=== PATIENT | female | born 1955 | race Caucasian/White ===

== ENCOUNTER → 2016-08-14 | Outpatient (CLI) | payer MEDICARE, MEDICAID ==
--- NOTE | 2016-08-15 13:18 | XCELERA REPORT ---
[address] [address] Lower Extremity Arterial Evaluation Name: GLO GARCIA Age: 60 yrs Gender: Female : 1955 Patient Status: Outpatient Patient Location: Study Date: 08/14/2016 01:01 PM Procedure: A color flow and duplex scan of the lower extremity arteries was performed bilaterally with velocity and waveform anaylsis. Reason For Study: PAIN, DECREASED PULSES Ordering Physician: LOGAN CORNEJO Performed By: Anthony Huynh Measurements and Calculations Right Left FLORAL ASSISTANT PSV 251.2 112.5 cm/sec Prox PFA PSV -178.2 -97.4 cm/sec Mid SFA PSV -58.5 cm/sec Dist SFA PSV -257.7 -135.8 cm/sec Dist Pop A PSV 259.3 55.9 cm/sec Prox SALMA PSV 31.0 cm/sec Dist SALMA PSV 65.4 cm/sec Dist INVESTOR PSV -125.7 -110.0 cm/sec Derik Pedis PSV -94.8 -14.3 cm/sec Right Side Arterial Evaluation Normal velocity and triphasic waveform , slight broadening noted in the Common Femoral artery. Biphasic in the Femoral, to the infrageniculate vessels. With well preserved velocity, mild spectral broadening. 20-49 % stenosis at the Femoral artery. Ankle Brachial index was not done due to frequent involuntary movements. Left Side Arterial Evaluation Normal velocity biphasic waveform noted in the Common Femoral artery . occluded Femoral artery with monophasic reconstitution to the infrageniculate vessels. With well preserved velocity, moderate spectral broadening in the Posterior Tibial artery. Occluded Anterior tibial with monophasic reconstitution, severely reduced velocity. Ankle Brachial index was not done due to involuntary movements.. Interpretation Summary Moderate hemodynamically significant lesions in the right lower extremity only, on duplex imaging, at rest. Severe hemodynamically significant lesions in the left lower extremity only, on duplex imaging, at rest. : LOGAN CORNEJO > Logan Cornejo
== END ==
LOC: SP 12:42
PROVIDERS: ATTEND Surgery
DX: M79.605 Pain in left leg (principal); M79.604 Pain in right leg; R09.89 Other specified symptoms and signs involving the circulatory and respiratory systems
CPT/HCPCS: 93925

== ENCOUNTER 2016-09-01 12:29 | Emergency (ER) | payer MEDICARE, MEDICAID ==
--- NOTE | 2016-09-01 13:40 | ER Document Report ---
HPI - HPI Patient complains to provider of: fell last night Onset: Yesterday - evening Quality of pain: Throbbing Pain Level: 3 Context: 61 yo female fell last night at family house, now hurts both lower legs, mostly dorsal right foot which is swollen and bruised. Associated Symptoms: None Exacerbated by: Walking Relieved by: Denies Similar symptoms previously: No Recently seen / treated by doctor: No - ROS ROS below otherwise negative: Yes Systems Reviewed and Negative: Yes All other systems reviewed and negative - CARDIOVASCULAR Cardiovascular: DENIES: Chest pain - REPRODUCTIVE Reproductive: DENIES: : - DERM Skin Color: Normal Past Medical History - General Information source: Patient - Social History Smoking Status: Current Every Day Smoker Frequency of alcohol use: None Drug Abuse: None Lives with: Family Family History: Reviewed & Not Pertinent Patient has suicidal ideation: No Patient has homicidal ideation: No - Past Medical History Cardiac Medical History: Reports: Hx Congestive Heart Failure, Hx Coronary Artery Disease - 3 stents, Hx Heart Attack - x1 , Hx Hypercholesterolemia, Hx Hypertension - on meds Pulmonary Medical History: Reports: Hx Pneumonia - 3 yrs ago Endocrine Medical History: Reports: 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 Renal/ Medical History: Denies: Hx Peritoneal Dialysis Musculoskeltal Medical History: Reports Hx Arthritis - shoulders Past Surgical History: Reports: Hx Section - x 1, Hx Orthopedic Surgery - left leg x 13, right leg x 1 - Immunizations Hx Diphtheria, Pertussis, Tetanus Vaccination: No Hx Pneumococcal Vaccination: 06/08/14 Vertical Provider Document - CONSTITUTIONAL Agree With Documented VS: Yes Exam Limitations: No Limitations General Appearance: Mild Distress Notes: has a walker at home to use - INFECTION CONTROL TRAVEL OUTSIDE OF THE [place] IN LAST 30 DAYS: No - HEENT HEENT: Normocephalic - NECK Neck: Supple - RESPIRATORY Respiratory: Breath Sounds Normal, No Respiratory Distress O2 Sat by Pulse Oximetry: 97 - CARDIOVASCULAR Cardiovascular: Regular Rate, Regular Rhythm - BACK Back: Normal Inspection - MUSCULOSKELETAL/EXTREMETIES Musculoskeletal/Extremeties: Non-Tender - bilateral tibia's, fibula's, Tender - dorsal right foot, bruised - NEURO Level of Consciousness: Awake, Alert Motor/Sensory: No Motor Deficit, No Sensory Deficit - DERM Integumentary: Warm, Dry Course - Re-evaluation Re-evalutation: 09/01/16 15:[address] Germain back the radiologist because there is a fracture in the proximal fourth right metatarsal where she is most tender and bruised. 09/01/16 15:39 dr germain states can't call through imaging if it is fx, but stated if clinically it is fx tx as fx which I was planning on do it. - Vital Signs Vital signs: Temp Pulse Resp BP Pulse Ox 99 F 78 18 146/62 H 97 09/01/16 12:44 09/01/16 12:44 09/01/16 12:44 09/01/16 12:44 09/01/16 12:44 Procedures - Immobilization Right Ankle Time completed: 15:56 Pre-Proc Neuro Vasc Exam: Normal Immobilizer type: Posterior ankle Performed by: PCT Post-Proc Neuro Vasc Exam: Normal Alignment checked and good: Yes Discharge - Discharge Clinical Impression: proximal rt fourth metatarsal fracture Right ankle sprain Qualifiers: Encounter type: initial encounter Involved ligament of ankle: unspecified ligament Qualified Code(s): S93.401A - Sprain of unspecified ligament of right ankle, initial encounter Sprain of left lower leg Qualifiers: Encounter type: initial encounter Qualified Code(s): S83.92XA - Sprain of unspecified site of left knee, initial encounter Condition: Good Disposition: HOME, SELF-CARE Instructions: Splint Precautions ([facility]), Sprained Ankle ([facility]), Foot Fracture ( [facility]) Additional Instructions: use your walker keep the splint dry call saturday for [id number] appt this week Prescriptions: Oxycodone HCl/Acetaminophen [Percocet 5-325 mg Tablet] 1 - 2 tab PO ASDIR PRN # 15 tablet PRN Reason: Referrals: JANKI JONES DO [ACTIVE STAFF] - 09/03/16 (call saturday for appt next week)
[2016-09-01] MEDS ORDERED: ACETAMINOPHEN 325 MG TABLET PO ONE (13:49)
[2016-09-01 15:58] VITALS: BP 169/68
== END 2016-09-01 15:58 | disposition home or self-care (01) ==
LOC: ER 12:29
PROC: 2W3SX1Z Immobilization of Right Foot using Splint (ICD-10-PCS; principal; 2016-09-01)
DX: S92.341A Displaced fracture of fourth metatarsal bone, right foot, initial encounter for closed fracture (principal); S83.92XA Sprain of unspecified site of left knee, initial encounter; S93.401A Sprain of unspecified ligament of right ankle, initial encounter; M79.671 Pain in right foot; M79.604 Pain in right leg; M79.605 Pain in left leg; F17.200 Nicotine dependence, unspecified, uncomplicated; X58.XXXA Exposure to other specified factors, initial encounter
CPT/HCPCS: 99283; 73590 ×2; 73630; 29515; A9270; L1902

== ENCOUNTER → 2017-06-25 | Outpatient (CLI) | payer MEDICARE, MEDICAID ==
--- NOTE | 2017-06-25 10:55 | WOMENS IMAGING REPORT ---
EXAM DESCRIPTION: 3D SCREENING MAMMO BILAT COMPLETED DATE/TIME: 06/25/2017 9:19 am REASON FOR STUDY: ROUTINE SCREENING;Z12.31 Z12.31 ENCNTR SCREEN MAMMOGRAM FOR MALIGNANT NEOPLASM OF SORIN COMPARISON: 06/27/2015. TECHNIQUE: Standard craniocaudal and mediolateral oblique views of each breast recorded using digita l acquisition and breast tomosynthesis. LIMITATIONS: None. FINDINGS: Findings present which are benign by mammographic criteria. No suspicious masses, calcifi cations or architectural distortion. Pertinent benign findings: Stable calcifications, most of which are vascular. Read with the assistance of CAD. .[facility] - R2 Cenova Version 1.3 .[facility] - R2 Cenova Version 1.3 .[facility] - R2 Cenova Version 2.4 .[facility] [place] [place] - R2 Cenova Version 2.4 .[facility] - R2 Undercover Cop Version 9.2 Benign mammographic findings may include one or more of the following: Smooth masses, popcorn/rim/co arse calcifications, asymmetries, post-procedure changes, and lesions with long-standing stability. IMPRESSION: BENIGN MAMMOGRAPHIC FINDINGS. BIRADS 2 BREAST DENSITY: b. There are scattered areas of fibroglandular density. BIRAD: 2 BENIGN FINDING(S) RECOMMENDATION: RECOMMENDATION: ROUTINE SCREENING COMMENT: The patient has been notified of the results by letter per MQSA requirements. Additional no tification policies are in place for contacting patient with suspicious or incomplete findings. Quality ID #[id number]: The [employer] recommends an annual screening mammogram for women aged 40 years or over. This facility utilizes a reminder system to ensure that all patients receive reminder letters, and/or direct phone calls for appointments. This includes reminders for routine scr eening mammograms, diagnostic mammograms, or other Breast Imaging Interventions when appropriate. Th is patient will be placed in the appropriate reminder system. The [employer] (ACR) has developed recommendations for screening MRI of the breast s in certain patient populations, to be used in conjunction with mammography. Breast MRI surveillanc e may be appropriate for women with more than 20% lifetime risk of developing breast cancer as deter mined by genetic testing, significant family history of the disease, or history of mantle radiation f or Hodgkins Disease. ACR Practice Guidelines 2008. DBT Technology DBT is a type of tomographic mammography. With conventional mammography, overlapping breast tissue ma y make lesions difficult to detect, even with good compression. DBT uses an x-ray tube that rotates a round the breast, taking images at different angles. These images are then combined to create thin sl ices of the breast that the radiologist can view as a 3D reconstruction. The [employer] unit can perform full-field digital mammograms (2D imaging); or DBT (3D imaging); or both, in a combination mode that quickly performs both the mammogram and the tomosynthesis scan while the breast is still compressed. PQRS 6045F: Fluoroscopic imaging is not utilized for breast tomosynthesis. TECHNICAL DOCUMENTATION: FINDING NUMBER: (1) ASSESSMENT: (1) JOB ID: [id number] [employer] [place]- All Rights Reserved
== END ==
LOC: WI 09:25
PROVIDERS: ATTEND Internal Medicine
DX: Z12.31 Encounter for screening mammogram for malignant neoplasm of breast (principal)
CPT/HCPCS: 77063; 77067

== ENCOUNTER → 2017-07-05 | Outpatient (CLI) | payer MEDICARE, MEDICAID ==
[2017-07-05 11:33] LABS: INTERNATIONAL RATION (INR) 1.07; PROTHROMBIN TIME 14.7 SEC (11.4-15.4)
[2017-07-05 11:34] LABS: PARTIAL THROMBOPLASTIN TIME 31.3 SEC (23.5-35.8)
== END ==
LOC: OD 09:17
PROVIDERS: ATTEND Physician Assistant
DX: Z51.81 Encounter for therapeutic drug level monitoring (principal); Z79.899 Other long term (current) drug therapy
CPT/HCPCS: 36415; 85610; 85730

== ENCOUNTER 2017-07-19 08:15 | Outpatient (CLI) | payer MEDICARE, MEDICAID ==
[2017-07-19 08:36] VITALS: BP 147/50
[2017-07-19] MEDS ORDERED: FERUMOXYTOL (ESRD) 510 MG/NS 100 ML IV ONE ×2 (09:00)
== END 2017-07-19 10:46 | disposition home or self-care (01) ==
LOC: II 08:15 → 5TH 08:33 → II 10:46
PROVIDERS: ATTEND Internal Medicine Nephrology
PROC: 3E033GC Introduction of Other Therapeutic Substance into Peripheral Vein, Percutaneous Approach (ICD-10-PCS; principal; 2017-07-19)
DX: E61.1 Iron deficiency (principal); N18.9 Chronic kidney disease, unspecified
CPT/HCPCS: 96365; Q0139

== ENCOUNTER 2017-07-26 07:45 | Outpatient (CLI) | payer MEDICARE, MEDICAID ==
[2017-07-26] MEDS ORDERED: FERUMOXYTOL 510 MG in NORMAL SALINE 100 ML IV PRN (07:59)
[2017-07-26 10:32] VITALS: BP 158/74
== END 2017-07-26 10:32 | disposition home or self-care (01) ==
LOC: II 07:45 → 5TH 08:01 → II 10:32
PROVIDERS: ATTEND Internal Medicine Nephrology
PROC: 3E033GC Introduction of Other Therapeutic Substance into Peripheral Vein, Percutaneous Approach (ICD-10-PCS; principal; 2017-07-26)
DX: D50.8 Other iron deficiency anemias (principal); N18.9 Chronic kidney disease, unspecified
CPT/HCPCS: 96365; Q0138

== ENCOUNTER → 2017-08-06 | Outpatient (CLI) | payer MEDICARE, MEDICAID ==
[2017-08-06 12:46] LABS: HEMATOCRIT 34.6 % (36.0-47.0); HEMOGLOBIN 11.1 g/dL (12.0-15.5); MEAN CORPUSCULAR HEMOGLOBIN 29.2 pg (27.0-33.4); MEAN CORPUSCULAR HGB CONC 32.1 g/dL (32.0-36.0); MEAN CORPUSCULAR VOLUME 91 fl (80-97); PLATELET COUNT 136 10^3/uL (150-450); RED BLOOD COUNT 3.81 10^6/uL (3.72-5.28); RED CELL DISTRIBUTION WIDTH 20.5 % (11.5-14.0)
[2017-08-06 13:07] LABS: ANION GAP 6 (5-19); BLOOD UREA NITROGEN 43 mg/dL (7-20); CALCIUM 9.4 mg/dL (8.4-10.2); CARBON DIOXIDE 26 mmol/L (22-30); CHLORIDE 106 mmol/L (98-107); GLUCOSE 76 mg/dL (75-110); POTASSIUM 5.3 mmol/L (3.6-5.0); SODIUM 137.9 mmol/L (137-145)
== END ==
LOC: OD 11:42
PROVIDERS: ATTEND Physician Assistant Medical
DX: N18.4 Chronic kidney disease, stage 4 (severe) (principal); I50.9 Heart failure, unspecified; E87.5 Hyperkalemia; E11.9 Type 2 diabetes mellitus without complications
CPT/HCPCS: 36415; 80048; 85027

== ENCOUNTER → 2017-08-12 | Outpatient (CLI) | payer MEDICARE, MEDICAID ==
--- NOTE | 2017-08-12 09:46 | RADIOLOGY REPORT (SQ) ---
EXAM DESCRIPTION: CHEST PA/LATERAL COMPLETED DATE/TIME: 08/12/2017 9:37 am REASON FOR STUDY: COUGH COMPARISON: CT chest 06/01/2014 Chest films 06/03/2014, 01/21/2015 EXAM PARAMETERS: NUMBER OF VIEWS: two views TECHNIQUE: Digital Frontal and Lateral radiographic views of the chest acquired. RADIATION DOSE: NA LIMITATIONS: none FINDINGS: LUNGS AND PLEURA: No opacities, masses or pneumothorax. No pleural effusion. MEDIASTINUM AND HILAR STRUCTURES: No masses or contour abnormalities. HEART AND VASCULAR STRUCTURES: Moderate cardiomegaly BONES: No acute findings. HARDWARE: None in the chest. OTHER: No other significant finding. IMPRESSION: Moderate cardiomegaly. No acute findings TECHNICAL DOCUMENTATION: JOB ID: [id number] [employer]- All Rights Reserved Reading location - IP/workstation name: [email or web address]
== END ==
LOC: OD 09:21
PROVIDERS: ATTEND Internal Medicine
DX: R05 Cough (principal); I51.7 Cardiomegaly
CPT/HCPCS: 71046

== ENCOUNTER → 2017-08-27 | Outpatient (CLI) | payer MEDICARE, MEDICAID ==
[2017-08-27 14:04] LABS: HEMATOCRIT 34.9 % (36.0-47.0); HEMOGLOBIN 11.4 g/dL (12.0-15.5); MEAN CORPUSCULAR HEMOGLOBIN 28.8 pg (27.0-33.4); MEAN CORPUSCULAR HGB CONC 32.7 g/dL (32.0-36.0); MEAN CORPUSCULAR VOLUME 88 fl (80-97); PLATELET COUNT 129 10^3/uL (150-450); RED BLOOD COUNT 3.96 10^6/uL (3.72-5.28); RED CELL DISTRIBUTION WIDTH 20.7 % (11.5-14.0); WHITE BLOOD COUNT 5.9 10^3/uL (4.0-10.5)
[2017-08-27 14:18] LABS: ANION GAP 5 (5-19); BLOOD UREA NITROGEN 55 mg/dL (7-20); CALCIUM 9.1 mg/dL (8.4-10.2); CARBON DIOXIDE 31 mmol/L (22-30); CHLORIDE 104 mmol/L (98-107); GLUCOSE 160 mg/dL (75-110); IRON(TIBC) 68.9 ug/dL (37-170); POTASSIUM 4.6 mmol/L (3.6-5.0); SODIUM 140.2 mmol/L (137-145)
== END ==
LOC: OD 13:02
PROVIDERS: ATTEND Internal Medicine Nephrology
DX: D64.9 Anemia, unspecified (principal); N18.4 Chronic kidney disease, stage 4 (severe)
CPT/HCPCS: 36415; 80048; 82728; 83540; 83550; 85027

== ENCOUNTER → 2017-11-25 | Outpatient (CLI) | payer MEDICARE, MEDICAID ==
[2017-11-25 15:07] LABS: HEMATOCRIT 29.3 % (36.0-47.0); HEMOGLOBIN 9.9 g/dL (12.0-15.5); MEAN CORPUSCULAR HEMOGLOBIN 33.2 pg (27.0-33.4); MEAN CORPUSCULAR HGB CONC 33.9 g/dL (32.0-36.0); MEAN CORPUSCULAR VOLUME 98 fl (80-97); PLATELET COUNT 157 10^3/uL (150-450); RED BLOOD COUNT 2.99 10^6/uL (3.72-5.28); RED CELL DISTRIBUTION WIDTH 15.8 % (11.5-14.0); WHITE BLOOD COUNT 3.9 10^3/uL (4.0-10.5)
[2017-11-25 15:29] LABS: IRON(TIBC) 48.7 ug/dL (37-170)
== END ==
LOC: OD 14:29
PROVIDERS: ATTEND Internal Medicine Nephrology
DX: N18.4 Chronic kidney disease, stage 4 (severe) (principal); D64.9 Anemia, unspecified
CPT/HCPCS: 36415; 82728; 83540; 83550; 85027

== ENCOUNTER → 2017-12-19 | Outpatient (CLI) | payer MEDICARE, MEDICAID ==
--- NOTE | 2017-12-19 14:49 | RADIOLOGY REPORT (SQ) ---
EXAM DESCRIPTION: KNEE RIGHT 4 VIEWS COMPLETED DATE/TIME: 12/19/2017 2:39 pm REASON FOR STUDY: PAIN IN RT KNEE COMPARISON: None. NUMBER OF VIEWS: Four views. TECHNIQUE: AP, lateral, and both oblique radiographic images acquired of the right knee. LIMITATIONS: None. FINDINGS: MINERALIZATION: OSTEOPENIC BONES: No acute fracture or dislocation. No worrisome bone lesions. JOINT: No definite suprapatellar knee joint effusion. Very mild medial compartment joint space narro wing without bulky bony spurring SOFT TISSUES: Heavy atherosclerotic popliteal artery calcification OTHER: No other significant finding. IMPRESSION: No acute findings. TECHNICAL DOCUMENTATION: JOB ID: [id number] [employer]- All Rights Reserved Reading location - IP/workstation name: [email or web address]
== END ==
LOC: OD 14:19
PROVIDERS: ATTEND Physician Assistant
DX: M25.561 Pain in right knee (principal)

== ENCOUNTER → 2018-02-12 | Outpatient (CLI) | payer MEDICARE, MEDICAID ==
[2018-02-12 12:41] LABS: HEMATOCRIT 31.3 % (36.0-47.0); HEMOGLOBIN 10.5 g/dL (12.0-15.5); MEAN CORPUSCULAR HEMOGLOBIN 31.4 pg (27.0-33.4); MEAN CORPUSCULAR HGB CONC 33.7 g/dL (32.0-36.0); MEAN CORPUSCULAR VOLUME 93 fl (80-97); PLATELET COUNT 215 10^3/uL (150-450); RED BLOOD COUNT 3.36 10^6/uL (3.72-5.28); RED CELL DISTRIBUTION WIDTH 15.4 % (11.5-14.0); WHITE BLOOD COUNT 5.3 10^3/uL (4.0-10.5)
[2018-02-12 12:54] LABS: IRON(TIBC) 11.3 ug/dL (37-170)
== END ==
LOC: OD 11:31
PROVIDERS: ATTEND Physician Assistant Medical
DX: N18.4 Chronic kidney disease, stage 4 (severe) (principal); D64.9 Anemia, unspecified
CPT/HCPCS: 36415; 82728; 83540; 83550; 85027

== ENCOUNTER → 2018-02-18 | Outpatient (CLI) | payer MEDICARE, MEDICAID ==
--- NOTE | 2018-02-18 11:53 | RADIOLOGY REPORT (SQ) ---
EXAM DESCRIPTION: CHEST PA/LATERAL COMPLETED DATE/TIME: 02/18/2018 10:29 am REASON FOR STUDY: COUGH COMPARISON: 08/12/2017 TECHNIQUE: Frontal and lateral radiographic views of the chest acquired. NUMBER OF VIEWS: Two view. LIMITATIONS: None. FINDINGS: LUNGS AND PLEURA: Indistinct vessels, interstitial changes. No significant pleural effusi on or pneumonia. Trace fluid in the fissures. MEDIASTINUM AND HILAR STRUCTURES: No masses or contour abnormalities. HEART AND VASCULAR STRUCTURES: Cardiac enlargement. BONES: No acute findings. HARDWARE: None in the chest. OTHER: No other significant finding. IMPRESSION: Suspect mild CHF. TECHNICAL DOCUMENTATION: JOB ID: [id number] [employer]- All Rights Reserved Reading location - IP/workstation name: [email or web address]
== END ==
LOC: OD 10:16
PROVIDERS: ATTEND Internal Medicine
DX: R05 Cough (principal)
CPT/HCPCS: 71046

== ENCOUNTER 2018-02-20 08:21 | Outpatient (CLI) | payer MEDICARE, MEDICAID ==
[~2018-02-20 08:21] MED LIST: FERRIC CARBOXYMALTOSE 750 MG in NORMAL SALINE 100 ML IV PRN
[2018-02-20 08:51] VITALS: BP 156/72
== END 2018-02-20 09:51 | disposition home or self-care (01) ==
LOC: II 08:21 → 5TH 08:22 → II 09:51
PROVIDERS: ATTEND Internal Medicine Nephrology
PROC: 3E033GC Introduction of Other Therapeutic Substance into Peripheral Vein, Percutaneous Approach (ICD-10-PCS; principal; 2018-02-20)
DX: D50.8 Other iron deficiency anemias (principal)
CPT/HCPCS: 96365; J1439

== ENCOUNTER 2018-02-27 08:30 | Outpatient (CLI) | payer MEDICARE, MEDICAID ==
[2018-02-27 09:14] VITALS: BP 185/70
== END 2018-02-27 10:16 | disposition home or self-care (01) ==
LOC: II 08:30 → 5TH 08:31 → II 10:16
PROVIDERS: ATTEND Internal Medicine Nephrology
PROC: 3E033GC Introduction of Other Therapeutic Substance into Peripheral Vein, Percutaneous Approach (ICD-10-PCS; principal; 2018-02-27)
DX: D50.8 Other iron deficiency anemias (principal)
CPT/HCPCS: 96367; J1439; 96365

== ENCOUNTER → 2018-03-11 | Outpatient (CLI) | payer MEDICARE, MEDICAID ==
[2018-03-11 14:25] LABS: HEMATOCRIT 35.1 % (36.0-47.0); HEMOGLOBIN 11.7 g/dL (12.0-15.5); MEAN CORPUSCULAR HEMOGLOBIN 31.2 pg (27.0-33.4); MEAN CORPUSCULAR HGB CONC 33.4 g/dL (32.0-36.0); MEAN CORPUSCULAR VOLUME 93 fl (80-97); PLATELET COUNT 182 10^3/uL (150-450); RED BLOOD COUNT 3.75 10^6/uL (3.72-5.28); RED CELL DISTRIBUTION WIDTH 16.5 % (11.5-14.0); WHITE BLOOD COUNT 4.8 10^3/uL (4.0-10.5)
[2018-03-11 14:27] LABS: APPEARANCE,URINE SLIGHTLY-CLOUDY; BILIRUBIN,URINE NEGATIVE (NEGATIVE); COLOR,URINE YELLOW; GLUCOSE, URINE 150 mg/dL (NEGATIVE); KETONES,URINE NEGATIVE (NEGATIVE); LEUKOCYTE ESTERASE,URINE TRACE (NEGATIVE); NITRITE,URINE NEGATIVE (NEGATIVE); PROTEIN,URINE 100 mg/dL (NEGATIVE); URINE SPECIFIC GRAVITY 1.013; UROBILINOGEN,URINE NEGATIVE mg/dL (<2.0)
[2018-03-11 14:49] LABS: ANION GAP 8 (5-19); BLOOD UREA NITROGEN 57 mg/dL (7-20); CALCIUM 9.6 mg/dL (8.4-10.2); CARBON DIOXIDE 33 mmol/L (22-30); CHLORIDE 100 mmol/L (98-107); GLUCOSE 91 mg/dL (75-110); POTASSIUM 4.1 mmol/L (3.6-5.0); SODIUM 141.3 mmol/L (137-145)
== END ==
LOC: OD 13:08
PROVIDERS: ATTEND Physician Assistant Medical
DX: I12.9 Hypertensive chronic kidney disease with stage 1 through stage 4 chronic kidney disease, or unspecified chronic kidney disease (principal); E11.22 Type 2 diabetes mellitus with diabetic chronic kidney disease; N18.4 Chronic kidney disease, stage 4 (severe); R60.9 Edema, unspecified; D64.9 Anemia, unspecified
CPT/HCPCS: 36415; 80048; 81001; 85027

== ENCOUNTER 2018-05-01 15:00 | Emergency (ER) | payer MEDICARE, MEDICAID ==
--- NOTE | 2018-05-01 15:37 | ER Document Report ---
ED Medical Screen (RME) - General Chief Complaint: Flank Pain Stated Complaint: FLANK PAIN Time Seen by Provider: 05/01/18 15:32 Notes: 60-year-old female patient stage IV renal disease. She complains of left flank pain. She had this pain 3 weeks ago and was treated with pain medication. Pain returned 2 days ago[address] She states Dr. Hussein instructed her to come to the emergency room to have a workup done. I have greeted and performed a rapid initial assessment of this patient. A comprehensive ED assessment and evaluation of the patient, analysis of test results and completion of the medical decision making process will be conducted by additional ED providers. TRAVEL OUTSIDE OF THE [place] IN LAST 30 DAYS: No - Related Data Allergies/Adverse Reactions: Penicillins Allergy (Severe, Verified 03/09/17 23:58) Childhood reaction vancomycin [Vancomycin] Allergy (Severe, Verified 03/09/17 23:58) Damaged her kidneys Past Medical History - Past Medical History Cardiac Medical History: Reports: Hx Congestive Heart Failure, Hx Coronary Artery Disease - 3 stents, Hx Heart Attack - x1 , Hx Hypercholesterolemia, Hx Hypertension - on meds Pulmonary Medical History: Reports: Hx Pneumonia - 3 yrs ago Denies: Hx Asthma, Hx Bronchitis, Hx COPD Neurological Medical History: Denies: Hx Cerebrovascular Accident, Hx Seizures Endocrine Medical History: Reports: 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 Renal/ Medical History: Denies: Hx Peritoneal Dialysis Musculoskeltal Medical History: Reports Hx Arthritis - shoulders Psychiatric Medical History: Denies: Hx Depression Past Surgical History: Reports: Hx Section - x 1, Hx Orthopedic Surgery - left leg x 13, right leg x 1 - Immunizations Hx Diphtheria, Pertussis, Tetanus Vaccination: No Physical Exam - Vital signs Vitals: Temp Pulse Resp BP Pulse Ox 98.5 F 72 18 175/72 H 99 05/01/18 15:06 05/01/18 15:06 05/01/18 15:06 05/01/18 15:06 05/01/18 15:06 Course - Vital Signs Vital signs: Temp Pulse Resp BP Pulse Ox 98.5 F 72 18 175/72 H 99 05/01/18 15:06 05/01/18 15:06 05/01/18 15:06 05/01/18 15:06 05/01/18 15:06 Doctor's Discharge - Discharge Referrals: Yuliana HUSSEIN MD [Primary Care Provider] - Follow up as needed
[2018-05-01 16:09] LABS: ABSOLUTE BASOPHILS # (AUTO) 0.1 10^3/uL (0.0-0.2); ABSOLUTE EOSINOPHILS # (AUTO) 0.1 10^3/uL (0.0-0.6); ABSOLUTE LYMPHOCYTES (AUTO) 0.6 10^3/uL (0.5-4.7); ABSOLUTE MONOCYTES (AUTO) 0.3 10^3/uL (0.1-1.4); ABSOLUTE NEUT (AUTO) 2.1 10^3/uL (1.7-8.2); BASOPHILS % (AUTO) 2.4 % (0-2); EOSINOPHILS % (AUTO) 4.5 % (0-6); HEMATOCRIT 36.9 % (36.0-47.0); LYMPHOCYTES % (AUTO) 17.7 % (13-45); MEAN CORPUSCULAR HEMOGLOBIN 32.1 pg (27.0-33.4); MEAN CORPUSCULAR HGB CONC 32.4 g/dL (32.0-36.0); MEAN CORPUSCULAR VOLUME 99 fl (80-97); PLATELET COUNT 128 10^3/uL (150-450); RED BLOOD COUNT 3.73 10^6/uL (3.72-5.28); RED CELL DISTRIBUTION WIDTH 16.7 % (11.5-14.0); SEGMENTED NEUTROPHILS % (AUTO) 66.4 % (42-78); TOTAL CELLS COUNTED % (AUTO) 100 %; WHITE BLOOD COUNT 3.2 10^3/uL (4.0-10.5)
[2018-05-01 16:16] LABS: APPEARANCE,URINE SLIGHTLY-CLOUDY; BILIRUBIN,URINE NEGATIVE (NEGATIVE); COLOR,URINE YELLOW; GLUCOSE, URINE >=500 mg/dL (NEGATIVE); KETONES,URINE NEGATIVE (NEGATIVE); LEUKOCYTE ESTERASE,URINE TRACE (NEGATIVE); NITRITE,URINE NEGATIVE (NEGATIVE); PROTEIN,URINE >=500 mg/dL (NEGATIVE); URINE SPECIFIC GRAVITY 1.012; UROBILINOGEN,URINE NEGATIVE mg/dL (<2.0)
--- NOTE | 2018-05-01 16:29 | RADIOLOGY REPORT (SQ) ---
EXAM DESCRIPTION: CT LTD RENAL STONE PROTOCOL ON COMPLETED DATE/TIME: 05/01/2018 4:09 pm REASON FOR STUDY: L flank pain COMPARISON: None. TECHNIQUE: CT scan of the abdomen and pelvis performed without intravenous or oral contrast. Images reviewed with lung, soft tissue, and bone windows. Reconstructed coronal and sagittal MPR images revi ewed. All images stored on PACS. All CT scanners at this facility use dose modulation, iterative reconstruction, and/or weight based d osing when appropriate to reduce radiation dose to as low as reasonably achievable (ALARA). [facility]: Dose Right [facility]: CareDose [facility]: Dose Right [facility]: Teradose 4D [facility]: Lendinero RADIATION DOSE: CT Rad equipment meets quality standard of care and radiation dose reduction techniq ues were employed. CTDIvol: 7.9 mGy. DLP: 394 mGy-cm.mGy. LIMITATIONS: None. FINDINGS: LOWER CHEST: No significant findings. No nodules or infiltrates. NON-CONTRASTED LIVER, SPLEEN, ADRENALS: Evaluation limited by lack of IV contrast. No identified sign ificant masses. PANCREAS: No masses. No peripancreatic inflammatory changes. GALLBLADDER: Surgically absent. RIGHT KIDNEY AND URETER: No suspicious masses. Assessment limited by lack of IV contrast. No signif icant calcifications. No hydronephrosis or hydroureter. LEFT KIDNEY AND URETER: 1 cm hyperdense cortical lesion arising from the upper pole. Assessment limit ed by lack of IV contrast. No significant calcifications. No hydronephrosis or hydroureter. AORTA AND RETROPERITONEUM: Extensive vascular calcifications. No aneurysm. No retroperitoneal masses or adenopathy. BOWEL AND PERITONEAL CAVITY: No obvious masses or inflammatory changes. No free fluid. APPENDIX: Normal. PELVIS, BLADDER, AND ABDOMINAL WALL:No abnormal masses. No free fluid. Bladder normal. BONES: No significant findings. OTHER: No other significant finding. IMPRESSION: PROBABLE HEMORRHAGIC CYST IN THE UPPER POLE OF THE LEFT KIDNEY. NO OTHER SIGNIFICANT OR ACUTE PROCESS IN THE ABDOMEN OR PELVIS. EXTENSIVE VASCULAR CALCIFICATIONS. COMMENT: Quality ID # [id number]: Final reports with documentation of one or more dose reduction techniques (e.g., Automated exposure control, adjustment of the mA and/or kV according to patient size, use of iterative reconstruction technique) TECHNICAL DOCUMENTATION: JOB ID: [id number] [employer]- All Rights Reserved Reading location - IP/workstation name: [email or web address]
[2018-05-01 16:30] LABS: ALANINE AMINOTRANSFERASE 25 U/L (9-52); ALBUMIN 3.6 g/dL (3.5-5.0); ALKALINE PHOSPHATASE 114 U/L (38-126); ANION GAP 9 (5-19); ASPARTATE AMINO TRANSFERASE 32 U/L (14-36); BILIRUBIN,DIRECT 0.6 mg/dL (0.0-0.4); BILIRUBIN,TOTAL 0.7 mg/dL (0.2-1.3); BLOOD UREA NITROGEN 64 mg/dL (7-20); CALCIUM 9.5 mg/dL (8.4-10.2); CARBON DIOXIDE 27 mmol/L (22-30); CHLORIDE 101 mmol/L (98-107); GLUCOSE 200 mg/dL (75-110); POTASSIUM 5.1 mmol/L (3.6-5.0); SODIUM 137.3 mmol/L (137-145); TOTAL PROTEIN 7.2 g/dL (6.3-8.2)
--- NOTE | 2018-05-01 16:37 | ER Document Report ---
ED General - General Chief Complaint: Flank Pain Stated Complaint: FLANK PAIN Time Seen by Provider: 05/01/18 15:32 Mode of Arrival: Ambulatory Information source: Patient Notes: 6-year-old female with stage IV renal disease presents emergency department complaints of left flank pain. Patient states that she has had this pain intermittently over the last 3 weeks. Patient states that 3 weeks ago she was given a prescription for pain medication and the pain resolved. She states that her return 2 days ago. She describes the pain as an aching sensation in the left flank. She states that she cannot get comfortable. It is constant. No radiation. No exacerbating factors. Patient states that the Percocet prescribed by her pain management for her chronic back and leg pain helps with t he pain. Patient denies any nausea, vomiting, diarrhea, constipation, dysuria, hematuria. She denies a history of kidney stones. Patient states that she is not a dialysis patient yet. TRAVEL OUTSIDE OF THE [place] IN LAST 30 DAYS: No - Related Data Allergies/Adverse Reactions: Penicillins Allergy (Severe, Verified 03/09/17 23:58) Childhood reaction vancomycin [Vancomycin] Allergy (Severe, Verified 03/09/17 23:58) Damaged her kidneys Past Medical History - Social History Smoking Status: Unknown if Ever Smoked Family History: Reviewed & Not Pertinent Patient has suicidal ideation: No Patient has homicidal ideation: No - Past Medical History Cardiac Medical History: Reports: Hx Congestive Heart Failure, Hx Coronary Artery Disease - 3 stents, Hx Heart Attack - x1 , Hx Hypercholesterolemia, Hx Hypertension - on meds Pulmonary Medical History: Reports: Hx Pneumonia - 3 yrs ago Denies: Hx Asthma, Hx Bronchitis, Hx COPD Neurological Medical History: Denies: Hx Cerebrovascular Accident, Hx Seizures Endocrine Medical History: Reports: 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 Renal/ Medical History: Denies: Hx Peritoneal Dialysis Musculoskeletal Medical History: Reports Hx Arthritis - shoulders Psychiatric Medical History: Denies: Hx Depression Past Surgical History: Reports: Hx Section - x 1, Hx Orthopedic Surgery - left leg x 13, right leg x 1 - Immunizations Hx Diphtheria, Pertussis, Tetanus Vaccination: No Hx Pneumococcal Vaccination: 06/08/14 Physical Exam - Vital signs Vitals: Temp Pulse Resp BP Pulse Ox 98.5 F 72 18 175/72 H 99 05/01/18 15:06 05/01/18 15:06 05/01/18 15:06 05/01/18 15:06 05/01/18 15:06 Course - Re-evaluation Re-evalutation: 05/01/18 17:49 EKG: Ventricular rate 68, AR interval 192, castration 126, QTc 469, sinus rhythm, left ventricular hypertrophy, no ST segment elevation. 05/01/18 18:[address] Hussein, nephrology. He feels that the hemorrhagic cyst is what is causing patient's discomfort. He states that he will see her in follow-up. He said to call the office to make an appointment for next week. He went over the labs. He recommends collectively for the hyperkalemia. Patient's creatinine is stable. I discussed the plan of care with the patient. She is comfortable with discharge home and following up with Dr. Hussein next week. Patient sees pain management. I will not be writing her any additional narcotic prescriptions. Patient states that she is currently on Percocet. Patient does state that this helps with her pain. Patient instructed to continue taking medication as directed and to return for any worsening symptoms. 05/01/18 18:51 - Vital Signs Vital signs: Temp Pulse Resp BP Pulse Ox 98.5 F 72 18 175/72 H 99 05/01/18 15:06 05/01/18 15:06 05/01/18 15:06 05/01/18 15:06 05/01/18 15:06 - Laboratory Result Diagrams: 05/01/18 15:58 05/01/18 15:58 Laboratory results interpreted by me: 05/01/18 05/01/18 05/01/18 15:50 15:58 15:58 WBC 3.2 L MCV 99 H RDW 16.7 H Plt Count 128 L Basophils % 2.4 H PT APTT Potassium 5.1 H BUN 64 H Creatinine 3.57 H Est GFR ( Amer) 16 L Est GFR (Non-Af Amer) 13 L Glucose 200 H Direct Bilirubin 0.6 H Urine Protein >=500 H Urine Glucose (UA) >=500 H Ur Leukocyte Esterase TRACE H 05/01/18 18:14 WBC MCV RDW Plt Count Basophils % PT 16.1 H APTT 37.7 H Potassium BUN Creatinine Est GFR ( Amer) Est GFR (Non-Af Amer) Glucose Direct Bilirubin Urine Protein Urine Glucose (UA) Ur Leukocyte Esterase Discharge - Discharge Clinical Impression: Cyst of left kidney, Hyperkalemia Chronic renal failure Qualifiers: Chronic kidney disease stage: unspecified stage Qualified Code(s): N18.9 - Chronic kidney disease, unspecified Condition: Stable Instructions: Kidney Failure ([facility]) Referrals: Yuliana HUSSEIN MD [Primary Care Provider] - Follow up as needed
[2018-05-01] MEDS ORDERED: SODIUM POLYSTYRENE SULFONATE 15 GM/60 ML PO ONE (16:57)
[2018-05-01] MEDS ORDERED: MORPHINE SULFATE 10 MG/ML INJ IV ONE (16:57)
--- NOTE | 2018-05-01 18:14 | EKG REPORT ---
SEVERITY:- ABNORMAL ECG - SINUS RHYTHM NONSPECIFIC IVCD WITH LAD LEFT VENTRICULAR HYPERTROPHY PROBABLE INFERIOR INFARCT, AGE INDETERMINATE : Confirmed by: Dandy Gomez MD 01-May-2018 18:13:23
[2018-05-01 18:32] LABS: INTERNATIONAL RATION (INR) 1.23; PROTHROMBIN TIME 16.1 SEC (11.4-15.4)
[2018-05-01 18:33] LABS: PARTIAL THROMBOPLASTIN TIME 37.7 SEC (23.5-35.8)
[2018-05-01 20:53] VITALS: BP 167/71
== END 2018-05-01 21:09 | disposition home or self-care (01) ==
LOC: ER 15:00
DX: N28.1 Cyst of kidney, acquired (principal); N18.9 Chronic kidney disease, unspecified; R10.9 Unspecified abdominal pain; E11.22 Type 2 diabetes mellitus with diabetic chronic kidney disease; I13.0 Hypertensive heart and chronic kidney disease with heart failure and stage 1 through stage 4 chronic kidney disease, or unspecified chronic kidney disease; Z79.4 Long term (current) use of insulin; I25.10 Atherosclerotic heart disease of native coronary artery without angina pectoris; I50.9 Heart failure, unspecified; I25.2 Old myocardial infarction; E78.00 Pure hypercholesterolemia, unspecified; E87.5 Hyperkalemia; Z88.0 Allergy status to penicillin; Z88.3 Allergy status to other anti-infective agents
CPT/HCPCS: 93005; 99285; 96374; 36415; 85025; 85610; 85730; 80053; 81001; 76380; 93010; J2270

== ENCOUNTER → 2018-07-10 | Outpatient (CLI) | payer MEDICARE, MEDICAID ==
--- NOTE | 2018-07-11 11:58 | WOMENS IMAGING REPORT ---
EXAM DESCRIPTION: 3D SCREENING MAMMO BILAT COMPLETED DATE/TIME: 07/10/2018 11:18 am REASON FOR STUDY: ROUTINE 3D BILATERAL SCREENING,Z12.31 Z12.31 ENCNTR SCREEN MAMMOGRAM FOR MALIGNAN T NEOPLASM OF SORIN COMPARISON: 2015, 2017 TECHNIQUE: Standard craniocaudal and mediolateral oblique views of each breast recorded using digita l acquisition and breast tomosynthesis. LIMITATIONS: None. FINDINGS: No masses, calcifications or architectural distortion. No areas of suspicion. Read with the assistance of CAD. .[facility] - R2 Cenova Version 1.3 .[facility] - R2 Cenova Version 2.1 .[facility] - R2 Cenova Version 2.4 .[facility] - R2 Cenova Version 2.4 .[facility] - R2 [employer] Version 9.2 IMPRESSION: NORMAL MAMMOGRAM. BIRADS 1. BREAST DENSITY: b. There are scattered areas of fibroglandular density. BIRAD: 1 NEGATIVE RECOMMENDATION: ROUTINE SCREENING COMMENT: The patient has been notified of the results by letter per SA requirements. Additional no tification policies are in place for contacting patient with suspicious or incomplete findings. Quality ID #[id number]: The [employer] recommends an annual screening mammogram for women aged 40 years or over. This facility utilizes a reminder system to ensure that all patients receive reminder letters, and/or direct phone calls for appointments. This includes reminders for routine scr eening mammograms, diagnostic mammograms, or other Breast Imaging Interventions when appropriate. Th is patient will be placed in the appropriate reminder system. The [employer] (ACR) has developed recommendations for screening MRI of the breast s in certain patient populations, to be used in conjunction with mammography. Breast MRI surveillanc e may be appropriate for women with more than 20% lifetime risk of developing breast cancer as deter mined by genetic testing, significant family history of the disease, or history of mantle radiation f or Hodgkins Disease. ACR Practice Guidelines 2008. DBT Technology DBT is a type of tomographic mammography. With conventional mammography, overlapping breast tissue ma y make lesions difficult to detect, even with good compression. DBT uses an x-ray tube that rotates a round the breast, taking images at different angles. These images are then combined to create thin sl ices of the breast that the radiologist can view as a 3D reconstruction. The Intrusic unit can perform full-field digital mammograms (2D imaging); or DBT (3D imaging); or both, in a combination mode that quickly performs both the mammogram and the tomosynthesis scan while the breast is still compressed. PQRS 6045F: Fluoroscopic imaging is not utilized for breast tomosynthesis. TECHNICAL DOCUMENTATION: FINDING NUMBER: (1) ASSESSMENT: (1) JOB ID: [id number] [employer]- All Rights Reserved Reading location - IP/workstation name: [email or web address]
== END ==
LOC: WI 10:49
PROVIDERS: ATTEND Internal Medicine
DX: Z12.31 Encounter for screening mammogram for malignant neoplasm of breast (principal)
CPT/HCPCS: 77063; 77067

== ENCOUNTER → 2018-07-21 | Outpatient (CLI) | payer MEDICARE, MEDICAID ==
[2018-07-21 16:55] LABS: HEMATOCRIT 32.2 % (36.0-47.0); HEMOGLOBIN 10.9 g/dL (12.0-15.5); MEAN CORPUSCULAR HEMOGLOBIN 32.9 pg (27.0-33.4); MEAN CORPUSCULAR HGB CONC 33.8 g/dL (32.0-36.0); MEAN CORPUSCULAR VOLUME 97 fl (80-97); PLATELET COUNT 159 10^3/uL (150-450); RED BLOOD COUNT 3.32 10^6/uL (3.72-5.28)
[2018-07-21 16:59] LABS: APPEARANCE,URINE SLIGHTLY-CLOUDY; BILIRUBIN,URINE NEGATIVE (NEGATIVE); COLOR,URINE YELLOW; GLUCOSE, URINE >=500 mg/dL (NEGATIVE); KETONES,URINE NEGATIVE (NEGATIVE); LEUKOCYTE ESTERASE,URINE NEGATIVE (NEGATIVE); NITRITE,URINE NEGATIVE (NEGATIVE); PROTEIN,URINE 100 mg/dL (NEGATIVE); URINE SPECIFIC GRAVITY 1.012; UROBILINOGEN,URINE NEGATIVE mg/dL (<2.0)
[2018-07-21 17:08] LABS: ANION GAP 11 (5-19); BLOOD UREA NITROGEN 60 mg/dL (7-20); CALCIUM 10.3 mg/dL (8.4-10.2); CARBON DIOXIDE 23 mmol/L (22-30); CHLORIDE 103 mmol/L (98-107); GLUCOSE 211 mg/dL (75-110); POTASSIUM 4.7 mmol/L (3.6-5.0); SODIUM 136.6 mmol/L (137-145)
== END ==
LOC: OD 16:17
PROVIDERS: ATTEND Physician Assistant Medical
DX: N18.4 Chronic kidney disease, stage 4 (severe) (principal)
CPT/HCPCS: 36415; 80048; 81001; 85027

== ENCOUNTER → 2018-08-07 | Day surgery (SDC) | payer MEDICARE, MEDICAID ==
[~2018-08-07] MED LIST changes: +BUPIVACAINE HCL 0.5 % INJ/PF 30 ML SDV ONE; -FERRIC CARBOXYMALTOSE 750 MG in NORMAL SALINE 100 ML IV PRN; +LIDOCAINE 1% INJ-PF (10 MG/ML) 30 ML SDV ONE
--- NOTE | 2018-08-07 10:20 | Operative Report ---
PREOPERATIVE DIAGNOSIS: Spondylolisis without myopathy or radiculopathy M47.818// Lumbar Sacral Spondylolisis without myopathy or radiculopathy M47.817 POSTOPERATIVE DIAGNOSIS:Spondylolisis without myopathy or radiculopathy M47.818// Lumbar Sacral Spondylolisis without myopathy or radiculopathy M47.817 PROCEDURE: 1. Radiofrequency Ablation of bilateral L5 dorsal Ramus 2. Sacroiliac Joint Ablation - Lateral Branches of bilateral S1, S2, S3 DATE OF PROCEDURE: August 05, 2018 ANESTHESIA: Local COMPLICATIONS: None CONSENT: A full description of the procedure was provided including benefits as well as possible complications. All questions were answered and informed consent was given and signed. ASA guidelines for fasting were verified prior to sed ation. PROCEDURE IN DETAIL The patient was brought into the fluoroscopy suite and carefully assisted into the prone position on the fluoroscopy table and allowed to adjust to a position of comfort. A grounding pad was placed on the right thigh. The low back and buttocks were widely prepped with a chloraprep solution, allowed to air dry and draped in standard sterile surgical fashion. Local anesthesia was provided by 12 mL of 1 % lidocaine delivered with a 25 g needle. PROCEDURE #1: Radiofrequency Ablation of Dorsal Ramus of bilateral L5. A 17g 100mm radiofrequency introducer needle was placed to the planned anatomic target, guided with intermittent fluoroscopy with a perpendicular approach, to terminally place at the bilateral sacral ala. The stylets were removed and the radiofrequency probes with a 4mm active tip were then inserted. Needle tip position of the probes were verified in the AP, oblique, and lateral views. At each site, the medial branch nerve was stimulated at 2Hz to a maximum of 1- 2volts determined to finalize safe needle and electrode placement. The patient was awake and responsive during this portion of the procedure. Each target was anesthetized with 2mL of 2 % Sensorcaine anesthesia for lesioning and then each target was lesioned at 80 degrees Celsius for 2 minutes and 30 seconds. Tissue impedences were noted to be between 250 and 500 Ohms. PROCEDURE #2: Radiofrequency Ablation of bilateral S1, S2, S3 Lateral Branches Using the AP fluoroscopic view for visualization of the lateral PSFA as defined by the pre-placed 27-gauge Quincke needles, appropriate skin starting positions were defined. Using the PSFA as a "clock-face", the positions were: S1; bilateral = 1 and 5 oclock S2; bilateral = 1 and 5 oclock S3; bilateral = 3 oclock Using fluoroscopic guidance, a 17g introducer needle was inserted sequentially onto the target positions described above until the introducer tip touched the bony surface of the sacrum. The stylet was withdrawn from the introducer and the radiofrequency probe with a 4 mm active tip was fully inserted into the introducer. A lateral view was obtained for standard reference. At each of the targets, needle placement was verified with the use of multi-planar fluoroscopy. The needle tip position was approximately 7 - 10mm lateral to the PSFA as determined by using an Epsilon ruler. At each site, the lateral branch nerve was stimulated at 2 Hz to a maximum of 1- 2 volts determined to finalize safe needle and electrode placement. The patient was awake and responsive during this portion of the procedure. Each target was anesthetized with 2 mL of 2 % Sensorcaine anesthesia for lesioning and then each target was lesioned at 80 degrees Celsius for 2 minutes and 30 seconds. Tissue impedences were noted to be between 250- 500 Ohms. At the conclusion of the lesioning the needles were removed and bandages placed over the needle placement sites and the patient returned to the supine position on a stretcher and transported to the recovery room without hemodynamic, neurologic, or allergic reactions. Fluoroscopic images were printed for hard copy recording and digitally archived. FLUOROSCOPIC INTERPRETATION: Appropriate epidurogram obtained. Appropriate lesioning of the 10 targets noted. POST PROCEDURE EVALUATION: The patient was comfortable in the recovery room. The patient is aware that pain may worsen before remitting and 4 6 weeks may be required prior to the onset of pain relief. IMPRESSION: 1. Technically successful sacral lateral branch, lumbar dorsal ramus for denervation from L5-S3 on the bilateral without complication. 2. RTC in 2 weeks. 3. Estimated Blood Loss: None 4. Fluoroscopy time: 30 seconds
== END ==
LOC: RAD 08:38
PROVIDERS: ATTEND Family Medicine
DX: M47.817 Spondylosis without myelopathy or radiculopathy, lumbosacral region (principal); M47.818 Spondylosis without myelopathy or radiculopathy, sacral and sacrococcygeal region
CPT/HCPCS: 64635; 64640 ×3; J3490 ×2

== ENCOUNTER 2018-09-25 18:27 | Emergency (ER) | payer MEDICARE, MEDICAID ==
[2018-09-25] MEDS ORDERED: OXYCODONE-ACETAMINOPHEN 5-325 MG TABLET PO ONE (20:03)
[2018-09-25] MEDS ORDERED: ONDANSETRON 4 MG TAB.RAPDIS PO ONE (20:04)
--- NOTE | 2018-09-25 20:07 | ER Document Report ---
ED Medical Screen (RME) - General Chief Complaint: Flank Pain Stated Complaint: FLANK PAIN Time Seen by Provider: 09/25/18 19:59 Primary Care Provider: EDSON ORTEGA PA-C [Primary Care Provider] - Follow up as needed Notes: 63-year-old female coming in today with left flank pain that started last night. Patient has a chronic history of chronic kidney disease stating that she has been functioning at about 13% for many years. She was told to come in to have a "work-up done" including labs and CT scan to have this kidney check. She states back in April someone told her that there was possibly a mass on her left kidney that was causing some problems. This is not been checked into since that time. She has no urinary symptoms. No fevers or shaking chills. No nausea or vomiting. I have treated and performed a rapid initial assessment of this patient. A comprehensive ED assessment and evaluation of the patient, analysis of test results and completion of medical decision making process will be conducted by additional ED providers. PHYSICAL EXAMINATION: GENERAL: Well-appearing, well-nourished and in no acute distress. A&Ox4. Answers questions appropriately. LUNGS: Breath sounds clear to auscultation bilaterally and equal. No wheezes rales or rhonchi. HEART: Regular rate and rhythm without murmurs, rubs, gallops. ABDOMEN: No CVA tenderness TRAVEL OUTSIDE OF THE [place] IN LAST 30 DAYS: No - Related Data Allergies/Adverse Reactions: Penicillins Allergy (Severe, Verified 09/25/18 18:28) Childhood reaction vancomycin [Vancomycin] Allergy (Severe, Verified 09/25/18 18:28) Damaged her kidneys Past Medical History - Social History Chew tobacco use (# tins/day): No Frequency of alcohol use: Rare Drug Abuse: None - Past Medical History Cardiac Medical History: Reports: Hx Congestive Heart Failure, Hx Coronary Artery Disease - 3 stents, Hx Heart Attack - x1 , Hx Hypercholesterolemia, Hx Hypertension - on meds Pulmonary Medical History: Reports: Hx Pneumonia - 3 yrs ago Denies: Hx Asthma, Hx Bronchitis, Hx COPD Neurological Medical History: Denies: Hx Cerebrovascular Accident, Hx Seizures Endocrine Medical History: Reports: 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 Renal/ Medical History: Denies: Hx Peritoneal Dialysis Musculoskeltal Medical History: Reports Hx Arthritis - shoulders Psychiatric Medical History: Denies: Hx Depression Past Surgical History: Reports: Hx Section - x 1, Hx Orthopedic Surgery - left leg x 13, right leg x 1 - Immunizations Hx Diphtheria, Pertussis, Tetanus Vaccination: No Physical Exam - Vital signs Vitals: Temp Pulse Resp BP Pulse Ox 98.9 F 74 16 149/65 H 100 09/25/18 18:52 09/25/18 18:52 09/25/18 18:52 09/25/18 18:52 09/25/18 18:52 Course - Vital Signs Vital signs: Temp Pulse Resp BP Pulse Ox 98.9 F 74 16 149/65 H 100 09/25/18 18:52 09/25/18 18:52 09/25/18 18:52 09/25/18 18:52 09/25/18 18:52 Doctor's Discharge - Discharge Referrals: EDSON ORTEGA PA-C [Primary Care Provider] - Follow up as needed
[2018-09-25 21:09] LABS: ABSOLUTE EOSINOPHILS # (AUTO) 0.1 10^3/uL (0.0-0.6); ABSOLUTE LYMPHOCYTES (AUTO) 0.6 10^3/uL (0.5-4.7); ABSOLUTE MONOCYTES (AUTO) 0.3 10^3/uL (0.1-1.4); ABSOLUTE NEUT (AUTO) 3.2 10^3/uL (1.7-8.2); BASOPHILS % (AUTO) 0.9 % (0-2); EOSINOPHILS % (AUTO) 2.9 % (0-6); HEMATOCRIT 32.3 % (36.0-47.0); HEMOGLOBIN 10.7 g/dL (12.0-15.5); LYMPHOCYTES % (AUTO) 13.5 % (13-45); MEAN CORPUSCULAR HEMOGLOBIN 32.7 pg (27.0-33.4); MEAN CORPUSCULAR HGB CONC 33.1 g/dL (32.0-36.0); MEAN CORPUSCULAR VOLUME 99 fl (80-97); MONOCYTES % (AUTO) 7.8 % (3-13); PLATELET COUNT 129 10^3/uL (150-450); RED BLOOD COUNT 3.26 10^6/uL (3.72-5.28); RED CELL DISTRIBUTION WIDTH 15.8 % (11.5-14.0); SEGMENTED NEUTROPHILS % (AUTO) 74.9 % (42-78); TOTAL CELLS COUNTED % (AUTO) 100 %; WHITE BLOOD COUNT 4.3 10^3/uL (4.0-10.5)
[2018-09-25 21:11] LABS: APPEARANCE,URINE CLEAR; BILIRUBIN,URINE NEGATIVE (NEGATIVE); COLOR,URINE YELLOW; GLUCOSE, URINE 50 mg/dL (NEGATIVE); KETONES,URINE NEGATIVE (NEGATIVE); LEUKOCYTE ESTERASE,URINE NEGATIVE (NEGATIVE); NITRITE,URINE NEGATIVE (NEGATIVE); PROTEIN,URINE 100 mg/dL (NEGATIVE); URINE SPECIFIC GRAVITY 1.013; UROBILINOGEN,URINE NEGATIVE mg/dL (<2.0)
[2018-09-25 21:29] LABS: ALANINE AMINOTRANSFERASE 34 U/L (9-52); ALBUMIN 3.6 g/dL (3.5-5.0); ALKALINE PHOSPHATASE 128 U/L (38-126); ANION GAP 12 (5-19); ASPARTATE AMINO TRANSFERASE 25 U/L (14-36); BILIRUBIN,DIRECT 0.5 mg/dL (0.0-0.4); BILIRUBIN,TOTAL 0.7 mg/dL (0.2-1.3); BLOOD UREA NITROGEN 79 mg/dL (7-20); CARBON DIOXIDE 24 mmol/L (22-30); CHLORIDE 105 mmol/L (98-107); GLUCOSE 72 mg/dL (75-110); POTASSIUM 4.3 mmol/L (3.6-5.0); SODIUM 140.7 mmol/L (137-145); TOTAL PROTEIN 7.1 g/dL (6.3-8.2)
--- NOTE | 2018-09-25 21:31 | RADIOLOGY REPORT (SQ) ---
CT ABDOMEN PELVIS WITHOUT IV CONTRAST HISTORY: Left flank pain. COMPARISON: None. TECHNIQUE: CT scan of the abdomen and pelvis was performed without IV contrast. This exam was performed according to our departmental dose-optimization program, which includes automated exposure control, adjustment of the mA and/or kV according to patient size and/or use of iterative reconstruction technique. FINDINGS: The lung bases are clear. No pleural effusions. Mild cardiomegaly with trace pericardial fluid. There is no hiatal hernia. There has been a prior cholecystectomy. The liver, spleen, pancreas, and adrenal glands are unremarkable. The kidneys are atrophic with punctate nonobstructing stones/vascular calcifications in both kidneys. 1.4 cm hyperdense cyst in the left upper pole which may represent proteinaceous or hemorrhagic cyst. The pelvic organs are grossly unremarkable. No small or large bowel obstruction. The appendix is not visualized. No intraperitoneal free fluid or free air is seen. There are extensive vascular calcifications throughout the large and small vessels. Degenerative disc disease at L4-L5. No acute osseous findings are appreciated. There is diffuse body wall anasarca which is nonspecific. No pathologic body wall hernia is seen. IMPRESSION: No acute abdominal or pelvic pathology.
[2018-09-26] MEDS ORDERED: ONDANSETRON 4 MG TAB.RAPDIS PO ONE (01:22)
[2018-09-26] MEDS ORDERED: MORPHINE SULFATE 10 MG/ML INJ IM ONE (01:22)
--- NOTE | 2018-09-26 01:26 | ER Document Report ---
ED General - General Chief Complaint: Flank Pain Stated Complaint: FLANK PAIN Time Seen by Provider: 09/25/18 19:59 Primary Care Provider: EDSON ORTEGA PA-C [Primary Care Provider] - Follow up as needed Mode of Arrival: Wheelchair Information source: Patient, [facility] Records Notes: 63-year-old female with congestive heart failure, hypertension, coronary artery disease, end-stage renal disease, type 2 diabetes presents with complaint of left flank pain. Patient states flank pain has been ongoing for 2 days. She describes it as stabbing, throbbing. Patient has had prior similar symptoms. She denies any fever, chills, nausea, vomiting, chest pain, dysuria, hematuria. She states that her client advocate Dr. Downs told her to come to the emergency department and have it "work-up including a CAT scan and lab work." Patient states that she is not currently undergoing dialysis. TRAVEL OUTSIDE OF THE [place] IN LAST 30 DAYS: No - HPI Onset: Other Onset/Duration: Intermittent, Better Quality of pain: Stabbing, Throbbing Severity: Moderate Pain Level: 2 Associated symptoms: denies: Body/muscle aches, Nonproductive cough, Fever, Headache, Nausea, Vomiting, Shortness of breath Exacerbated by: Movement Relieved by: Remaining still Similar symptoms previously: Yes Recently seen / treated by doctor: Yes - Related Data Allergies/Adverse Reactions: Penicillins Allergy (Severe, Verified 09/25/18 18:28) Childhood reaction vancomycin [Vancomycin] Allergy (Severe, Verified 09/25/18 18:28) Damaged her kidneys Past Medical History - General Information source: Patient, [facility] Records - Social History Smoking Status: Former Smoker Chew tobacco use (# tins/day): No Frequency of alcohol use: Rare Drug Abuse: None Lives with: Alone Family History: Reviewed & Not Pertinent Patient has suicidal ideation: No Patient has homicidal ideation: No - Past Medical History Cardiac Medical History: Reports: Hx Congestive Heart Failure, Hx Coronary Artery Disease - 3 stents, Hx Heart Attack - x1 , Hx Hypercholesterolemia, Hx Hypertension - on meds Pulmonary Medical History: Reports: Hx Pneumonia - 3 yrs ago Denies: Hx Asthma, Hx Bronchitis, Hx COPD Neurological Medical History: Denies: Hx Cerebrovascular Accident, Hx Seizures Endocrine Medical History: Reports: 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 Denies recent illness. Denies weight loss, recent hospitalizations. EENT: Denies visual changes, eye pain. Denies sore throat, oral lesions, difficulty swallowing. CARDIOVASCULAR: Denies chest pain. Denies palpitations. Denies lower extremity edema. RESPIRATORY: Denies cough. Denies shortness of breath, wheezing. GASTROINTESTINAL: Denies abdominal pain or distention. Denies nausea, vomit ing, or diarrhea. Denies blood in vomitus, stools, or per rectum. Denies black, tarry stools. Denies constipation. GENITOURINARY: Denies difficulty urinating, painful urination, frequency, bloo d in urine, or vaginal discharge. MUSCULOSKELETAL: Denies neck pain or stiffness. Denies joint pain or swelling. SKIN: Denies rash, lesions or sores. HEMATOLOGIC : Denies easy bruising or bleeding. LYMPHATIC: Denies swollen glands. NEUROLOGICAL: Denies confusion or altered mental status. Denies loss of consciousness. Denies dizziness or lightheadedness. Denies headache. Denies weakness or paralysis. Denies problems difficulty with ambulation, slurred speech. Denies sensory loss, numbness, or tingling. Denies seizures. PSYCHIATRIC: Denies anxiety or stress. Denies depression, suicidal ideation, or homicidal ideation. Denies visual or auditory hallucinations. Physical Exam - Vital signs Vitals: Temp Pulse Resp BP Pulse Ox 98.9 F 74 16 149/65 H 100 09/25/18 18:52 09/25/18 18:52 09/25/18 18:52 09/25/18 18:52 09/25/18 18:52 - Notes Notes: PHYSICAL EXAMINATION: GENERAL: Well-appearing, well-nourished and in no acute distress. HEAD: Atraumatic, normocephalic. EYES: Pupils equal round and reactive to light, extraocular movements intact, conjunctiva are normal. ENT: Nares patent, oropharynx clear without exudates. Moist mucous membranes. NECK: Normal range of motion, supple without lymphadenopathy LUNGS: Breath sounds clear to auscultation bilaterally and equal. No wheezes rales or rhonchi. HEART: Regular rate and rhythm without murmurs ABDOMEN: Soft, nontender, nondistended abdomen. No guarding, no rebound. No masses appreciated. No CVA tenderness Female : deferred Musculoskeletal: Normal range of motion, no pitting or edema. No cyanosis. NEUROLOGICAL: Cranial nerves grossly intact. Normal speech, normal gait. Normal sensory, motor exams PSYCH: Normal mood, normal affect. SKIN: Warm, Dry, normal turgor, no rashes or lesions noted. Course - Re-evaluation Re-evalutation: 09/26/18 01:26 Laboratory 09/25/18 09/25/18 09/25/18 20:20 20:42 20:42 WBC 4.3 RBC 3.26 L Hgb 10.7 L Hct 32.3 L MCV 99 H MCH 32.7 MCHC 33.1 RDW 15.8 H Plt Count 129 L Seg Neutrophils % 74.9 Lymphocytes % 13.5 Monocytes % 7.8 Eosinophils % 2.9 Basophils % 0.9 Absolute Neutrophils 3.2 Absolute Lymphocytes 0.6 Absolute Monocytes 0.3 Absolute Eosinophils 0.1 Absolute Basophils 0.0 Sodium 140.7 Potassium 4.3 Chloride 105 Carbon Dioxide 24 Anion Gap 12 BUN 79 H Creatinine 4.43 H Est GFR ( Amer) 12 L Est GFR (Non-Af Amer) 10 L Glucose 72 L Calcium 10.0 Total Bilirubin 0.7 Direct Bilirubin 0.5 H Neonat Total Bilirubin Not Reportable Neonat Direct Bilirubin Not Reportable Neonat Indirect Bili Not Reportable AST 25 ALT 34 Alkaline Phosphatase 128 H Total Protein 7.1 Albumin 3.6 Urine Color YELLOW Urine Appearance CLEAR Urine pH 5.0 Ur Specific Breese 1.013 Urine Protein 100 H Urine Glucose (UA) 50 H Urine Ketones NEGATIVE Urine Blood SMALL H Urine Nitrite NEGATIVE Urine Bilirubin NEGATIVE Urine Urobilinogen NEGATIVE Ur Leukocyte Esterase NEGATIVE Urine WBC (Auto) 2 Urine RBC (Auto) 2 U Hyaline Cast (Auto) 4 Squamous Epi Cells Auto <1 Urine Mucus (Auto) RARE Urine Ascorbic Acid NEGATIVE Temp Pulse Resp BP Pulse Ox 98.9 F 74 16 149/65 H 100 09/25/18 18:52 05/16/19 18:52 09/25/18 18:52 09/25/18 18:52 09/25/18 18:52 Abdomen/Pelvis CT 09/25/18 20:04 IMPRESSION: No acute abdominal or pelvic pathology. 09/26/18 23:32 63-year-old female presents with left flank pain. States that her client advocate told her to come to the emergency department for repeat CAT scan and lab work. Patient Scan was obtained and incidental findings of hemorrhagic cyst were discussed with the patient who is already aware. Showed no significant changes from previous CAT scan performed. without leukocytosis, does show a stable anemia. CMP consistent with end-stage renal disease. Patient is well- appearing, has normal vital signs and is tolerating p.o. She did receive pain m edication for her flank pain resolved prior to discharge. Patient states that she is not on dialysis and does not plan to be on dialysis in the near future. I did provide the patient with copies of her lab work and imaging that were performed today. Urged her to bring them to her client advocate on her follow-up. Patient was evaluated and treated as appropriate for the patient's presenting symptoms and complaint, with consideration of any critical or life threatening conditions that may be associated with their obtained history and exam as noted above. All results were discussed with patient. Patient provided the opportunity to ask questions, and express concerns. Patient was educated on treatments based on their presumed diagnosis as noted above. At this time we will discharge the patient with return precautions and follow-up recommendations. Verbal discharge instructions given a the bedside. Medication warnings reviewed. Patient is in agreement with this plan and has verbalized understanding of return precautions. After careful consideration I feel that that patient can be safely discharged from the emergency department, they were advised to followup with a primary care physician in 2-3 days. Dictation on this chart was performed using voice recognition software and may result in unintended grammatical, spelling, syntax or errors. - Vital Signs Vital signs: Temp Pulse Resp BP Pulse Ox 98.5 F 70 20 137/62 H 100 09/26/18 01:40 09/26/18 01:40 09/26/18 01:40 09/26/18 01:40 09/26/18 01:40 - Laboratory Result Diagrams: 09/25/18 20:42 09/25/18 20:42 Laboratory results interpreted by me: 09/25/18 09/25/18 09/25/18 20:20 20:42 20:42 RBC 3.26 L Hgb 10.7 L Hct 32.3 L MCV 99 H RDW 15.8 H Plt Count 129 L BUN 79 H Creatinine 4.43 H Est GFR ( Amer) 12 L Est GFR (Non-Af Amer) 10 L Glucose 72 L Direct Bilirubin 0.5 H Alkaline Phosphatase 128 H Urine Protein 100 H Urine Glucose (UA) 50 H Urine Blood SMALL H - Diagnostic Test Radiology reviewed: Image reviewed, Reports reviewed Discharge - Discharge Clinical Impression: Renal mass, Left flank pain, End stage renal disease Condition: Good Disposition: HOME, SELF-CARE Instructions: Flank Pain ([facility]) Additional Instructions: Please take your CT findings and lab work to your client advocate Dr. Downs. Forms: Elevated Blood Pressure Referrals: EDSON ORTEGA PA-C [Primary Care Provider] - Follow up as needed
[2018-09-26 01:45] VITALS: BP 137/62
== END 2018-09-26 01:49 | disposition home or self-care (01) ==
LOC: ER 18:27
DX: R10.9 Unspecified abdominal pain (principal); N28.89 Other specified disorders of kidney and ureter; I12.0 Hypertensive chronic kidney disease with stage 5 chronic kidney disease or end stage renal disease; N18.6 End stage renal disease; E11.22 Type 2 diabetes mellitus with diabetic chronic kidney disease; D63.1 Anemia in chronic kidney disease; Z79.4 Long term (current) use of insulin; Q61.01 Congenital single renal cyst; I25.10 Atherosclerotic heart disease of native coronary artery without angina pectoris; Z87.891 Personal history of nicotine dependence; Z88.1 Allergy status to other antibiotic agents; Z95.5 Presence of coronary angioplasty implant and graft; Z88.0 Allergy status to penicillin
CPT/HCPCS: 99284; 96372; 36415; 85025; 80053; 81001; 74176; A9270 ×3; J2270; S0119

== ENCOUNTER → 2018-10-08 | Outpatient (CLI) | payer MEDICARE, MEDICAID ==
[2018-10-08 11:14] LABS: HEMOGLOBIN 10.8 g/dL (12.0-15.5); MEAN CORPUSCULAR HEMOGLOBIN 32.2 pg (27.0-33.4); MEAN CORPUSCULAR HGB CONC 32.8 g/dL (32.0-36.0); MEAN CORPUSCULAR VOLUME 98 fl (80-97); PLATELET COUNT 129 10^3/uL (150-450); RED BLOOD COUNT 3.37 10^6/uL (3.72-5.28); WHITE BLOOD COUNT 3.1 10^3/uL (4.0-10.5)
[2018-10-08 11:35] LABS: ANION GAP 11 (5-19); BLOOD UREA NITROGEN 65 mg/dL (7-20); CALCIUM 9.6 mg/dL (8.4-10.2); CARBON DIOXIDE 27 mmol/L (22-30); CHLORIDE 102 mmol/L (98-107); GLUCOSE 147 mg/dL (75-110); PHOSPHORUS 4.4 mg/dL (2.5-4.5); POTASSIUM 4.1 mmol/L (3.6-5.0); SODIUM 139.6 mmol/L (137-145)
[2018-10-08 11:37] LABS: APPEARANCE,URINE CLEAR; BILIRUBIN,URINE NEGATIVE (NEGATIVE); COLOR,URINE YELLOW; GLUCOSE, URINE >=500 mg/dL (NEGATIVE); KETONES,URINE NEGATIVE (NEGATIVE); LEUKOCYTE ESTERASE,URINE NEGATIVE (NEGATIVE); NITRITE,URINE NEGATIVE (NEGATIVE); PROTEIN,URINE 100 mg/dL (NEGATIVE); URINE SPECIFIC GRAVITY 1.011; UROBILINOGEN,URINE NEGATIVE mg/dL (<2.0)
== END ==
LOC: OD 10:41
PROVIDERS: ATTEND Physician Assistant Medical
DX: I12.0 Hypertensive chronic kidney disease with stage 5 chronic kidney disease or end stage renal disease (principal); N18.5 Chronic kidney disease, stage 5; I50.9 Heart failure, unspecified; E11.22 Type 2 diabetes mellitus with diabetic chronic kidney disease; D64.9 Anemia, unspecified; R60.9 Edema, unspecified
CPT/HCPCS: 36415; 80048; 81001; 83735; 83970; 84100; 85027

== ENCOUNTER → 2018-10-24 | Outpatient (CLI) | payer MEDICARE, MEDICAID ==
--- NOTE | 2018-10-24 12:04 | RADIOLOGY REPORT (SQ) ---
EXAM DESCRIPTION: UGI SERIES COMPLETED DATE/TIME: 10/24/2018 8:57 am REASON FOR STUDY: DYSPHAGIA (R13.10) R13.10 DYSPHAGIA, UNSPECIFIED COMPARISON: CT abdomen and pelvis 09/25/2018 TECHNIQUE: Under fluoroscopic guidance, patient ingested water soluble contrast. Fluoroscopic spot i mages and routine radiographic images acquired and stored on PACS. 12 MM BARIUM TABLET GIVEN: Yes. No significant delay in passage. LIMITATIONS: None. FLUOROSCOPY TIME: FLUORO TIME: 4.2 minutes of fluoroscopy was used. 37 images saved to PACS. FINDINGS: NEUROMUSCULAR COORDINATION OF SWALLOW: Normal. No aspiration. Mild cricopharyngeal hypert rophy. ESOPHAGEAL MOTILITY: Normal peristalsis. No esophageal spasm. ESOPHAGEAL MUCOSA: Normal mucosa without masses or ulceration. Small mucosal filling defects seen al charles the anterior aspect of the proximal esophagus just distal to the cricopharyngeus. Has appearance of a small ulcer. GASTRO-ESOPHAGEAL JUNCTION: Small hiatal hernia with free-flowing gastroesophageal reflux. 12 mm bar ium tablet passed through the GE junction without delay. STOMACH: Postoperative changes seen from previous gastric sleeve surgery. No radiographic evidence o f complication. Moderate amount of food material seen within the stomach, patient was not NPO for th e procedure. No masses or ulcerations. GASTRIC OUTLET: No delay in emptying. Normal pylorus. DUODENAL BULB: Normal distention. No spasm or ulceration. DUODENUM: Mucosa normal. No extrinsic masses or malrotation. PROXIMAL JEJUNUM: Normal mucosal pattern. No dilatation, segmentation, strictures or masses. NON-GI TRACT STRUCTURES: No significant finding. OTHER: Extensive vascular calcification seen throughout the abdomen great vessels. IMPRESSION: SMALL SLIDING HIATAL HERNIA WITH MODERATE FREE-FLOWING GASTROESOPHAGEAL REFLUX. POSTOPE RATIVE CHANGES TO THE STOMACH WITHOUT EVIDENCE OF COMPLICATION. COMMENT: Quality ID [id number]: Final reports for procedures using fluoroscopy that document radiation exp osure indices, or exposure time and number of fluorographic images (if radiation exposure indices are not available) TECHNICAL DOCUMENTATION: JOB ID: [id number] [employer]- All Rights Reserved Reading location - IP/workstation name: [email or web address]
== END ==
LOC: RAD 08:03
PROVIDERS: ATTEND Surgery
DX: K21.9 Gastro-esophageal reflux disease without esophagitis (principal); R13.10 Dysphagia, unspecified; K44.9 Diaphragmatic hernia without obstruction or gangrene
CPT/HCPCS: 74247

== ENCOUNTER → 2018-10-30 | Outpatient (CLI) | payer MEDICARE, MEDICAID ==
[2018-10-30 12:04] LABS: HEMATOCRIT 29.8 % (36.0-47.0); MEAN CORPUSCULAR HEMOGLOBIN 32.4 pg (27.0-33.4); MEAN CORPUSCULAR HGB CONC 33.5 g/dL (32.0-36.0); MEAN CORPUSCULAR VOLUME 97 fl (80-97); PLATELET COUNT 139 10^3/uL (150-450); RED BLOOD COUNT 3.08 10^6/uL (3.72-5.28); RED CELL DISTRIBUTION WIDTH 14.9 % (11.5-14.0); WHITE BLOOD COUNT 4.7 10^3/uL (4.0-10.5)
[2018-10-30 12:10] LABS: APPEARANCE,URINE CLEAR; BILIRUBIN,URINE NEGATIVE (NEGATIVE); COLOR,URINE YELLOW; GLUCOSE, URINE 50 mg/dL (NEGATIVE); KETONES,URINE NEGATIVE (NEGATIVE); LEUKOCYTE ESTERASE,URINE NEGATIVE (NEGATIVE); NITRITE,URINE NEGATIVE (NEGATIVE); PROTEIN,URINE 100 mg/dL (NEGATIVE); URINE SPECIFIC GRAVITY 1.012; UROBILINOGEN,URINE NEGATIVE mg/dL (<2.0)
[2018-10-30 12:30] LABS: ANION GAP 11 (5-19); BLOOD UREA NITROGEN 69 mg/dL (7-20); CALCIUM 9.5 mg/dL (8.4-10.2); CARBON DIOXIDE 24 mmol/L (22-30); CHLORIDE 101 mmol/L (98-107); GLUCOSE 93 mg/dL (75-110); PHOSPHORUS 5.4 mg/dL (2.5-4.5); POTASSIUM 4.4 mmol/L (3.6-5.0); SODIUM 136.1 mmol/L (137-145)
== END ==
LOC: OD 11:38
PROVIDERS: ATTEND Physician Assistant Medical
DX: I13.0 Hypertensive heart and chronic kidney disease with heart failure and stage 1 through stage 4 chronic kidney disease, or unspecified chronic kidney disease (principal); I50.9 Heart failure, unspecified; N18.3 Chronic kidney disease, stage 3 (moderate); E11.22 Type 2 diabetes mellitus with diabetic chronic kidney disease; R60.9 Edema, unspecified; D64.9 Anemia, unspecified
CPT/HCPCS: 36415; 80048; 81001; 83735; 83970; 84100; 85027

== ENCOUNTER 2018-11-07 16:56 | Emergency (ER) | payer MEDICARE, MEDICAID ==
--- NOTE | 2018-11-07 18:33 | RADIOLOGY REPORT (SQ) ---
EXAM DESCRIPTION: KNEE BILATERAL 1-2 VIEWS COMPLETED DATE/TIME: 11/07/2018 6:21 pm REASON FOR STUDY: fall, bilateral knee pain COMPARISON: None. EXAM PARAMETERS: NUMBER OF VIEWS: Four views. TECHNIQUE: AP and lateral radiographic images acquired of the right and left knee. LIMITATIONS: None. FINDINGS: MINERALIZATION: Normal. BONES: No acute fracture or dislocation. No worrisome bone lesions. JOINTS: No effusion. SOFT TISSUES: No significant soft tissue swelling. No radiopaque foreign body. OTHER: No other significant finding. IMPRESSION: NO FRACTURE. TECHNICAL DOCUMENTATION: JOB ID: [id number] [id number] [employer]- All Rights Reserved Reading location - IP/workstation name: [email or web address]
[2018-11-07] MEDS ORDERED: IBUPROFEN 600 MG TABLET PO ONE (19:06)
--- NOTE | 2018-11-07 19:07 | ER Document Report ---
HPI - HPI Time Seen by Provider: 11/07/18 17:56 Pain Level: 3 Notes: Patient is an otherwise healthy 63-year-old female presented to the emergency department with bilateral knee pain after falling just prior to arrival. Patient reports that she tripped over an item in her house and fell directly onto both knees. Patient denies any other complaints. Denies striking her head. - REPRODUCTIVE Reproductive: DENIES: : Past Medical History - General Information source: Patient - Social History Smoking Status: Never Smoker Family History: Reviewed & Not Pertinent Patient has suicidal ideation: No Patient has homicidal ideation: No - Past Medical History Cardiac Medical History: Reports: Hx Congestive Heart Failure, Hx Coronary Artery Disease - 3 stents, Hx Heart Attack - x1 , Hx Hypercholesterolemia, Hx Hypertension - on meds Pulmonary Medical History: Reports: Hx Pneumonia - 3 yrs ago Denies: Hx Asthma, Hx Bronchitis, Hx COPD Neurological Medical History: Denies: Hx Cerebrovascular Accident, Hx Seizures Endocrine Medical History: Reports: 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 Renal/ Medical History: Denies: Hx Peritoneal Dialysis Musculoskeletal Medical History: Reports Hx Arthritis - shoulders Psychiatric Medical History: Denies: Hx Depression Past Surgical History: Reports: Hx Section - x 1, Hx Orthopedic Surgery - left leg x 13, right leg x 1 - Immunizations Hx Diphtheria, Pertussis, Tetanus Vaccination: No Hx Pneumococcal Vaccination: 06/08/14 Vertical Provider Document - CONSTITUTIONAL Notes: PHYSICAL EXAMINATION: GENERAL: Well-appearing, well-nourished and in no acute distress. HEAD: Atraumatic, normocephalic. EYES: Pupils equal round extraocular movements intact, conjunctiva are normal. ENT: Nares patent NECK: Normal range of motion LUNGS: No respiratory distress Musculoskeletal: Normal range of motion to bilateral knees, small abrasions noted over the anterior portion of the knees. NEUROLOGICAL: Normal speech, normal gait. PSYCH: Normal mood, normal affect. SKIN: Warm, Dry, normal turgor, no rashes or lesions noted. - INFECTION CONTROL TRAVEL OUTSIDE OF THE [place] IN LAST 30 DAYS: No Course - Re-evaluation Re-evalutation: Bilateral knee x-rays are negative for any acute fracture, dislocation or joint effusion. Patient does have small abrasions noted over the knees. These will be cleaned up and patient will be placed in bilateral knee Dario wrap for comfort. Patient encouraged to take ibuprofen and apply ice to the area as outlined in her discharge instructions. Patient verbalizes understanding and agreement with this plan. - Vital Signs Vital signs: Temp Pulse Resp BP Pulse Ox 98.7 F 80 16 143/69 H 98 11/07/18 17:01 11/07/18 17:01 11/07/18 17:01 11/07/18 17:01 11/07/18 17:01 Procedures - Immobilization Bilateral knees Pre-Proc Neuro Vasc Exam: Normal Immobilizer type: Dario wrap Performed by: PCT Post-Proc Neuro Vasc Exam: Normal Alignment checked and good: Yes Discharge - Discharge Clinical Impression: bilateral knee contusion Condition: Stable Disposition: HOME, SELF-CARE Additional Instructions: Contusion Your injury has resulted in a contusion -- a crushing of the deep tissues. No injury to important structures was detected during the physician's exam. Contusions vary in the amount of pain they cause, and in the length of time required for healing. Typically, the area will become bruised, and will remain painful to touch for two or three weeks. However, most patients are back to working and playing within a few days. After the initial period of rest and cold-packs, your symptoms (together with the doctor's recommendations) will determine how rapidly you can get back to full activity. Usually this means "do what feels okay, but don't do things that hurt." If re-examination was recommended, it's important to follow up as instructed. Call the doctor or return any time if pain increases, if swelling becomes severe, if you develop numbness or weakness in an injured extremity, or if any other alarming symptoms occur. Ice & Elevation Apply ice packs frequently against the painful area. Many different schedules are recommended, such as "20 minutes on, 20 minutes off" or "one hour ice, two hours rest." If you need to work, you may need to go longer between ice treatments. You should plan to have the area ice packed AT LEAST one-fourth of the time. The ice should be applied over the wrap, tape, or splint, or over a layer of cloth -- not directly against the skin. Some ice bags have a built-in cloth and can be put directly on the skin. Your injured part should be elevated as much as possible over the next 48 hours. Try to keep the injury above the level of the heart. Avoid use of the injured area. Elevation and rest will decrease the swelling. Ibuprofen Ibuprofen is an excellent, safe drug for pain control. In addition, it has potent antiinflammatory effects which are beneficial, especially in the treatment of injuries, arthritis, or tendonitis. It's best to take ibuprofen with food. Persons with ulcer disease or allergy to aspirin should notify their physician of this before taking ibuprofen. Take the medication exactly as prescribed. Don't take additional doses unless instructed to do so by your doctor. If you develop wheezing, shortness of breath, hives, faintness, stomach pain, vomiting, or dark black stools, return for re-evaluation at once. The x-rays were negative for any fracture or dislocation. Please take ibuprofen [id number] as directed to help with pain and inflammation. Referrals: ELIAS SIMS MD [Primary Care Provider] - Follow up as needed
[2018-11-07 19:15] VITALS: BP 155/74
== END 2018-11-07 19:23 | disposition home or self-care (01) ==
LOC: ER 16:56
DX: S80.02XA Contusion of left knee, initial encounter (principal); S80.01XA Contusion of right knee, initial encounter; W01.0XXA Fall on same level from slipping, tripping and stumbling without subsequent striking against object, initial encounter; I50.9 Heart failure, unspecified; I25.10 Atherosclerotic heart disease of native coronary artery without angina pectoris; E78.00 Pure hypercholesterolemia, unspecified; I11.0 Hypertensive heart disease with heart failure; E11.9 Type 2 diabetes mellitus without complications; Z79.4 Long term (current) use of insulin
CPT/HCPCS: 99283; 73560; A9270

== ENCOUNTER → 2018-12-02 | Outpatient (CLI) | payer MEDICARE, MEDICAID ==
[2018-12-02 14:12] LABS: HEMATOCRIT 28.7 % (36.0-47.0); HEMOGLOBIN 9.5 g/dL (12.0-15.5); MEAN CORPUSCULAR HEMOGLOBIN 31.8 pg (27.0-33.4); MEAN CORPUSCULAR HGB CONC 33.2 g/dL (32.0-36.0); MEAN CORPUSCULAR VOLUME 96 fl (80-97); PLATELET COUNT 162 10^3/uL (150-450); RED BLOOD COUNT 2.99 10^6/uL (3.72-5.28); RED CELL DISTRIBUTION WIDTH 15.1 % (11.5-14.0); WHITE BLOOD COUNT 3.9 10^3/uL (4.0-10.5)
[2018-12-02 14:35] LABS: ANION GAP 12 (5-19); BLOOD UREA NITROGEN 68 mg/dL (7-20); CALCIUM 9.6 mg/dL (8.4-10.2); CARBON DIOXIDE 24 mmol/L (22-30); CHLORIDE 101 mmol/L (98-107); GLUCOSE 67 mg/dL (75-110); IRON(TIBC) 49.1 ug/dL (37-170); PHOSPHORUS 6.6 mg/dL (2.5-4.5); POTASSIUM 4.5 mmol/L (3.6-5.0)
[2018-12-02 15:13] LABS: UR PRO/CREAT RATIO RESULT 2.2 mg/mg (0.0-0.2); URINE CREATININE 46.3 mg/dL (15-278); URINE PROTEIN 101.3 mg/dL (<12)
== END ==
LOC: OD 13:34
PROVIDERS: ATTEND Physician Assistant Medical
DX: I13.0 Hypertensive heart and chronic kidney disease with heart failure and stage 1 through stage 4 chronic kidney disease, or unspecified chronic kidney disease (principal); I50.9 Heart failure, unspecified; N18.4 Chronic kidney disease, stage 4 (severe); E11.22 Type 2 diabetes mellitus with diabetic chronic kidney disease; R60.9 Edema, unspecified; N25.0 Renal osteodystrophy
CPT/HCPCS: 36415; 80048; 82570; 82728; 83540; 83550; 83970; 84100; 84156; 85027

== ENCOUNTER 2018-12-07 17:00 | Inpatient (IN) | payer MEDICARE, MEDICAID ==
--- NOTE | 2018-12-07 17:35 | ER Document Report ---
ED Fall - General Chief Complaint: Fall Stated Complaint: FALL/WEAKNESS Time Seen by Provider: 12/07/18 17:21 Primary Care Provider: EDSON ORTEGA PA-C [Primary Care Provider] - Follow up as needed Notes: Patient is a 63-year-old female with a history of chronic kidney disease (not on dialysis), type 2 diabetes, [place], hypertension who presents to emergency department with a chief complaint of generalized weakness. Patient states that over the past few days she is just felt weak all over. Patient denies nausea vo miting or diarrhea. Patient denies abdominal pain. Patient denies any urinary symptoms although she does report decreased urine output and decreased p.o. intake. Patient states that she is wearing a external hvac project manager that was given to her by Dr. Mata. She is unsure why she is wearing this. Patient denies chest pain or palpitations. Patient denies shortness of breath. Patient states she did call EMS after a fall this afternoon. Patient states she normally uses a walker. Patient states she was attempting to get up the steps in a seated position and fell backwards. Patient states she did not strike her head as she did catch herself. Patient denies head injury, neck pain or loss of consciousness. Patient does have a history of chronic back pain when she does wear fentanyl patches for. Patient does report that she is at increased swelling to the lower extremities despite taking her Lasix. Patient complains of bruising to bilateral feet as she states she has dropped cans on them within the past week. Patient reports that she is on warfarin 2 mg daily which she ta kes at night for her A. fib. TRAVEL OUTSIDE OF THE [place] IN LAST 30 DAYS: No - Related data Allergies/Adverse Reactions: Penicillins Allergy (Severe, Verified 11/07/18 16:59) Childhood reaction vancomycin [Vancomycin] Allergy (Severe, Verified 11/07/18 16:59) Damaged her kidneys doxycycline Allergy (Verified 11/07/18 16:59) Past Medical History - General Information source: Patient - Social History Smoking Status: Former Smoker Frequency of alcohol use: None Drug Abuse: None Family History: Reviewed & Not Pertinent - Past Medical History Cardiac Medical History: Reports: Hx Congestive Heart Failure, Hx Coronary Artery Disease - 3 stents, Hx Heart Attack - x1 , Hx Hypercholesterolemia, Hx Hypertension - on meds Pulmonary Medical History: Reports: Hx Pneumonia - 3 yrs ago Denies: Hx Asthma, Hx Bronchitis, Hx COPD EENT Medical History: Reports: None Neurological Medical History: Reports: None. Denies: Hx Cerebrovascular Accident, Hx Seizures Endocrine Medical History: Reports: 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 Renal/ Medical History: Reports: Hx End Stage Renal Disease. Denies: Hx Peritoneal Dialysis Malignancy Medical History: Reports: None GI Medical History: Reports: None Musculoskeletal Medical History: Reports Hx Arthritis - shoulders Skin Medical History: Reports None Psychiatric Medical History: Reports: None Denies: Hx Depression Traumatic Medical History: Reports: None Past Surgical History: Reports: Hx Section - x 1, Hx Orthopedic Surgery - left leg x 13, right leg x 1 - Immunizations Hx Diphtheria, Pertussis, Tetanus Vaccination: No Hx Pneumococcal Vaccination: 06/08/14 Review of Systems - Review of Systems Constitutional: See HPI EENT: No symptoms reported Cardiovascular: No symptoms reported Respiratory: No symptoms reported Gastrointestinal: No symptoms reported Genitourinary: No symptoms reported Female Genitourinary: No symptoms reported Musculoskeletal: No symptoms reported Skin: No symptoms reported Hematologic/Lymphatic: No symptoms reported Neurological/Psychological: No symptoms reported Physical Exam - Vital signs Vitals: Temp Resp BP Pulse Ox 98.3 F 15 151/59 H 94 12/07/18 17:22 12/07/18 17:22 12/07/18 17:22 12/07/18 17:22 Interpretation: Hypertensive - Notes Notes: GENERAL: Well-appearing, in no acute distress. HEAD: Atraumatic, normocephalic. Negative bailey sign EYES: Pupils equal round and reactive to light, extraocular movements intact, sclera anicteric, conjunctiva are normal. ENT: Normal, nares patent, oropharynx clear without exudates. Moist mucous membranes. NECK: Normal range of motion, supple without lymphadenopathy or JVD. LUNGS: Breath sounds clear to auscultation bilaterally and equal. No wheezes rales or rhonchi. HEART: Regular rate and rhythm without murmurs, rubs or gallops. Sinus bradycardiac on monitor. ABDOMEN: Soft, nontender, normoactive bowel sounds. No guarding, no rebound. No masses appreciated. BACK: No cervical, thoracic, lumbar midline tenderness. No saddle anesthesia, normal distal neurovascular exam. GENITOURINARY: Deferred. EXTREMITIES: Normal ROM, + 2 pitting edema to bilateral lower extremities, small scattered bruises noted on the bilateral feet. NEUROLOGICAL: Cranial nerves II through XII grossly intact. Normal speech, normal gait. PSYCH: Normal mood, normal affect. SKIN: Warm, Dry, normal turgor, no rashes or lesions noted. Course - Re-evaluation Re-evalutation: 12/07/18 19:57 Upon reevaluation patient sitting upright on stretcher requesting something to drink. Patient reports that her mouth is dry and she feels dehydrated. Patient denies chest pain or shortness of breath. I did inform the patient she has an acute intra-or particular medial great toe proximal phalanx distal fracture slightly displaced. I did inform her that this can cause pain and swelling. Patient states she has been ambulating with minimal pain. We will place patient in a walking boot with magnus taping. I did inform the patient that it does take weeks to heal. Patient is an extremely poor historian but does report taking warfarin 2 mg at night for an irregular heartbeat. Upon further questioning she does report a history of A. fib. Patient does have an external cardiac monitoring system that was given by her learning and development consultant Dr. Mata who she states that this to her days ago but she does not know why she is not been having any problems. She was told she may have to wear this for months. 12/07/18 20:45 Patient's repeat troponin was slightly decreased. Patient continues to deny chest pain or shortness of breath. I did speak with her primary care physician Dr. Zhu who was very familiar with the patient. I did inform him that nephrology is not information consultant at this time but will be information consultant in the morning. He states he will see the patient and admit her to the hospital. - Vital Signs Vital signs: Temp Pulse Resp BP Pulse Ox 98.3 F 18 172/67 H 96 12/07/18 17:22 12/07/18 19:01 12/07/18 19:01 12/07/18 19:01 - Laboratory Result Diagrams: 12/07/18 16:22 12/07/18 16:22 Laboratory results interpreted by me: 12/07/18 12/07/18 12/07/18 16:22 16:22 16:22 RBC 3.01 L Hgb 9.7 L Hct 29.0 L RDW 15.3 H Sodium 133.7 L Carbon Dioxide 15 L BUN 78 H Creatinine 5.36 H Est GFR ( Amer) 10 L Est GFR (Non-Af Amer) 8 L Glucose 169 H Direct Bilirubin 0.6 H Alkaline Phosphatase 179 H Creatine Kinase 247 H CK-MB (CK-2) 6.18 H Urine Protein Urine Glucose (UA) Urine Blood Ur Leukocyte Esterase 12/07/18 18:52 RBC Hgb Hct RDW Sodium Carbon Dioxide BUN Creatinine Est GFR ( Amer) Est GFR (Non-Af Amer) Glucose Direct Bilirubin Alkaline Phosphatase Creatine Kinase CK-MB (CK-2) Urine Protein 100 H Urine Glucose (UA) 50 H Urine Blood SMALL H Ur Leukocyte Esterase SMALL H - Diagnostic Test Radiology reviewed: Reports reviewed Radiology results interpreted by me: 12/07/18 19:03 Chest X-Ray 12/07/18 00:00 IMPRESSION: HEART ENLARGED WITHOUT FAILURE. NO OTHER SIGNIFICANT RADIOGRAPHIC FINDING IN THE CHEST. - EKG Interpretation by Me Additional EKG results interpreted by me: 12/07/18 20:47 Patient's EKG shows a sinus rhythm with a heart rate of 53. MI interval is 224, QT is 472 and QTc is 444. Patient has a left axis deviation with a first- degree AV block. There does not be significant change from previous EKG. No ST segment changes in consecutive leads. Discharge - Discharge Clinical Impression: Generalized weakness, Elevated troponin Fall Qualifiers: Encounter type: initial encounter Qualified Code(s): W19.XXXA - Unspecified fall, initial encounter Condition: Stable Disposition: ADMITTED OBSERVATION Admitting Provider: [facility] Unit Admitted: [facility] Referrals: EDSON ORTEGA PA-C [Primary Care Provider] - Follow up as needed
[2018-12-07 17:38] LABS: ABSOLUTE EOSINOPHILS # (AUTO) 0.1 10^3/uL (0.0-0.6); ABSOLUTE MONOCYTES (AUTO) 0.5 10^3/uL (0.1-1.4); ABSOLUTE NEUT (AUTO) 3.4 10^3/uL (1.7-8.2); EOSINOPHILS % (AUTO) 2.4 % (0-6); HEMOGLOBIN 9.7 g/dL (12.0-15.5); MEAN CORPUSCULAR HEMOGLOBIN 32.2 pg (27.0-33.4); MEAN CORPUSCULAR HGB CONC 33.4 g/dL (32.0-36.0); MEAN CORPUSCULAR VOLUME 97 fl (80-97); MONOCYTES % (AUTO) 9.3 % (3-13); PLATELET COUNT 168 10^3/uL (150-450); RED BLOOD COUNT 3.01 10^6/uL (3.72-5.28); RED CELL DISTRIBUTION WIDTH 15.3 % (11.5-14.0); SEGMENTED NEUTROPHILS % (AUTO) 68.3 % (42-78); TOTAL CELLS COUNTED % (AUTO) 100 %
[2018-12-07 17:55] LABS: ALANINE AMINOTRANSFERASE 28 U/L (9-52); ALBUMIN 3.5 g/dL (3.5-5.0); ALKALINE PHOSPHATASE 179 U/L (38-126); ANION GAP 18 (5-19); ASPARTATE AMINO TRANSFERASE 32 U/L (14-36); BILIRUBIN,DIRECT 0.6 mg/dL (0.0-0.4); BILIRUBIN,TOTAL 0.7 mg/dL (0.2-1.3); BLOOD UREA NITROGEN 78 mg/dL (7-20); CALCIUM 9.6 mg/dL (8.4-10.2); CARBON DIOXIDE 15 mmol/L (22-30); CHLORIDE 101 mmol/L (98-107); CREATINE KINASE 247 U/L (30-135); GLUCOSE 169 mg/dL (75-110); POTASSIUM 4.9 mmol/L (3.6-5.0)
[2018-12-07 18:07] LABS: CREATINE KINASE MB 6.18 ng/mL (<4.55)
[2018-12-07 18:11] LABS: TROPONIN I 0.264 ng/mL
--- NOTE | 2018-12-07 18:18 | RADIOLOGY REPORT (SQ) ---
EXAM DESCRIPTION: FOOT BILATERAL 3 VIEWS COMPLETED DATE/TIME: 12/07/2018 6:02 pm REASON FOR STUDY: bruising to feet, dropped can on feet COMPARISON: 2017 FINDINGS: Three view right foot: Osteopenic. ACUTE INTRA-ARTICULAR MEDIAL GREAT TOE PROXIMAL PHALA NX DISTAL FRACTURE. Slightly displaced. Old posttraumatic changes related to the ankle, status post open reduction internal fixation. Three views left foot: Osteopenic. No acute displaced fracture appreciated. Dorsal forefoot soft t issue swelling. Old posttraumatic and postoperative changes through the ankle and distal tibia. Fus ed ankle appearance with lucency along the inferior hardware which looks chronic. TECHNICAL DOCUMENTATION: JOB ID: [id number] Reading location - IP/workstation name: [email or web address]
--- NOTE | 2018-12-07 18:19 | RADIOLOGY REPORT (SQ) ---
EXAM DESCRIPTION: CHEST SINGLE VIEW COMPLETED DATE/TIME: 12/07/2018 6:02 pm REASON FOR STUDY: pitting edema COMPARISON: 2014 NUMBER OF VIEWS: One view. TECHNIQUE: Single frontal radiographic view of the chest acquired. LIMITATIONS: None. FINDINGS: LUNGS AND PLEURA: No opacities, masses or pneumothorax. No pleural effusion. MEDIASTINUM AND HILAR STRUCTURES: No masses. Contour normal. HEART AND VASCULAR STRUCTURES: Heart enlarged without failure. Normal vasculature. BONES: No acute findings. HARDWARE: None in the chest. OTHER: No other significant finding. IMPRESSION: HEART ENLARGED WITHOUT FAILURE. NO OTHER SIGNIFICANT RADIOGRAPHIC FINDING IN THE CHEST. TECHNICAL DOCUMENTATION: JOB ID: [id number] [employer]- All Rights Reserved Reading location - IP/workstation name: [email or web address]
[2018-12-07 19:15] LABS: AMORPHOUS SEDIMENT,URINE TRACE /HPF; APPEARANCE,URINE SLIGHTLY-CLOUDY; BILIRUBIN,URINE NEGATIVE (NEGATIVE); COLOR,URINE YELLOW; GLUCOSE, URINE 50 mg/dL (NEGATIVE); KETONES,URINE NEGATIVE (NEGATIVE); LEUKOCYTE ESTERASE,URINE SMALL (NEGATIVE); NITRITE,URINE NEGATIVE (NEGATIVE); PROTEIN,URINE 100 mg/dL (NEGATIVE); URINE SPECIFIC GRAVITY 1.013; UROBILINOGEN,URINE NEGATIVE mg/dL (<2.0)
--- NOTE | 2018-12-07 21:31 | EKG REPORT ---
SEVERITY:- ABNORMAL ECG - SINUS RHYTHM FIRST DEGREE AV BLOCK NONSPECIFIC IVCD WITH LAD PROBABLE INFERIOR INFARCT, AGE INDETERMINATE ANTERIOR INFARCT, OLD : Confirmed by: Fany Davenport 07-Dec-2018 21:31:07
[2018-12-07] MEDS: OXYCODONE-ACETAMINOPHEN 5-325 MG TABLET PO PRN (22:08)
[2018-12-07] MEDS: HYDRALAZINE HCL 50 MG TABLET PO SCH (22:11)
[2018-12-07 22:57] LABS: INTERNATIONAL RATION (INR) 1.98; PROTHROMBIN TIME 22.8 SEC (11.4-15.4)
[2018-12-07 22:58] LABS: PARTIAL THROMBOPLASTIN TIME 49.9 SEC (23.5-35.8); PHOSPHORUS 7.3 mg/dL (2.5-4.5)
[2018-12-07 23:11] LABS: TROPONIN I 0.283 ng/mL
[2018-12-07 23:16] LABS: FREE T4 (FREE THYROXINE) 2.12 ng/dL (0.78-2.19)
[2018-12-07] MEDS ORDERED: OXYCODONE-ACETAMINOPHEN 5-325 MG TABLET PO PRN (23:26)
[2018-12-07 23:29] LABS: THYROID STIMULATING HORMONE 8.54 uIU/mL (0.47-4.68)
[2018-12-07] MEDS: OXYCODONE HCL IR 5 MG TABLET PO PRN (23:29)
[2018-12-07 23:31] LABS: APPEARANCE,URINE CLEAR; BILIRUBIN,URINE NEGATIVE (NEGATIVE); COLOR,URINE YELLOW; GLUCOSE, URINE 150 mg/dL (NEGATIVE); KETONES,URINE NEGATIVE (NEGATIVE); LEUKOCYTE ESTERASE,URINE TRACE (NEGATIVE); NITRITE,URINE NEGATIVE (NEGATIVE); PROTEIN,URINE 100 mg/dL (NEGATIVE); URINE SPECIFIC GRAVITY 1.012; UROBILINOGEN,URINE NEGATIVE mg/dL (<2.0)
[2018-12-08 00:32] LABS: ARTERIAL BLOOD BASE EXCESS -5.5 mmol/L; ARTERIAL BLOOD H2CO3 0.99 mmol/L (1.05-1.35); ARTERIAL BLOOD HCO3 18.9 mmol/L (20-24); ARTERIAL BLOOD O2 SATURATION 96.7 % (94-98); ARTERIAL BLOOD PCO2 32.9 mmHg (35-45); ARTERIAL BLOOD PH 7.38 (7.35-7.45); ARTERIAL BLOOD PO2 88.6 mmHg (80-100); ARTERIAL BLOOD TOTAL CO2 19.9 mmol/L (21-25)
[2018-12-08 00:35] LABS: ARTERIAL BLOOD FIO2 ROOM AIR
[2018-12-08] MEDS: HEPARIN SOD (PORCINE) 5,000 UNIT/ML 1 ML VIAL SUBCUT SCH ×2 (01:27→05:10)
[2018-12-08 04:48] LABS: ABSOLUTE EOSINOPHILS # (AUTO) 0.2 10^3/uL (0.0-0.6); ABSOLUTE LYMPHOCYTES (AUTO) 0.9 10^3/uL (0.5-4.7); ABSOLUTE MONOCYTES (AUTO) 0.4 10^3/uL (0.1-1.4); ABSOLUTE NEUT (AUTO) 2.5 10^3/uL (1.7-8.2); BASOPHILS % (AUTO) 1.1 % (0-2); EOSINOPHILS % (AUTO) 5.4 % (0-6); HEMATOCRIT 29.9 % (36.0-47.0); HEMOGLOBIN 9.7 g/dL (12.0-15.5); LYMPHOCYTES % (AUTO) 21.6 % (13-45); MEAN CORPUSCULAR HEMOGLOBIN 31.9 pg (27.0-33.4); MEAN CORPUSCULAR HGB CONC 32.6 g/dL (32.0-36.0); MEAN CORPUSCULAR VOLUME 98 fl (80-97); MONOCYTES % (AUTO) 9.6 % (3-13); PLATELET COUNT 148 10^3/uL (150-450); RED BLOOD COUNT 3.05 10^6/uL (3.72-5.28); RED CELL DISTRIBUTION WIDTH 15.7 % (11.5-14.0); SEGMENTED NEUTROPHILS % (AUTO) 62.3 % (42-78); TOTAL CELLS COUNTED % (AUTO) 100 %; WHITE BLOOD COUNT 4.1 10^3/uL (4.0-10.5)
[2018-12-08 05:14] LABS: ALANINE AMINOTRANSFERASE 27 U/L (9-52); ALBUMIN 3.4 g/dL (3.5-5.0); ALKALINE PHOSPHATASE 168 U/L (38-126); ANION GAP 14 (5-19); ASPARTATE AMINO TRANSFERASE 32 U/L (14-36); BILIRUBIN,DIRECT 0.6 mg/dL (0.0-0.4); BILIRUBIN,TOTAL 0.6 mg/dL (0.2-1.3); BLOOD UREA NITROGEN 84 mg/dL (7-20); CALCIUM 9.7 mg/dL (8.4-10.2); CARBON DIOXIDE 20 mmol/L (22-30); CHLORIDE 102 mmol/L (98-107); GLUCOSE 183 mg/dL (75-110); POTASSIUM 4.5 mmol/L (3.6-5.0); TRIGLYCERIDES 79 mg/dL (<150)
[2018-12-08 05:24] LABS: CREATINE KINASE MB 3.99 ng/mL (<4.55); TROPONIN I 0.22 ng/mL
[2018-12-08 05:25] LABS: DIRECT LDL 35 mg/dL (<100)
[2018-12-08] MEDS: HYDRALAZINE HCL 50 MG TABLET PO SCH ×3 (05:33→21:57)
--- NOTE | 2018-12-08 07:00 | EKG REPORT ---
SEVERITY:- ABNORMAL ECG - SINUS RHYTHM FIRST DEGREE AV BLOCK NONSPECIFIC IVCD WITH LAD PROBABLE INFERIOR INFARCT, AGE INDETERMINATE CONSIDER ANTEROSEPTAL INFARCT : Confirmed by: Fany Davenport 08-Dec-2018 06:59:41
[2018-12-08] MEDS ORDERED: CYCLOBENZAPRINE HCL 10 MG TABLET PO PRN (11:37)
[2018-12-08] MEDS ORDERED: MONTELUKAST SODIUM 10 MG TABLET PO PRN (11:37)
[2018-12-08] MEDS ORDERED: (PENDING PHARMACY ID) (Oxycodone Hcl/Acetaminophen [Percocet 10-325 Mg Tablet] 1 TAB) PO PRN (11:37)
[2018-12-08] MEDS ORDERED: (PENDING PHARMACY ID) (Calcitriol [Rocaltrol 0.5 Mcg Capsule] 0.5 MCG) PO SCH (11:45)
[2018-12-08] MEDS ORDERED: (PENDING PHARMACY ID) (Warfarin Sodium 2 MG) PO SCH (11:45)
--- NOTE | 2018-12-08 12:27 | PDOC CONSULTATION ---
Consultation Consult Date: 12/08/18 Provider Consulted: Yuliana HOLMAN Consult reason:: Acute on chronic kidney stage IV History of Present Illness Admission Date/PCP: 12/07/18 21:00 EDSON MCKEON PA-C History of Present Illness: GLO GARCIA is a 63 year old female with a past history of complicated diabetes mellitus, hypertension, CAD, CKD stage IV with a base creatinine of around 4-4.5, Atrial fibrillation for which she is on amiodarone as well as warfarin, morbid obesity for which she had underwent weight reduction surgery approximately a year or so ago was admitted with history of generalized weakness. She also apparently had a history of a trip and a fall that did not involve any head injury. She is also been having chronic low back pains as well as more recent left back pains for which she is using narcotics in the form of p.o. medications as well as patches. She also mentions she has had some injury of right foot as she had some cans drop on her leg recently. She has intermittent nausea without any vomiting. Appetite is fair. She is also severely constipated and moves her bowels every 7 to 10 days. She admits to the fact that she is not so compliant with her medications. She takes the Lasix not on a regular basis but has also seen that she has had progressive edema of her lower extremities. She also does not take the laxatives because she said that inter feres with her going out.She denies any history of chest pains or shortness of breath. No history of any itching. No history of any severe headaches or focal deficits. Labs and medications were reviewed with the patient. Her medications were also reviewed with the treating nurse as well as the patient. She is also been using Detrol prescribed by her automotive service advisor for intermittent incontinence.I did review her labs as an outpatient as she has been followed by Edson Mckeon PA-C here in my office. Her baseline creatinine stays around 4.5. Did review imaging studies done on her from September which has shown atrophy kidneys with severe vascular calcifications.She also has had an hemorrhagic cyst in the left kidney. Foot x- ray shows an acute right big toe distal phalanx fracture slightly displaced. Currently she is very comfortable in bed. She denies any acute symptoms. Past Medical History Cardiac Medical History: Reports: Coronary Artery Disease - 3 stents, Hyperlipidemia, Hypertension-primary, Myocardial Infarction - x1 Pulmonary Medical History: Reports: Pneumonia - 3 yrs ago Denies: Asthma, Bronchitis, Chronic Obstructive Pulmonary Disease (COPD) EENT Medical History: Reports: None Neurological Medical History: Reports: None Denies: Seizures Endocrine Medical History: Reports: Diabetes Mellitus Type 2 - insulin dep Complications of Diabetes: Reports: None Renal/ Medical History: Reports: Chronic Kidney Disease Stage IV, Secondary Hyperparathyroidism Malignancy Medical History: Reports: None GI Medical History: Reports: None Musculoskeltal Medical History: Reports: Arthritis - shoulders Skin Medical History: Reports: None Psychiatric Medical History: Reports: None Denies: Depression Traumatic Medical History: Reports: None Hematology Medical History: Reports Anemia of Chronic Kidney Disease Past Surgical History Past Surgical History: Reports: Section - x 1, Orthopedic Surgery - left leg x 13, right leg x 1 Social History Smoking Status: Former Smoker Frequency of Alcohol Use: None Hx Recreational Drug Use: No Hx Prescription Drug Abuse: No Family History Parental Family History Reviewed: Yes - Negative for ESRD Children Family History Reviewed: No Sibling(s) Family History Reviewed.: No Medication/Allergy Home Medications: Insulin Glargine,Hum.rec.anlog [Lantus Insulin 100 Unit/mL Insulin Pen] 0 unit SUBCUT HSP PRN 05/22/12 Oxycodone HCl/Acetaminophen [Percocet 10-325 Mg Tablet] 1 tab PO QIDP PRN 05/22/12 Clonazepam [Klonopin 1 mg Tablet] 2 mg PO Q12 10/26/13 Cyclobenzaprine HCl [Flexeril 10 mg Tablet] 10 mg PO Q8HP PRN 12/22/14 Amiodarone HCl [Cordarone 200 mg Tablet] 200 mg PO DAILY 08/01/15 Calcitriol [Rocaltrol] 0.5 mcg PO DAILY 12/08/18 Diclofenac Sodium 4 gm TOP QIDP PRN 12/08/18 Fentanyl [Duragesic 25 Mcg/Hr Transdermal Patch] 1 each TD Q3D 12/08/18 Fluconazole [Diflucan] 150 mg PO .QWEEKLY PRN 12/08/18 Furosemide [Lasix 20 mg Tablet] 20 mg PO QAM 12/08/18 Hydralazine HCl [Apresoline 50 mg Tablet] 50 mg PO Q12 12/08/18 Insulin Lispro [Humalog Insulin 100 Unit/1 ml 3 ml Vial] 0 unit SUBCUT .SLIDING SCALE 12/08/18 Isosorbide Mononitrate [Ismo 20 Mg Tablet] 20 mg PO Q12 12/08/18 Lubiprostone [Amitiza 24 Mcg Capsule] 24 mcg PO BIDP PRN 12/08/18 Montelukast Sodium [Singulair 10 mg Tablet] 10 mg PO HSP PRN 12/08/18 Omeprazole 40 mg PO DAILY 12/08/18 Oxycodone HCl/Acetaminophen [Oxycodone-Acetaminophen 10-325] 0.5 tab PO HSP PRN 12/08/18 Rosuvastatin Calcium [Crestor 10 mg Tablet] 10 mg PO QHS 12/08/18 Warfarin Sodium 2 mg PO DAILY 12/08/18 Allergies/Adverse Reactions: Penicillins Allergy (Severe, Verified 11/07/18 16:59) Childhood reaction vancomycin [Vancomycin] Allergy (Severe, Verified 11/07/18 16:59) Damaged her kidneys doxycycline Allergy (Verified 11/07/18 16:59) Review of Systems Constitutional: PRESENT: anorexia, fatigue, weakness. ABSENT: chills, fever(s), headache(s), night sweats Nose, Mouth, and Throat: ABSENT: mouth pain, sore throat Cardiovascular: PRESENT: edema. ABSENT: chest pain, dyspnea on exertion, orthropnea, palpitations Respiratory: PRESENT: cough. ABSENT: dyspnea, hemoptysis Gastrointestinal: PRESENT: bloating, constipation, nausea - Occasional.. ABSENT: abdominal pain, coffee ground emesis, diarrhea, heartburn, hematemesis, hematochezia, vomiting Genitourinary: ABSENT: dysuria, hematuria Musculoskeletal: PRESENT: back pain. ABSENT: deformity, joint swelling Integumentary: ABSENT: diaphoresis, erythema, lesions, pruritus, rash Neurological: PRESENT: dizziness. ABSENT: abnormal gait, abnormal movements, abnormal speech, confusion, convulsions, focal weakness, frequent falls, lack of coordination, memory loss, syncope Psychiatric: ABSENT: depression Endocrine: ABSENT: polydipsia Hematologic/Lymphatic: ABSENT: easy bleeding, easy bruising, lymphadenopathy Physical Exam Vital Signs: Temp Pulse Resp BP Pulse Ox 97.6 F 57 L 16 168/67 H 95 12/08/18 10:20 12/08/18 10:20 12/08/18 10:20 12/08/18 10:20 12/08/18 10:20 Intake & Output 12/07/18 12/08/18 12/09/18 06:59 06:59 06:59 Weight 61.235 kg 67.6 kg General appearance: PRESENT: no acute distress Eye exam: PRESENT: EOMI, PERRLA. ABSENT: scleral icterus Ear exam: PRESENT: normal external ear exam Mouth exam: PRESENT: moist, neck supple Neck exam: ABSENT: lymphadenopathy, meningismus, tenderness, thyromegaly, tracheal deviation Respiratory exam: PRESENT: symmetrical. ABSENT: clear to auscultation lena, crackles Cardiovascular exam: PRESENT: +S1, +S2 Pulses: PRESENT: other - She has a walking left upper arm AV fistula slightly tortuous. GI/Abdominal exam: PRESENT: normal bowel sounds. ABSENT: organomegaly, soft, tenderness Extremities exam: PRESENT: +1 edema Neurological exam: PRESENT: alert, awake, oriented to person, oriented to place, oriented to time Psychiatric exam: PRESENT: appropriate affect. ABSENT: anxious, depressed Skin exam: ABSENT: erythema, mottled, rash Results Laboratory Results: 12/08/18 04:30 12/08/18 04:30 12/07/18 12/07/18 12/07/18 16:22 16:22 18:52 WBC 5.0 RBC 3.01 L Hgb 9.7 L Hct 29.0 L MCV 97 MCH 32.2 MCHC 33.4 RDW 15.3 H Plt Count 168 Seg Neutrophils % 68.3 Lymphocytes % 19.0 Monocytes % 9.3 Eosinophils % 2.4 Basophils % 1.0 Absolute Neutrophils 3.4 Absolute Lymphocytes 1.0 Absolute Monocytes 0.5 Absolute Eosinophils 0.1 Absolute Basophils 0.0 Carbonic Acid HCO3/H2CO3 Ratio ABG pH ABG pCO2 ABG pO2 ABG HCO3 ABG O2 Saturation ABG Base Excess FiO2 Sodium 133.7 L Potassium 4.9 Chloride 101 Carbon Dioxide 15 L Anion Gap 18 BUN 78 H Creatinine 5.36 H Est GFR ( Amer) 10 L Est GFR (Non-Af Amer) 8 L Glucose 169 H Calcium 9.6 Phosphorus Magnesium Total Bilirubin 0.7 AST 32 ALT 28 Alkaline Phosphatase 179 H Ammonia Total Protein 7.0 Albumin 3.5 Triglycerides Cholesterol LDL Cholesterol Direct VLDL Cholesterol HDL Cholesterol Amylase Lipase TSH Free T4 Urine Color YELLOW Urine Appearance SLIGHTLY-CLOUDY Urine pH 5.0 Ur Specific Beyer 1.013 Urine Protein 100 H Urine Glucose (UA) 50 H Urine Ketones NEGATIVE Urine Blood SMALL H Urine Nitrite NEGATIVE Ur Leukocyte Esterase SMALL H Urine WBC (Auto) 18 Urine RBC (Auto) 3 12/07/18 12/07/18 12/07/18 22:30 22:30 22:30 WBC RBC Hgb Hct MCV MCH MCHC RDW Plt Count Seg Neutrophils % Lymphocytes % Monocytes % Eosinophils % Basophils % Absolute Neutrophils Absolute Lymphocytes Absolute Monocytes Absolute Eosinophils Absolute Basophils Carbonic Acid HCO3/H2CO3 Ratio ABG pH ABG pCO2 ABG pO2 ABG HCO3 ABG O2 Saturation ABG Base Excess FiO2 Sodium Potassium Chloride Carbon Dioxide Anion Gap BUN Creatinine Est GFR ( Amer) Est GFR (Non-Af Amer) Glucose Calcium Phosphorus 7.3 H Magnesium 2.5 H Total Bilirubin AST ALT Alkaline Phosphatase Ammonia < 8.7 L Total Protein Albumin Triglycerides Cholesterol LDL Cholesterol Direct VLDL Cholesterol HDL Cholesterol Amylase 39 Lipase 18.4 L TSH 8.54 H Free T4 2.12 Urine Color Urine Appearance Urine pH Ur Specific Beyer Urine Protein Urine Glucose (UA) Urine Ketones Urine Blood Urine Nitrite Ur Leukocyte Esterase Urine WBC (Auto) Urine RBC (Auto) 12/07/18 12/08/18 12/08/18 23:07 00:20 04:30 WBC 4.1 RBC 3.05 L Hgb 9.7 L Hct 29.9 L MCV 98 H MCH 31.9 MCHC 32.6 RDW 15.7 H Plt Count 148 L Seg Neutrophils % 62.3 Lymphocytes % 21.6 Monocytes % 9.6 Eosinophils % 5.4 Basophils % 1.1 Absolute Neutrophils 2.5 Absolute Lymphocytes 0.9 Absolute Monocytes 0.4 Absolute Eosinophils 0.2 Absolute Basophils 0.0 Carbonic Acid 0.99 L HCO3/H2CO3 Ratio 19:1 ABG pH 7.38 ABG pCO2 32.9 L ABG pO2 88.6 ABG HCO3 18.9 L ABG O2 Saturation 96.7 ABG Base Excess -5.5 FiO2 ROOM AIR Sodium Potassium Chloride Carbon Dioxide Anion Gap BUN Creatinine Est GFR ( Amer) Est GFR (Non-Af Amer) Glucose Calcium Phosphorus Magnesium Total Bilirubin AST ALT Alkaline Phosphatase Ammonia Total Protein Albumin Triglycerides Cholesterol LDL Cholesterol Direct VLDL Cholesterol HDL Cholesterol Amylase Lipase TSH Free T4 Urine Color YELLOW Urine Appearance CLEAR Urine pH 5.0 Ur Specific Beyer 1.012 Urine Protein 100 H Urine Glucose (UA) 150 H Urine Ketones NEGATIVE Urine Blood SMALL H Urine Nitrite NEGATIVE Ur Leukocyte Esterase TRACE H Urine WBC (Auto) 9 Urine RBC (Auto) 2 12/08/18 04:30 WBC RBC Hgb Hct MCV MCH MCHC RDW Plt Count Seg Neutrophils % Lymphocytes % Monocytes % Eosinophils % Basophils % Absolute Neutrophils Absolute Lymphocytes Absolute Monocytes Absolute Eosinophils Absolute Basophils Carbonic Acid HCO3/H2CO3 Ratio ABG pH ABG pCO2 ABG pO2 ABG HCO3 ABG O2 Saturation ABG Base Excess FiO2 Sodium 136.4 L Potassium 4.5 Chloride 102 Carbon Dioxide 20 L Anion Gap 14 BUN 84 H Creatinine 5.24 H Est GFR ( Amer) 10 L Est GFR (Non-Af Amer) 8 L Glucose 183 H Calcium 9.7 Phosphorus Magnesium Total Bilirubin 0.6 AST 32 ALT 27 Alkaline Phosphatase 168 H Ammonia Total Protein 7.0 Albumin 3.4 L Triglycerides 79 Cholesterol 93.30 LDL Cholesterol Direct 35 VLDL Cholesterol 16.0 HDL Cholesterol 43 Amylase Lipase TSH Free T4 Urine Color Urine Appearance Urine pH Ur Specific Beyer Urine Protein Urine Glucose (UA) Urine Ketones Urine Blood Urine Nitrite Ur Leukocyte Esterase Urine WBC (Auto) Urine RBC (Auto) 12/07/18 12/07/18 12/07/18 16:22 16:22 19:30 Creatine Kinase 247 H CK-MB (CK-2) 6.18 H Troponin I 0.264 0.236 NT-Pro-B Natriuret Pep 12/07/18 12/07/18 12/07/18 22:30 22:30 22:30 Creatine Kinase 304 H CK-MB (CK-2) 5.00 H Troponin I 0.283 NT-Pro-B Natriuret Pep 22013 H 12/08/18 12/08/18 04:30 04:30 Creatine Kinase 245 H CK-MB (CK-2) 3.99 Troponin I 0.220 NT-Pro-B Natriuret Pep Impressions: Chest X-Ray 12/07/18 00:00 IMPRESSION: HEART ENLARGED WITHOUT FAILURE. NO OTHER SIGNIFICANT RADIOGRAPHIC FINDING IN THE CHEST. Assessment & Plan - Diagnosis (1) Generalized weakness Plan: This is the reason for admission. I believe this is multifactorial. She is on a bunch of narcotics both intradermally as well as p.o. in the face of worsening constipation and CKD 4 , which I think is a major factor in her overall weakness. Besides that she is also got new onset hypothyroidism which could be secondary to her amiodarone use. Obviously constipation can be made worse by her hypothyroidism as well. Discussed with the patient that I do not see any advancing renal disease as a major factor even though it could be contributing to her overall weakness. However I would like to address other factors before putting a lot of blame on her present renal functions as a cause of her generalized weakness. We will try to address each 1 of these individually and see if we can help her overall. Besides that I advised her that her noncompliance with her medications are definitely not helpful in the overall care. She should be using less of narcotics given her precarious renal functions. (2) LIOR (acute kidney injury) Plan: Patient has got mild LIOR on his CKD stage IV with a base creatinine of around 4.5. Multifactorial including poor intake. I like to see whether we can increase oral intake by working on her other issues that are contributing to her anorexia.At this moment patient does not show any obvious evidences of uremia nor any acute indications to initiate renal replacements. She has a working left upper arm AV fistula which can be used if she needs to have renal replacements done any time. (3) CKD (chronic kidney disease) stage 4, GFR 15-29 ml/min Plan: Base creatinine of around 4.5. She has got mild acute worsening of renal functions which are multifactorial. Patient has got very poor intake and clinically she is on the dry side in spite of her pedal edema which is a combination of factors including dependent edema/hypoalbuminemia. She is severely constipated which hopefully can be worked up and she can be less anorexic and she can increase her p.o. intake which hopefully might be a factor in improving prerenal worsening of renal functions. At the moment I do not see any acute indications to initiate renal replacements. Explained this at length to the patient and she is happy with the assessment made. (4) Renal osteodystrophy Plan: Continue on with calcitriol which I do not think she is very compliant. (5) Constipation Plan: Will order soapsuds enemas discussed with nurse. Will also order lactulose. (6) Atrial fibrillation Plan: Rate controlled on amiodarone. However the amiodarone is also possibly leading to new onset hypothyroidism which needs to be corrected. We will leave this to Dr. Zhu. (7) Diabetes 1.5, managed as type 2 Plan: Most recent A1c was 7.5. Advised her that this could be better. (8) Obesity Plan: Status post with reduction surgery. She wants to wait to be 135 and she is fixated on that number. I advised her that her present weight is more than what she should be probably losing and that her present 139 pounds is adequate.However some of the weight could be because she is got peripheral fluid overload as well. (9) Fall Qualifiers: Encounter type: initial encounter Qualified Code(s): W19.XXXA - Unspecified fall, initial encounter (10) Anemia in chronic kidney disease (CKD) Plan: Will initiate work-up followed by erythropoietin.She had been getting erythropoietin in our office but her hemoglobin had been around 10 so far and she has not had any injections erythropoietin for a few months now. (11) Hypothyroid Plan: New onset. Most likely secondary to amiodarone. We will leave management of this to Dr. Zhu. (12) Hypoalbuminemia Plan: Multiple factors including poor intake. Encourage better protein intake. (13) Proteinuria due to type 2 diabetes mellitus Plan: Secondary to diabetes mellitus. (14) Back pain Plan: Chronic. Recommend less usage of narcotics in this patient given a precariously placed renal functions and her severe constipation which she does not stay on top. (15) Fracture Plan: Acute. Right big toe. Minimally displaced. As per Dr. Zhu.
[2018-12-08 12:43] LABS: INTERNATIONAL RATION (INR) 2.01; PROTHROMBIN TIME 23.1 SEC (11.4-15.4)
[2018-12-08] MEDS: ISOSORBIDE MONONITRATE 20 MG TABLET PO SCH ×2 (12:50→21:56)
[2018-12-08] MEDS: AMIODARONE HCL 200 MG TABLET PO SCH (12:50)
[2018-12-08] MEDS: PANTOPRAZOLE SODIUM 40 MG TABLET.DR PO SCH (12:51)
[2018-12-08 13:15] LABS: CREATINE KINASE MB 4.14 ng/mL (<4.55)
[2018-12-08 13:22] LABS: TROPONIN I 0.195 ng/mL
[2018-12-08] MEDS: CLONAZEPAM 1 MG TABLET PO SCH ×2 (13:45→21:57)
[2018-12-08] MEDS: FUROSEMIDE 20 MG TABLET PO SCH (13:46)
[2018-12-08] MEDS: CALCITRIOL 0.25 MCG CAPSULE PO SCH (13:49)
--- NOTE | 2018-12-08 19:10 | PDOC H&P ---
History of Present Illness Admission Date/PCP: 12/07/18 21:00 EDSON ORTEGA PA-C History of Present Illness: GLO GARCIA is a 63 year old female,She has chronic kidney disease stage V, type 2 diabetes mellitus with complications, she came to the emergency room for evaluation of generalized body weakness. She has developed progressive decline in function, culminating in severe fatigue and generalized body weakness. She has multiple comorbid conditions, she is also on multiple medications. The arterial blood gas on ambient air demonstrated pH 7.38, PO2 88 (, bicarbonate 18.9, PCO2 32.9. She has compensated metabolic acidosis, the expected PCO2 40 degree of bicarbonate she will be 26-30 but the measured PCO2 32.9 suggesting a component of respiratory acidosis.She has lower extremity edema Past Medical History Cardiac Medical History: Reports: Atrial Fibrillation, Congestive Heart Failure, Coronary Artery Disease - 3 stents, Myocardial Infarction - x1 , Hyperlipidema, Hypertension - on meds Pulmonary Medical History: Reports: Pneumonia - 3 yrs ago EENT Medical History: Reports: None Neurological Medical History: Reports: None Endocrine Medical History: Reports: Diabetes Mellitus Type 2 - insulin dep Renal/ Medical History: Reports: Other - Chronic kidney disease stage V Malignancy Medical History: Reports: None GI Medical History: Reports: None Musculoskeltal Medical History: Reports: Arthritis - shoulders Skin Medical History: Reports: None Psychiatric Medical History: Reports: None Traumatic Medical History: Reports: None Hematology: Reports: Anemia - hx of Past Surgical History Past Surgical History: Reports: Section - x 1, Orthopedic Surgery - left leg x 13, right leg x 1 Social History Smoking Status: Former Smoker Frequency of Alcohol Use: None Hx Recreational Drug Use: No Hx Prescription Drug Abuse: No Family History Family History: Reviewed & Not Pertinent Parental Family History Reviewed: Yes Children Family History Reviewed: Yes Sibling(s) Family History Reviewed.: Yes Medication/Allergy Home Medications: Insulin Glargine,Hum.rec.anlog [Lantus Insulin 100 Unit/mL Insulin Pen] 0 unit SUBCUT HSP PRN 05/22/12 Oxycodone HCl/Acetaminophen [Percocet 10-325 Mg Tablet] 1 tab PO QIDP PRN 05/22/12 Clonazepam [Klonopin 1 mg Tablet] 2 mg PO Q12 10/26/13 Cyclobenzaprine HCl [Flexeril 10 mg Tablet] 10 mg PO Q8HP PRN 12/22/14 Amiodarone HCl [Cordarone 200 mg Tablet] 200 mg PO DAILY 08/01/15 Calcitriol [Rocaltrol] 0.5 mcg PO DAILY 12/08/18 Diclofenac Sodium 4 gm TOP QIDP PRN 12/08/18 Fentanyl [Duragesic 25 Mcg/Hr Transdermal Patch] 1 each TD Q3D 12/08/18 Fluconazole [Diflucan] 150 mg PO .QWEEKLY PRN 12/08/18 Furosemide [Lasix 20 mg Tablet] 20 mg PO QAM 12/08/18 Hydralazine HCl [Apresoline 50 mg Tablet] 50 mg PO Q12 12/08/18 Insulin Lispro [Humalog Insulin 100 Unit/1 ml 3 ml Vial] 0 unit SUBCUT .SLIDING SCALE 12/08/18 Isosorbide Mononitrate [Ismo 20 Mg Tablet] 20 mg PO Q12 12/08/18 Lubiprostone [Amitiza 24 Mcg Capsule] 24 mcg PO BIDP PRN 12/08/18 Montelukast Sodium [Singulair 10 mg Tablet] 10 mg PO HSP PRN 12/08/18 Omeprazole 40 mg PO DAILY 12/08/18 Oxycodone HCl/Acetaminophen [Oxycodone-Acetaminophen 10-325] 0.5 tab PO HSP PRN 12/08/18 Rosuvastatin Calcium [Crestor 10 mg Tablet] 10 mg PO QHS 12/08/18 Warfarin Sodium 2 mg PO DAILY 12/08/18 Allergies/Adverse Reactions: Penicillins Allergy (Severe, Verified 11/07/18 16:59) Childhood reaction vancomycin [Vancomycin] Allergy (Severe, Verified 11/07/18 16:59) Damaged her kidneys doxycycline Allergy (Verified 11/07/18 16:59) Review of Systems Constitutional: PRESENT: fatigue, weakness Cardiovascular: PRESENT: edema, palpitations Respiratory: PRESENT: cough Gastrointestinal: PRESENT: constipation, nausea Neurological: PRESENT: dizziness Physical Exam Vital Signs: Temp Pulse Resp BP Pulse Ox 97.3 F 57 L 16 156/59 H 96 12/08/18 15:07 12/08/18 15:07 12/08/18 15:07 12/08/18 15:07 12/08/18 15:07 Intake & Output 12/07/18 12/08/18 12/09/18 06:59 06:59 06:59 Intake Total 200 Balance 200 Weight 61.235 kg 67.6 kg General appearance: PRESENT: no acute distress Eye exam: PRESENT: PERRLA Respiratory exam: PRESENT: clear to auscultation lena Cardiovascular exam: PRESENT: +S1, +S2 GI/Abdominal exam: PRESENT: soft Extremities exam: PRESENT: pedal edema Neurological exam: PRESENT: alert, CN II-XII grossly intact Results Laboratory Results: 12/08/18 04:30 12/08/18 04:30 12/07/18 12/07/18 12/07/18 18:52 22:30 22:30 WBC RBC Hgb Hct MCV MCH MCHC RDW Plt Count Seg Neutrophils % Lymphocytes % Monocytes % Eosinophils % Basophils % Absolute Neutrophils Absolute Lymphocytes Absolute Monocytes Absolute Eosinophils Absolute Basophils Carbonic Acid HCO3/H2CO3 Ratio ABG pH ABG pCO2 ABG pO2 ABG HCO3 ABG O2 Saturation ABG Base Excess FiO2 Sodium Potassium Chloride Carbon Dioxide Anion Gap BUN Creatinine Est GFR ( Amer) Est GFR (Non-Af Amer) Glucose Calcium Phosphorus 7.3 H Magnesium 2.5 H Total Bilirubin AST ALT Alkaline Phosphatase Ammonia Total Protein Albumin Triglycerides Cholesterol LDL Cholesterol Direct VLDL Cholesterol HDL Cholesterol Amylase 39 Lipase 18.4 L TSH 8.54 H Free T4 2.12 Urine Color YELLOW Urine Appearance SLIGHTLY-CLOUDY Urine pH 5.0 Ur Specific [place] 1.013 Urine Protein 100 H Urine Glucose (UA) 50 H Urine Ketones NEGATIVE Urine Blood SMALL H Urine Nitrite NEGATIVE Ur Leukocyte Esterase SMALL H Urine WBC (Auto) 18 Urine RBC (Auto) 3 12/07/18 12/07/18 12/08/18 22:30 23:07 00:20 WBC RBC Hgb Hct MCV MCH MCHC RDW Plt Count Seg Neutrophils % Lymphocytes % Monocytes % Eosinophils % Basophils % Absolute Neutrophils Absolute Lymphocytes Absolute Monocytes Absolute Eosinophils Absolute Basophils Carbonic Acid 0.99 L HCO3/H2CO3 Ratio 19:1 ABG pH 7.38 ABG pCO2 32.9 L ABG pO2 88.6 ABG HCO3 18.9 L ABG O2 Saturation 96.7 ABG Base Excess -5.5 FiO2 ROOM AIR Sodium Potassium Chloride Carbon Dioxide Anion Gap BUN Creatinine Est GFR ( Amer) Est GFR (Non-Af Amer) Glucose Calcium Phosphorus Magnesium Total Bilirubin AST ALT Alkaline Phosphatase Ammonia < 8.7 L Total Protein Albumin Triglycerides Cholesterol LDL Cholesterol Direct VLDL Cholesterol HDL Cholesterol Amylase Lipase TSH Free T4 Urine Color YELLOW Urine Appearance CLEAR Urine pH 5.0 Ur Specific [place] 1.012 Urine Protein 100 H Urine Glucose (UA) 150 H Urine Ketones NEGATIVE Urine Blood SMALL H Urine Nitrite NEGATIVE Ur Leukocyte Esterase TRACE H Urine WBC (Auto) 9 Urine RBC (Auto) 2 12/08/18 12/08/18 04:30 04:30 WBC 4.1 RBC 3.05 L Hgb 9.7 L Hct 29.9 L MCV 98 H MCH 31.9 MCHC 32.6 RDW 15.7 H Plt Count 148 L Seg Neutrophils % 62.3 Lymphocytes % 21.6 Monocytes % 9.6 Eosinophils % 5.4 Basophils % 1.1 Absolute Neutrophils 2.5 Absolute Lymphocytes 0.9 Absolute Monocytes 0.4 Absolute Eosinophils 0.2 Absolute Basophils 0.0 Carbonic Acid HCO3/H2CO3 Ratio ABG pH ABG pCO2 ABG pO2 ABG HCO3 ABG O2 Saturation ABG Base Excess FiO2 Sodium 136.4 L Potassium 4.5 Chloride 102 Carbon Dioxide 20 L Anion Gap 14 BUN 84 H Creatinine 5.24 H Est GFR ( Amer) 10 L Est GFR (Non-Af Amer) 8 L Glucose 183 H Calcium 9.7 Phosphorus Magnesium Total Bilirubin 0.6 AST 32 ALT 27 Alkaline Phosphatase 168 H Ammonia Total Protein 7.0 Albumin 3.4 L Triglycerides 79 Cholesterol 93.30 LDL Cholesterol Direct 35 VLDL Cholesterol 16.0 HDL Cholesterol 43 Amylase Lipase TSH Free T4 Urine Color Urine Appearance Urine pH Ur Specific [place] Urine Protein Urine Glucose (UA) Urine Ketones Urine Blood Urine Nitrite Ur Leukocyte Esterase Urine WBC (Auto) Urine RBC (Auto) 12/07/18 12/07/18 12/07/18 16:22 16:22 19:30 Creatine Kinase 247 H CK-MB (CK-2) 6.18 H Troponin I 0.264 0.236 NT-Pro-B Natriuret Pep 12/07/18 12/07/18 12/07/18 22:30 22:30 22:30 Creatine Kinase 304 H CK-MB (CK-2) 5.00 H Troponin I 0.283 NT-Pro-B Natriuret Pep [id number] H 12/08/18 12/08/18 12/08/18 04:30 04:30 12:15 Creatine Kinase 245 H 308 H CK-MB (CK-2) 3.99 Troponin I 0.220 NT-Pro-B Natriuret Pep 12/08/18 12:15 Creatine Kinase CK-MB (CK-2) 4.14 Troponin I 0.195 NT-Pro-B Natriuret Pep Impressions: Chest X-Ray 12/07/18 00:00 IMPRESSION: HEART ENLARGED WITHOUT FAILURE. NO OTHER SIGNIFICANT RADIOGRAPHIC FINDING IN THE CHEST. Assessment & Plan - Diagnosis (1) Metabolic acidosis with respiratory acidosis Is this a current diagnosis for this admission?: Yes Plan: She has combination metabolic acidosis with respiratory acidosis (2) CKD stage 5 due to type 2 diabetes mellitus Is this a current diagnosis for this admission?: Yes Plan: Consultation will be requested from nephrology (3) Generalized weakness Is this a current diagnosis for this admission?: Yes Plan: The etiology is multifactorial (4) Anemia in chronic kidney disease (CKD) Qualifiers: Chronic kidney disease stage: stage 5, not on chronic dialysis Qualified Code(s): N18.5 - Chronic kidney disease, stage 5; D63.1 - Anemia in chronic kidney disease Is this a current diagnosis for this admission?: Yes (5) Atrial fibrillation Qualifiers: Atrial fibrillation type: chronic Qualified Code(s): I48.2 - Chronic atrial fibrillation Is this a current diagnosis for this admission?: Yes (6) Constipation Qualifiers: Constipation type: unspecified constipation type Qualified Code(s): K59.00 - Constipation, unspecified
[2018-12-08] MEDS: LACTULOSE SYRUP 20 GM/30 ML UDCUP PO SCH (21:56)
[2018-12-08] MEDS: ATORVASTATIN CALCIUM 20 MG TABLET PO SCH (21:56)
[2018-12-08] MEDS: WARFARIN SODIUM 2 MG TABLET PO SCH (21:59)
[2018-12-09] MEDS: PANTOPRAZOLE SODIUM 40 MG TABLET.DR PO SCH (05:12)
[2018-12-09 05:40] LABS: ABSOLUTE BASOPHILS # (AUTO) 0.1 10^3/uL (0.0-0.2); ABSOLUTE EOSINOPHILS # (AUTO) 0.3 10^3/uL (0.0-0.6); ABSOLUTE LYMPHOCYTES (AUTO) 0.6 10^3/uL (0.5-4.7); ABSOLUTE MONOCYTES (AUTO) 0.4 10^3/uL (0.1-1.4); ABSOLUTE NEUT (AUTO) 2.6 10^3/uL (1.7-8.2); BASOPHILS % (AUTO) 1.4 % (0-2); EOSINOPHILS % (AUTO) 7.3 % (0-6); HEMATOCRIT 27.1 % (36.0-47.0); LYMPHOCYTES % (AUTO) 16.2 % (13-45); MEAN CORPUSCULAR HEMOGLOBIN 32.1 pg (27.0-33.4); MEAN CORPUSCULAR HGB CONC 33.3 g/dL (32.0-36.0); MEAN CORPUSCULAR VOLUME 96 fl (80-97); PLATELET COUNT 145 10^3/uL (150-450); RED BLOOD COUNT 2.82 10^6/uL (3.72-5.28); RED CELL DISTRIBUTION WIDTH 15.3 % (11.5-14.0); SEGMENTED NEUTROPHILS % (AUTO) 66.1 % (42-78); TOTAL CELLS COUNTED % (AUTO) 100 %
[2018-12-09 05:45] LABS: INTERNATIONAL RATION (INR) 2.25; PROTHROMBIN TIME 25.3 SEC (11.4-15.4)
[2018-12-09 06:05] LABS: ALANINE AMINOTRANSFERASE 30 U/L (9-52); ALBUMIN 3.1 g/dL (3.5-5.0); ALKALINE PHOSPHATASE 163 U/L (38-126); ANION GAP 11 (5-19); ASPARTATE AMINO TRANSFERASE 34 U/L (14-36); BILIRUBIN,DIRECT 0.6 mg/dL (0.0-0.4); BILIRUBIN,TOTAL 0.6 mg/dL (0.2-1.3); BLOOD UREA NITROGEN 80 mg/dL (7-20); CALCIUM 9.4 mg/dL (8.4-10.2); CARBON DIOXIDE 19 mmol/L (22-30); CHLORIDE 105 mmol/L (98-107); GLUCOSE 149 mg/dL (75-110); POTASSIUM 4.3 mmol/L (3.6-5.0); TOTAL PROTEIN 6.4 g/dL (6.3-8.2)
[2018-12-09] MEDS: HYDRALAZINE HCL 50 MG TABLET PO SCH ×2 (09:05→23:10)
[2018-12-09] MEDS: LACTULOSE SYRUP 20 GM/30 ML UDCUP PO SCH ×3 (09:05→17:03)
[2018-12-09] MEDS: FUROSEMIDE 20 MG TABLET PO SCH (09:05)
[2018-12-09] MEDS: CLONAZEPAM 1 MG TABLET PO SCH ×2 (09:06→23:10)
[2018-12-09] MEDS: ISOSORBIDE MONONITRATE 20 MG TABLET PO SCH ×2 (09:06→23:10)
[2018-12-09] MEDS: FENTANYL 25 MCG/HR PATCH.TD72 TD SCH (09:06)
[2018-12-09] MEDS: CALCITRIOL 0.25 MCG CAPSULE PO SCH (09:06)
[2018-12-09] MEDS: AMIODARONE HCL 200 MG TABLET PO SCH (09:07)
--- NOTE | 2018-12-09 17:55 | PDOC PROGRESS REPORT ---
Subjective Progress Note for:: 12/09/18 Reason For Visit: Patient seen today. She still not feeling any better. She has had no bowel movement so far in spite of the measures instituted. She denies any history of nausea vomiting. No complaints of any shortness of breath unless she exerts a lot. Labs and medications were reviewed. Physical Exam Vital Signs: Temp Pulse Resp BP Pulse Ox 97.4 F 55 L 14 153/64 H 96 12/09/18 15:27 12/09/18 15:27 12/09/18 15:27 12/09/18 15:27 12/09/18 15:27 Intake & Output 12/08/18 12/09/18 12/10/18 06:59 06:59 06:59 Intake Total 320 580 Output Total 401 1100 Balance -81 -520 Weight 61.235 kg 67.6 kg General appearance: PRESENT: no acute distress Respiratory exam: PRESENT: clear to auscultation lena, decreased breath sounds. ABSENT: crackles Cardiovascular exam: PRESENT: +S1, +S2 GI/Abdominal exam: PRESENT: normal bowel sounds. ABSENT: organomegaly, soft, tenderness Extremities exam: PRESENT: pedal edema Neurological exam: PRESENT: alert, awake, oriented to person, oriented to place, other - No asterixis Psychiatric exam: PRESENT: appropriate affect Skin exam: ABSENT: erythema, mottled, rash Results Laboratory Results: 12/09/18 05:11 12/09/18 05:11 12/09/18 12/09/18 05:11 05:11 WBC 4.0 RBC 2.82 L Hgb 9.0 L Hct 27.1 L MCV 96 MCH 32.1 MCHC 33.3 RDW 15.3 H Plt Count 145 L Seg Neutrophils % 66.1 Lymphocytes % 16.2 Monocytes % 9.0 Eosinophils % 7.3 H Basophils % 1.4 Absolute Neutrophils 2.6 Absolute Lymphocytes 0.6 Absolute Monocytes 0.4 Absolute Eosinophils 0.3 Absolute Basophils 0.1 Sodium 135.4 L Potassium 4.3 Chloride 105 Carbon Dioxide 19 L Anion Gap 11 BUN 80 H Creatinine 5.00 H Est GFR ( Amer) 11 L Est GFR (Non-Af Amer) 9 L Glucose 149 H Calcium 9.4 Total Bilirubin 0.6 AST 34 ALT 30 Alkaline Phosphatase 163 H Total Protein 6.4 Albumin 3.1 L 12/07/18 12/07/1812/07/19 16:22 16:22 19:30 Creatine Kinase 247 H CK-MB (CK-2) 6.18 H Troponin I 0.264 0.236 NT-Pro-B Natriuret Pep 12/07/18 12/07/18 12/07/18 22:30 22:30 22:30 Creatine Kinase 304 H CK-MB (CK-2) 5.00 H Troponin I 0.283 NT-Pro-B Natriuret Pep [id number] H 12/08/18 12/08/18 12/08/18 04:30 04:30 12:15 Creatine Kinase 245 H 308 H CK-MB (CK-2) 3.99 Troponin I 0.220 NT-Pro-B Natriuret Pep 12/08/18 12:15 Creatine Kinase CK-MB (CK-2) 4.14 Troponin I 0.195 NT-Pro-B Natriuret Pep Impressions: Chest X-Ray 12/07/18 00:00 IMPRESSION: HEART ENLARGED WITHOUT FAILURE. NO OTHER SIGNIFICANT RADIOGRAPHIC FINDING IN THE CHEST. Assessment & Plan - Diagnosis (1) Generalized weakness Is this a current diagnosis for this admission?: Yes Plan: Multifactorial. See if we can clean her bowels and make her less and anorexic.Anemia needs to be looked at as well and once I recheck her iron studies we can consider starting on erythropoietin back on again.I would leave it to Dr. Zhu to consider starting her on thyroid replacements given her elevated TSH. (2) LIOR (acute kidney injury) Plan: Nonoliguric.Her renal numbers are slightly better and does not show any worsening.No evidences of uremia or fluid overload. However that said she is getting close to initiation of renal replacements. (3) CKD (chronic kidney disease) stage 4, GFR 15-29 ml/min Plan: Nonoliguric. Presently stable with mild improvement from a LIOR numbers. Monitor closely. (4) Renal osteodystrophy Plan: Continue on calcitriol. (5) Constipation Qualifiers: Constipation type: unspecified constipation type Qualified Code(s): K59.00 - Constipation, unspecified Plan: Discussed with the treating nurse about increasing her lactulose and monitoring carefully. Advised to use less of narcotics. (6) Atrial fibrillation Qualifiers: Atrial fibrillation type: chronic Qualified Code(s): I48.2 - Chronic atrial fibrillation Is this a current diagnosis for this admission?: Yes Plan: Rate controlled. (7) Diabetes 1.5, managed as type 2 Plan: Under good control with recent A1c at 7.2. (8) Obesity Plan: Status post weight reduction surgery with good results. (9) Anemia in chronic kidney disease (CKD) Qualifiers: Chronic kidney disease stage: stage 5, not on chronic dialysis Qualified Code(s): N18.5 - Chronic kidney disease, stage 5; D63.1 - Anemia in chronic kidney disease Is this a current diagnosis for this admission?: Yes (10) Hypothyroid Plan: New onset. Most likely from amiodarone. Can leave it to Dr. Zhu. (11) Hypoalbuminemia Plan: Multifactorial. Advised to increase protein intake. The cause of persistent pedal edema besides venous insufficiency. (12) Proteinuria due to type 2 diabetes mellitus Plan: Secondary to diabetes. (14) Fracture Plan: Mildly displaced fracture of distal phalanx of right big toe. As per Dr. Zhu.
--- NOTE | 2018-12-09 21:39 | PDOC PROGRESS REPORT ---
Subjective Progress Note for:: 12/09/18 Subjective:: Patient seen by the bedside she is very lethargic but arousable on tactile stimulus Reason For Visit: UREMIA,CHRONIC KIDNEY DISEASE STAGE 5 Physical Exam Vital Signs: Temp Pulse Resp BP Pulse Ox 97.7 F 51 L 16 133/52 H 100 12/09/18 19:36 12/09/18 19:36 12/09/18 19:36 12/09/18 19:36 12/09/18 19:36 Intake & Output 12/08/18 12/09/18 12/10/18 06:59 06:59 06:59 Intake Total 320 580 Output Total 401 1100 Balance -81 -520 Weight 61.235 kg 67.6 kg General appearance: PRESENT: no acute distress Eye exam: PRESENT: PERRLA Respiratory exam: PRESENT: rhonchi Cardiovascular exam: PRESENT: irregular rhythm, +S1, +S2 GI/Abdominal exam: PRESENT: soft Extremities exam: PRESENT: pedal edema Results Laboratory Results: 12/09/18 05:11 12/09/18 05:11 12/09/18 12/09/18 05:11 05:11 WBC 4.0 RBC 2.82 L Hgb 9.0 L Hct 27.1 L MCV 96 MCH 32.1 MCHC 33.3 RDW 15.3 H Plt Count 145 L Seg Neutrophils % 66.1 Lymphocytes % 16.2 Monocytes % 9.0 Eosinophils % 7.3 H Basophils % 1.4 Absolute Neutrophils 2.6 Absolute Lymphocytes 0.6 Absolute Monocytes 0.4 Absolute Eosinophils 0.3 Absolute Basophils 0.1 Sodium 135.4 L Potassium 4.3 Chloride 105 Carbon Dioxide 19 L Anion Gap 11 BUN 80 H Creatinine 5.00 H Est GFR ( Amer) 11 L Est GFR (Non-Af Amer) 9 L Glucose 149 H Calcium 9.4 Total Bilirubin 0.6 AST 34 ALT 30 Alkaline Phosphatase 163 H Total Protein 6.4 Albumin 3.1 L 12/07/18 12/07/18 12/07/18 16:22 16:22 19:30 Creatine Kinase 247 H CK-MB (CK-2) 6.18 H Troponin I 0.264 0.236 NT-Pro-B Natriuret Pep 12/07/18 12/07/18 12/07/18 22:30 22:30 22:30 Creatine Kinase 304 H CK-MB (CK-2) 5.00 H Troponin I 0.283 NT-Pro-B Natriuret Pep [id number] H 12/08/18 12/08/18 12/08/18 04:30 04:30 12:15 Creatine Kinase 245 H 308 H CK-MB (CK-2) 3.99 Troponin I 0.220 NT-Pro-B Natriuret Pep 12/08/18 12:15 Creatine Kinase CK-MB (CK-2) 4.14 Troponin I 0.195 NT-Pro-B Natriuret Pep Impressions: Chest X-Ray 12/07/18 00:00 IMPRESSION: HEART ENLARGED WITHOUT FAILURE. NO OTHER SIGNIFICANT RADIOGRAPHIC FINDING IN THE CHEST. Assessment & Plan - Diagnosis (1) Metabolic acidosis with respiratory acidosis Is this a current diagnosis for this admission?: Yes (2) CKD stage 5 due to type 2 diabetes mellitus Is this a current diagnosis for this admission?: Yes (3) Generalized weakness Is this a current diagnosis for this admission?: Yes (4) Anemia in chronic kidney disease (CKD) Qualifiers: Chronic kidney disease stage: stage 5, not on chronic dialysis Qualified Code(s): N18.5 - Chronic kidney disease, stage 5; D63.1 - Anemia in chronic kidney disease Is this a current diagnosis for this admission?: Yes (5) Atrial fibrillation Qualifiers: Atrial fibrillation type: chronic Qualified Code(s): I48.2 - Chronic atrial fibrillation Is this a current diagnosis for this admission?: Yes (6) Constipation Qualifiers: Constipation type: unspecified constipation type Qualified Code(s): K59.00 - Constipation, unspecified Is this a current diagnosis for this admission?: Yes (7) Subclinical hypothyroidism Is this a current diagnosis for this admission?: Yes Plan: Elevated TSH, normal T4,This could be from amiodarone,Questionable treatment
[2018-12-09] MEDS: WARFARIN SODIUM 2 MG TABLET PO SCH (23:09)
[2018-12-09] MEDS: ATORVASTATIN CALCIUM 20 MG TABLET PO SCH (23:10)
[2018-12-10] MEDS: PANTOPRAZOLE SODIUM 40 MG TABLET.DR PO SCH (05:21)
[2018-12-10 05:31] LABS: ABSOLUTE BASOPHILS # (AUTO) 0.1 10^3/uL (0.0-0.2); ABSOLUTE EOSINOPHILS # (AUTO) 0.3 10^3/uL (0.0-0.6); ABSOLUTE LYMPHOCYTES (AUTO) 0.6 10^3/uL (0.5-4.7); ABSOLUTE MONOCYTES (AUTO) 0.4 10^3/uL (0.1-1.4); ABSOLUTE NEUT (AUTO) 3.1 10^3/uL (1.7-8.2); ABSOLUTE RETICS # 0.077 10^6/uL (0.028-0.122); BASOPHILS % (AUTO) 1.2 % (0-2); EOSINOPHILS % (AUTO) 6.1 % (0-6); HEMATOCRIT 26.4 % (36.0-47.0); HEMOGLOBIN 8.8 g/dL (12.0-15.5); LYMPHOCYTES % (AUTO) 14.3 % (13-45); MEAN CORPUSCULAR HEMOGLOBIN 32.5 pg (27.0-33.4); MEAN CORPUSCULAR HGB CONC 33.3 g/dL (32.0-36.0); MEAN CORPUSCULAR VOLUME 97 fl (80-97); MONOCYTES % (AUTO) 8.2 % (3-13); PLATELET COUNT 151 10^3/uL (150-450); RED BLOOD COUNT 2.71 10^6/uL (3.72-5.28); RED CELL DISTRIBUTION WIDTH 15.5 % (11.5-14.0); RETICULOCYTE COUNT (AUTO) 2.86 % (0.66-2.85); SEGMENTED NEUTROPHILS % (AUTO) 70.2 % (42-78); TOTAL CELLS COUNTED % (AUTO) 100 %; WHITE BLOOD COUNT 4.4 10^3/uL (4.0-10.5)
[2018-12-10 05:35] LABS: INTERNATIONAL RATION (INR) 2.54; PROTHROMBIN TIME 27.8 SEC (11.4-15.4)
[2018-12-10 05:45] LABS: ALANINE AMINOTRANSFERASE 31 U/L (9-52); ALKALINE PHOSPHATASE 163 U/L (38-126); ANION GAP 10 (5-19); ASPARTATE AMINO TRANSFERASE 32 U/L (14-36); BILIRUBIN,DIRECT 0.6 mg/dL (0.0-0.4); BILIRUBIN,TOTAL 0.6 mg/dL (0.2-1.3); BLOOD UREA NITROGEN 72 mg/dL (7-20); CARBON DIOXIDE 21 mmol/L (22-30); CHLORIDE 106 mmol/L (98-107); GLUCOSE 141 mg/dL (75-110); IRON(TIBC) 47.5 ug/dL (37-170); POTASSIUM 4.2 mmol/L (3.6-5.0); TOTAL PROTEIN 6.3 g/dL (6.3-8.2)
[2018-12-10 06:53] LABS: FOLATE > 20.00 ng/mL (>2.76)
[2018-12-10] MEDS: FUROSEMIDE 20 MG TABLET PO SCH (09:51)
[2018-12-10] MEDS: CLONAZEPAM 1 MG TABLET PO SCH ×2 (09:51→22:37)
[2018-12-10] MEDS: CALCITRIOL 0.25 MCG CAPSULE PO SCH (09:51)
[2018-12-10] MEDS: LACTULOSE SYRUP 20 GM/30 ML UDCUP PO SCH ×3 (09:51→17:09)
[2018-12-10] MEDS: HYDRALAZINE HCL 50 MG TABLET PO SCH ×2 (09:52→22:37)
[2018-12-10] MEDS: ISOSORBIDE MONONITRATE 20 MG TABLET PO SCH ×2 (09:52→22:37)
[2018-12-10] MEDS: AMIODARONE HCL 200 MG TABLET PO SCH (09:52)
--- NOTE | 2018-12-10 12:26 | PDOC PROGRESS REPORT ---
Subjective Progress Note for:: 12/10/18 Reason For Visit: Patient seen in the hospital today. She still continues to be weak. No complaints of any severe nausea or vomiting. Still poor appetite. No good results with the lack with laxatives for constipation. Labs and medications were reviewed that shows no real changes in her renal functions.She is anemic and she has got iron deficiency indicis.She has had really good urine output which is encouraging and she thinks her edema is somewhat better. Physical Exam Vital Signs: Temp Pulse Resp BP Pulse Ox 97.7 F 52 L 20 131/63 H 95 12/10/18 07:16 12/10/18 07:16 12/10/18 07:16 12/10/18 07:16 12/10/18 07:16 Intake & Output 12/09/18 12/10/18 12/11/18 06:59 06:59 06:59 Intake Total 320 840 Output Total 401 1450 Balance -81 -610 Weight 67.6 kg 67.4 kg General appearance: PRESENT: no acute distress, disheveled Respiratory exam: PRESENT: clear to auscultation lena. ABSENT: crackles Cardiovascular exam: PRESENT: +S1, +S2, systolic murmur GI/Abdominal exam: PRESENT: normal bowel sounds. ABSENT: organomegaly, soft, tenderness Extremities exam: PRESENT: pedal edema Neurological exam: PRESENT: awake, oriented to person, oriented to place, oriented to time Psychiatric exam: PRESENT: appropriate affect Results Laboratory Results: 12/10/18 04:57 12/10/18 04:57 12/09/18 12/10/18 12/10/18 19:28 04:57 04:57 WBC 4.4 RBC 2.71 L Hgb 8.8 L Hct 26.4 L MCV 97 MCH 32.5 MCHC 33.3 RDW 15.5 H Plt Count 151 Seg Neutrophils % 70.2 Lymphocytes % 14.3 Monocytes % 8.2 Eosinophils % 6.1 H Basophils % 1.2 Absolute Neutrophils 3.1 Absolute Lymphocytes 0.6 Absolute Monocytes 0.4 Absolute Eosinophils 0.3 Absolute Basophils 0.1 Retic Count (auto) 2.86 H Absolute Retic 0.077 Sodium 137.3 Potassium 4.2 Chloride 106 Carbon Dioxide 21 L Anion Gap 10 BUN 72 H Creatinine 5.20 H Est GFR ( Amer) 10 L Est GFR (Non-Af Amer) 8 L Glucose 141 H Calcium 9.0 Iron 47.5 TIBC 265 % Saturation 18 Ferritin 116.00 Total Bilirubin 0.6 AST 32 ALT 31 Alkaline Phosphatase 163 H Total Protein 6.3 Albumin 3.0 L Vitamin B12 > 1000.0 H Folate > 20.00 Stool Occult Blood NEGATIVE 12/07/18 12/07/18 12/07/18 16:22 16:22 19:30 Creatine Kinase 247 H CK-MB (CK-2) 6.18 H Troponin I 0.264 0.236 NT-Pro-B Natriuret Pep 12/07/18 12/07/18 12/07/18 22:30 22:30 22:30 Creatine Kinase 304 H CK-MB (CK-2) 5.00 H Troponin I 0.283 NT-Pro-B Natriuret Pep [id number] H 12/08/18 12/08/18 12/08/18 04:30 04:30 12:15 Creatine Kinase 245 H 308 H CK-MB (CK-2) 3.99 Troponin I 0.220 NT-Pro-B Natriuret Pep 12/08/18 12:15 Creatine Kinase CK-MB (CK-2) 4.14 Troponin I 0.195 NT-Pro-B Natriuret Pep Impressions: Chest X-Ray 12/07/18 00:00 IMPRESSION: HEART ENLARGED WITHOUT FAILURE. NO OTHER SIGNIFICANT RADIOGRAPHIC FINDING IN THE CHEST. Assessment & Plan - Diagnosis (1) Generalized weakness Is this a current diagnosis for this admission?: Yes Plan: Multifactorial. See if we can clean her bowels and make her less and anorexic.Anemia I believe is playing a major role and she is got iron deficiency indicis. Will order IV iron and observe.. (2) LIOR (acute kidney injury) Plan: Nonoliguric.Her renal numbers are stable.No evidences of uremia or fluid overload. However that said she is getting close to initiation of renal replacements. (3) CKD (chronic kidney disease) stage 4, GFR 15-29 ml/min Plan: Nonoliguric. Presently stable. Monitor closely. (4) Renal osteodystrophy Plan: Continue on calcitriol. (5) Constipation Qualifiers: Constipation type: unspecified constipation type Qualified Code(s): K59.00 - Constipation, unspecified Is this a current diagnosis for this admission?: Yes Plan: Discussed with the treating nurse about increasing her lactulose and monitoring carefully. Advised to use less of narcotics. (6) Atrial fibrillation Qualifiers: Atrial fibrillation type: chronic Qualified Code(s): I48.2 - Chronic atrial fibrillation Is this a current diagnosis for this admission?: Yes Plan: Rate controlled. (7) Diabetes 1.5, managed as type 2 Plan: Under good control with recent A1c at 7.2. (8) Obesity Plan: Status post weight reduction surgery with good results. (9) Anemia in chronic kidney disease (CKD) Qualifiers: Chronic kidney disease stage: stage 5, not on chronic dialysis Qualified Code(s): N18.5 - Chronic kidney disease, stage 5; D63.1 - Anemia in chronic kidney disease Is this a current diagnosis for this admission?: Yes Plan: We will start her back on erythropoietin once we get the IV iron inside her.Discussed adverse effects of IV iron and patient willing to proceed. (10) Hypothyroid Plan: New onset. Most likely from amiodarone. Can leave it to Dr. Zhu. (11) Hypoalbuminemia Plan: Multifactorial. Advised to increase protein intake. The cause of persistent pedal edema besides venous insufficiency. (12) Proteinuria due to type 2 diabetes mellitus Plan: Secondary to diabetes. (13) Back pain Plan: As per Dr. Zhu. (14) Fracture Plan: Mildly displaced fracture of distal phalanx of right big toe. As per Dr. Zhu.
[2018-12-10] MEDS ORDERED: FERRIC CARBOXYMALTOSE INJ 750 MG/15 ML VIAL IV ONE (13:00)
[2018-12-10] MEDS ORDERED: FERRIC CARBOXYMALTOSE 750 MG in NORMAL SALINE 250 ML IV ONE (14:00)
--- NOTE | 2018-12-10 15:59 | PDOC PROGRESS REPORT ---
Subjective Progress Note for:: 12/10/18 Subjective:: Patient seen by the bedside, she was seen by nephrology presently on 24-hour urine collection Reason For Visit: UREMIA,CHRONIC KIDNEY DISEASE STAGE 5 Physical Exam Vital Signs: Temp Pulse Resp BP Pulse Ox 97.4 F 51 L 20 115/55 L 95 12/10/18 11:15 12/10/18 14:00 12/10/18 11:15 12/10/18 11:15 12/10/18 11:15 Intake & Output 12/09/18 12/10/18 12/11/18 06:59 06:59 06:59 Intake Total 320 840 505 Output Total 401 1450 Balance -81 -610 505 Weight 67.6 kg 67.4 kg General appearance: PRESENT: no acute distress Eye exam: PRESENT: PERRLA Respiratory exam: PRESENT: clear to auscultation lena Cardiovascular exam: PRESENT: +S1, +S2 GI/Abdominal exam: PRESENT: soft Neurological exam: PRESENT: alert Results Laboratory Results: 12/10/18 04:57 12/10/18 04:57 12/09/18 12/10/18 12/10/18 19:28 04:57 04:57 WBC 4.4 RBC 2.71 L Hgb 8.8 L Hct 26.4 L MCV 97 MCH 32.5 MCHC 33.3 RDW 15.5 H Plt Count 151 Seg Neutrophils % 70.2 Lymphocytes % 14.3 Monocytes % 8.2 Eosinophils % 6.1 H Basophils % 1.2 Absolute Neutrophils 3.1 Absolute Lymphocytes 0.6 Absolute Monocytes 0.4 Absolute Eosinophils 0.3 Absolute Basophils 0.1 Retic Count (auto) 2.86 H Absolute Retic 0.077 Sodium 137.3 Potassium 4.2 Chloride 106 Carbon Dioxide 21 L Anion Gap 10 BUN 72 H Creatinine 5.20 H Est GFR ( Amer) 10 L Est GFR (Non-Af Amer) 8 L Glucose 141 H Calcium 9.0 Iron 47.5 TIBC 265 % Saturation 18 Ferritin 116.00 Total Bilirubin 0.6 AST 32 ALT 31 Alkaline Phosphatase 163 H Total Protein 6.3 Albumin 3.0 L Vitamin B12 > 1000.0 H Folate > 20.00 Stool Occult Blood NEGATIVE 12/07/18 12/07/18 12/07/18 16:22 16:22 19:30 Creatine Kinase 247 H CK-MB (CK-2) 6.18 H Troponin I 0.264 0.236 NT-Pro-B Natriuret Pep 12/07/18 12/07/18 12/07/18 22:30 22:30 22:30 Creatine Kinase 304 H CK-MB (CK-2) 5.00 H Troponin I 0.283 NT-Pro-B Natriuret Pep 08291 H 12/08/18 12/08/18 12/08/18 04:30 04:30 12:15 Creatine Kinase 245 H 308 H CK-MB (CK-2) 3.99 Troponin I 0.220 NT-Pro-B Natriuret Pep 12/08/18 12:15 Creatine Kinase CK-MB (CK-2) 4.14 Troponin I 0.195 NT-Pro-B Natriuret Pep Impressions: Chest X-Ray 12/07/18 00:00 IMPRESSION: HEART ENLARGED WITHOUT FAILURE. NO OTHER SIGNIFICANT RADIOGRAPHIC FINDING IN THE CHEST. Assessment & Plan - Diagnosis (1) Metabolic acidosis with respiratory acidosis Is this a current diagnosis for this admission?: Yes (2) CKD stage 5 due to type 2 diabetes mellitus Is this a current diagnosis for this admission?: Yes (3) Generalized weakness Is this a current diagnosis for this admission?: Yes (4) Anemia in chronic kidney disease (CKD) Qualifiers: Chronic kidney disease stage: stage 5, not on chronic dialysis Qualified Code(s): N18.5 - Chronic kidney disease, stage 5; D63.1 - Anemia in chronic kidney disease Is this a current diagnosis for this admission?: Yes (5) Atrial fibrillation Qualifiers: Atrial fibrillation type: chronic Qualified Code(s): I48.2 - Chronic atrial fibrillation Is this a current diagnosis for this admission?: Yes (6) Constipation Qualifiers: Constipation type: unspecified constipation type Qualified Code(s): K59.00 - Constipation, unspecified Is this a current diagnosis for this admission?: Yes (7) Subclinical hypothyroidism Is this a current diagnosis for this admission?: Yes
[2018-12-10] MEDS: WARFARIN SODIUM 2 MG TABLET PO SCH (22:36)
[2018-12-10] MEDS: CIPROFLOXACIN HCL 500 MG TABLET PO SCH (22:37)
[2018-12-10] MEDS: ATORVASTATIN CALCIUM 20 MG TABLET PO SCH (22:37)
[2018-12-11 04:54] LABS: INTERNATIONAL RATION (INR) 2.69; PROTHROMBIN TIME 29.1 SEC (11.4-15.4)
[2018-12-11 05:11] LABS: ANION GAP 13 (5-19); BLOOD UREA NITROGEN 70 mg/dL (7-20); CALCIUM 9.5 mg/dL (8.4-10.2); CARBON DIOXIDE 21 mmol/L (22-30); CHLORIDE 104 mmol/L (98-107); GLUCOSE 204 mg/dL (75-110); POTASSIUM 4.1 mmol/L (3.6-5.0)
[2018-12-11] MEDS: PANTOPRAZOLE SODIUM 40 MG TABLET.DR PO SCH (05:23)
[2018-12-11] MEDS: CALCITRIOL 0.25 MCG CAPSULE PO SCH (10:06)
[2018-12-11] MEDS: HYDRALAZINE HCL 50 MG TABLET PO SCH ×2 (10:06→21:11)
[2018-12-11] MEDS: FUROSEMIDE 20 MG TABLET PO SCH (10:06)
[2018-12-11] MEDS: CLONAZEPAM 1 MG TABLET PO SCH ×2 (10:06→21:10)
[2018-12-11] MEDS: LACTULOSE SYRUP 20 GM/30 ML UDCUP PO SCH ×3 (10:06→17:02)
[2018-12-11] MEDS: AMIODARONE HCL 200 MG TABLET PO SCH (10:07)
[2018-12-11] MEDS: ISOSORBIDE MONONITRATE 20 MG TABLET PO SCH ×2 (10:07→21:10)
--- NOTE | 2018-12-11 13:54 | PDOC PROGRESS REPORT ---
Subjective Progress Note for:: 12/11/18 Reason For Visit: Patient seen today. She feels a little bit better than when I saw her yesterday. She has received 1 dose of IV iron. She is still remains constipated. Still having poor appetite with low intake. No complaints of any chest pain or shortness of breath. Labs and medications were reviewed that shows creatinine is still not moving anywhere. Discussions were done with the treating nurse. Physical Exam Vital Signs: Temp Pulse Resp BP Pulse Ox 97.7 F 58 L 18 176/64 H 92 12/11/18 11:52 12/11/18 11:52 12/11/18 11:52 12/11/18 11:52 12/11/18 11:52 Intake & Output 12/10/18 12/11/18 12/12/18 06:59 06:59 06:59 Intake Total 840 987 250 Output Total 1450 750 300 Balance -610 237 -50 Weight 67.4 kg 67.4 kg General appearance: PRESENT: no acute distress Respiratory exam: PRESENT: clear to auscultation lena. ABSENT: crackles Cardiovascular exam: PRESENT: +S1, +S2, systolic murmur GI/Abdominal exam: PRESENT: normal bowel sounds. ABSENT: organomegaly, soft, tenderness Extremities exam: PRESENT: pedal edema Neurological exam: PRESENT: alert, awake, oriented to person, oriented to place Psychiatric exam: PRESENT: appropriate affect Skin exam: ABSENT: cyanosis, mottled, rash, skin tears Results Laboratory Results: 12/10/18 04:57 12/11/18 04:10 12/11/18 04:10 Sodium 137.6 Potassium 4.1 Chloride 104 Carbon Dioxide 21 L Anion Gap 13 BUN 70 H Creatinine 5.27 H Est GFR ( Amer) 10 L Est GFR (Non-Af Amer) 8 L Glucose 204 H Calcium 9.5 12/07/18 23:07 Clean Catch Midstream Urine Culture - Final Escherichia Coli Aerococcus Urinae 12/07/18 12/07/18 12/07/18 16:22 16:22 19:30 Creatine Kinase 247 H CK-MB (CK-2) 6.18 H Troponin I 0.264 0.236 NT-Pro-B Natriuret Pep 12/07/18 12/07/18 12/07/18 22:30 22:30 22:30 Creatine Kinase 304 H CK-MB (CK-2) 5.00 H Troponin I 0.283 NT-Pro-B Natriuret Pep 08278 H 12/08/18 12/08/18 12/08/18 04:30 04:30 12:15 Creatine Kinase 245 H 308 H CK-MB (CK-2) 3.99 Troponin I 0.220 NT-Pro-B Natriuret Pep 12/08/18 12:15 Creatine Kinase CK-MB (CK-2) 4.14 Troponin I 0.195 NT-Pro-B Natriuret Pep Impressions: Chest X-Ray 12/07/18 00:00 IMPRESSION: HEART ENLARGED WITHOUT FAILURE. NO OTHER SIGNIFICANT RADIOGRAPHIC FINDING IN THE CHEST. Assessment & Plan - Diagnosis (1) Generalized weakness Is this a current diagnosis for this admission?: Yes Plan: Multifactorial. She is a little bit better after she has received a dose of IV Injectafer yesterday. See if we can clean her bowels and make her less anorexic. She does not convince me that uremia is a major factor in her generalized weakness at the moment even though it might be playing a role. Await creatinine clearance. (2) LIOR (acute kidney injury) Plan: Nonoliguric.Her renal numbers are stable.No evidences of uremia or fluid overload. However that said she is getting close to initiation of renal repl acements.She says she has been making more urine than she has done in the past. (3) CKD (chronic kidney disease) stage 4, GFR 15-29 ml/min Plan: Nonoliguric. Presently stable. Monitor closely. (4) Renal osteodystrophy Plan: Continue on calcitriol. (5) Constipation Qualifiers: Constipation type: unspecified constipation type Qualified Code(s): K59.00 - Constipation, unspecified Is this a current diagnosis for this admission?: Yes Plan: Discussed with the treating nurse about increasing her lactulose and monitoring carefully. Advised to use less of narcotics. (6) Atrial fibrillation Qualifiers: Atrial fibrillation type: chronic Qualified Code(s): I48.2 - Chronic atrial fibrillation Is this a current diagnosis for this admission?: Yes Plan: Rate controlled. (7) Diabetes 1.5, managed as type 2 Plan: Under good control with recent A1c at 7.2. (8) Obesity Plan: Status post weight reduction surgery with good results. (9) Anemia in chronic kidney disease (CKD) Qualifiers: Chronic kidney disease stage: stage 5, not on chronic dialysis Qualified Code(s): N18.5 - Chronic kidney disease, stage 5; D63.1 - Anemia in chronic kidney disease Is this a current diagnosis for this admission?: Yes Plan: We will start her back on erythropoietin. (10) Hypothyroid Plan: New onset. Most likely from amiodarone. Can leave it to Dr. Zhu. (11) Hypoalbuminemia Plan: Multifactorial. Advised to increase protein intake. The cause of persistent pedal edema besides venous insufficiency. (12) Proteinuria due to type 2 diabetes mellitus Plan: Secondary to diabetes. (13) Back pain Plan: As per Dr. Zhu. (14) Fracture Plan: Mildly displaced fracture of distal phalanx of right big toe. As per Dr. Zhu.
[2018-12-11] MEDS ORDERED: EPOETIN ALFA INJ 20000 UNIT/1 ML VIAL (RENAL) SUBCUT SCH (14:00)
[2018-12-11] MEDS ORDERED: EPOETIN ALFA-EPBX 20,000 UNITS (ESRD) in SYRINGE SUBCUT PRN (15:00)
[2018-12-11 15:20] LABS: CREATININE 5.27 mg/dL (0.52-1.25)
[2018-12-11 15:40] LABS: URINE CREATININE 47.2 mg/dL (15-278)
--- NOTE | 2018-12-11 20:13 | PDOC PROGRESS REPORT ---
Subjective Progress Note for:: 12/11/18 Subjective:: Patient is much more better today, more alert and oriented, she wants to go home, probably discharge home tomorrow Reason For Visit: UREMIA,CHRONIC KIDNEY DISEASE STAGE 5 Physical Exam Vital Signs: Temp Pulse Resp BP Pulse Ox 98.0 F 58 L 20 168/66 H 93 12/11/18 19:24 12/11/18 19:24 12/11/18 19:24 12/11/18 19:24 12/11/18 19:24 Intake & Output 12/10/18 12/11/18 12/12/18 06:59 06:59 06:59 Intake Total 840 987 250 Output Total 1450 750 500 Balance -610 237 -250 Weight 67.4 kg 67.4 kg General appearance: PRESENT: no acute distress Eye exam: PRESENT: PERRLA Respiratory exam: PRESENT: clear to auscultation lena Cardiovascular exam: PRESENT: +S1, +S2 GI/Abdominal exam: PRESENT: soft Neurological exam: PRESENT: alert Results Laboratory Results: 12/10/18 04:57 12/11/18 15:02 12/11/18 12/11/18 04:10 15:02 Sodium 137.6 Potassium 4.1 Chloride 104 Carbon Dioxide 21 L Anion Gap 13 BUN 70 H Creatinine 5.27 H 5.27 H Est GFR ( Amer) 10 L Est GFR (Non-Af Amer) 8 L Glucose 204 H Calcium 9.5 Ur 24 Hour Volume 1100 12/07/18 23:07 Clean Catch Midstream Urine Culture - Final Escherichia Coli Aerococcus Urinae 12/07/18 12/07/18 12/07/18 16:22 16:22 19:30 Creatine Kinase 247 H CK-MB (CK-2) 6.18 H Troponin I 0.264 0.236 NT-Pro-B Natriuret Pep 12/07/18 12/07/18 12/07/18 22:30 22:30 22:30 Creatine Kinase 304 H CK-MB (CK-2) 5.00 H Troponin I 0.283 NT-Pro-B Natriuret Pep 92481 H 12/08/18 12/08/18 12/08/18 04:30 04:30 12:15 Creatine Kinase 245 H 308 H CK-MB (CK-2) 3.99 Troponin I 0.220 NT-Pro-B Natriuret Pep 12/08/18 12:15 Creatine Kinase CK-MB (CK-2) 4.14 Troponin I 0.195 NT-Pro-B Natriuret Pep Impressions: Chest X-Ray 12/07/18 00:00 IMPRESSION: HEART ENLARGED WITHOUT FAILURE. NO OTHER SIGNIFICANT RADIOGRAPHIC FINDING IN THE CHEST. Assessment & Plan - Diagnosis (1) Metabolic acidosis with respiratory acidosis Is this a current diagnosis for this admission?: Yes (2) CKD stage 5 due to type 2 diabetes mellitus Is this a current diagnosis for this admission?: Yes (3) Generalized weakness Is this a current diagnosis for this admission?: Yes (4) Anemia in chronic kidney disease (CKD) Qualifiers: Chronic kidney disease stage: stage 5, not on chronic dialysis Qualified Code(s): N18.5 - Chronic kidney disease, stage 5; D63.1 - Anemia in chronic kidney disease Is this a current diagnosis for this admission?: Yes (5) Atrial fibrillation Qualifiers: Atrial fibrillation type: chronic Qualified Code(s): I48.2 - Chronic atrial fibrillation Is this a current diagnosis for this admission?: Yes (6) Constipation Qualifiers: Constipation type: unspecified constipation type Qualified Code(s): K59.00 - Constipation, unspecified Is this a current diagnosis for this admission?: Yes (7) Subclinical hypothyroidism Is this a current diagnosis for this admission?: Yes
--- NOTE | 2018-12-11 20:17 | PDOC DISCHARGE SUMMARY ---
General - Admit/Disc Date/PCP Admission Date/Primary Care Provider: 12/07/18 21:00 EDSON ORTEGA PA-C Discharge Date: 12/12/18 - Discharge Diagnosis (1) Metabolic acidosis with respiratory acidosis Is this a current diagnosis for this admission?: Yes (2) CKD stage 5 due to type 2 diabetes mellitus Is this a current diagnosis for this admission?: Yes (3) Generalized weakness Is this a current diagnosis for this admission?: Yes (4) Anemia in chronic kidney disease (CKD) Is this a current diagnosis for this admission?: Yes (5) Atrial fibrillation Is this a current diagnosis for this admission?: Yes (6) Constipation Is this a current diagnosis for this admission?: Yes (7) Subclinical hypothyroidism Is this a current diagnosis for this admission?: Yes - Additional Information Home Medications: Oxycodone HCl/Acetaminophen [Percocet 10-325 Mg Tablet] 1 tab PO QIDP PRN 05/22/12 RX: Insulin Glargine,Hum.rec.anlog [Lantus Insulin 100 Unit/mL Insulin Pen] 0 unit SUBCUT HSP PRN 05/22/12 RX: Clonazepam [Klonopin 1 mg Tablet] 2 mg PO Q12 10/26/13 Cyclobenzaprine HCl [Flexeril 10 mg Tablet] 10 mg PO Q8HP PRN 12/22/14 Amiodarone HCl [Cordarone 200 mg Tablet] 200 mg PO DAILY 08/01/15 Calcitriol [Rocaltrol] 0.5 mcg PO DAILY 12/08/18 Diclofenac Sodium 4 gm TOP QIDP PRN 12/08/18 Fentanyl [Duragesic 25 Mcg/Hr Transdermal Patch] 1 each TD Q3D 12/08/18 Fluconazole [Diflucan] 150 mg PO .QWEEKLY PRN 12/08/18 Furosemide [Lasix 20 mg Tablet] 20 mg PO QAM 12/08/18 Hydralazine HCl [Apresoline 50 mg Tablet] 50 mg PO Q12 12/08/18 Insulin Lispro [Humalog Insulin 100 Unit/1 ml 3 ml Vial] 0 unit SUBCUT .SLIDING SCALE 12/08/18 Isosorbide Mononitrate [Ismo 20 Mg Tablet] 20 mg PO Q12 12/08/18 Lubiprostone [Amitiza 24 Mcg Capsule] 24 mcg PO BIDP PRN 12/08/18 Montelukast Sodium [Singulair 10 mg Tablet] 10 mg PO HSP PRN 12/08/18 Omeprazole 40 mg PO DAILY 12/08/18 Oxycodone HCl/Acetaminophen [Oxycodone-Acetaminophen 10-325] 0.5 tab PO HSP PRN 12/08/18 Rosuvastatin Calcium [Crestor 10 mg Tablet] 10 mg PO QHS 12/08/18 Warfarin Sodium 2 mg PO DAILY 12/08/18 Physical Exam Vital Signs: Temp Pulse Resp BP Pulse Ox 98.0 F 58 L 20 168/66 H 93 12/11/18 19:24 12/11/18 19:24 12/11/18 19:24 12/11/18 19:24 12/11/18 19:24 Intake & Output 12/10/18 12/11/18 12/12/18 06:59 06:59 06:59 Intake Total 840 987 250 Output Total 1450 750 500 Balance -610 237 -250 Weight 67.4 kg 67.4 kg Results Laboratory Results: 12/10/18 04:57 12/11/18 15:02 12/11/18 12/11/18 04:10 15:02 Sodium 137.6 Potassium 4.1 Chloride 104 Carbon Dioxide 21 L Anion Gap 13 BUN 70 H Creatinine 5.27 H 5.27 H Est GFR ( Amer) 10 L Est GFR (Non-Af Amer) 8 L Glucose 204 H Calcium 9.5 Ur 24 Hour Volume 1100 12/07/18 23:07 Clean Catch Midstream Urine Culture - Final Escherichia Coli Aerococcus Urinae 12/07/18 12/07/18 12/07/18 16:22 16:22 19:30 Creatine Kinase 247 H CK-MB (CK-2) 6.18 H Troponin I 0.264 0.236 NT-Pro-B Natriuret Pep 12/07/18 12/07/18 12/07/18 22:30 22:30 22:30 Creatine Kinase 304 H CK-MB (CK-2) 5.00 H Troponin I 0.283 NT-Pro-B Natriuret Pep 10776 H 12/08/18 12/08/18 12/08/18 04:30 04:30 12:15 Creatine Kinase 245 H 308 H CK-MB (CK-2) 3.99 Troponin I 0.220 NT-Pro-B Natriuret Pep 12/08/18 12:15 Creatine Kinase CK-MB (CK-2) 4.14 Troponin I 0.195 NT-Pro-B Natriuret Pep Impressions: Chest X-Ray 12/07/18 00:00 IMPRESSION: HEART ENLARGED WITHOUT FAILURE. NO OTHER SIGNIFICANT RADIOGRAPHIC FINDING IN THE CHEST.
[2018-12-11] MEDS: WARFARIN SODIUM 2 MG TABLET PO SCH (21:10)
[2018-12-11] MEDS: ATORVASTATIN CALCIUM 20 MG TABLET PO SCH (21:11)
[2018-12-11] MEDS: CIPROFLOXACIN HCL 500 MG TABLET PO SCH (21:12)
[2018-12-12 05:10] LABS: ANION GAP 11 (5-19); BLOOD UREA NITROGEN 65 mg/dL (7-20); CALCIUM 9.6 mg/dL (8.4-10.2); CARBON DIOXIDE 20 mmol/L (22-30); CHLORIDE 106 mmol/L (98-107); GLUCOSE 158 mg/dL (75-110); POTASSIUM 4.1 mmol/L (3.6-5.0)
[2018-12-12] MEDS: PANTOPRAZOLE SODIUM 40 MG TABLET.DR PO SCH (06:39)
[2018-12-12] MEDS: AMIODARONE HCL 200 MG TABLET PO SCH (09:34)
[2018-12-12] MEDS: FUROSEMIDE 20 MG TABLET PO SCH (09:35)
[2018-12-12] MEDS: CLONAZEPAM 1 MG TABLET PO SCH ×2 (09:35→21:43)
[2018-12-12] MEDS: CALCITRIOL 0.25 MCG CAPSULE PO SCH (09:35)
[2018-12-12] MEDS: LACTULOSE SYRUP 20 GM/30 ML UDCUP PO SCH ×3 (09:35→17:20)
[2018-12-12] MEDS: HYDRALAZINE HCL 50 MG TABLET PO SCH ×2 (09:35→21:43)
[2018-12-12] MEDS: FENTANYL 25 MCG/HR PATCH.TD72 TD SCH (09:36)
[2018-12-12] MEDS: ISOSORBIDE MONONITRATE 20 MG TABLET PO SCH ×2 (09:36→21:48)
[2018-12-12] MEDS ORDERED: TUBERCULIN,PURIF.PROT.DERIV. 5 TU/0.1 ML TEST 1 ML VIAL ID ONE (14:00)
--- NOTE | 2018-12-12 14:22 | PDOC PROGRESS REPORT ---
Subjective Progress Note for:: 12/12/18 Reason For Visit: Patient seen today. She is continuing to feel very weak and tired and rather lethargic. She is still has no appetite and continues to be anorexic. Initially she said she had felt some better yesterday after she had received IV iron. No complaints of any chest pain or shortness of breath. Still remains anorexic. discussions were done the treating nurse. Physical Exam Vital Signs: Temp Pulse Resp BP Pulse Ox 97.8 F 56 L 18 155/75 H 96 12/12/18 08:21 12/12/18 08:21 12/12/18 08:21 12/12/18 08:21 12/12/18 08:21 Intake & Output 12/11/18 12/12/18 12/13/18 06:59 06:59 06:59 Intake Total 987 490 240 Output Total 750 1150 550 Balance 237 660 -310 Weight 67.4 kg 66.2 kg General appearance: PRESENT: no acute distress Respiratory exam: PRESENT: clear to auscultation lena. ABSENT: crackles Cardiovascular exam: PRESENT: +S1, +S2, systolic murmur GI/Abdominal exam: PRESENT: normal bowel sounds. ABSENT: organomegaly, soft, tenderness Extremities exam: PRESENT: pedal edema Neurological exam: PRESENT: alert, awake, oriented to person, oriented to place Psychiatric exam: PRESENT: anxious Skin exam: ABSENT: cyanosis, erythema, mottled, rash Results Laboratory Results: 12/10/18 04:57 12/12/18 04:25 12/11/18 12/12/18 15:02 04:25 Sodium 136.5 L Potassium 4.1 Chloride 106 Carbon Dioxide 20 L Anion Gap 11 BUN 65 H Creatinine 5.27 H 4.78 H Est GFR ( Amer) 11 L Est GFR (Non-Af Amer) 9 L Glucose 158 H Calcium 9.6 Ur 24 Hour Volume 1100 12/07/18 23:07 Clean Catch Midstream Urine Culture - Final Escherichia Coli Aerococcus Urinae 12/07/18 12/07/18 12/07/18 16:22 16:22 19:30 Creatine Kinase 247 H CK-MB (CK-2) 6.18 H Troponin I 0.264 0.236 NT-Pro-B Natriuret Pep 12/07/18 12/07/18 12/07/18 22:30 22:30 22:30 Creatine Kinase 304 H CK-MB (CK-2) 5.00 H Troponin I 0.283 NT-Pro-B Natriuret Pep [id number] H 12/08/18 12/08/18 12/08/18 04:30 04:30 12:15 Creatine Kinase 245 H 308 H CK-MB (CK-2) 3.99 Troponin I 0.220 NT-Pro-B Natriuret Pep 12/08/18 12:15 Creatine Kinase CK-MB (CK-2) 4.14 Troponin I 0.195 NT-Pro-B Natriuret Pep Impressions: Chest X-Ray 12/07/18 00:00 IMPRESSION: HEART ENLARGED WITHOUT FAILURE. NO OTHER SIGNIFICANT RADIOGRAPHIC FINDING IN THE CHEST. Assessment & Plan - Diagnosis (1) Generalized weakness Is this a current diagnosis for this admission?: Yes Plan: Multifactorial. Narcotics could also be a factor. At this point given a creatinine clearance of 7 and continued weakness I believe uremia is playing a part and we will initiate hemodialysis. She is agreeable to this plan of action.. (2) LIOR (acute kidney injury) Plan: Nonoliguric.Her renal numbers are stable.Generalized weakness is not better and I believe at this point she has reached a point that we should initiate dialysis and see how she responds.. (3) CKD stage 5 due to type 2 diabetes mellitus Is this a current diagnosis for this admission?: Yes Plan: Looks like the patient has progressed from CKD stage V to ESRD status with uremia. Plan to proceed with initiation of hemodialysis. Procedure of hemodialysis has been explained to the patient earlier but was again repeated. Procedure and complications including hypotension and rare causes of cardiac arrest and infections were explained. Patient willing to proceed. (4) Renal osteodystrophy Plan: Continue on calcitriol. (5) Constipation Qualifiers: Constipation type: unspecified constipation type Qualified Code(s): K59.00 - Constipation, unspecified Is this a current diagnosis for this admission?: Yes Plan: Discussed with the treating nurse about increasing her lactulose and monitoring carefully. Advised to use less of narcotics. (6) Atrial fibrillation Qualifiers: Atrial fibrillation type: chronic Qualified Code(s): I48.2 - Chronic atrial fibrillation Is this a current diagnosis for this admission?: Yes Plan: Rate controlled. (7) Diabetes 1.5, managed as type 2 Plan: Under good control with recent A1c at 7.2. (8) Obesity Plan: Status post weight reduction surgery with good results. (9) Anemia in chronic kidney disease (CKD) Qualifiers: Chronic kidney disease stage: stage 5, not on chronic dialysis Qualified Code(s): N18.5 - Chronic kidney disease, stage 5; D63.1 - Anemia in chronic kid mina disease Is this a current diagnosis for this admission?: Yes Plan: We will start her back on erythropoietin. (10) Hypothyroid Plan: New onset. Most likely from amiodarone. Can leave it to Dr. Zhu. (11) Hypoalbuminemia Plan: Multifactorial. Advised to increase protein intake. The cause of persistent pedal edema besides venous insufficiency. (12) Proteinuria due to type 2 diabetes mellitus Plan: Secondary to diabetes. (13) Back pain Plan: As per Dr. Zhu. (14) Fracture Plan: Mildly displaced fracture of distal phalanx of right big toe. As per Dr. Zhu. (15) ESRD (end stage renal disease) Is this a current diagnosis for this admission?: Yes Plan: Patient is progressing to ESRD status with uremia. Patient has been initiated on hemodialysis after explaining the procedure and its complications including hypotension and rare causes of cardiac arrest and infection. Patient seen on dialysis. Vital signs are stable. Plan to remove 1 to 2 L as tolerated. Dialysis is being supervised to ensure safe and smooth procedure. Dialysis orde rs were reviewed with the treating dialysis nurse.
--- NOTE | 2018-12-12 21:07 | PDOC PROGRESS REPORT ---
Subjective Progress Note for:: 12/12/18 Subjective:: Patient had hemodialysis today for the first time, she looks much better Reason For Visit: UREMIA,CHRONIC KIDNEY DISEASE STAGE 5 Physical Exam Vital Signs: Temp Pulse Resp BP Pulse Ox 98.0 F 58 L 16 172/63 H 96 12/12/18 19:11 12/12/18 19:11 12/12/18 19:11 12/12/18 19:11 12/12/18 19:11 Intake & Output 12/11/18 12/12/18 12/13/18 06:59 06:59 06:59 Intake Total 987 490 415 Output Total 750 1150 3050 Balance 648 -645 -9215 Weight 67.4 kg 66.2 kg General appearance: PRESENT: no acute distress Eye exam: PRESENT: PERRLA Respiratory exam: PRESENT: clear to auscultation lena Cardiovascular exam: PRESENT: +S1, +S2 GI/Abdominal exam: PRESENT: soft Results Laboratory Results: 12/10/18 04:57 12/12/18 04:25 12/12/18 04:25 Sodium 136.5 L Potassium 4.1 Chloride 106 Carbon Dioxide 20 L Anion Gap 11 BUN 65 H Creatinine 4.78 H Est GFR ( Amer) 11 L Est GFR (Non-Af Amer) 9 L Glucose 158 H Calcium 9.6 12/07/18 12/07/18 12/07/18 16:22 16:22 19:30 Creatine Kinase 247 H CK-MB (CK-2) 6.18 H Troponin I 0.264 0.236 NT-Pro-B Natriuret Pep 12/07/18 12/07/18 12/07/18 22:30 22:30 22:30 Creatine Kinase 304 H CK-MB (CK-2) 5.00 H Troponin I 0.283 NT-Pro-B Natriuret Pep [id number] H 12/08/18 12/08/18 12/08/18 04:30 04:30 12:15 Creatine Kinase 245 H 308 H CK-MB (CK-2) 3.99 Troponin I 0.220 NT-Pro-B Natriuret Pep 12/08/18 12:15 Creatine Kinase CK-MB (CK-2) 4.14 Troponin I 0.195 NT-Pro-B Natriuret Pep Impressions: Chest X-Ray 12/07/18 00:00 IMPRESSION: HEART ENLARGED WITHOUT FAILURE. NO OTHER SIGNIFICANT RADIOGRAPHIC FINDING IN THE CHEST. Assessment & Plan - Diagnosis (1) Metabolic acidosis with respiratory acidosis Is this a current diagnosis for this admission?: Yes (2) CKD stage 5 due to type 2 diabetes mellitus Is this a current diagnosis for this admission?: Yes (3) Generalized weakness Is this a current diagnosis for this admission?: Yes (4) Anemia in chronic kidney disease (CKD) Qualifiers: Chronic kidney disease stage: stage 5, not on chronic dialysis Qualified Code(s): N18.5 - Chronic kidney disease, stage 5; D63.1 - Anemia in chronic kidney disease Is this a current diagnosis for this admission?: Yes (5) Atrial fibrillation Qualifiers: Atrial fibrillation type: chronic Qualified Code(s): I48.2 - Chronic atrial fibrillation Is this a current diagnosis for this admission?: Yes (6) Constipation Qualifiers: Constipation type: unspecified constipation type Qualified Code(s): K59.00 - Constipation, unspecified Is this a current diagnosis for this admission?: Yes (7) Subclinical hypothyroidism Is this a current diagnosis for this admission?: Yes (8) Uremia Is this a current diagnosis for this admission?: Yes
[2018-12-12] MEDS: ATORVASTATIN CALCIUM 20 MG TABLET PO SCH (21:43)
[2018-12-12] MEDS: CIPROFLOXACIN HCL 500 MG TABLET PO SCH (21:48)
[2018-12-12] MEDS: WARFARIN SODIUM 2 MG TABLET PO SCH (21:48)
[2018-12-13 05:11] LABS: ANION GAP 8 (5-19); BLOOD UREA NITROGEN 41 mg/dL (7-20); CARBON DIOXIDE 26 mmol/L (22-30); CHLORIDE 105 mmol/L (98-107); GLUCOSE 192 mg/dL (75-110); POTASSIUM 3.9 mmol/L (3.6-5.0)
[2018-12-13] MEDS: PANTOPRAZOLE SODIUM 40 MG TABLET.DR PO SCH (06:02)
[2018-12-13 08:37] LABS: HEPATITS B SURFACE ANTIGEN Negative (Negative)
[2018-12-13] MEDS: AMIODARONE HCL 200 MG TABLET PO SCH (09:08)
[2018-12-13] MEDS: LACTULOSE SYRUP 20 GM/30 ML UDCUP PO SCH ×3 (09:14→17:13)
[2018-12-13] MEDS: CALCITRIOL 0.25 MCG CAPSULE PO SCH (09:14)
[2018-12-13] MEDS: OLOPATADINE HCL 0.1% OPH SOLN 5 ML OU SCH (09:15)
[2018-12-13] MEDS: HYDRALAZINE HCL 50 MG TABLET PO SCH ×2 (09:15→21:48)
[2018-12-13] MEDS: FUROSEMIDE 20 MG TABLET PO SCH (09:15)
[2018-12-13] MEDS: CLONAZEPAM 1 MG TABLET PO SCH ×2 (09:15→21:48)
[2018-12-13] MEDS: ISOSORBIDE MONONITRATE 20 MG TABLET PO SCH ×2 (09:15→21:48)
[2018-12-13] MEDS: OXYCODONE-ACETAMINOPHEN 5-325 MG TABLET PO PRN (13:10)
[2018-12-13] MEDS ORDERED: DEXTROSE 50%-WATER SYRINGE 12.5 GM/25 ML DOSE IV PRN (15:30)
[2018-12-13] MEDS ORDERED: DEXTROSE 50%-WATER SYRINGE 25 GM/50 ML DOSE IV PRN (15:30)
[2018-12-13] MEDS ORDERED: DEXTROSE 40% GEL 15 GM TUBE PO PRN (15:30)
[2018-12-13] MEDS ORDERED: GLUCAGON,HUMAN RECOMB 1 MG INJ IM PRN (15:30)
[2018-12-13] MEDS ORDERED: DEXTROSE 40% GEL 15 GM TUBE X 2 PO PRN (15:30)
[2018-12-13] MEDS: INSULIN LISPRO 100 UNIT/ML 3 ML VIAL SUBCUT SCH ×2 (15:54→21:49)
[2018-12-13] MEDS ORDERED: BISACODYL 10 MG SUPP.RECT PR ONE (16:00)
[2018-12-13 18:55] LABS: HEPATITIS B CORE AB TOT Negative (Negative)
--- NOTE | 2018-12-13 19:42 | PDOC PROGRESS REPORT ---
Subjective Progress Note for:: 12/13/18 Subjective:: Nursing staff reported no bowel movement despite administration of Lactulose tid. No abdominal pain, nausea or vomiting. PO intake remai poor. No chest pain or difficulty with breathing. Reason For Visit: UREMIA,CHRONIC KIDNEY DISEASE STAGE 5 Physical Exam Vital Signs: Temp Pulse Resp BP Pulse Ox 98.4 F 51 L 16 144/47 H 94 12/13/18 12:04 12/13/18 14:00 12/13/18 12:04 12/13/18 12:04 12/13/18 12:04 Intake & Output 12/12/18 12/13/18 12/14/18 06:59 06:59 06:59 Intake Total 490 415 360 Output Total 1150 3250 Balance -660 -2835 360 Weight 66.2 kg 63.1 kg General appearance: PRESENT: no acute distress Head exam: PRESENT: atraumatic, normocephalic Eye exam: PRESENT: conjunctiva pink. ABSENT: scleral icterus Ear exam: PRESENT: normal external ear exam Mouth exam: PRESENT: moist Respiratory exam: PRESENT: clear to auscultation lena, decreased breath sounds - at lung bases Cardiovascular exam: PRESENT: irregular rhythm, +S1, +S2. ABSENT: diastolic mur mur, systolic murmur Vascular exam: ABSENT: pallor GI/Abdominal exam: PRESENT: normal bowel sounds, soft. ABSENT: distended, guarding, mass, organolmegaly, rebound, tenderness Extremities exam: ABSENT: pedal edema Neurological exam: PRESENT: alert, awake - appropriate in simple responses Skin exam: PRESENT: dry, warm Results Laboratory Results: 12/10/18 04:57 12/13/18 04:34 12/13/18 04:34 Sodium 138.7 Potassium 3.9 Chloride 105 Carbon Dioxide 26 Anion Gap 8 BUN 41 H Creatinine 3.55 H Est GFR ( Amer) 16 L Est GFR (Non-Af Amer) 13 L Glucose 192 H Calcium 9.0 12/07/18 23:24 Blood Blood Culture - Final NO GROWTH IN 5 DAYS 12/07/18 22:30 Blood Blood Culture - Final NO GROWTH IN 5 DAYS 12/07/18 12/07/18 12/07/18 16:22 16:22 19:30 Creatine Kinase 247 H CK-MB (CK-2) 6.18 H Troponin I 0.264 0.236 NT-Pro-B Natriuret Pep 12/07/18 12/07/18 12/07/18 22:30 22:30 22:30 Creatine Kinase 304 H CK-MB (CK-2) 5.00 H Troponin I 0.283 NT-Pro-B Natriuret Pep 25602 H 12/08/18 12/08/18 12/08/18 04:30 04:30 12:15 Creatine Kinase 245 H 308 H CK-MB (CK-2) 3.99 Troponin I 0.220 NT-Pro-B Natriuret Pep 12/08/18 12:15 Creatine Kinase CK-MB (CK-2) 4.14 Troponin I 0.195 NT-Pro-B Natriuret Pep Impressions: Chest X-Ray 12/07/18 00:00 IMPRESSION: HEART ENLARGED WITHOUT FAILURE. NO OTHER SIGNIFICANT RADIOGRAPHIC FINDING IN THE CHEST. Assessment & Plan - Diagnosis (1) Acute on chronic kidney failure Qualifiers: Acute renal failure type: unspecified Chronic kidney disease stage: stage 5, not on chronic dialysis Qualified Code(s): N17.9 - Acute kidney failure, unspecified; N18.5 - Chronic kidney disease, stage 5 Is this a current diagnosis for this admission?: Yes Plan: Continue current medication management. (2) Diabetes mellitus type 2 in nonobese Is this a current diagnosis for this admission?: Yes Plan: Continue current medication management. (3) CKD stage 5 due to type 2 diabetes mellitus Is this a current diagnosis for this admission?: Yes Plan: Continue current medication management. (4) Anemia in chronic kidney disease (CKD) Qualifiers: Chronic kidney disease stage: stage 5, not on chronic dialysis Qualified Code(s): N18.5 - Chronic kidney disease, stage 5; D63.1 - Anemia in chronic kidney disease Is this a current diagnosis for this admission?: Yes Plan: Continue current medication management. (5) Atrial fibrillation Qualifiers: Atrial fibrillation type: chronic Qualified Code(s): I48.2 - Chronic atrial fibrillation Is this a current diagnosis for this admission?: Yes Plan: Continue current medication management. (6) Constipation Qualifiers: Constipation type: unspecified constipation type Qualified Code(s): K59.00 - Constipation, unspecified Is this a current diagnosis for this admission?: Yes Plan: Administer Dulcolax 10 mg MO x 1 dose. Continue other current medication management. - Time Time Spent with patient: 25-34 minutes Medications reviewed and adjusted accordingly: Yes Anticipated discharge: SNF Within: Other - Inpatient Certification Based on my medical assessment, after consideration of the patient's comorbidities, presenting symptoms, or acuity I expect that the services needed warrant INPATIENT care.: Yes I certify that my determination is in accordance with my understanding of Medicare's requirements for reasonable and necessary INPATIENT services [42 CFR 412.3e].: Yes Medical Necessity: Significant Comorbidiites Make Outpatient Treatment Too Risky, Need Close Monitoring Due to Risk of Patient Decompensation, Need For Continuous Telemetry Monitoring, Risk of Complication if Not Cared For in Hospital, Risk of Diagnosis Which Will Require Inpatient Eval/Care/Monitoring Post Hospital Care: D/C Water Tender Documentation - Plan Summary Plan Summary: See covering attending physician orders for details about care plan.
[2018-12-13] MEDS: ATORVASTATIN CALCIUM 20 MG TABLET PO SCH (21:48)
[2018-12-13] MEDS: CIPROFLOXACIN HCL 500 MG TABLET PO SCH (21:48)
[2018-12-13] MEDS: WARFARIN SODIUM 2 MG TABLET PO SCH (21:50)
[2018-12-14] MEDS: PANTOPRAZOLE SODIUM 40 MG TABLET.DR PO SCH (05:09)
[2018-12-14] MEDS: INSULIN LISPRO 100 UNIT/ML 3 ML VIAL SUBCUT SCH ×4 (08:46→21:16)
[2018-12-14] MEDS: LACTULOSE SYRUP 20 GM/30 ML UDCUP PO SCH ×3 (09:50→17:18)
[2018-12-14] MEDS: AMIODARONE HCL 200 MG TABLET PO SCH (09:55)
[2018-12-14] MEDS: OLOPATADINE HCL 0.1% OPH SOLN 5 ML OU SCH (09:57)
[2018-12-14] MEDS: HYDRALAZINE HCL 50 MG TABLET PO SCH ×2 (09:58→21:14)
[2018-12-14] MEDS: CALCITRIOL 0.25 MCG CAPSULE PO SCH (09:58)
[2018-12-14] MEDS: FUROSEMIDE 20 MG TABLET PO SCH (09:59)
[2018-12-14] MEDS: ISOSORBIDE MONONITRATE 20 MG TABLET PO SCH ×2 (09:59→21:23)
[2018-12-14] MEDS: CLONAZEPAM 1 MG TABLET PO SCH ×2 (09:59→21:16)
--- NOTE | 2018-12-14 13:39 | PDOC PROGRESS REPORT ---
Subjective Progress Note for:: 12/14/18 Subjective:: No chest pain or difficulty with breathing. Expressed concern about leg swelling. She had two bowel movement since last clinical evaluation by me. No abdominal pain, nausea or vomiting. No fever or chills. Reason For Visit: UREMIA,CHRONIC KIDNEY DISEASE STAGE 5 Physical Exam Vital Signs: Temp Pulse Resp BP Pulse Ox 97.8 F 50 L 18 141/49 H 99 12/14/18 11:57 12/14/18 11:57 12/14/18 11:57 12/14/18 11:57 12/14/18 11:57 Intake & Output 12/13/18 12/14/18 12/15/18 06:59 06:59 06:59 Intake Total 415 822 Output Total 3250 200 Balance -2835 622 Weight 63.1 kg 65.5 kg Physical Exam: General appearance: PRESENT: no acute distress Head exam: PRESENT: atraumatic, normocephalic Eye exam: PRESENT: conjunctiva pink. ABSENT: pallor, scleral icterus Ear exam: PRESENT: normal external ear exam Mouth exam: PRESENT: moist Respiratory exam: PRESENT: clear to auscultation lena, decreased breath sounds - at lung bases Cardiovascular exam: PRESENT: irregular rhythm, +S1, +S2. ABSENT: diastolic murmur, systolic murmur GI/Abdominal exam: PRESENT: normal bowel sounds, soft. ABSENT: distended, guarding, mass, organomegaly, rebound, tenderness Extremities exam: ABSENT: pedal edema Neurological exam: PRESENT: alert, awake - appropriate in simple responses Skin exam: PRESENT: dry, warm Results Laboratory Results: 12/10/18 04:57 12/13/18 04:34 12/07/18 12/07/18 12/07/18 16:22 16:22 19:30 Creatine Kinase 247 H CK-MB (CK-2) 6.18 H Troponin I 0.264 0.236 NT-Pro-B Natriuret Pep 12/07/18 12/07/18 12/07/18 22:30 22:30 22:30 Creatine Kinase 304 H CK-MB (CK-2) 5.00 H Troponin I 0.283 NT-Pro-B Natriuret Pep 71538 H 12/08/18 12/08/18 12/08/18 04:30 04:30 12:15 Creatine Kinase 245 H 308 H CK-MB (CK-2) 3.99 Troponin I 0.220 NT-Pro-B Natriuret Pep 12/08/18 12:15 Creatine Kinase CK-MB (CK-2) 4.14 Troponin I 0.195 NT-Pro-B Natriuret Pep Impressions: Chest X-Ray 12/07/18 00:00 IMPRESSION: HEART ENLARGED WITHOUT FAILURE. NO OTHER SIGNIFICANT RADIOGRAPHIC FINDING IN THE CHEST. Assessment & Plan - Diagnosis (1) Acute on chronic kidney failure Qualifiers: Acute renal failure type: unspecified Chronic kidney disease stage: stage 5, not on chronic dialysis Qualified Code(s): N17.9 - Acute kidney failure, unspecified; N18.5 - Chronic kidney disease, stage 5 Is this a current diagnosis for this admission?: Yes (2) Diabetes mellitus type 2 in nonobese Is this a current diagnosis for this admission?: Yes (3) CKD stage 5 due to type 2 diabetes mellitus Is this a current diagnosis for this admission?: Yes (4) Anemia in chronic kidney disease (CKD) Qualifiers: Chronic kidney disease stage: stage 5, not on chronic dialysis Qualified Code(s): N18.5 - Chronic kidney disease, stage 5; D63.1 - Anemia in chronic kidney disease Is this a current diagnosis for this admission?: Yes (5) Atrial fibrillation Qualifiers: Atrial fibrillation type: chronic Qualified Code(s): I48.2 - Chronic atrial fibrillation Is this a current diagnosis for this admission?: Yes (6) Constipation Qualifiers: Constipation type: unspecified constipation type Qualified Code(s): K59.00 - Constipation, unspecified Is this a current diagnosis for this admission?: Yes - Time Time Spent with patient: 25-34 minutes Medications reviewed and adjusted accordingly: Yes Anticipated discharge: Home with Homehealth Within: Other - Inpatient Certification Based on my medical assessment, after consideration of the patient's comorbidities, presenting symptoms, or acuity I expect that the services needed warrant INPATIENT care.: Yes I certify that my determination is in accordance with my understanding of Medicare's requirements for reasonable and necessary INPATIENT services [42 CFR 412.3e].: Yes Medical Necessity: Significant Comorbidiites Make Outpatient Treatment Too Risky, Need Close Monitoring Due to Risk of Patient Decompensation, Need For Continuous Telemetry Monitoring, Risk of Complication if Not Cared For in Hospital, Risk of Diagnosis Which Will Require Inpatient Eval/Care/Monitoring Post Hospital Care: D/C Cafe Lead Documentation - Plan Summary Plan Summary: Continue current medication management. Follow up with d/c resource management planner regarding outpatient dialysis schedule with [facility] and [facility] services.
[2018-12-14 16:59] LABS: APPEARANCE,URINE CLEAR; BILIRUBIN,URINE NEGATIVE (NEGATIVE); COLOR,URINE YELLOW; GLUCOSE, URINE 150 mg/dL (NEGATIVE); KETONES,URINE NEGATIVE (NEGATIVE); LEUKOCYTE ESTERASE,URINE TRACE (NEGATIVE); NITRITE,URINE NEGATIVE (NEGATIVE); PROTEIN,URINE 30 mg/dL (NEGATIVE); URINE SPECIFIC GRAVITY 1.011; UROBILINOGEN,URINE NEGATIVE mg/dL (<2.0)
[2018-12-14] MEDS: OXYCODONE-ACETAMINOPHEN 5-325 MG TABLET PO PRN (21:03)
[2018-12-14] MEDS: ATORVASTATIN CALCIUM 20 MG TABLET PO SCH (21:13)
[2018-12-14] MEDS: WARFARIN SODIUM 2 MG TABLET PO SCH (21:15)
[2018-12-14] MEDS: CIPROFLOXACIN HCL 500 MG TABLET PO SCH (21:23)
[2018-12-15] MEDS: PANTOPRAZOLE SODIUM 40 MG TABLET.DR PO SCH (05:11)
[2018-12-15 05:23] LABS: HEMATOCRIT 29.8 % (36.0-47.0); HEMOGLOBIN 9.7 g/dL (12.0-15.5); MEAN CORPUSCULAR HEMOGLOBIN 31.7 pg (27.0-33.4); MEAN CORPUSCULAR HGB CONC 32.5 g/dL (32.0-36.0); MEAN CORPUSCULAR VOLUME 98 fl (80-97); PLATELET COUNT 154 10^3/uL (150-450); RED BLOOD COUNT 3.05 10^6/uL (3.72-5.28); RED CELL DISTRIBUTION WIDTH 15.6 % (11.5-14.0); WHITE BLOOD COUNT 4.5 10^3/uL (4.0-10.5)
[2018-12-15 05:29] LABS: INTERNATIONAL RATION (INR) 2.14; PROTHROMBIN TIME 24.3 SEC (11.4-15.4)
[2018-12-15 05:43] LABS: ANION GAP 8 (5-19); BLOOD UREA NITROGEN 49 mg/dL (7-20); CALCIUM 9.7 mg/dL (8.4-10.2); CARBON DIOXIDE 27 mmol/L (22-30); CHLORIDE 104 mmol/L (98-107); GLUCOSE 140 mg/dL (75-110); POTASSIUM 4.2 mmol/L (3.6-5.0)
[2018-12-15] MEDS ORDERED: EPOETIN ALFA INJ 20000 UNIT/1 ML VIAL (RENAL) IV PRN (06:59)
[2018-12-15] MEDS ORDERED: EPOETIN ALFA-EPBX 5,000 UNITS (ESRD) in SYRINGE IV PRN ×3 (08:00)
--- NOTE | 2018-12-15 10:30 | PDOC PROGRESS REPORT ---
Subjective Progress Note for:: 12/15/18 Subjective:: Patient is a 63-year-old lady with history of chronic kidney disease stage IV with baseline creatinine of 4-4.5 secondary to diabetic nephropathy currently now deemed to be at end-stage renal disease who was initiated on renal replacement therapy, specifically hemodialysis last Saturday to her left upper arm AV fistula. She also has hypertension, CAD and atrial fibrillation. I am seeing her currently on hemodialysis. She is very comfortable and she is tolerating dialysis well without any problems. She tells me that her appetite is okay but she does not seem to be eating as much while here in the hospital complaining of the food. She denies any nausea nor vomiting. She says she sleeps a lot because she is bored. She denies any chest pains no shortness of breath. Reason For Visit: UREMIA,CHRONIC KIDNEY DISEASE STAGE 5 Physical Exam Vital Signs: Temp Pulse Resp BP Pulse Ox 97.7 F 49 L 17 124/51 L 91 L 12/15/18 03:24 12/15/18 07:00 12/15/18 03:24 12/15/18 03:24 12/15/18 03:24 Intake & Output 12/14/18 12/15/18 12/16/18 06:59 06:59 06:59 Intake Total 822 1020 Output Total 200 500 Balance 622 520 Weight 65.5 kg 67.7 kg Vitals during dialysis: Blood pressure 144/69, heart rate of 52, blood flow rate of 250 mL/min and dialysate flow rate of 600 mL/min. Exam: General appearance: PRESENT: no acute distress, cooperative, well-developed, well-nourished Head exam: PRESENT: atraumatic, normocephalic Eye exam: PRESENT: conjunctiva pale, PERRLA. ABSENT: scleral icterus Neck exam: ABSENT: JVD Respiratory exam: PRESENT: Normal breath sounds. ABSENT: crackles, rales, rhonchi, unlabored, wheezes Cardiovascular exam: PRESENT: Regular rate rhythm -+S1, +S2. ABSENT: diastolic murmur, systolic murmur GI/Abdominal exam: PRESENT: normal bowel sounds, soft. ABSENT: guarding, mass, tenderness Extremities exam: Grade 1 bilateral lower extremity pitting edema Neurological exam: PRESENT: alert, awake, oriented to person, place and time. Skin exam: PRESENT: dry, warm, Cardiovascular exam: PRESENT: +S1, +S2, systolic murmur GI/Abdominal exam: PRESENT: normal bowel sounds. ABSENT: organomegaly, soft, tenderness Results Laboratory Results: 12/15/18 05:08 12/15/18 05:08 12/14/18 12/15/18 12/15/18 16:20 05:08 05:08 WBC 4.5 RBC 3.05 L Hgb 9.7 L Hct 29.8 L MCV 98 H MCH 31.7 MCHC 32.5 RDW 15.6 H Plt Count 154 Sodium 138.5 Potassium 4.2 Chloride 104 Carbon Dioxide 27 Anion Gap 8 BUN 49 H Creatinine 4.10 H Est GFR ( Amer) 13 L Est GFR (Non-Af Amer) 11 L Glucose 140 H Calcium 9.7 Urine Color YELLOW Urine Appearance CLEAR Urine pH 5.0 Ur Specific [place] 1.011 Urine Protein 30 H Urine Glucose (UA) 150 H Urine Ketones NEGATIVE Urine Blood NEGATIVE Urine Nitrite NEGATIVE Ur Leukocyte Esterase TRACE H Urine WBC (Auto) 9 Urine RBC (Auto) 2 12/07/18 12/07/18 12/07/18 16:22 16:22 19:30 Creatine Kinase 247 H CK-MB (CK-2) 6.18 H Troponin I 0.264 0.236 NT-Pro-B Natriuret Pep 12/07/18 12/07/18 12/07/18 22:30 22:30 22:30 Creatine Kinase 304 H CK-MB (CK-2) 5.00 H Troponin I 0.283 NT-Pro-B Natriuret Pep [id number] H 12/08/18 12/08/18 12/08/18 04:30 04:30 12:15 Creatine Kinase 245 H 308 H CK-MB (CK-2) 3.99 Troponin I 0.220 NT-Pro-B Natriuret Pep 12/08/18 12:15 Creatine Kinase CK-MB (CK-2) 4.14 Troponin I 0.195 NT-Pro-B Natriuret Pep Impressions: Chest X-Ray 12/07/18 00:00 IMPRESSION: HEART ENLARGED WITHOUT FAILURE. NO OTHER SIGNIFICANT RADIOGRAPHIC FINDING IN THE CHEST. Assessment & Plan - Diagnosis (1) ESRD (end stage renal disease) Is this a current diagnosis for this admission?: Yes Plan: This is the patient's second hemodialysis treatment. We will do dialysis today for 2.5 hours, using the patient's left upper arm AV fistula, with 2 potassium bath, blood flow rate of 250 mL per minute, dialysate flow rate of 600 mL per minute, ultrafiltration 2 L maximum as tolerated, no heparin and Procrit with 5000 units during dialysis intravenously. Dialysis plan discussed with her dialysis nurse today Annie. Patient will be monitored throughout dialysis treatment. Patient will be started on Nephrocaps daily. (2) Anemia in chronic kidney disease (CKD) Qualifiers: Chronic kidney disease stage: stage 5, not on chronic dialysis Qualified Code(s): N18.5 - Chronic kidney disease, stage 5; D63.1 - Anemia in chronic kidney disease Is this a current diagnosis for this admission?: Yes Plan: We will give Epogen during dialysis treatment as needed. (3) UTI (urinary tract infection) Is this a current diagnosis for this admission?: Yes Plan: Patient with minimal E. coli in the urine. She is on ciprofloxacin. (4) Hypertension Is this a current diagnosis for this admission?: Yes Plan: Acceptable control. (5) Diabetes mellitus type 2 in nonobese Is this a current diagnosis for this admission?: Yes (6) Proteinuria due to type 2 diabetes mellitus Is this a current diagnosis for this admission?: Yes (7) Renal osteodystrophy Is this a current diagnosis for this admission?: Yes Plan: We will start the patient on calcium acetate with meals. (8) Atrial fibrillation Qualifiers: Atrial fibrillation type: chronic Qualified Code(s): I48.2 - Chronic atrial fibrillation Is this a current diagnosis for this admission?: Yes (9) Generalized weakness Is this a current diagnosis for this admission?: Yes (10) Fall Qualifiers: Encounter type: initial encounter Qualified Code(s): W19.XXXA - Unspecified fall, initial encounter - Notes Notes: From nephrology standpoint the patient can be discharged home after her outpatient chronic dialysis is arranged with Audie [facility]. kit planner is currently arranging that. - Time Time with patient: 15-25 minutes
[2018-12-15 10:36] LABS: HEPATITIS C QUANTITATION HCV Not Detected IU/mL (.)
[2018-12-15] MEDS: CALCITRIOL 0.25 MCG CAPSULE PO SCH (11:58)
[2018-12-15] MEDS: CLONAZEPAM 1 MG TABLET PO SCH (11:58)
[2018-12-15] MEDS: AMIODARONE HCL 200 MG TABLET PO SCH (11:58)
[2018-12-15] MEDS: HYDRALAZINE HCL 50 MG TABLET PO SCH ×2 (11:59→22:53)
[2018-12-15] MEDS: LACTULOSE SYRUP 20 GM/30 ML UDCUP PO SCH ×3 (11:59→18:13)
[2018-12-15] MEDS: FENTANYL 25 MCG/HR PATCH.TD72 TD SCH (12:00)
[2018-12-15] MEDS: OLOPATADINE HCL 0.1% OPH SOLN 5 ML OU SCH (12:02)
[2018-12-15] MEDS: INSULIN LISPRO 100 UNIT/ML 3 ML VIAL SUBCUT SCH ×4 (12:32→22:53)
[2018-12-15] MEDS: FUROSEMIDE 20 MG TABLET PO SCH (12:36)
[2018-12-15] MEDS ORDERED: FUROSEMIDE 20 MG TABLET PO ONE (12:45)
[2018-12-15] MEDS: CALCIUM ACETATE 667 MG CAPSULE PO SCH ×2 (12:46→18:14)
[2018-12-15] MEDS: FOLIC ACID/VITAMIN B COMP W-C CAPSULE PO SCH (18:14)
[2018-12-15] MEDS: OXYCODONE HCL IR 5 MG TABLET PO PRN (18:18)
--- NOTE | 2018-12-15 21:55 | PDOC PROGRESS REPORT ---
Subjective Progress Note for:: 12/15/18 Subjective:: No chest pain or difficulty with breathing. She was dialyzed earlier today. She is more engaging this evening. She reported pain at her site of left arm AV fistula. No abdominal pain, nausea or vomiting. No fever or chills. Reason For Visit: UREMIA,CHRONIC KIDNEY DISEASE STAGE 5 Physical Exam Vital Signs: Temp Pulse Resp BP Pulse Ox 97.7 F 51 L 17 124/51 L 91 L 12/15/18 03:24 12/15/18 14:00 12/15/18 03:24 12/15/18 03:24 12/15/18 03:24 Intake & Output 12/14/18 12/15/18 12/16/18 06:59 06:59 06:59 Intake Total 822 1020 480 Output Total 204 933 7375 Balance 622 520 -1520 Weight 65.5 kg 67.7 kg Physical Exam: General appearance: PRESENT: no acute distress Head exam: PRESENT: atraumatic, normocephalic Eye exam: PRESENT: conjunctiva pink. ABSENT: pallor, scleral icterus Ear exam: PRESENT: normal external ear exam Mouth exam: PRESENT: moist Respiratory exam: PRESENT: clear to auscultation lena, decreased breath sounds - at lung bases Cardiovascular exam: PRESENT: irregular rhythm, +S1, +S2. ABSENT: diastolic murmur, systolic murmur GI/Abdominal exam: PRESENT: normal bowel sounds, soft. ABSENT: distended, guarding, mass, organomegaly, rebound, tenderness Extremities exam: ABSENT: pedal edema Neurological exam: PRESENT: alert, awake - appropriate in simple responses Skin exam: PRESENT: dry, warm Results Laboratory Results: 12/15/18 05:08 12/15/18 05:08 PT / INR : 24.3 / 2.14 12/15/18 12/15/18 05:08 05:08 WBC 4.5 RBC 3.05 L Hgb 9.7 L Hct 29.8 L MCV 98 H MCH 31.7 MCHC 32.5 RDW 15.6 H Plt Count 154 Sodium 138.5 Potassium 4.2 Chloride 104 Carbon Dioxide 27 Anion Gap 8 BUN 49 H Creatinine 4.10 H Est GFR ( Amer) 13 L Est GFR (Non-Af Amer) 11 L Glucose 140 H Calcium 9.7 12/07/18 12/07/18 12/07/18 16:22 16:22 19:30 Creatine Kinase 247 H CK-MB (CK-2) 6.18 H Troponin I 0.264 0.236 NT-Pro-B Natriuret Pep 12/07/18 12/07/18 12/07/18 22:30 22:30 22:30 Creatine Kinase 304 H CK-MB (CK-2) 5.00 H Troponin I 0.283 NT-Pro-B Natriuret Pep 14066 H 12/08/18 12/08/18 12/08/18 04:30 04:30 12:15 Creatine Kinase 245 H 308 H CK-MB (CK-2) 3.99 Troponin I 0.220 NT-Pro-B Natriuret Pep 12/08/18 12:15 Creatine Kinase CK-MB (CK-2) 4.14 Troponin I 0.195 NT-Pro-B Natriuret Pep Impressions: Chest X-Ray 12/07/18 00:00 IMPRESSION: HEART ENLARGED WITHOUT FAILURE. NO OTHER SIGNIFICANT RADIOGRAPHIC FINDING IN THE CHEST. Assessment & Plan - Diagnosis (1) Acute on chronic kidney failure Qualifiers: Acute renal failure type: unspecified Chronic kidney disease stage: stage 5, not on chronic dialysis Qualified Code(s): N17.9 - Acute kidney failure, unspecified; N18.5 - Chronic kidney disease, stage 5 Is this a current diagnosis for this admission?: Yes (2) Diabetes mellitus type 2 in nonobese Is this a current diagnosis for this admission?: Yes (3) CKD stage 5 due to type 2 diabetes mellitus Is this a current diagnosis for this admission?: Yes (4) Anemia in chronic kidney disease (CKD) Qualifiers: Chronic kidney disease stage: stage 5, not on chronic dialysis Qualified Code(s): N18.5 - Chronic kidney disease, stage 5; D63.1 - Anemia in chronic kidney disease Is this a current diagnosis for this admission?: Yes (5) Atrial fibrillation Qualifiers: Atrial fibrillation type: chronic Qualified Code(s): I48.2 - Chronic atrial fibrillation Is this a current diagnosis for this admission?: Yes (6) Constipation Qualifiers: Constipation type: unspecified constipation type Qualified Code(s): K59.00 - Constipation, unspecified Is this a current diagnosis for this admission?: Yes - Time Time Spent with patient: 25-34 minutes Medications reviewed and adjusted accordingly: Yes Anticipated discharge: Home with Homehealth Within: Other - Inpatient Certification Based on my medical assessment, after consideration of the patient's comorbidities, presenting symptoms, or acuity I expect that the services needed warrant INPATIENT care.: Yes I certify that my determination is in accordance with my understanding of Medicare's requirements for reasonable and necessary INPATIENT services [42 CFR 412.3e].: Yes Medical Necessity: Significant Comorbidiites Make Outpatient Treatment Too Risky, Need Close Monitoring Due to Risk of Patient Decompensation, Need For Continuous Telemetry Monitoring, Risk of Complication if Not Cared For in Hospital, Risk of Diagnosis Which Will Require Inpatient Eval/Care/Monitoring Post Hospital Care: D/C Java Portal Developer Documentation - Plan Summary Plan Summary: Continue current medication management. Follow up on outpatient dialysis schedule.
[2018-12-15] MEDS ORDERED: ISOSORBIDE MONONITRATE 20 MG TABLET PO SCH (22:00)
[2018-12-15] MEDS: WARFARIN SODIUM 2 MG TABLET PO SCH (22:53)
[2018-12-15] MEDS: CIPROFLOXACIN HCL 500 MG TABLET PO SCH (22:53)
[2018-12-15] MEDS: ATORVASTATIN CALCIUM 20 MG TABLET PO SCH (22:53)
[2018-12-16] MEDS: PANTOPRAZOLE SODIUM 40 MG TABLET.DR PO SCH (05:47)
[2018-12-16] MEDS: FUROSEMIDE 20 MG TABLET PO SCH (08:53)
[2018-12-16] MEDS: CALCIUM ACETATE 667 MG CAPSULE PO SCH ×3 (08:54→17:44)
[2018-12-16] MEDS: INSULIN LISPRO 100 UNIT/ML 3 ML VIAL SUBCUT SCH ×4 (08:54→22:18)
[2018-12-16] MEDS: ISOSORBIDE MONONITRATE 20 MG TABLET PO SCH ×2 (08:54→15:17)
[2018-12-16] MEDS: AMIODARONE HCL 200 MG TABLET PO SCH (09:40)
[2018-12-16] MEDS: CALCITRIOL 0.25 MCG CAPSULE PO SCH (09:40)
[2018-12-16] MEDS: HYDRALAZINE HCL 50 MG TABLET PO SCH ×2 (09:40→22:19)
[2018-12-16] MEDS: LACTULOSE SYRUP 20 GM/30 ML UDCUP PO SCH ×3 (09:40→17:44)
[2018-12-16] MEDS: OLOPATADINE HCL 0.1% OPH SOLN 5 ML OU SCH (09:42)
[2018-12-16] MEDS: OXYCODONE-ACETAMINOPHEN 5-325 MG TABLET PO PRN ×2 (12:14→22:27)
[2018-12-16] MEDS: OXYCODONE HCL IR 5 MG TABLET PO PRN (12:14)
[2018-12-16] MEDS: FOLIC ACID/VITAMIN B COMP W-C CAPSULE PO SCH (15:15)
--- NOTE | 2018-12-16 19:02 | PDOC PROGRESS REPORT ---
Subjective Progress Note for:: 12/16/18 Subjective:: Patient expressed concern about pain around her left arm AV fistula and requested that Dr Lalo Cornejo to review device before future use for her dialysis. No chest pain or difficulty with breathing. No abdominal pain, nausea or vomiting. No fever or chills. Reason For Visit: UREMIA,CHRONIC KIDNEY DISEASE STAGE 5 Physical Exam Vital Signs: Temp Pulse Resp BP Pulse Ox 98.3 F 55 L 16 148/66 H 98 12/16/18 15:50 12/16/18 15:50 12/16/18 15:50 12/16/18 15:50 12/16/18 15:50 Intake & Output 12/15/18 12/16/18 12/17/18 06:59 06:59 06:59 Intake Total 1020 480 340 Output Total 500 2300 500 Balance 520 -1820 -160 Weight 67.7 kg 65.7 kg Physical Exam: General appearance: PRESENT: no acute distress Head exam: PRESENT: atraumatic, normocephalic Eye exam: PRESENT: conjunctiva pink. ABSENT: pallor, scleral icterus Ear exam: PRESENT: normal external ear exam Mouth exam: PRESENT: moist Respiratory exam: PRESENT: clear to auscultation lena, decreased breath sounds - at lung bases Cardiovascular exam: PRESENT: irregular rhythm, +S1, +S2. ABSENT: diastolic murmur, systolic murmur GI/Abdominal exam: PRESENT: normal bowel sounds, soft. ABSENT: distended, guarding, mass, organomegaly, rebound, tenderness Extremities exam: ABSENT: pedal edema Neurological exam: PRESENT: alert, awake - appropriate in simple responses Skin exam: PRESENT: dry, warm Results Laboratory Results: 12/15/18 05:08 12/15/18 05:08 12/07/18 12/07/18 12/07/18 16:22 16:22 19:30 Creatine Kinase 247 H CK-MB (CK-2) 6.18 H Troponin I 0.264 0.236 NT-Pro-B Natriuret Pep 12/07/18 12/07/18 12/07/18 22:30 22:30 22:30 Creatine Kinase 304 H CK-MB (CK-2) 5.00 H Troponin I 0.283 NT-Pro-B Natriuret Pep [id number] H 12/08/18 12/08/18 12/08/18 04:30 04:30 12:15 Creatine Kinase 245 H 308 H CK-MB (CK-2) 3.99 Troponin I 0.220 NT-Pro-B Natriuret Pep 12/08/18 12:15 Creatine Kinase CK-MB (CK-2) 4.14 Troponin I 0.195 NT-Pro-B Natriuret Pep Impressions: Chest X-Ray 12/07/18 00:00 IMPRESSION: HEART ENLARGED WITHOUT FAILURE. NO OTHER SIGNIFICANT RADIOGRAPHIC FINDING IN THE CHEST. Assessment & Plan - Diagnosis (1) Acute on chronic kidney failure Qualifiers: Acute renal failure type: unspecified Chronic kidney disease stage: stage 5, not on chronic dialysis Qualified Code(s): N17.9 - Acute kidney failure, unspecified; N18.5 - Chronic kidney disease, stage 5 Is this a current diagnosis for this admission?: Yes (2) Diabetes mellitus type 2 in nonobese Is this a current diagnosis for this admission?: Yes (3) CKD stage 5 due to type 2 diabetes mellitus Is this a current diagnosis for this admission?: Yes (4) Anemia in chronic kidney disease (CKD) Qualifiers: Chronic kidney disease stage: stage 5, not on chronic dialysis Qualified Code(s): N18.5 - Chronic kidney disease, stage 5; D63.1 - Anemia in chronic kidney disease Is this a current diagnosis for this admission?: Yes (5) Atrial fibrillation Qualifiers: Atrial fibrillation type: chronic Qualified Code(s): I48.2 - Chronic atrial fibrillation Is this a current diagnosis for this admission?: Yes (6) Constipation Qualifiers: Constipation type: unspecified constipation type Qualified Code(s): K59.00 - Constipation, unspecified Is this a current diagnosis for this admission?: Yes - Time Time Spent with patient: 25-34 minutes Medications reviewed and adjusted accordingly: Yes Anticipated discharge: Home with Homehealth Within: Other - Inpatient Certification Based on my medical assessment, after consideration of the patient's comorbidities, presenting symptoms, or acuity I expect that the services needed warrant INPATIENT care.: Yes I certify that my determination is in accordance with my understanding of Medicare's requirements for reasonable and necessary INPATIENT services [42 CFR 412.3e].: Yes Medical Necessity: Significant Comorbidiites Make Outpatient Treatment Too Risky, Need Close Monitoring Due to Risk of Patient Decompensation, Need For Continuous Telemetry Monitoring, Risk of Complication if Not Cared For in Hospital, Risk of Diagnosis Which Will Require Inpatient Eval/Care/Monitoring Post Hospital Care: D/C Charge Nurse Documentation - Plan Summary Plan Summary: Continue current medication management. Discussed case with Dr. Thomas. Arrangement will be made for Dr. Lalo Cornejo to review her fistula before dialysis schedule for tomorrow.
[2018-12-16] MEDS: ATORVASTATIN CALCIUM 20 MG TABLET PO SCH (22:20)
[2018-12-16] MEDS: WARFARIN SODIUM 2 MG TABLET PO SCH (22:22)
[2018-12-16] MEDS: CIPROFLOXACIN HCL 500 MG TABLET PO SCH (22:24)
[2018-12-17] MEDS: ONDANSETRON 4 MG TAB.RAPDIS PO PRN ×2 (02:27→18:20)
[2018-12-17 04:51] LABS: ABSOLUTE BASOPHILS # (AUTO) 0.1 10^3/uL (0.0-0.2); ABSOLUTE EOSINOPHILS # (AUTO) 0.4 10^3/uL (0.0-0.6); ABSOLUTE LYMPHOCYTES (AUTO) 0.8 10^3/uL (0.5-4.7); ABSOLUTE MONOCYTES (AUTO) 0.8 10^3/uL (0.1-1.4); ABSOLUTE NEUT (AUTO) 3.3 10^3/uL (1.7-8.2); BASOPHILS % (AUTO) 1.2 % (0-2); EOSINOPHILS % (AUTO) 7.9 % (0-6); HEMATOCRIT 30.1 % (36.0-47.0); HEMOGLOBIN 9.7 g/dL (12.0-15.5); LYMPHOCYTES % (AUTO) 14.8 % (13-45); MEAN CORPUSCULAR HEMOGLOBIN 31.6 pg (27.0-33.4); MEAN CORPUSCULAR HGB CONC 32.2 g/dL (32.0-36.0); MEAN CORPUSCULAR VOLUME 98 fl (80-97); MONOCYTES % (AUTO) 14.4 % (3-13); PLATELET COUNT 149 10^3/uL (150-450); RED BLOOD COUNT 3.07 10^6/uL (3.72-5.28); RED CELL DISTRIBUTION WIDTH 16.2 % (11.5-14.0); SEGMENTED NEUTROPHILS % (AUTO) 61.7 % (42-78); TOTAL CELLS COUNTED % (AUTO) 100 %; WHITE BLOOD COUNT 5.4 10^3/uL (4.0-10.5)
[2018-12-17] MEDS ORDERED: NORMAL SALINE 1000 ML 1,000 ML IV PRN (05:00)
[2018-12-17] MEDS ORDERED: EPOETIN ALFA INJ 20000 UNIT/1 ML VIAL (RENAL) IV PRN (05:00)
[2018-12-17] MEDS ORDERED: EPOETIN ALFA-EPBX 10,000 UNIT/ML VIAL (RENAL) IV PRN (05:00)
[2018-12-17 05:10] LABS: ANION GAP 6 (5-19); BLOOD UREA NITROGEN 35 mg/dL (7-20); CALCIUM 10.1 mg/dL (8.4-10.2); CARBON DIOXIDE 31 mmol/L (22-30); CHLORIDE 100 mmol/L (98-107); GLUCOSE 151 mg/dL (75-110); POTASSIUM 4.9 mmol/L (3.6-5.0)
[2018-12-17] MEDS: PANTOPRAZOLE SODIUM 40 MG TABLET.DR PO SCH (06:26)
[2018-12-17] MEDS: INSULIN LISPRO 100 UNIT/ML 3 ML VIAL SUBCUT SCH ×4 (08:32→22:40)
--- NOTE | 2018-12-17 11:32 | PDOC PROGRESS REPORT ---
Subjective Progress Note for:: 12/17/18 Subjective:: Seen the patient during dialysis treatment this morning. She appears very comfortable while on dialysis. She feels fine and does not really have any much complaints. She is tolerating dialysis very well. Reason For Visit: UREMIA,CHRONIC KIDNEY DISEASE STAGE 5 Physical Exam Vital Signs: Temp Pulse Resp BP Pulse Ox 97.4 F 53 L 18 137/45 H 94 12/17/18 07:20 12/17/18 07:20 12/17/18 07:20 12/17/18 07:20 12/17/18 07:20 Intake & Output 12/16/18 12/17/18 12/18/18 06:59 06:59 06:59 Intake Total 480 340 Output Total 2300 750 Balance -1820 -410 Weight 65.7 kg 63 kg Vitals during dialysis: Blood pressure 142/55, pulse rate of 50, blood flow rate of 20 to 50 mL/min and dialysate flow rate of 600 mL/min via her new left AV fistula. Exam: General appearance: PRESENT: no acute distress, cooperative, well-developed, well-nourished Head exam: PRESENT: atraumatic, normocephalic Eye exam: PRESENT: conjunctiva slightly pale, PERRLA. ABSENT: scleral icterus Neck exam: ABSENT: JVD Respiratory exam: PRESENT: Diminished breath sounds. ABSENT: crackles, rales, rhonchi, unlabored, wheezes Cardiovascular exam: PRESENT: Regular rate rhythm -+S1, +S2. Grade 2/6 systolic murmur GI/Abdominal exam: PRESENT: normal bowel sounds, soft. ABSENT: guarding, mass, tenderness Extremities exam: Grade 1 bilateral lower extremity pitting edema Neurological exam: PRESENT: alert, awake, oriented to person, place and time. Skin exam: PRESENT: dry, warm, Cardiovascular exam: PRESENT: +S1, +S2, systolic murmur GI/Abdominal exam: PRESENT: normal bowel sounds. ABSENT: organomegaly, soft, tenderness Results Laboratory Results: 12/17/18 04:02 12/17/18 04:02 12/17/18 12/17/18 04:02 04:02 WBC 5.4 RBC 3.07 L Hgb 9.7 L Hct 30.1 L MCV 98 H MCH 31.6 MCHC 32.2 RDW 16.2 H Plt Count 149 L Seg Neutrophils % 61.7 Lymphocytes % 14.8 Monocytes % 14.4 H Eosinophils % 7.9 H Basophils % 1.2 Absolute Neutrophils 3.3 Absolute Lymphocytes 0.8 Absolute Monocytes 0.8 Absolute Eosinophils 0.4 Absolute Basophils 0.1 Sodium 137.3 Potassium 4.9 Chloride 100 Carbon Dioxide 31 H Anion Gap 6 BUN 35 H Creatinine 3.78 H Est GFR ( Amer) 15 L Est GFR (Non-Af Amer) 12 L Glucose 151 H Calcium 10.1 12/07/18 12/07/18 12/07/18 16:22 16:22 19:30 Creatine Kinase 247 H CK-MB (CK-2) 6.18 H Troponin I 0.264 0.236 NT-Pro-B Natriuret Pep 12/07/18 12/07/18 12/07/18 22:30 22:30 22:30 Creatine Kinase 304 H CK-MB (CK-2) 5.00 H Troponin I 0.283 NT-Pro-B Natriuret Pep [id number] H 12/08/18 12/08/18 12/08/18 04:30 04:30 12:15 Creatine Kinase 245 H 308 H CK-MB (CK-2) 3.99 Troponin I 0.220 NT-Pro-B Natriuret Pep 12/08/18 12:15 Creatine Kinase CK-MB (CK-2) 4.14 Troponin I 0.195 NT-Pro-B Natriuret Pep Impressions: Chest X-Ray 12/07/18 00:00 IMPRESSION: HEART ENLARGED WITHOUT FAILURE. NO OTHER SIGNIFICANT RADIOGRAPHIC FINDING IN THE CHEST. Assessment & Plan - Diagnosis (1) ESRD (end stage renal disease) Is this a current diagnosis for this admission?: Yes Plan: We will do dialysis today for 2.5 hours, using the patient's AV fistula, with 2 potassium bath, blood flow rate of 250 mL per minute, dialysate flow rate of 600 mL per minute, ultrafiltration 2 L as tolerated, no heparin and Procrit with 10,000 units during dialysis intravenously. Patient is being monitored throughout dialysis treatment. Her AV fistula is being used with a gauge [address] Cornejo has check her fistula this morning and recommend doing a fistulogram which can either be done as an inpatient or outpatient. Awaiting for acceptance from [facility] for continued maintenance outpatient hemodialysis. Once accepted, from nephrology standpoint the patient can be discharged home. (2) Anemia in chronic kidney disease (CKD) Qualifiers: Chronic kidney disease stage: stage 5, not on chronic dialysis Qualified Code(s): N18.5 - Chronic kidney disease, stage 5; D63.1 - Anemia in chronic kidney disease Is this a current diagnosis for this admission?: Yes Plan: Procrit will be given during dialysis today. (3) UTI (urinary tract infection) Is this a current diagnosis for this admission?: Yes Plan: Patient with minimal E. coli in the urine. She is on ciprofloxacin. (4) Hypertension Is this a current diagnosis for this admission?: Yes Plan: Acceptable control. (5) Diabetes mellitus type 2 in nonobese Is this a current diagnosis for this admission?: Yes (6) Proteinuria due to type 2 diabetes mellitus Is this a current diagnosis for this admission?: Yes (7) Renal osteodystrophy Is this a current diagnosis for this admission?: Yes Plan: We will start the patient on calcium acetate with meals. (8) Atrial fibrillation Qualifiers: Atrial fibrillation type: chronic Qualified Code(s): I48.2 - Chronic atrial fibrillation Is this a current diagnosis for this admission?: Yes (9) Generalized weakness Is this a current diagnosis for this admission?: Yes (10) Fall Qualifiers: Encounter type: initial encounter Qualified Code(s): W19.XXXA - Unspecified fall, initial encounter - Time Time with patient: 15-25 minutes
[2018-12-17] MEDS: ISOSORBIDE MONONITRATE 20 MG TABLET PO SCH (14:15)
[2018-12-17] MEDS: AMIODARONE HCL 200 MG TABLET PO SCH (14:15)
[2018-12-17] MEDS: CALCITRIOL 0.25 MCG CAPSULE PO SCH (14:16)
[2018-12-17] MEDS: LACTULOSE SYRUP 20 GM/30 ML UDCUP PO SCH ×3 (14:16→18:02)
[2018-12-17] MEDS: CALCIUM ACETATE 667 MG CAPSULE PO SCH ×3 (14:17→18:02)
[2018-12-17] MEDS: OXYCODONE HCL IR 5 MG TABLET PO PRN (14:22)
[2018-12-17] MEDS: OXYCODONE-ACETAMINOPHEN 5-325 MG TABLET PO PRN (14:23)
[2018-12-17] MEDS: FUROSEMIDE 20 MG TABLET PO SCH (14:24)
[2018-12-17] MEDS: OLOPATADINE HCL 0.1% OPH SOLN 5 ML OU SCH (14:28)
[2018-12-17] MEDS: HYDRALAZINE HCL 50 MG TABLET PO SCH ×2 (14:29→22:40)
[2018-12-17] MEDS: FOLIC ACID/VITAMIN B COMP W-C CAPSULE PO SCH (18:02)
--- NOTE | 2018-12-17 19:36 | PDOC PROGRESS REPORT ---
Subjective Progress Note for:: 12/17/18 Subjective:: Patient denied any chest pain or difficulty with breathing. No abdominal pain, nausea or vomiting. No fever or chills. She was dialyzed earlier today ad she will follow up with Dr Lalo Cornejo on outpatient for fistula evaluation. Reason For Visit: UREMIA,CHRONIC KIDNEY DISEASE STAGE 5 Physical Exam Vital Signs: Temp Pulse Resp BP Pulse Ox 98.2 F 50 L 18 109/48 L 93 12/17/18 15:40 12/17/18 15:40 12/17/18 15:40 12/17/18 15:40 12/17/18 15:40 Intake & Output 12/16/18 12/17/18 12/18/18 06:59 06:59 06:59 Intake Total 480 340 Output Total 2300 750 2350 Balance -1820 -410 -2350 Weight 65.7 kg 63 kg Physical Exam: General appearance: PRESENT: no acute distress Head exam: PRESENT: atraumatic, normocephalic Eye exam: PRESENT: conjunctiva pink. ABSENT: pallor, scleral icterus Ear exam: PRESENT: normal external ear exam Mouth exam: PRESENT: moist Respiratory exam: PRESENT: clear to auscultation lena, decreased breath sounds - at lung bases Cardiovascular exam: PRESENT: irregular rhythm, +S1, +S2, Thrill over left arm fistula. ABSENT: diastolic murmur, systolic murmur GI/Abdominal exam: PRESENT: normal bowel sounds, soft. ABSENT: distended, guarding, mass, organomegaly, rebound, tenderness Extremities exam: ABSENT: pedal edema Neurological exam: PRESENT: alert, awake - appropriate in simple responses Skin exam: PRESENT: dry, warm Results Laboratory Results: 12/17/18 04:02 12/17/18 04:02 12/17/18 12/17/18 04:02 04:02 WBC 5.4 RBC 3.07 L Hgb 9.7 L Hct 30.1 L MCV 98 H MCH 31.6 MCHC 32.2 RDW 16.2 H Plt Count 149 L Seg Neutrophils % 61.7 Lymphocytes % 14.8 Monocytes % 14.4 H Eosinophils % 7.9 H Basophils % 1.2 Absolute Neutrophils 3.3 Absolute Lymphocytes 0.8 Absolute Monocytes 0.8 Absolute Eosinophils 0.4 Absolute Basophils 0.1 Sodium 137.3 Potassium 4.9 Chloride 100 Carbon Dioxide 31 H Anion Gap 6 BUN 35 H Creatinine 3.78 H Est GFR ( Amer) 15 L Est GFR (Non-Af Amer) 12 L Glucose 151 H Calcium 10.1 12/07/18 12/07/18 12/07/18 16:22 16:22 19:30 Creatine Kinase 247 H CK-MB (CK-2) 6.18 H Troponin I 0.264 0.236 NT-Pro-B Natriuret Pep 12/07/18 12/07/18 12/07/18 22:30 22:30 22:30 Creatine Kinase 304 H CK-MB (CK-2) 5.00 H Troponin I 0.283 NT-Pro-B Natriuret Pep [id number] H 12/08/18 12/08/18 12/08/18 04:30 04:30 12:15 Creatine Kinase 245 H 308 H CK-MB (CK-2) 3.99 Troponin I 0.220 NT-Pro-B Natriuret Pep 12/08/18 12:15 Creatine Kinase CK-MB (CK-2) 4.14 Troponin I 0.195 NT-Pro-B Natriuret Pep Impressions: Chest X-Ray 12/07/18 00:00 IMPRESSION: HEART ENLARGED WITHOUT FAILURE. NO OTHER SIGNIFICANT RADIOGRAPHIC FINDING IN THE CHEST. Assessment & Plan - Diagnosis (1) Acute on chronic kidney failure Qualifiers: Acute renal failure type: unspecified Chronic kidney disease stage: stage 5, not on chronic dialysis Qualified Code(s): N17.9 - Acute kidney failure, unspecified; N18.5 - Chronic kidney disease, stage 5 Is this a current diagnosis for this admission?: Yes (2) Diabetes mellitus type 2 in nonobese Is this a current diagnosis for this admission?: Yes (3) CKD stage 5 due to type 2 diabetes mellitus Is this a current diagnosis for this admission?: Yes (4) Anemia in chronic kidney disease (CKD) Qualifiers: Chronic kidney disease stage: stage 5, not on chronic dialysis Qualified Code(s): N18.5 - Chronic kidney disease, stage 5; D63.1 - Anemia in chronic kidney disease Is this a current diagnosis for this admission?: Yes (5) Atrial fibrillation Qualifiers: Atrial fibrillation type: chronic Qualified Code(s): I48.2 - Chronic atrial fibrillation Is this a current diagnosis for this admission?: Yes (6) Constipation Qualifiers: Constipation type: unspecified constipation type Qualified Code(s): K59.00 - Constipation, unspecified Is this a current diagnosis for this admission?: Yes - Time Time Spent with patient: 25-34 minutes Medications reviewed and adjusted accordingly: Yes Anticipated discharge: Home with Homehealth Within: Other - Inpatient Certification Based on my medical assessment, after consideration of the patient's padmaja rbidities, presenting symptoms, or acuity I expect that the services needed warrant INPATIENT care.: Yes I certify that my determination is in accordance with my understanding of Medicare's requirements for reasonable and necessary INPATIENT services [42 CFR 412.3e].: Yes Medical Necessity: Significant Comorbidiites Make Outpatient Treatment Too Risky, Need Close Monitoring Due to Risk of Patient Decompensation, Need For Continuous Telemetry Monitoring, Risk of Complication if Not Cared For in Hospital, Risk of Diagnosis Which Will Require Inpatient Eval/Care/Monitoring Post Hospital Care: D/C Temporary Data Entry Clerk Documentation - Plan Summary Plan Summary: Continue current medication management. Possible discharge to outpatient dialysis tomorrow.
[2018-12-17] MEDS: ATORVASTATIN CALCIUM 20 MG TABLET PO SCH (22:39)
[2018-12-17] MEDS: WARFARIN SODIUM 2 MG TABLET PO SCH (22:39)
[2018-12-18] MEDS: PANTOPRAZOLE SODIUM 40 MG TABLET.DR PO SCH (05:23)
[2018-12-18 05:29] LABS: PROTHROMBIN TIME 30.9 SEC (11.4-15.4)
[2018-12-18] MEDS: INSULIN LISPRO 100 UNIT/ML 3 ML VIAL SUBCUT SCH ×3 (08:20→16:57)
[2018-12-18] MEDS: CALCIUM ACETATE 667 MG CAPSULE PO SCH ×2 (08:43→13:05)
[2018-12-18] MEDS: FUROSEMIDE 20 MG TABLET PO SCH (08:43)
[2018-12-18] MEDS: ISOSORBIDE MONONITRATE 20 MG TABLET PO SCH ×2 (08:51→16:36)
[2018-12-18] MEDS: LACTULOSE SYRUP 20 GM/30 ML UDCUP PO SCH ×2 (10:57→15:45)
[2018-12-18] MEDS: CALCITRIOL 0.25 MCG CAPSULE PO SCH (11:01)
[2018-12-18] MEDS: OLOPATADINE HCL 0.1% OPH SOLN 5 ML OU SCH (11:01)
[2018-12-18] MEDS: HYDRALAZINE HCL 50 MG TABLET PO SCH (11:03)
[2018-12-18] MEDS: AMIODARONE HCL 200 MG TABLET PO SCH (11:03)
--- NOTE | 2018-12-18 14:38 | PDOC DISCHARGE SUMMARY ---
General - Admit/Disc Date/PCP Admission Date/Primary Care Provider: 12/07/18 21:00 EDSON ORTEGA PA-C Discharge Date: 12/18/18 - Discharge Diagnosis (1) Acute on chronic kidney failure Is this a current diagnosis for this admission?: Yes (2) Diabetes mellitus type 2 in nonobese Is this a current diagnosis for this admission?: Yes (3) CKD stage 5 due to type 2 diabetes mellitus Is this a current diagnosis for this admission?: Yes (4) Anemia in chronic kidney disease (CKD) Is this a current diagnosis for this admission?: Yes (5) Atrial fibrillation Is this a current diagnosis for this admission?: Yes (6) Constipation Is this a current diagnosis for this admission?: Yes - Additional Information Discharge Diet: Cardiac, Diabetic, Other (Comments) - dialysis diet Discharge Activity: Activity As Tolerated Home Medications: Insulin Glargine,Hum.rec.anlog [Lantus Insulin 100 Unit/mL Insulin Pen] 0 unit SUBCUT HSP PRN 05/22/12 Oxycodone HCl/Acetaminophen [Percocet 10-325 mg Tablet] 1 tab PO QIDP PRN 05/22/12 Clonazepam [Klonopin 1 mg Tablet] 2 mg PO Q12 10/26/13 Cyclobenzaprine HCl [Flexeril 10 mg Tablet] 10 mg PO Q8HP PRN 12/22/14 Amiodarone HCl [Cordarone 200 mg Tablet] 200 mg PO DAILY 08/01/15 Calcitriol [Rocaltrol 0.5 mcg Capsule] 0.5 mcg PO DAILY 12/08/18 Diclofenac Sodium 4 gm TOP QIDP PRN 12/08/18 Fentanyl [Duragesic 25 mcg/hr Transdermal Patch] 1 each TD Q3D 12/08/18 Fluconazole [Diflucan] 150 mg PO .QWEEKLY PRN 12/08/18 Furosemide [Lasix 20 mg Tablet] 20 mg PO QAM 12/08/18 Hydralazine HCl [Apresoline 50 mg Tablet] 50 mg PO Q12 12/08/18 Insulin Lispro [Humalog Insulin (Lispro) 100 unit/mL] 0 unit SUBCUT .SLIDING SCALE 12/08/18 Isosorbide Mononitrate [Ismo 20 mg Tablet] 20 mg PO Q12 12/08/18 Lubiprostone [Amitiza 24 Mcg Capsule] 24 mcg PO BIDP PRN 12/08/18 Montelukast Sodium [Singulair 10 mg Tablet] 10 mg PO HSP PRN 12/08/18 Omeprazole 40 mg PO DAILY 12/08/18 Oxycodone HCl/Acetaminophen [Oxycodone-Acetaminophen 10-325] 0.5 tab PO HSP PRN 12/08/18 Rosuvastatin Calcium [Crestor 10 mg Tablet] 10 mg PO QHS 12/08/18 Warfarin Sodium 2 mg PO DAILY 12/08/18 History of Present Illness Patient complains of: Generalized body weakness History of Present Illness: GLO GARCIA is a 63 year old female,She has chronic kidney disease stage V, type 2 diabetes mellitus with complications, she came to the emergency room for evaluation of generalized body weakness. She has developed progressive decline in function, culminating in severe fatigue and generalized body weakness. She has multiple comorbid conditions, she is also on multiple medications. The arterial blood gas on ambient air demonstrated pH 7.38, PO2 88 (, bicarbonate 18.9, PCO2 32.9. She has compensated metabolic acidosis, the expected PCO2 40 degree of bicarbonate she will be 26-30 but the measured PCO2 32.9 suggesting a component of respiratory acidosis.She has lower extremity edema Hospital Course Hospital Course: She was managed with hemodialysis support and treated for urinary tract infection. She will transition to outpatient hemodialysis at [facility] site on Saturday, , and Saturday. Patient was instructed to present herself to the facility for completion of her papers and schedule. She will follow up with Dr Zhu and Martha as instructed upon discharge. She will need a follow up appointment with Dr Lalo Cornejo for review of her left arm fistula. Physical Exam Vital Signs: Temp Pulse Resp BP Pulse Ox 98.2 F 49 L 15 155/62 H 99 12/18/18 11:30 12/18/18 11:33 12/18/18 11:30 12/18/18 11:33 12/18/18 11:30 Intake & Output 12/17/18 12/18/18 12/19/18 06:59 06:59 06:59 Intake Total 340 200 Output Total 750 2450 50 Balance -410 -2450 150 Weight 63 kg 63.3 kg Physical Exam: General appearance: PRESENT: no acute distress Head exam: PRESENT: atraumatic, normocephalic Eye exam: PRESENT: conjunctiva pink. ABSENT: pallor, scleral icterus Ear exam: PRESENT: normal external ear exam Mouth exam: PRESENT: moist Respiratory exam: PRESENT: clear to auscultation lena, decreased breath sounds - at lung bases Cardiovascular exam: PRESENT: irregular rhythm, +S1, +S2, Thrill over left arm fistula. ABSENT: diastolic murmur, systolic murmur GI/Abdominal exam: PRESENT: normal bowel sounds, soft. ABSENT: distended, guarding, mass, organomegaly, rebound, tenderness Extremities exam: ABSENT: pedal edema Neurological exam: PRESENT: alert, awake - appropriate in simple responses Skin exam: PRESENT: dry, warm Results Laboratory Results: 12/17/18 04:02 12/17/18 04:02 12/07/18 12/07/18 12/07/18 16:22 16:22 19:30 Creatine Kinase 247 H CK-MB (CK-2) 6.18 H Troponin I 0.264 0.236 NT-Pro-B Natriuret Pep 12/07/18 12/07/18 12/07/18 22:30 22:30 22:30 Creatine Kinase 304 H CK-MB (CK-2) 5.00 H Troponin I 0.283 NT-Pro-B Natriuret Pep 05001 H 12/08/18 12/08/18 12/08/18 04:30 04:30 12:15 Creatine Kinase 245 H 308 H CK-MB (CK-2) 3.99 Troponin I 0.220 NT-Pro-B Natriuret Pep 12/08/18 12:15 Creatine Kinase CK-MB (CK-2) 4.14 Troponin I 0.195 NT-Pro-B Natriuret Pep Impressions: Chest X-Ray 12/07/18 00:00 IMPRESSION: HEART ENLARGED WITHOUT FAILURE. NO OTHER SIGNIFICANT RADIOGRAPHIC FINDING IN THE CHEST. Qualifiers - * PATIENT BEING DISCHARGED WITH ANY OF THE FOLLOWING DIAGNOSIS: No Acute Heart Failure - Is this a Heart Failure Patient?: No Plan Discharge Plan: D/C home today. Follow with Dr Zhu and Dr. Thomas as instructed upon dis charge.
[2018-12-18 16:25] VITALS: BP 153/64
[2018-12-18] MEDS: FOLIC ACID/VITAMIN B COMP W-C CAPSULE PO SCH (16:59)
== END 2018-12-18 18:09 | disposition home or self-care (01) | DRG 291 ==
LOC: ER 17:00 → EH 21:00 → OBSVTOIN 21:00 → EH 12-08 08:17 → 4W 12-08 10:03 → 3W 12-09 18:26
PROVIDERS: ADMIT Internal Medicine; ATTEND Internal Medicine
PROC: 5A1D70Z Performance of Urinary Filtration, Intermittent, Less than 6 Hours Per Day (ICD-10-PCS; principal; 2018-12-12)
DX: I13.2 Hypertensive heart and chronic kidney disease with heart failure and with stage 5 chronic kidney disease, or end stage renal disease (principal); N18.6 End stage renal disease; E87.4 Mixed disorder of acid-base balance; N17.9 Acute kidney failure, unspecified; N39.0 Urinary tract infection, site not specified; E11.22 Type 2 diabetes mellitus with diabetic chronic kidney disease; N25.0 Renal osteodystrophy; Z99.2 Dependence on renal dialysis; E66.01 Morbid (severe) obesity due to excess calories; Z79.01 Long term (current) use of anticoagulants; I50.9 Heart failure, unspecified; D63.1 Anemia in chronic kidney disease; I48.2 Chronic atrial fibrillation; K59.00 Constipation, unspecified; E03.2 Hypothyroidism due to medicaments and other exogenous substances; T46.2X5A Adverse effect of other antidysrhythmic drugs, initial encounter; M54.5 Low back pain; G89.29 Other chronic pain; I25.10 Atherosclerotic heart disease of native coronary artery without angina pectoris; E78.5 Hyperlipidemia, unspecified; M19.012 Primary osteoarthritis, left shoulder; M19.011 Primary osteoarthritis, right shoulder; S92.421A Displaced fracture of distal phalanx of right great toe, initial encounter for closed fracture; W20.8XXA Other cause of strike by thrown, projected or falling object, initial encounter; D50.9 Iron deficiency anemia, unspecified; R63.0 Anorexia; B96.20 Unspecified Escherichia coli [E. coli] as the cause of diseases classified elsewhere; I44.0 Atrioventricular block, first degree; R53.1 Weakness; Z88.0 Allergy status to penicillin; Z68.23 Body mass index [BMI] 23.0-23.9, adult; Z95.5 Presence of coronary angioplasty implant and graft; I25.2 Old myocardial infarction; Z87.891 Personal history of nicotine dependence; Z79.4 Long term (current) use of insulin; Z88.3 Allergy status to other anti-infective agents; Z79.899 Other long term (current) drug therapy; Z91.14 Patient's other noncompliance with medication regimen
CPT/HCPCS: 36415; 71045; 80048; 80053; 80061; 80076; 81001; 82140; 82150; 82272; 82550; 82553; 82575; 82607; 82728; 82746; 82803; 82962; 83036; 83540; 83550; 83690; 83735; 83880; 84100; 84439; 84443; 84484; 85025; 85027; 85045; 85610; 85730; 86317; 86704; 87040; 87086; 87088; 87186; 87340; 87522; 93005; 93010; 99285; J1439; J1815; J3490; J7050; L4386; Q5105; S0119

== ENCOUNTER 2018-12-29 10:43 | Day surgery (SDC) | payer MEDICARE, MEDICAID ==
[~2018-12-29 10:43] MED LIST changes: -BUPIVACAINE HCL 0.5 % INJ/PF 30 ML SDV ONE; +DIAZEPAM 5 MG TABLET PO PRN; -LIDOCAINE 1% INJ-PF (10 MG/ML) 30 ML SDV ONE
[2018-12-29] MEDS ORDERED: DIAZEPAM 5 MG TABLET ONE (11:12)
[2018-12-29 11:56] LABS: INTERNATIONAL RATION (INR) 1.87; PROTHROMBIN TIME 21.8 SEC (11.4-15.4)
[2018-12-29 11:57] LABS: PARTIAL THROMBOPLASTIN TIME 46.2 SEC (23.5-35.8)
[2018-12-29 12:04] LABS: ANION GAP 9 (5-19); BLOOD UREA NITROGEN 39 mg/dL (7-20); CARBON DIOXIDE 29 mmol/L (22-30); CHLORIDE 98 mmol/L (98-107); GLUCOSE 139 mg/dL (75-110); POTASSIUM 4.4 mmol/L (3.6-5.0)
[2018-12-29 12:29] LABS: HEMATOCRIT 32.1 % (36.0-47.0); HEMOGLOBIN 10.4 g/dL (12.0-15.5); MEAN CORPUSCULAR HEMOGLOBIN 31.8 pg (27.0-33.4); MEAN CORPUSCULAR HGB CONC 32.5 g/dL (32.0-36.0); MEAN CORPUSCULAR VOLUME 98 fl (80-97); PLATELET COUNT 177 10^3/uL (150-450); RED BLOOD COUNT 3.29 10^6/uL (3.72-5.28); RED CELL DISTRIBUTION WIDTH 16.5 % (11.5-14.0); WHITE BLOOD COUNT 4.5 10^3/uL (4.0-10.5)
[2018-12-29] MEDS ORDERED: LIDOCAINE 0.5% INJ-PF (5 MG/ML) 50 ML SDV ONE (13:03)
[2018-12-29] MEDS ORDERED: MIDAZOLAM 2 MG/2 ML INJ ONE (13:43)
[2018-12-29] MEDS ORDERED: HEPARIN SOD (PORCINE) 5,000 UNIT/ML 1 ML VIAL ONE (13:43)
[2018-12-29] MEDS ORDERED: FENTANYL CITRATE INJ/PF 100 MCG/2 ML AMPUL ONE (13:43)
[2018-12-29 16:30] VITALS: BP 140/58
--- NOTE | 2019-01-14 16:57 | Operative Report ---
Operative Report DATE OF SURGERY: 12/29/18 PREOPERATIVE DIAGNOSIS: 1. Malfunctioning arteriovenous fistula, left brachioc ephalic. 2. End-stage renal disease on hemodialysis. 3. Multiple comorbidities. POSTOPERATIVE DIAGNOSIS: 1. Malfunctioning arteriovenous fistula, left brachiocephalic. 2. End-stage renal disease on hemodialysis. 3. Multiple comorbidities. OPERATION: 1. Needle access into fistula. 2. Angioplasty in AV fistula. 3. Angiogram and interpretation. SURGEON: LOGAN GAYLE LICENSED PRACTICAL VOCATIONAL NURSE: None. ANESTHESIA: Moderate Sedation TISSUE REMOVED OR ALTERED: Not applicable. COMPLICATIONS: None. ESTIMATED BLOOD LOSS: 5 mL. INTRAOPERATIVE FINDINGS: Of a well-established left arm brachiocephalic fistula. Somewhat firm initially suggesting cephalad stenosis. Angiogram confirmed the presence of 2 areas of tight stenosis each about a centimeter long and each about 80% of the adjacent lumen. One at the cephalic to subclavian junction and although about 7 cm from the cephalic subclavian junction. Both were resolved with an 8 mm angioplasty balloon with virtually no residual stenosis. PROCEDURE: PROCEDURE: After verifying the procedure and having obtained informed consent, the patient's left arm was prepared with Chlorhexidine and draped out with sterile linen. Local anesthesia infiltrated. Percutaneous access into the fistula ,[ antegrade], obtained about [6 cm] from the arteriovenous anastomosis using a micro puncture needle followed by micro puncture wire and then a micro puncture catheter. A 0.035 [place] wire was inserted, and over this, a 7 [place] short introducer was placed. Angiogram demonstrated the aforementioned findings. Angioplasty was elected. This was followed by a [8-mm] angioplasty balloon . Angioplasty was done at the culprit areas at the cephalic subclavian junction and slightly distally in the cephalic.. Inflating up to 14 atmospheres for a minute at a time.]. Completion angiogram demonstrated [satisfactory result]. The instrumentation was now withdrawn over hand pressure for 10 minutes . Dressings applied, procedure concluded. DICTATING PHYSICIAN: LOGAN PETERSON M.D. cc: LOGAN PETERSON M.D. ([id number]) >>
== END 2018-12-29 16:20 | disposition home or self-care (01) ==
LOC: CCL 10:43
PROVIDERS: ATTEND Surgery
DX: T82.858A Stenosis of other vascular prosthetic devices, implants and grafts, initial encounter (principal); Y83.2 Surgical operation with anastomosis, bypass or graft as the cause of abnormal reaction of the patient, or of later complication, without mention of misadventure at the time of the procedure; E11.22 Type 2 diabetes mellitus with diabetic chronic kidney disease; I12.9 Hypertensive chronic kidney disease with stage 1 through stage 4 chronic kidney disease, or unspecified chronic kidney disease; N18.4 Chronic kidney disease, stage 4 (severe); Z99.2 Dependence on renal dialysis; D64.9 Anemia, unspecified; I49.9 Cardiac arrhythmia, unspecified; Z86.14 Personal history of Methicillin resistant Staphylococcus aureus infection; Z86.79 Personal history of other diseases of the circulatory system; Z91.81 History of falling; Z88.0 Allergy status to penicillin; Z87.891 Personal history of nicotine dependence; Z79.899 Other long term (current) drug therapy; Z79.01 Long term (current) use of anticoagulants; Z79.82 Long term (current) use of aspirin
CPT/HCPCS: 36415; 85027; 85610; 85730; 80048; 36902; C1725; C1752; C1894; Q9967; C1769; J2250; J1644 ×2; A9270; J3010; J3490

== ENCOUNTER → 2019-01-29 | Outpatient (CLI) | payer MEDICARE, MEDICAID ==
--- NOTE | 2019-01-30 08:23 | RADIOLOGY REPORT (SQ) ---
EXAM DESCRIPTION: MRI LUMBAR SPINE WITHOUT COMPLETED DATE/TIME: 01/29/2019 5:25 pm REASON FOR STUDY: R10.9 UNSPECIFIED ABDOMINAL PAIN R10.9 UNSPECIFIED ABDOMINAL PAIN COMPARISON: None. TECHNIQUE: Sagittal and Axial imaging includes T1, T2, STIR and gradient echo sequences. Coronal T2/ HASTE imaging. LIMITATIONS: None. FINDINGS: VISUALIZED UPPER ABDOMEN: Limited evaluation. No acute or suspicious findings suggested. SEGMENTATION: No transitional anatomy. The lowest well-developed disc space is labeled L5-S1. ALIGNMENT: Anatomic. VERTEBRAE: Intact. BONE MARROW: Endplate changes at 4 5. DISC SIGNAL: Loss of normal water signal throughout the lumbar spine. There is loss of height at L4- L5 and to a lesser extent L5-S1. POSTERIOR ELEMENTS: Generally intact. No pars defect evident. HARDWARE: None in the spine. CORD AND CONUS: Normal in size and signal intensity. Conus at the appropriate level. SOFT TISSUES: No aortic aneurysm seen. No bulky retroperitoneal adenopathy or mass. No paraspinal mas s or fluid. L1-L2: No significant spinal stenosis or exit foraminal stenosis. L2-L3: No significant spinal stenosis or exit foraminal stenosis. L3-L4: No significant spinal stenosis or exit foraminal stenosis. L4-L5: Marked disc space narrowing with annular disc bulging. This slightly indents the anterior the rosalio sac. There is bilateral foraminal narrowing right greater than left. L5-S1: Mild annular disc bulging. Focal left paracentral protrusion. There is bilateral foraminal n arrowing left greater than right. LOWER THORACIC: Incompletely imaged. No stenosis seen. SACRUM: Visualized upper sacrum intact. OTHER: No other significant findings. IMPRESSION: 1. Disc space narrowing at L4-L5 along with annular disc bulging. There is bilateral fo raminal narrowing right greater than left. 2. Annular disc bulging at 5 1 with bilateral foraminal narrowing left greater than right. TECHNICAL DOCUMENTATION: JOB ID: [id number] [employer]- All Rights Reserved Reading location - IP/workstation name: [email or web address]
== END ==
LOC: RAD 15:50
PROVIDERS: ATTEND Physician Assistant Medical
DX: R10.9 Unspecified abdominal pain (principal)
CPT/HCPCS: 72148

== ENCOUNTER → 2019-02-03 | Outpatient (CLI) | payer MEDICARE, MEDICAID ==
--- NOTE | 2019-02-04 12:46 | XCELERA REPORT ---
[address] [address] Lower Extremity Arterial Evaluation Name: GLO GARCIA Age: 63 yrs Gender: Female : 1955 Patient Status: Outpatient Patient Location: Study Date: 02/03/2019 10:25 AM Procedure: A color flow and duplex scan of the lower extremity arteries was performed bilaterally with velocity and waveform anaylsis. Reason For Study: ABSENT PEDAL PULSES Ordering Physician: LOGAN CORNEJO Performed By: Jony Valverde Measurements and Calculations Right Left NETWORK SECURITY OFFICER PSV 120.2 46.5 cm/sec Prox PFA PSV -220.3 45.3 cm/sec Prox SFA PSV 102.6 43.2 cm/sec Mid SFA PSV -107.0 -78.1 cm/sec Dist SFA PSV -92.3 -300.3cm/sec Prox Pop A PSV 91.5 17.5 cm/sec Dist Pop A PSV -40.6 -21.8 cm/sec Mid SALMA PSV -28.3 cm/sec Dist SALMA PSV 32.8 cm/sec Dist ALUMINUM MOLDER PSV 64.9 29.2 cm/sec Prox Kerry A -26.7 cm/sec PSV Derik Pedis PSV -48.4 cm/sec Right Side Arterial Evaluation Heavy arterial wall calcification in the proximal vessels. Normal velocity and triphasic waveforms noted in the Common Femoral artery. Monophasic with low normal velocity, moderate spectral broadening from the Femoral to infrageniculate vessels. Ankle Brachial index not done. Left Side Arterial Evaluation Heavy arterial wall calcification in the proximal vessels. Monophasic with low normal velocity, moderate spectral broadening from the Common Femoral to Posterior Tibial and Peroneal arteries. Velocities diminishing to low distally. No flow in the distal Anterior Tibial artery. Ankle Brachial index not done. Interpretation Summary Severe hemodynamically significant lesions in the bilateral lower extremities, on duplex imaging, at rest. On the right the Femoral appears to be principally affected. On the left there is inflow disease with severe distal effects in the Anterior Tibial, as well. : LOGAN CORNEJO > Logan Cornejo
== END ==
LOC: SP 09:48
PROVIDERS: ATTEND Surgery
DX: R09.89 Other specified symptoms and signs involving the circulatory and respiratory systems (principal)
CPT/HCPCS: 93925

== ENCOUNTER 2019-02-04 11:12 | Inpatient (IN) | payer MEDICARE, MEDICAID ==
[2019-02-04 11:46] LABS: ABSOLUTE EOSINOPHILS # (AUTO) 0.1 10^3/uL (0.0-0.6); ABSOLUTE LYMPHOCYTES (AUTO) 0.6 10^3/uL (0.5-4.7); ABSOLUTE MONOCYTES (AUTO) 0.3 10^3/uL (0.1-1.4); ABSOLUTE NEUT (AUTO) 3.2 10^3/uL (1.7-8.2); EOSINOPHILS % (AUTO) 2.2 % (0-6); HEMATOCRIT 32.7 % (36.0-47.0); HEMOGLOBIN 10.8 g/dL (12.0-15.5); LYMPHOCYTES % (AUTO) 13.6 % (13-45); MEAN CORPUSCULAR HEMOGLOBIN 32.9 pg (27.0-33.4); MEAN CORPUSCULAR HGB CONC 33.2 g/dL (32.0-36.0); MEAN CORPUSCULAR VOLUME 99 fl (80-97); PLATELET COUNT 161 10^3/uL (150-450); RED CELL DISTRIBUTION WIDTH 17.3 % (11.5-14.0); SEGMENTED NEUTROPHILS % (AUTO) 75.2 % (42-78); TOTAL CELLS COUNTED % (AUTO) 100 %; WHITE BLOOD COUNT 4.2 10^3/uL (4.0-10.5)
[2019-02-04 11:47] LABS: INTERNATIONAL RATION (INR) 2.28; PROTHROMBIN TIME 25.5 SEC (11.4-15.4)
[2019-02-04 11:59] LABS: ALBUMIN 3.5 g/dL (3.5-5.0); ALKALINE PHOSPHATASE 158 U/L (38-126); ANION GAP 11 (5-19); ASPARTATE AMINO TRANSFERASE 22 U/L (14-36); BILIRUBIN,DIRECT 0.5 mg/dL (0.0-0.4); BILIRUBIN,TOTAL 0.9 mg/dL (0.2-1.3); BLOOD UREA NITROGEN 51 mg/dL (7-20); CALCIUM 9.9 mg/dL (8.4-10.2); CARBON DIOXIDE 27 mmol/L (22-30); CHLORIDE 95 mmol/L (98-107); GLUCOSE 216 mg/dL (75-110); POTASSIUM 4.8 mmol/L (3.6-5.0)
--- NOTE | 2019-02-04 13:42 | ER Document Report ---
ED Dizziness/Weakness - General Chief Complaint: Syncope Stated Complaint: POSSIBLE SYNCOPE Time Seen by Provider: 02/04/19 11:20 Primary Care Provider: ELIAS SIMS MD [Primary Care Provider] - Follow up as needed Information source: Patient TRAVEL OUTSIDE OF THE [place] IN LAST 30 DAYS: No - HPI Notes: Patient was brought by paramedics from dialysis. Patient bradycardia down into the 30s and became unresponsive at dialysis. In route and here in the emergency department patient has been awake alert without any distress. She denies any pain. She states she did feel lightheaded and like she was going to pass out while at dialysis. The symptoms were severe. They were constant when they lasted. They were better when she sat down they were worse when she exerted herself. There is no known radiation of symptoms. Patient is not a good historian of her past medical history. She denies any shortness of breath nausea vomiting or diarrhea. - Related Data Allergies/Adverse Reactions: Penicillins Allergy (Severe, Verified 11/07/18 16:59) Childhood reaction vancomycin [Vancomycin] Allergy (Severe, Verified 11/07/18 16:59) Damaged her kidneys doxycycline Allergy (Verified 11/07/18 16:59) Past Medical History - General Information source: Patient - Social History Smoking Status: Current Every Day Smoker Frequency of alcohol use: None Drug Abuse: None Family History: Reviewed & Not Pertinent - Past Medical History Cardiac Medical History: Reports: Hx Atrial Fibrillation, Hx Congestive Heart Failure, Hx Coronary Artery Disease - 3 stents, Hx Heart Attack - x1 , Hx Hypercholesterolemia, Hx Hypertension - on meds Pulmonary Medical History: Reports: Hx Pneumonia - 3 yrs ago Denies: Hx Asthma, Hx Bronchitis, Hx COPD Neurological Medical History: Denies: Hx Cerebrovascular Accident, Hx Seizures Endocrine Medical History: Reports: 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 Renal/ Medical History: Reports: Hx End Stage Renal Disease. Denies: Hx Peritoneal Dialysis Musculoskeletal Medical History: Reports Hx Arthritis - shoulders Psychiatric Medical History: Denies: Hx Depression Past Surgical History: Reports: Hx Section - x 1, Hx Orthopedic Surgery - left leg x 13, right leg x 1 - Immunizations Hx Diphtheria, Pertussis, Tetanus Vaccination: No Hx Pneumococcal Vaccination: 06/08/14 Review of Systems - Review of Systems Constitutional: Malaise, Weakness. denies: Chills, Fever Cardiovascular: denies: Chest pain, Palpitations Respiratory: denies: Cough, Short of breath Gastrointestinal: denies: Abdominal pain, Vomiting -: Yes All other systems reviewed and negative Physical Exam - Vital signs Vitals: Resp Pulse Ox 22 H 97 02/04/19 11:20 02/04/19 11:20 Interpretation: Bradycardic - General General appearance: Appears well, Alert - HEENT Head: Normocephalic, Atraumatic Eyes: Normal Pupils: PERRL - Respiratory Respiratory status: No respiratory distress Chest status: Nontender Breath sounds: Decreased air movement Chest palpation: Normal - Cardiovascular Rhythm: Other - irregular Heart sounds: Normal auscultation Murmur: No - Abdominal Inspection: Normal Distension: No distension Bowel sounds: Normal Tenderness: Nontender Organomegaly: No organomegaly - Back Back: Normal, Nontender - Extremities General upper extremity: Normal inspection, Nontender, Normal color, Normal ROM, Normal temperature General lower extremity: Edema - 2+ bilat, Normal ROM. No: Polina's sign - Neurological Neuro grossly intact: Yes Cognition: Normal Orientation: AAOx4 Antonia Coma Scale Eye Opening: Spontaneous [place] Coma Scale Verbal: Oriented [place] Coma Scale Motor: Obeys Commands Antonia Coma Scale Total: 15 Speech: Normal Motor strength normal: LUE, RUE, LLE, RLE Sensory: Normal - Psychological Associated symptoms: Normal affect, Normal mood - Skin Skin Temperature: Warm Skin Moisture: Dry Skin Color: Normal Course - Re-evaluation Re-evalutation: 02/04/19 13:42 Patient is brought from dialysis because she became bradycardic and unresponsive. She states she felt very weak at the time. Since that time she states she has felt normal. She has ate a meal here without problem. She is having occasional bigeminy on the monitor. She does occasionally bradycardia down into the 30s and 40s here but without symptoms. I called and discussed the case with her last putter away Dr. Hussein. He states he would like the patient admitted and have a cardiology consultation. He states he will also see the patient in the hospital. - Vital Signs Vital signs: Temp Pulse Resp BP Pulse Ox 98 F 17 130/57 H 100 02/04/19 11:24 02/04/19 11:24 02/04/19 11:24 02/04/19 11:24 - Laboratory Result Diagrams: 02/04/19 11:20 02/04/19 11:20 Laboratory results interpreted by me: 02/04/19 02/04/19 02/04/19 11:20 11:20 11:20 RBC 3.30 L Hgb 10.8 L Hct 32.7 L MCV 99 H RDW 17.3 H PT 25.5 H Sodium 132.6 L Chloride 95 L BUN 51 H Creatinine 3.64 H Est GFR ( Amer) 15 L Est GFR (MDRD) Non-Af 13 L Glucose 216 H Direct Bilirubin 0.5 H Alkaline Phosphatase 158 H - EKG Interpretation by Me EKG shows normal: Sinus rhythm Rate: Normal - 75 Rhythm: PVC's Voltage: Consistant with LVH Discharge - Discharge Clinical Impression: Bradycardia, Syncope and collapse, ESRD (end stage renal disease) Condition: Fair Disposition: ADMITTED INPATIENT Admitting Provider: Marko Unit Admitted: IMCU Referrals: ELIAS SIMS MD [Primary Care Provider] - Follow up as needed
[2019-02-04] MEDS ORDERED: (PENDING PHARMACY ID) (Oxycodone Hcl/Acetaminophen [Percocet 10-325 Mg Tablet] 1 EACH) PO PRN (20:14)
[2019-02-04] MEDS ORDERED: OXYCODONE HCL PO PRN (20:14)
[2019-02-04] MEDS ORDERED: ACETAMINOPHEN PO PRN (20:14)
[2019-02-04] MEDS ORDERED: (PENDING PHARMACY ID) (Tolterodine Tartrate [Detrol] 2 MG) PO SCH (20:15)
--- NOTE | 2019-02-04 21:02 | PDOC H&P ---
History of Present Illness Admission Date/PCP: 02/04/19 14:15 ELIAS SIMS MD History of Present Illness: GLO GARCIA is a 63 year old female, She had episode of transient loss of consciousness associated with severe bradycardia while she was in outpatient dialysis, EMS was called and patient was transferred to the emergency room. She has end-stage renal disease on maintenance hemodialysis,. She has chronic atrial fibrillation on anticoagulant With Coumadin Past Medical History Cardiac Medical History: Reports: Atrial Fibrillation, Congestive Heart Failure, Coronary Artery Disease - 3 stents, Myocardial Infarction - x1 , Hyperlipidema, Hypertension - on meds Pulmonary Medical History: Reports: Pneumonia - 3 yrs ago Endocrine Medical History: Reports: Diabetes Mellitus Type 2 - insulin dep Renal/ Medical History: Reports: End Stage Renal Disease Musculoskeltal Medical History: Reports: Arthritis - shoulders Hematology: Reports: Anemia - hx of Past Surgical History Past Surgical History: Reports: Section - x 1, Orthopedic Surgery - left leg x 13, right leg x 1 Social History Smoking Status: Current Every Day Smoker Frequency of Alcohol Use: None Hx Recreational Drug Use: No Hx Prescription Drug Abuse: No - Advance Directive Resuscitation Status: Full Code Family History Family History: Reviewed & Not Pertinent Parental Family History Reviewed: Yes Children Family History Reviewed: Yes Sibling(s) Family History Reviewed.: Yes Medication/Allergy Home Medications: Amiodarone HCl [Cordarone 200 mg Tablet] 200 mg PO DAILY 02/04/19 Clonazepam [Klonopin 2 mg Tablet] 2 mg PO Q12 02/04/19 Cyclobenzaprine HCl [Flexeril 10 mg Tablet] 10 mg PO Q8HP PRN 02/04/19 Fentanyl [Duragesic 25 Mcg/Hr Transdermal Patch] 1 each TD Q3D 02/04/19 Hydralazine HCl [Apresoline 25 mg Tablet] 25 mg PO Q12 02/04/19 Insulin Lispro [Humalog Insulin 100 Unit/1 ml 3 ml Vial] 0 unit SUBCUT .SLD SCALE 02/04/19 Isosorbide Mononitrate [Ismo 20 Mg Tablet] 20 mg PO Q12 02/04/19 Mirabegron [Myrbetriq] 25 mg PO DAILY 02/04/19 Omeprazole 40 mg PO Q6AM 02/04/19 Oxycodone HCl/Acetaminophen [Percocet 10-325 Mg Tablet] 1 each PO Q6HP PRN 02/04/19 Oxycodone HCl/Acetaminophen [Percocet 10-325 mg Tablet] 0.5 tab PO HSP PRN 02/04/19 Polyvinyl Alcohol [Liquid Tears] 1 drop OU QID 02/04/19 Rosuvastatin Calcium [Crestor 10 mg Tablet] 10 mg PO QHS 02/04/19 Tolterodine Tartrate [Detrol] 2 mg PO DAILY 02/04/19 Warfarin Sodium [Coumadin 2 mg Tablet] 2 mg PO QHS 02/04/19 Allergies/Adverse Reactions: Penicillins Allergy (Severe, Verified 11/07/18 16:59) Childhood reaction vancomycin [Vancomycin] Allergy (Severe, Verified 11/07/18 16:59) Damaged her kidneys doxycycline Allergy (Verified 11/07/18 16:59) Review of Systems Constitutional: ABSENT: chills, fever(s), headache(s), weight gain, weight loss Eyes: ABSENT: visual disturbances Ears: ABSENT: hearing changes Cardiovascular: ABSENT: as per HPI, chest pain, dyspnea on exertion, edema, orthropnea, palpitations, other Respiratory: ABSENT: cough, hemoptysis Gastrointestinal: ABSENT: abdominal pain, constipation, diarrhea, hematemesis, hematochezia, nausea, vomiting Genitourinary: ABSENT: dysuria, hematuria Musculoskeletal: ABSENT: joint swelling Integumentary: ABSENT: rash, wounds Neurological: PRESENT: syncope. ABSENT: abnormal gait, abnormal speech, confusion, dizziness, focal weakness Psychiatric: ABSENT: anxiety, depression, homidical ideation, suicidal ideation Endocrine: ABSENT: cold intolerance, heat intolerance, menstrual abnormalities, polydipsia, polyuria Hematologic/Lymphatic: ABSENT: easy bleeding, easy bruising, lymphadenopathy Physical Exam Vital Signs: Temp Pulse Resp BP Pulse Ox 98.5 F 63 16 145/70 H 98 02/04/19 20:15 02/04/19 20:15 02/04/19 20:15 02/04/19 20:15 02/04/19 20:15 Intake & Output 02/03/19 02/04/19 02/05/19 06:59 06:59 06:59 Weight 62.596 kg General appearance: PRESENT: no acute distress Eye exam: PRESENT: PERRLA Respiratory exam: PRESENT: clear to auscultation lena Cardiovascular exam: PRESENT: +S1, +S2 GI/Abdominal exam: PRESENT: soft Neurological exam: PRESENT: alert, CN II-XII grossly intact Results Laboratory Results: 02/04/19 11:20 02/04/19 11:20 02/04/19 02/04/19 11:20 11:20 WBC 4.2 RBC 3.30 L Hgb 10.8 L Hct 32.7 L MCV 99 H MCH 32.9 MCHC 33.2 RDW 17.3 H Plt Count 161 Seg Neutrophils % 75.2 Sodium 132.6 L Potassium 4.8 Chloride 95 L Carbon Dioxide 27 Anion Gap 11 BUN 51 H Creatinine 3.64 H Est GFR ( Amer) 15 L Glucose 216 H Calcium 9.9 Total Bilirubin 0.9 AST 22 Alkaline Phosphatase 158 H Total Protein 7.0 Albumin 3.5 02/04/19 11:20 Troponin I 0.080 Assessment & Plan - Diagnosis (1) Syncope Qualifiers: Syncope type: unspecified Qualified Code(s): R55 - Syncope and collapse Is this a current diagnosis for this admission?: Yes Plan: Patient have syncopy ,history of chronic atrial fibrillation,there was associated bradycardia ,cardiology consultation will be requested (2) Bradycardia Is this a current diagnosis for this admission?: Yes (3) T2DM (type 2 diabetes mellitus) Qualifiers: Diabetes mellitus penitentiary insulin use: with penitentiary use Diabetes mellitus complication status: with kidney complications Diabetes mellitus complication detail: with chronic kidney disease Chronic kidney disease stage: on chronic dialysis Qualified Code(s): E11.22 - Type 2 diabetes mellitus with diabetic chronic kidney disease; N18.6 - End stage renal disease; Z79.4 - USP (current) use of insulin; Z99.2 - Dependence on renal dialysis Is this a current diagnosis for this admission?: Yes
[2019-02-04 21:16] LABS: INTERNATIONAL RATION (INR) 2.32; PARTIAL THROMBOPLASTIN TIME 49.7 SEC (23.5-35.8); PROTHROMBIN TIME 25.9 SEC (11.4-15.4)
[2019-02-04 21:23] LABS: PHOSPHORUS 6.2 mg/dL (2.5-4.5)
[2019-02-04] MEDS: AMIODARONE HCL 200 MG TABLET PO SCH (21:27)
[2019-02-04 21:38] LABS: CREATINE KINASE MB 0.97 ng/mL (<4.55)
[2019-02-04 21:39] LABS: FREE T4 (FREE THYROXINE) 1.85 ng/dL (0.78-2.19)
[2019-02-04 21:43] LABS: TROPONIN I 0.109 ng/mL
[2019-02-04 21:53] LABS: THYROID STIMULATING HORMONE 3.93 uIU/mL (0.47-4.68)
[2019-02-04] MEDS ORDERED: DEXTROSE 50%-WATER SYRINGE 12.5 GM/25 ML DOSE IV PRN ×2 (22:00)
[2019-02-04] MEDS ORDERED: DEXTROSE 40% GEL 15 GM TUBE PO PRN ×2 (22:00)
[2019-02-04] MEDS ORDERED: HEPARIN SOD (PORCINE) 5,000 UNIT/ML 1 ML VIAL SUBCUT SCH (22:00)
[2019-02-04] MEDS ORDERED: GLUCAGON,HUMAN RECOMB 1 MG INJ IM PRN ×2 (22:00)
[2019-02-04] MEDS ORDERED: DEXTROSE 40% GEL 15 GM TUBE X 2 PO PRN ×2 (22:00)
[2019-02-04] MEDS ORDERED: DEXTROSE 50%-WATER SYRINGE 25 GM/50 ML DOSE IV PRN ×2 (22:00)
[2019-02-04] MEDS: WARFARIN SODIUM 2 MG TABLET PO SCH (22:56)
[2019-02-04] MEDS: HYDRALAZINE HCL 25 MG TABLET PO SCH (22:56)
[2019-02-04] MEDS: TOLTERODINE TARTRATE 1 MG TABLET PO SCH (22:57)
[2019-02-04] MEDS: FENTANYL 25 MCG/HR PATCH.TD72 TD SCH (22:57)
[2019-02-04] MEDS: CLONAZEPAM 1 MG TABLET PO SCH (22:58)
[2019-02-04] MEDS: OXYCODONE-ACETAMINOPHEN 5-325 MG TABLET PO PRN (22:58)
[2019-02-04] MEDS: ISOSORBIDE MONONITRATE 20 MG TABLET PO SCH (22:58)
[2019-02-04] MEDS: POLYVINYL ALCOHOL 1.4% OPH SOLN 15 ML OU SCH (22:59)
[2019-02-04] MEDS: OXYCODONE HCL IR 5 MG TABLET PO PRN (22:59)
[2019-02-04] MEDS: ATORVASTATIN CALCIUM 20 MG TABLET PO SCH (23:00)
[2019-02-05] MEDS: INSULIN LISPRO 100 UNIT/ML 3 ML VIAL SUBCUT SCH ×5 (00:03→21:44)
[2019-02-05 04:37] LABS: APPEARANCE,URINE SLIGHTLY-CLOUDY; BILIRUBIN,URINE NEGATIVE (NEGATIVE); COLOR,URINE YELLOW; GLUCOSE, URINE >=500 mg/dL (NEGATIVE); KETONES,URINE NEGATIVE (NEGATIVE); LEUKOCYTE ESTERASE,URINE TRACE (NEGATIVE); NITRITE,URINE NEGATIVE (NEGATIVE); PROTEIN,URINE 100 mg/dL (NEGATIVE); URINE SPECIFIC GRAVITY 1.013; UROBILINOGEN,URINE NEGATIVE mg/dL (<2.0)
[2019-02-05 05:33] LABS: ABSOLUTE EOSINOPHILS # (AUTO) 0.1 10^3/uL (0.0-0.6); ABSOLUTE LYMPHOCYTES (AUTO) 0.8 10^3/uL (0.5-4.7); ABSOLUTE MONOCYTES (AUTO) 0.3 10^3/uL (0.1-1.4); ABSOLUTE NEUT (AUTO) 1.9 10^3/uL (1.7-8.2); EOSINOPHILS % (AUTO) 2.8 % (0-6); HEMATOCRIT 34.9 % (36.0-47.0); HEMOGLOBIN 11.4 g/dL (12.0-15.5); LYMPHOCYTES % (AUTO) 24.1 % (13-45); MEAN CORPUSCULAR HEMOGLOBIN 32.2 pg (27.0-33.4); MEAN CORPUSCULAR HGB CONC 32.7 g/dL (32.0-36.0); MEAN CORPUSCULAR VOLUME 99 fl (80-97); MONOCYTES % (AUTO) 10.8 % (3-13); PLATELET COUNT 147 10^3/uL (150-450); RED BLOOD COUNT 3.55 10^6/uL (3.72-5.28); RED CELL DISTRIBUTION WIDTH 16.9 % (11.5-14.0); SEGMENTED NEUTROPHILS % (AUTO) 61.3 % (42-78); TOTAL CELLS COUNTED % (AUTO) 100 %; WHITE BLOOD COUNT 3.2 10^3/uL (4.0-10.5)
[2019-02-05 05:34] LABS: INTERNATIONAL RATION (INR) 2.37; PROTHROMBIN TIME 26.3 SEC (11.4-15.4)
[2019-02-05 05:49] LABS: ALBUMIN 3.6 g/dL (3.5-5.0); ALKALINE PHOSPHATASE 160 U/L (38-126); AMYLASE 35 U/L (30-110); ANION GAP 13 (5-19); ASPARTATE AMINO TRANSFERASE 28 U/L (14-36); BILIRUBIN,DIRECT 0.4 mg/dL (0.0-0.4); BILIRUBIN,TOTAL 0.8 mg/dL (0.2-1.3); BLOOD UREA NITROGEN 58 mg/dL (7-20); CALCIUM 9.8 mg/dL (8.4-10.2); CARBON DIOXIDE 24 mmol/L (22-30); CHLORIDE 97 mmol/L (98-107); CHOLESTEROL 95.94 mg/dL (0-200); GLUCOSE 217 mg/dL (75-110); TOTAL PROTEIN 7.4 g/dL (6.3-8.2); TRIGLYCERIDES 55 mg/dL (<150)
[2019-02-05 06:00] LABS: DIRECT LDL 33 mg/dL (<100)
[2019-02-05 06:07] LABS: CREATINE KINASE MB 0.97 ng/mL (<4.55)
[2019-02-05 06:13] LABS: TROPONIN I 0.1 ng/mL
[2019-02-05] MEDS: PANTOPRAZOLE SODIUM 40 MG TABLET.DR PO SCH (07:37)
--- NOTE | 2019-02-05 09:06 | EKG REPORT ---
SEVERITY:- ABNORMAL ECG - SINUS RHYTHM VENTRICULAR BIGEMINY LAD, CONSIDER LEFT ANTERIOR FASCICULAR BLOCK LVH WITH SECONDARY REPOLARIZATION ABNORMALITY ANTERIOR Q WAVES, POSSIBLY DUE TO LVH : Confirmed by: Fany Davenport 05-Feb-2019 09:05:31
[2019-02-05 09:55] LABS: CREATINE KINASE MB 0.83 ng/mL (<4.55); TROPONIN I 0.088 ng/mL
[2019-02-05] MEDS: TOLTERODINE TARTRATE 1 MG TABLET PO SCH (10:19)
[2019-02-05] MEDS: HYDRALAZINE HCL 25 MG TABLET PO SCH (10:20)
[2019-02-05] MEDS: CLONAZEPAM 1 MG TABLET PO SCH ×2 (10:20→21:44)
[2019-02-05] MEDS: ISOSORBIDE MONONITRATE 20 MG TABLET PO SCH ×2 (10:22→21:46)
[2019-02-05] MEDS: AMIODARONE HCL 200 MG TABLET PO SCH (10:22)
[2019-02-05] MEDS: POLYVINYL ALCOHOL 1.4% OPH SOLN 15 ML OU SCH ×4 (10:24→22:00)
--- NOTE | 2019-02-05 11:38 | PDOC CONSULTATION ---
Consultation Consult Date: 02/05/19 Provider Consulted: Yuliana HLOMAN Consult reason:: ESRD for hemodialysis History of Present Illness Admission Date/PCP: 02/04/19 14:15 ELIAS SIMS MD History of Present Illness: GLO GARCIA is a 63 year old female with a history of [place]D in the [place] of complicated diabetes mellitus, hypertension, CAD, atrial fibrillation was admitted with history of syncope. She is currently wide awake alert and oriented. She gives a history of having driven to dialysis yesterday and got out of the car quickly. She realized that she was not feeling well and was complaining of orthostasis. She requested for a wheelchair very quickly to be brought to her and she says that she somehow managed to get into the wheelchair and then she does not remember anything. She remembers being woken up. No apparent history of any seizures or focal deficits. She states she sees Dr. Mata/cardiology as an outpatient and multiple evaluations were being pl anned towards the middle of February including stress test and possible cardiac catheterizations. I talked with the dialysis nurse at [facility] who said her pulse was in the 30s at the moment when she was being examined and blood pressure was in the 90s systolic. No complaints of any chest pain or palpitations. She does give a history of persistent and recurring orthostasis but no history of any falls or syncope before. No complaints of any fever or chills. She still makes small amounts of urine but without any complaints at the moment. Labs and medications were reviewed. Discussions were done with the ER physician.Her previous dialysis was on Saturday. Past Medical History Cardiac Medical History: Reports: Atrial Fibrillation, Coronary Artery Disease - 3 stents, Hyperlipidemia, Hypertension-primary, Myocardial Infarction - x1 Pulmonary Medical History: Reports: Pneumonia - 3 yrs ago Denies: Asthma, Bronchitis, Chronic Obstructive Pulmonary Disease (COPD) Neurological Medical History: Denies: Seizures Endocrine Medical History: Reports: Diabetes Mellitus Type 2 - insulin dep Renal/ Medical History: Reports: End Stage Renal Disease, Secondary Hyperparathyroidism Musculoskeltal Medical History: Reports: Arthritis - shoulders Psychiatric Medical History: Denies: Depression Hematology Medical History: Reports Anemia of Chronic Kidney Disease Past Surgical History Past Surgical History: Reports: Section - x 1, Orthopedic Surgery - left leg x 13, right leg x 1 Social History Smoking Status: Current Every Day Smoker Frequency of Alcohol Use: None Hx Recreational Drug Use: No Hx Prescription Drug Abuse: No - Advance Directive Resuscitation Status: Full Code Family History Parental Family History Reviewed: Yes - Negative for ESRD Children Family History Reviewed: No Sibling(s) Family History Reviewed.: No Medication/Allergy Home Medications: Amiodarone HCl [Cordarone 200 mg Tablet] 200 mg PO DAILY 02/04/19 Clonazepam [Klonopin 2 mg Tablet] 2 mg PO Q12 02/04/19 Cyclobenzaprine HCl [Flexeril 10 mg Tablet] 10 mg PO Q8HP PRN 02/04/19 Fentanyl [Duragesic 25 Mcg/Hr Transdermal Patch] 1 each TD Q3D 02/04/19 Hydralazine HCl [Apresoline 25 mg Tablet] 25 mg PO Q12 02/04/19 Insulin Lispro [Humalog Insulin 100 Unit/1 ml 3 ml Vial] 0 unit SUBCUT .SLD SCALE 02/04/19 Isosorbide Mononitrate [Ismo 20 Mg Tablet] 20 mg PO Q12 02/04/19 Mirabegron [Myrbetriq] 25 mg PO DAILY 02/04/19 Omeprazole 40 mg PO Q6AM 02/04/19 Oxycodone HCl/Acetaminophen [Percocet 10-325 Mg Tablet] 1 each PO Q6HP PRN 02/04/19 Oxycodone HCl/Acetaminophen [Percocet 10-325 mg Tablet] 0.5 tab PO HSP PRN 02/04/19 Polyvinyl Alcohol [Liquid Tears] 1 drop OU QID 02/04/19 Rosuvastatin Calcium [Crestor 10 mg Tablet] 10 mg PO QHS 02/04/19 Tolterodine Tartrate [Detrol] 2 mg PO DAILY 02/04/19 Warfarin Sodium [Coumadin 2 mg Tablet] 2 mg PO QHS 02/04/19 Allergies/Adverse Reactions: Penicillins Allergy (Severe, Verified 11/07/18 16:59) Childhood reaction vancomycin [Vancomycin] Allergy (Severe, Verified 11/07/18 16:59) Damaged her kidneys doxycycline Allergy (Verified 11/07/18 16:59) Review of Systems Constitutional: PRESENT: fatigue, weakness. ABSENT: anorexia, chills, fever(s), headache(s), night sweats Nose, Mouth, and Throat: ABSENT: mouth pain, sore throat Cardiovascular: ABSENT: chest pain, dyspnea on exertion, edema, orthropnea, palpitations Respiratory: ABSENT: dyspnea, hemoptysis Gastrointestinal: ABSENT: abdominal pain, coffee ground emesis, diarrhea, dysphagia, heartburn, hematemesis, nausea, vomiting Genitourinary: ABSENT: difficulty urinating, dysuria, hematuria Musculoskeletal: ABSENT: deformity, joint swelling Integumentary: ABSENT: erythema, lesions, pruritus, rash Neurological: PRESENT: dizziness. ABSENT: abnormal movements, abnormal speech, confusion, convulsions, focal weakness, frequent falls, lack of coordination Hematologic/Lymphatic: ABSENT: easy bleeding, easy bruising, lymphadenopathy Physical Exam Vital Signs: Temp Pulse Resp BP Pulse Ox 98.1 F 47 L 16 105/60 93 02/05/19 09:25 02/05/19 09:25 02/05/19 09:25 02/05/19 09:25 02/05/19 09:25 Intake & Output 02/04/19 02/05/19 02/06/19 06:59 06:59 06:59 Intake Total 672 Output Total 175 Balance 497 Weight 60.9 kg General appearance: PRESENT: no acute distress Eye exam: PRESENT: EOMI, PERRLA Ear exam: PRESENT: normal external ear exam Mouth exam: PRESENT: moist, neck supple Neck exam: ABSENT: meningismus, tenderness, thyromegaly, tracheal deviation Respiratory exam: PRESENT: clear to auscultation lena. ABSENT: crackles GI/Abdominal exam: PRESENT: normal bowel sounds, soft. ABSENT: organomegaly, tenderness Extremities exam: PRESENT: +1 edema Neurological exam: PRESENT: alert, awake, oriented to person, oriented to place Psychiatric exam: PRESENT: appropriate affect Skin exam: ABSENT: cyanosis, intact, mottled, rash Results Laboratory Results: 02/05/19 04:22 02/05/19 04:22 02/04/19 02/04/19 02/04/19 11:20 11:20 20:49 WBC 4.2 RBC 3.30 L Hgb 10.8 L Hct 32.7 L MCV 99 H MCH 32.9 MCHC 33.2 RDW 17.3 H Plt Count 161 Seg Neutrophils % 75.2 Sodium 132.6 L Potassium 4.8 Chloride 95 L Carbon Dioxide 27 Anion Gap 11 BUN 51 H Creatinine 3.64 H Est GFR ( Amer) 15 L Glucose 216 H Calcium 9.9 Phosphorus 6.2 H Magnesium 2.4 H Total Bilirubin 0.9 AST 22 Alkaline Phosphatase 158 H Ammonia Total Protein 7.0 Albumin 3.5 Triglycerides Cholesterol LDL Cholesterol Direct VLDL Cholesterol HDL Cholesterol Amylase Lipase TSH Free T4 Urine Color Urine Appearance Urine pH Ur Specific [facility] Urine Protein Urine Glucose (UA) Urine Ketones Urine Blood Urine Nitrite Ur Leukocyte Esterase Urine WBC (Auto) Urine RBC (Auto) 02/04/19 02/04/19 02/05/19 20:49 20:49 04:05 WBC RBC Hgb Hct MCV MCH MCHC RDW Plt Count Seg Neutrophils % Sodium Potassium Chloride Carbon Dioxide Anion Gap BUN Creatinine Est GFR ( Amer) Glucose Calcium Phosphorus Magnesium Total Bilirubin AST Alkaline Phosphatase Ammonia < 8.7 L Total Protein Albumin Triglycerides Cholesterol LDL Cholesterol Direct VLDL Cholesterol HDL Cholesterol Amylase Lipase TSH 3.93 Free T4 1.85 Urine Color YELLOW Urine Appearance SLIGHTLY-CLOUDY Urine pH 6.0 Ur Specific [facility] 1.013 Urine Protein 100 H Urine Glucose (UA) >=500 H Urine Ketones NEGATIVE Urine Blood NEGATIVE Urine Nitrite NEGATIVE Ur Leukocyte Esterase TRACE H Urine WBC (Auto) 34 Urine RBC (Auto) 2 02/05/19 02/05/19 04:22 04:22 WBC 3.2 L RBC 3.55 L Hgb 11.4 L Hct 34.9 L MCV 99 H MCH 32.2 MCHC 32.7 RDW 16.9 H Plt Count 147 L Seg Neutrophils % 61.3 Sodium 133.7 L Potassium 5.0 Chloride 97 L Carbon Dioxide 24 Anion Gap 13 BUN 58 H Creatinine 4.13 H Est GFR ( Amer) 13 L Glucose 217 H Calcium 9.8 Phosphorus Magnesium Total Bilirubin 0.8 AST 28 Alkaline Phosphatase 160 H Ammonia Total Protein 7.4 Albumin 3.6 Triglycerides 55 Cholesterol 95.94 LDL Cholesterol Direct 33 VLDL Cholesterol 11.0 HDL Cholesterol 52 Amylase 35 Lipase 15.0 L TSH Free T4 Urine Color Urine Appearance Urine pH Ur Specific [facility] Urine Protein Urine Glucose (UA) Urine Ketones Urine Blood Urine Nitrite Ur Leukocyte Esterase Urine WBC (Auto) Urine RBC (Auto) 02/04/19 02/04/19 02/04/19 11:20 20:49 20:49 Creatine Kinase 30 CK-MB (CK-2) 0.97 Troponin I 0.080 0.109 02/05/19 02/05/19 02/05/19 04:22 04:22 08:47 Creatine Kinase 29 L 29 L CK-MB (CK-2) 0.97 Troponin I 0.100 02/05/19 08:47 Creatine Kinase CK-MB (CK-2) 0.83 Troponin I 0.088 Assessment & Plan - Diagnosis (1) Syncope Qualifiers: Syncope type: unspecified Qualified Code(s): R55 - Syncope and collapse Is this a current diagnosis for this admission?: Yes Plan: Patient is heart rate currently is in the 60s which is her baseline. However she admits to the fact that she has noticed at times her heart rate into the 30s and 40s at home but asymptomatic. She does have also intermittent orthostasis most likely from autonomic dysfunction of her diabetes. However unsure if her bradycardia that might be recurring intermittently is also playing a role.Would suggest a cardiology opinion. (2) Bradycardia Plan: She seems to be having intermittent episodes of bradycardia. Recommend cardiology evaluation and opinion. (3) ESRD (end stage renal disease) Plan: Previous dialysis was Saturday. We will plan for dialysis on Saturday as no acute indications for dialysis currently. (4) Atrial fibrillation Qualifiers: Atrial fibrillation type: chronic Qualified Code(s): I48.2 - Chronic atrial fibrillation Plan: Currently in sinus rhythm. (5) Diabetes mellitus type 2 in nonobese Plan: Complicated. She has features suggestive of autonomic dysfunction which I believe is been causing persistent and recurring orthostasis. Currently with the blood pressure being well controlled I am going to discontinue her low-dose of hydralazine.Advised tight control. (6) Hypertension Plan: Currently controlled. Given her orthostasis I am going to discontinue hydralazine 25 twice daily. Monitor. (7) Proteinuria due to type 2 diabetes mellitus Plan: Status quo. (8) Renal osteodystrophy Plan: Monitor. (9) Orthostatic hypotension Plan: Likely secondary to autonomic dysfunction from diabetes. Blood pressure being well controlled I am going to discontinue her low-dose of hydralazine. Advised appropriate precautions.
--- NOTE | 2019-02-05 21:15 | PDOC PROGRESS REPORT ---
Subjective Progress Note for:: 02/05/19 Subjective:: Patient seen by the bedside Reason For Visit: SYMPTOMATIC BRADYCARDIA, ESRD ON HEMODIALYSIS Physical Exam Vital Signs: Temp Pulse Resp BP Pulse Ox 97.9 F 99 16 79/36 L 96 02/05/19 20:27 02/05/19 20:27 02/05/19 20:27 02/05/19 20:31 02/05/19 20:27 Intake & Output 02/04/19 02/05/19 02/06/19 06:59 06:59 06:59 Intake Total 672 420 Output Total 175 100 Balance 497 320 Weight 60.9 kg General appearance: PRESENT: no acute distress Eye exam: PRESENT: PERRLA Respiratory exam: PRESENT: clear to auscultation lena Cardiovascular exam: PRESENT: +S1, +S2 GI/Abdominal exam: PRESENT: soft Neurological exam: PRESENT: alert Results Laboratory Results: 02/05/19 04:22 02/05/19 04:22 02/04/19 02/04/19 02/04/19 20:49 20:49 20:49 WBC RBC Hgb Hct MCV MCH MCHC RDW Plt Count Seg Neutrophils % Sodium Potassium Chloride Carbon Dioxide Anion Gap BUN Creatinine Est GFR ( Amer) Glucose Calcium Phosphorus 6.2 H Magnesium 2.4 H Total Bilirubin AST Alkaline Phosphatase Ammonia < 8.7 L Total Protein Albumin Triglycerides Cholesterol LDL Cholesterol Direct VLDL Cholesterol HDL Cholesterol Amylase Lipase TSH 3.93 Free T4 1.85 Urine Color Urine Appearance Urine pH Ur Specific [place] Urine Protein Urine Glucose (UA) Urine Ketones Urine Blood Urine Nitrite Ur Leukocyte Esterase Urine WBC (Auto) Urine RBC (Auto) 02/05/19 02/05/19 02/05/19 04:05 04:22 04:22 WBC 3.2 L RBC 3.55 L Hgb 11.4 L Hct 34.9 L MCV 99 H MCH 32.2 MCHC 32.7 RDW 16.9 H Plt Count 147 L Seg Neutrophils % 61.3 Sodium 133.7 L Potassium 5.0 Chloride 97 L Carbon Dioxide 24 Anion Gap 13 BUN 58 H Creatinine 4.13 H Est GFR ( Amer) 13 L Glucose 217 H Calcium 9.8 Phosphorus Magnesium Total Bilirubin 0.8 AST 28 Alkaline Phosphatase 160 H Ammonia Total Protein 7.4 Albumin 3.6 Triglycerides 55 Cholesterol 95.94 LDL Cholesterol Direct 33 VLDL Cholesterol 11.0 HDL Cholesterol 52 Amylase 35 Lipase 15.0 L TSH Free T4 Urine Color YELLOW Urine Appearance SLIGHTLY-CLOUDY Urine pH 6.0 Ur Specific [place] 1.013 Urine Protein 100 H Urine Glucose (UA) >=500 H Urine Ketones NEGATIVE Urine Blood NEGATIVE Urine Nitrite NEGATIVE Ur Leukocyte Esterase TRACE H Urine WBC (Auto) 34 Urine RBC (Auto) 2 02/04/19 02/04/19 02/04/19 11:20 20:49 20:49 Creatine Kinase 30 CK-MB (CK-2) 0.97 Troponin I 0.080 0.109 02/05/19 02/05/19 02/05/19 04:22 04:22 08:47 Creatine Kinase 29 L 29 L CK-MB (CK-2) 0.97 Troponin I 0.100 02/05/19 08:47 Creatine Kinase CK-MB (CK-2) 0.83 Troponin I 0.088 Assessment & Plan - Diagnosis (1) Syncope Qualifiers: Syncope type: unspecified Qualified Code(s): R55 - Syncope and collapse Is this a current diagnosis for this admission?: Yes (2) Bradycardia Is this a current diagnosis for this admission?: Yes (3) T2DM (type 2 diabetes mellitus) Qualifiers: Diabetes mellitus buttermaker continuous churn insulin use: with buttermaker continuous churn use Diabetes mellitus complication status: with kidney complications Diabetes mellitus complication detail: with chronic kidney disease Chronic kidney disease stage: on chronic dialysis Qualified Code(s): E11.22 - Type 2 diabetes mellitus with diabetic chronic kidney disease; N18.6 - End stage renal disease; Z79.4 - group home (current) use of insulin; Z99.2 - Dependence on renal dialysis Is this a current diagnosis for this admission?: Yes (4) ESRD (end stage renal disease) Is this a current diagnosis for this admission?: Yes
[2019-02-05] MEDS: WARFARIN SODIUM 2 MG TABLET PO SCH (21:44)
[2019-02-05] MEDS: ATORVASTATIN CALCIUM 20 MG TABLET PO SCH (21:44)
[2019-02-05] MEDS: OXYCODONE-ACETAMINOPHEN 5-325 MG TABLET PO PRN (21:58)
--- NOTE | 2019-02-05 22:08 | PDOC CONSULTATION ---
Consultation-Blank Consultation: CARDIOLOGY CONSULTATION by Dr. Savanna Stock on 02/05/2019. Patient seen at 1630 [4:30 PM] on 02/05/2019. 60 minutes spent on this patient more than 50% of time spent in direct patient care. REASON FOR CONSULTATION: Patient with syncopal episode. CONSULT REQUESTING PHYSICIAN: Dr. Zhu. HISTORY PRESENT ILLNESS: Patient is a 63-year-old female with known history of hypertension, coronary artery disease, prior history of MN, and history of stent placement, paroxysmal atrial fibrillation controlled on and maintained in sinus rhythm on amiodarone, and on Coumadin, and diabetes mellitus and end-stage renal disease on dialysis states that yesterday when she went for dialysis she felt a little dizzy when she stood up and subsequently the nurse found her to have a brief syncopal episode with a heart rate in the 30s and her blood pressure 90 systolic. The patient subsequently regained consciousness with there being no confusion reported postictal state. There is no tongue biting or fecal incontinence. There is no witnessed seizures as per the nurse. The patient states that since a few months he has been having dizziness and if she suddenly stood up, but has not had any falls or syncopal episodes. The patient denies any chest pain or discomfort. There is no palpitations. There is no PND and orthopnea. At present the patient is asymptomatic with a heart rate around 50 1960s. She is wide awake and alert with no deficits. In spite of end-stage renal disease on hemodialysis, the patient still makes some amount of urine. As mentioned earlier she has a prior history of myocardial infarction and stent placement. She has no anginal symptoms. She was told by her cardi ologist that her heart was functioning only at two thirds strength, and she is recommended to have a what seems to be a IV Lexiscan Cardiolite stress test. Past Medical History Cardiac Medical History: Reports: Atrial Fibrillation, Coronary Artery Disease - 3 stents, Hyperlipidemia, Hypertension-primary, Myocardial Infarction - x1 Pulmonary Medical History: Reports: Pneumonia - 3 yrs ago Denies: Asthma, Bronchitis, Chronic Obstructive Pulmonary Disease (COPD) Neurological Medical History: Denies: Seizures Endocrine Medical History: Reports: Diabetes Mellitus Type 2 - insulin dep Renal/ Medical History: Reports: End Stage Renal Disease, Secondary Hyperparathyroidism Musculoskeltal Medical History: Reports: Arthritis - shoulders Psychiatric Medical History: Denies: Depression Hematology Medical History: Reports Anemia of Chronic Kidney Disease Past Surgical History Past Surgical History: Reports: Section - x 1, Orthopedic Surgery - left leg x 13, right leg x 1. Cardiac catheterization and stent placement. Social History Smoking Status: Current Every Day Smoker Frequency of Alcohol Use: None Hx Recreational Drug Use: No Hx Prescription Drug Abuse: No - Advance Directive Resuscitation Status: Full Code surrogate healthcare decision maker is her daughter Ms. Trent. Family History Parental Family History Reviewed: Yes - Negative for ESRD Medication/Allergy Home Medications: Amiodarone HCl [Cordarone 200 mg Tablet] 200 mg PO DAILY 02/04/19 Clonazepam [Klonopin 2 mg Tablet] 2 mg PO Q12 02/04/19 Cyclobenzaprine HCl [Flexeril 10 mg Tablet] 10 mg PO Q8HP PRN 02/04/19 Fentanyl [Duragesic 25 Mcg/Hr Transdermal Patch] 1 each TD Q3D 02/04/19 Hydralazine HCl [Apresoline 25 mg Tablet] 25 mg PO Q12 02/04/19 Insulin Lispro [Humalog Insulin 100 Unit/1 ml 3 ml Vial] 0 unit SUBCUT .SLD SCALE 02/04/19 Isosorbide Mononitrate [Ismo 20 Mg Tablet] 20 mg PO Q12 02/04/19 Mirabegron [Myrbetriq] 25 mg PO DAILY 02/04/19 Omeprazole 40 mg PO Q6AM 02/04/19 Oxycodone HCl/Acetaminophen [Percocet 10-325 Mg Tablet] 1 each PO Q6HP PRN 02/04/19 Oxycodone HCl/Acetaminophen [Percocet 10-325 mg Tablet] 0.5 tab PO HSP PRN 02/04/19 Polyvinyl Alcohol [Liquid Tears] 1 drop OU QID 02/04/19 Rosuvastatin Calcium [Crestor 10 mg Tablet] 10 mg PO QHS 02/04/19 Tolterodine Tartrate [Detrol] 2 mg PO DAILY 02/04/19 Warfarin Sodium [Coumadin 2 mg Tablet] 2 mg PO QHS 02/04/19 Allergies/Adverse Reactions: Penicillins,vancomycin [Vancomycin],doxycycline Allergy (Verified 11/07/18 16:59) Current Medications Generic Name Dose Route Start Last Admin Trade Name Freq PRN Reason Stop Dose Admin Artificial Tears 1 drop 02/04/19 22:00 02/05/19 17:51 Liquitears 1.4% Ophth Soln 15 Ml OU 03/06/19 21:59 1 drop QID AYAAN Administration Atorvastatin Calcium 20 mg 02/04/19 22:00 02/04/19 23:00 Lipitor 20 Mg Tablet PO 03/06/19 21:59 20 mg QHS AYAAN Administration Clonazepam 2 mg 02/04/19 22:00 02/05/19 10:20 Klonopin 1 Mg Tablet PO 02/11/19 21:59 2 mg Q12 AYAAN Administration Cyclobenzaprine HCl 10 mg 02/04/19 20:14 Flexeril 10 Mg Tablet PO 03/06/19 20:13 Q8HP PRN MUSCLE SPASMS Dextrose 12.5 gm 02/04/19 22:00 Dextrose Inj 50% Syringe (25 Gm/50 Ml) IV 03/06/19 21:59 PRN PRN FOR BG 50-69 IN ALERT PATIENT Protocol Dextrose 25 gm 02/04/19 22:00 Dextrose Inj 50% Syringe (25 Gm/50 Ml) IV 03/06/19 21:59 PRN PRN Protocol Fentanyl 1 each 02/04/19 22:00 02/04/19 22:57 Duragesic 25 Mcg/Hr Transdermal Patch TD 02/11/19 21:59 1 each Q72H AYAAN Administration Glucagon 1 mg 02/04/19 22:00 Glucagen Inj 1 Mg Vial IM 03/06/19 21:59 PRN PRN EVALUATE FOR BG < 70 Protocol Glucose 15 gm 02/04/19 22:00 Glutose 40% Gel 15 Gm Tube PO 03/06/19 21:59 PRN PRN FOR BG 50-69 IN ALERT PATIENT Protocol Glucose 30 gm 02/04/19 22:00 Glutose 40% Gel 15 Gm Tube PO 03/06/19 21:59 PRN PRN FOR BG < 50 IN ALERT PATIENT Protocol Insulin Human Lispro 0 - 12 unit 02/04/19 22:00 02/05/19 17:47 Humalog Insulin 100 Unit/1 Ml 3 Ml Vial SUBCUT 03/06/19 21:59 Not Given ACHS AYAAN Protocol Isosorbide Mononitrate 20 mg 02/04/19 22:00 02/05/19 10:22 Ismo 20 Mg Tablet PO 03/06/19 21:59 20 mg Q12 AYAAN Administration Oxycodone HCl 5 mg 02/04/19 20:21 02/04/19 22:59 Oxy-Ir 5 Mg Tablet PO 02/11/19 20:20 5 mg Q6HP PRN Administration FOR PAIN Oxycodone/Acetaminophen 1 tab 02/04/19 20:21 02/04/19 22:58 Percocet 5-325 Mg Tablet PO 02/11/19 20:20 1 tab Q6HP PRN Administration FOR PAIN Pantoprazole Sodium 40 mg 02/05/19 06:00 02/05/19 07:[address] Tablet PO 03/07/19 05:59 40 mg Q6AM AYAAN Administration Patient Own Medication 0.5 tab 02/04/19 20:14 Oxycodone Hcl/Acetaminophen [Percocet 10-325 Mg Tablet] PO HSP PRN FOR PAIN Tolterodine Tartrate 2 mg 02/04/19 22:00 02/05/19 10:19 Detrol 1 Mg Tablet PO 03/06/19 21:59 2 mg DAILY AYAAN Administration Warfarin Sodium 2 mg 02/04/19 22:00 02/04/19 22:56 Coumadin 2 Mg Tablet PO 03/06/19 21:59 2 mg QHS AYAAN Administration Discontinued Medications Generic Name Dose Route Start Last Admin Trade Name Freq PRN Reason Stop Dose Admin Amiodarone HCl 200 mg 02/04/19 22:00 02/05/19 10:22 Cordarone 200 Mg Tablet PO 03/06/19 21:59 Not Given DAILY [facility] Heparin Sodium (Porcine) 5,000 unit 02/04/19 22:00 Heparin Inj 5,000 Units/Ml 1 Ml Vial SUBCUT 03/06/19 21:59 Q8 [facility] Hydralazine HCl 25 mg 02/04/19 22:00 02/05/19 10:20 Apresoline 25 Mg Tablet PO 03/06/19 21:59 25 mg Q12 AYAAN Administration Review of Systems Constitutional: PRESENT: fatigue, weakness. ABSENT: anorexia, chills, fever(s), headache(s), night sweats Nose, Mouth, and Throat: ABSENT: mouth pain, sore throat Cardiovascular: ABSENT: chest pain, dyspnea on exertion, edema, orthropnea, palpitations Respiratory: ABSENT: dyspnea, hemoptysis Gastrointestinal: ABSENT: abdominal pain, coffee ground emesis, diarrhea, dysphagia, heartburn, hematemesis, nausea, vomiting Genitourinary: ABSENT: difficulty urinating, dysuria, hematuria Musculoskeletal: ABSENT: deformity, joint swelling Integumentary: ABSENT: erythema, lesions, pruritus, rash Neurological: PRESENT: dizziness. ABSENT: abnormal movements, abnormal speech, confusion, convulsions, focal weakness, frequent falls, lack of coordination Hematologic/Lymphatic: ABSENT: easy bleeding, easy bruising, lymphadenopathy PHYSICAL EXAMINATION: The patient is a frail build, but in no acute distress. Selected Entries 02/05/19 15:56 Temperature 98.6 F Temperature Oral Source Pulse Rate 59 L Respiratory 18 Rate Blood Pressure 120/63 Blood Pressure 82 Mean BP Location Right Arm BP Position Supine O2 Sat by Pulse 98 Oximetry Oxygen Delivery Room Air Method HEAD: Is atraumatic normocephalic. EYES: Pupils equal round regular reactive light accommodation. Extraocular movements are normal. There is no conjunctival pallor. There is no scleral icterus. EARS: Tympanic membranes are intact. External auditory canals are clear. NOSE: There is no deviated nasal septum. There is no inflammation nasal mucous membrane. MOUTH: Mucous membranes of the mouth are dry tongue is dry. There is no ulcers. There is no bleeding from the gums. THROAT: There is no redness of the oropharynx. There is no exudates. SKIN: There is no skin rashes or skin lesions. There is no petechia or ecchymosis. NECK: Is supple. There is no JVD carotids equal there is no bruit. There is no lymphadenopathy. There is no goiter. There is no accessory muscle respiration use. Trachea central. LUNGS: There is diminished air entry and prolonged expiration. On percussion there is hyperresonance. There is no rhonchi rales or wheezing. HEART: S1-S2 is heard there is no S3 gallop there is no S4 gallop. There is systolic murmur left sternal border and the apex there is no rub. ABDOMEN: Is soft. Nontender. There is no paraspinal megaly bowel sounds well heard. EXTREMITIES: Femorals are diminished. There is no femoral bruits. Leg pulses slightly diminished. There is no pedal edema. There is no DVT or cellulitis. There is no calf tenderness. BENEFIT AUTHORIZER: The patient is conscious awake alert oriented x3 with no focal deficits. PSYCHIATRIC: The patient judgment insight are intact her affect is irvin Labs- All tests 24 hr 02/05/19 02/05/19 02/05/19 04:05 04:22 04:22 WBC RBC Hgb Hct MCV MCH MCHC RDW Plt Count Lymph % (Auto) Branch % (Auto) Eos % (Auto) Baso % (Auto) Absolute Neuts (auto) Absolute Lymphs (auto) Absolute Monos (auto) Absolute Eos (auto) Absolute Basos (auto) Seg Neutrophils % PT 26.3 H INR 2.37 Sodium Potassium Chloride Carbon Dioxide Anion Gap BUN Creatinine Est GFR ( Amer) Est GFR (MDRD) Non-Af Glucose POC Glucose Hemoglobin A1c % Calcium Total Bilirubin Direct Bilirubin Neonat Total Bilirubin Neonat Direct Bilirubin Neonat Indirect Bili AST ALT Alkaline Phosphatase Creatine Kinase 29 L CK-MB (CK-2) Troponin I Total Protein Albumin Triglycerides Cholesterol LDL Cholesterol Direct VLDL Cholesterol HDL Cholesterol Amylase Lipase Urine Color YELLOW Urine Appearance SLIGHTLY-CLOUDY Urine pH 6.0 Ur Specific [place] 1.013 Urine Protein 100 H Urine Glucose (UA) >=500 H Urine Ketones NEGATIVE Urine Blood NEGATIVE Urine Nitrite NEGATIVE Urine Bilirubin NEGATIVE Urine Urobilinogen NEGATIVE Ur Leukocyte Esterase TRACE H Urine WBC (Auto) 34 Urine RBC (Auto) 2 U Hyaline Cast (Auto) 4 Urine Bacteria (Auto) TRACE Squamous Epi Cells Auto 5 Urine Mucus (Auto) RARE Urine Ascorbic Acid NEGATIVE 02/05/19 02/05/19 02/05/19 04:22 04:22 04:22 WBC 3.2 L RBC 3.55 L Hgb 11.4 L Hct 34.9 L MCV 99 H MCH 32.2 MCHC 32.7 RDW 16.9 H Plt Count 147 L Lymph % (Auto) 24.1 Branch % (Auto) 10.8 Eos % (Auto) 2.8 Baso % (Auto) 1.0 Absolute Neuts (auto) 1.9 Absolute Lymphs (auto) 0.8 Absolute Monos (auto) 0.3 Absolute Eos (auto) 0.1 Absolute Basos (auto) 0.0 Seg Neutrophils % 61.3 PT INR Sodium 133.7 L Potassium 5.0 Chloride 97 L Carbon Dioxide 24 Anion Gap 13 BUN 58 H Creatinine 4.13 H Est GFR ( Amer) 13 L Est GFR (MDRD) Non-Af 11 L Glucose 217 H POC Glucose Hemoglobin A1c % Calcium 9.8 Total Bilirubin 0.8 Direct Bilirubin 0.4 Neonat Total Bilirubin Not Reportable Neonat Direct Bilirubin Not Reportable Neonat Indirect Bili Not Reportable AST 28 ALT 19 Alkaline Phosphatase 160 H Creatine Kinase CK-MB (CK-2) 0.97 Troponin I 0.100 Total Protein 7.4 Albumin 3.6 Triglycerides 55 Cholesterol 95.94 LDL Cholesterol Direct 33 VLDL Cholesterol 11.0 HDL Cholesterol 52 Amylase 35 Lipase 15.0 L Urine Color Urine Appearance Urine pH Ur Specific [place] Urine Protein Urine Glucose (UA) Urine Ketones Urine Blood Urine Nitrite Urine Bilirubin Urine Urobilinogen Ur Leukocyte Esterase Urine WBC (Auto) Urine RBC (Auto) U Hyaline Cast (Auto) Urine Bacteria (Auto) Squamous Epi Cells Auto Urine Mucus (Auto) Urine Ascorbic Acid 02/05/19 02/05/19 02/05/19 04:22 07:59 08:47 WBC RBC Hgb Hct MCV MCH MCHC RDW Plt Count Lymph % (Auto) Branch % (Auto) Eos % (Auto) Baso % (Auto) Absolute Neuts (auto) Absolute Lymphs (auto) Absolute Monos (auto) Absolute Eos (auto) Absolute Basos (auto) Seg Neutrophils % PT INR Sodium Potassium Chloride Carbon Dioxide Anion Gap BUN Creatinine Est GFR ( Amer) Est GFR (MDRD) Non-Af Glucose POC Glucose 167 H Hemoglobin A1c % 7.6 H Calcium Total Bilirubin Direct Bilirubin Neonat Total Bilirubin Neonat Direct Bilirubin Neonat Indirect Bili AST ALT Alkaline Phosphatase Creatine Kinase 29 L CK-MB (CK-2) Troponin I Total Protein Albumin Triglycerides Cholesterol LDL Cholesterol Direct VLDL Cholesterol HDL Cholesterol Amylase Lipase Urine Color Urine Appearance Urine pH Ur Specific [place] Urine Protein Urine Glucose (UA) Urine Ketones Urine Blood Urine Nitrite Urine Bilirubin Urine Urobilinogen Ur Leukocyte Esterase Urine WBC (Auto) Urine RBC (Auto) U Hyaline Cast (Auto) Urine Bacteria (Auto) Squamous Epi Cells Auto Urine Mucus (Auto) Urine Ascorbic Acid 02/05/19 02/05/19 02/05/19 08:47 11:36 15:58 WBC RBC Hgb Hct MCV MCH MCHC RDW Plt Count Lymph % (Auto) Branch % (Auto) Eos % (Auto) Baso % (Auto) Absolute Neuts (auto) Absolute Lymphs (auto) Absolute Monos (auto) Absolute Eos (auto) Absolute Basos (auto) Seg Neutrophils % PT INR Sodium Potassium Chloride Carbon Dioxide Anion Gap BUN Creatinine Est GFR ( Amer) Est GFR (MDRD) Non-Af Glucose POC Glucose 251 H 97 Hemoglobin A1c % Calcium Total Bilirubin Direct Bilirubin Neonat Total Bilirubin Neonat Direct Bilirubin Neonat Indirect Bili AST ALT Alkaline Phosphatase Creatine Kinase CK-MB (CK-2) 0.83 Troponin I 0.088 Total Protein Albumin Triglycerides Cholesterol LDL Cholesterol Direct VLDL Cholesterol HDL Cholesterol Amylase Lipase Urine Color Urine Appearance Urine pH Ur Specific [place] Urine Protein Urine Glucose (UA) Urine Ketones Urine Blood Urine Nitrite Urine Bilirubin Urine Urobilinogen Ur Leukocyte Esterase Urine WBC (Auto) Urine RBC (Auto) U Hyaline Cast (Auto) Urine Bacteria (Auto) Squamous Epi Cells Auto Urine Mucus (Auto) Urine Ascorbic Acid 02/05/19 21:30 WBC RBC Hgb Hct MCV MCH MCHC RDW Plt Count Lymph % (Auto) Branch % (Auto) Eos % (Auto) Baso % (Auto) Absolute Neuts (auto) Absolute Lymphs (auto) Absolute Monos (auto) Absolute Eos (auto) Absolute Basos (auto) Seg Neutrophils % PT INR Sodium Potassium Chloride Carbon Dioxide Anion Gap BUN Creatinine Est GFR ( Amer) Est GFR (MDRD) Non-Af Glucose POC Glucose 173 H Hemoglobin A1c % Calcium Total Bilirubin Direct Bilirubin Neonat Total Bilirubin Neonat Direct Bilirubin Neonat Indirect Bili AST ALT Alkaline Phosphatase Creatine Kinase CK-MB (CK-2) Troponin I Total Protein Albumin Triglycerides Cholesterol LDL Cholesterol Direct VLDL Cholesterol HDL Cholesterol Amylase Lipase Urine Color Urine Appearance Urine pH Ur Specific [place] Urine Protein Urine Glucose (UA) Urine Ketones Urine Blood Urine Nitrite Urine Bilirubin Urine Urobilinogen Ur Leukocyte Esterase Urine WBC (Auto) Urine RBC (Auto) U Hyaline Cast (Auto) Urine Bacteria (Auto) Squamous Epi Cells Auto Urine Mucus (Auto) Urine Ascorbic Acid SINUS RHYTHM [VBIG] . VENTRICULAR BIGEMINY [CLAFB] . LAD, CONSIDER LEFT ANTERIOR FASCICULAR BLOCK [LVHREP] . LVH WITH SECONDARY REPOLARIZATION ABNORMALITY [AMI17] . ANTERIOR Q WAVES, POSSIBLY DUE TO LVH IMPRESSION/RECOMMENDATION: 1. Syncope: The differential diagnosis are orthostatic hypotension versus high- grade AV block due to the patient being on amiodarone, versus ventricular arrhythmia versus transient atrial fibrillation with rapid ventricular response. Note that the patient is frequent PVCs on her EKG. Would recommend continue monitoring the patient, and would recommend a 30-day event monitor as an outpatient. So recommended the patient have an echo and a stress test. We will see if any recent cardiac work-up is been done by her customer support engineer. Otherwise we will get these done here in the hospital. Hold off of the patient's amiodarone. We will check amiodarone levels for possible toxicity. 2. Paroxysmal atrial fibrillation: At present we will hold the patient's amiodarone. Continue Coumadin. 3.Coronary artery disease. History of [place] history of stents: No anginal symptoms. Continue the patient's nitrates and other current cardioprotective medications. 4. Hypertension: Blood pressure stable now would recommend checking for orthostatic blood pressure changes and symptoms. 5. diabetes mellitus: Insulin-dependent continue current antidiabetic medications and Accu-Cheks. 6. End-stage renal disease: Continue hemodialysis. 7. COPD by exam: No acute exacerbation 8. History of tobacco abuse: Tobacco cessation counseling given to the patient.. Medications reviewed medications adjusted. Management plan and medication treatment/regimen discussed with Dr. Zhu and Dr. Alvaro Hussein. Medical decision making is of high complexity. 60 minutes spent on this patient more than 50% of time spent in direct patient care. Will follow.
[2019-02-06] MEDS: PANTOPRAZOLE SODIUM 40 MG TABLET.DR PO SCH (05:18)
[2019-02-06 05:19] LABS: ABSOLUTE EOSINOPHILS # (AUTO) 0.1 10^3/uL (0.0-0.6); ABSOLUTE LYMPHOCYTES (AUTO) 0.8 10^3/uL (0.5-4.7); ABSOLUTE MONOCYTES (AUTO) 0.4 10^3/uL (0.1-1.4); ABSOLUTE NEUT (AUTO) 2.9 10^3/uL (1.7-8.2); EOSINOPHILS % (AUTO) 2.5 % (0-6); HEMOGLOBIN 10.7 g/dL (12.0-15.5); LYMPHOCYTES % (AUTO) 18.5 % (13-45); MEAN CORPUSCULAR HEMOGLOBIN 31.9 pg (27.0-33.4); MEAN CORPUSCULAR HGB CONC 32.6 g/dL (32.0-36.0); MEAN CORPUSCULAR VOLUME 98 fl (80-97); MONOCYTES % (AUTO) 9.9 % (3-13); PLATELET COUNT 144 10^3/uL (150-450); RED BLOOD COUNT 3.36 10^6/uL (3.72-5.28); SEGMENTED NEUTROPHILS % (AUTO) 68.1 % (42-78); TOTAL CELLS COUNTED % (AUTO) 100 %; WHITE BLOOD COUNT 4.2 10^3/uL (4.0-10.5)
[2019-02-06] MEDS: INSULIN LISPRO 100 UNIT/ML 3 ML VIAL SUBCUT SCH ×4 (08:23→21:57)
[2019-02-06 10:15] LABS: BLOOD UREA NITROGEN 69 mg/dL (7-20); CALCIUM 9.5 mg/dL (8.4-10.2); GLUCOSE 239 mg/dL (75-110)
[2019-02-06 10:16] LABS: ANION GAP 13 (5-19); CARBON DIOXIDE 23 mmol/L (22-30); CHLORIDE 97 mmol/L (98-107); POTASSIUM 5.1 mmol/L (3.6-5.0)
--- NOTE | 2019-02-06 12:34 | PDOC PROGRESS REPORT ---
Subjective Progress Note for:: 02/06/19 Reason For Visit: Patient seen today while undergoing dialysis. She is looking and feeling her whole lot better. She denies any history of chest pain palpitations or presyncope. Labs and medications were reviewed with her. Dialysis orders were reviewed with the treating dialysis nurse. Physical Exam Vital Signs: Temp Pulse Resp BP Pulse Ox 97.9 F 55 L 18 127/65 H 97 02/06/19 07:30 02/06/19 07:30 02/06/19 07:30 02/06/19 07:30 02/06/19 07:30 Intake & Output 02/05/19 02/06/19 02/07/19 06:59 06:59 06:59 Intake Total 672 470 Output Total 175 100 Balance 497 370 Weight 60.9 kg 61.4 kg General appearance: PRESENT: no acute distress Respiratory exam: PRESENT: clear to auscultation lena. ABSENT: crackles Cardiovascular exam: PRESENT: +S1, +S2 GI/Abdominal exam: PRESENT: normal bowel sounds, soft. ABSENT: organomegaly, tenderness Extremities exam: PRESENT: +1 edema Neurological exam: PRESENT: alert, awake, oriented to person, oriented to place, oriented to time Psychiatric exam: PRESENT: appropriate affect Focused psych exam: ABSENT: psychomotor agitation Skin exam: ABSENT: erythema, mottled, rash Results Laboratory Results: 02/06/19 05:00 02/06/19 08:35 02/06/19 02/06/19 05:00 08:35 WBC 4.2 RBC 3.36 L Hgb 10.7 L Hct 33.0 L MCV 98 H MCH 31.9 MCHC 32.6 RDW 17.0 H Plt Count 144 L Seg Neutrophils % 68.1 Sodium 132.8 L Potassium 5.1 H Chloride 97 L Carbon Dioxide 23 Anion Gap 13 BUN 69 H Creatinine 4.59 H Est GFR ( Amer) 12 L Glucose 239 H Calcium 9.5 02/04/19 02/04/19 02/04/19 11:20 20:49 20:49 Creatine Kinase 30 CK-MB (CK-2) 0.97 Troponin I 0.080 0.109 02/05/19 02/05/19 02/05/19 04:22 04:22 08:47 Creatine Kinase 29 L 29 L CK-MB (CK-2) 0.97 Troponin I 0.100 02/05/19 08:47 Creatine Kinase CK-MB (CK-2) 0.83 Troponin I 0.088 Assessment & Plan - Diagnosis (1) Syncope Qualifiers: Syncope type: unspecified Qualified Code(s): R55 - Syncope and collapse Is this a current diagnosis for this admission?: Yes Plan: Orthostasis versus cardiac. Test Rider is involved. (2) Bradycardia Plan: Presently stable in sinus. (3) ESRD (end stage renal disease) Is this a current diagnosis for this admission?: Yes Plan: Patient currently undergoing dialysis without any issues. Vital signs are stable. Heart rate is in the low 60s and regular. Dialysis is being supervised to ensure safe and smooth procedure. She has peripheral fluid overload. Plan to remove between 2 and 3 L as tolerated. Dialysis orders were reviewed with the treating dialysis nurse. (4) Atrial fibrillation Qualifiers: Atrial fibrillation type: chronic Qualified Code(s): I48.2 - Chronic atrial fibrillation Plan: Presently rate controlled. (5) Diabetes mellitus type 2 in nonobese Plan: Advised good control without leading to hypoglycemia. (6) Hypertension Plan: Presently controlled. Monitor. (7) Proteinuria due to type 2 diabetes mellitus Plan: Status quo. (8) Renal osteodystrophy Plan: Monitor. (9) Orthostatic hypotension Plan: Likely from autonomic dysfunction from diabetes. Have discontinued hydralazine and monitor.
[2019-02-06] MEDS: ISOSORBIDE MONONITRATE 20 MG TABLET PO SCH ×2 (13:10→21:57)
[2019-02-06] MEDS: TOLTERODINE TARTRATE 1 MG TABLET PO SCH (13:10)
[2019-02-06] MEDS: CLONAZEPAM 1 MG TABLET PO SCH ×2 (13:11→21:57)
[2019-02-06] MEDS: POLYVINYL ALCOHOL 1.4% OPH SOLN 15 ML OU SCH ×3 (13:12→22:06)
[2019-02-06] MEDS: OXYCODONE-ACETAMINOPHEN 5-325 MG TABLET PO PRN ×2 (13:14→21:57)
[2019-02-06] MEDS: CYCLOBENZAPRINE HCL 10 MG TABLET PO PRN (13:15)
[2019-02-06] MEDS: AMIODARONE HCL 200 MG TABLET PO SCH (15:19)
[2019-02-06 15:25] LABS: CREATINE KINASE MB 1.11 ng/mL (<4.55); TROPONIN I 0.069 ng/mL
[2019-02-06 21:03] LABS: CREATINE KINASE MB 1.7 ng/mL (<4.55)
[2019-02-06 21:05] LABS: TROPONIN I 0.278 ng/mL
[2019-02-06] MEDS: ATORVASTATIN CALCIUM 20 MG TABLET PO SCH (21:57)
[2019-02-06] MEDS: WARFARIN SODIUM 2 MG TABLET PO SCH (21:57)
--- NOTE | 2019-02-06 22:16 | PDOC PROGRESS REPORT ---
Subjective Progress Note for:: 02/06/19 Subjective:: Patient supposedly had chest pain, she was dialyzed today, She was seen by cardiology Dr. Stock, she is scheduled for a nuclear stress test Reason For Visit: SYMPTOMATIC BRADYCARDIA, ESRD ON HEMODIALYSIS Physical Exam Vital Signs: Temp Pulse Resp BP Pulse Ox 97.9 F 60 16 127/59 H 93 02/06/19 19:40 02/06/19 19:40 02/06/19 14:48 02/06/19 19:40 02/06/19 19:40 Intake & Output 02/05/19 02/06/19 02/07/19 06:59 06:59 06:59 Intake Total 672 470 240 Output Total 974 677 9988 Balance 497 370 -3760 Weight 60.9 kg 61.4 kg General appearance: PRESENT: no acute distress Head exam: PRESENT: atraumatic, normocephalic Eye exam: PRESENT: PERRLA Ear exam: PRESENT: normal external ear exam Mouth exam: PRESENT: moist, tongue midline Neck exam: PRESENT: full ROM Cardiovascular exam: PRESENT: RRR, +S1, +S2 Vascular exam: PRESENT: normal capillary refill GI/Abdominal exam: PRESENT: normal bowel sounds, soft Rectal exam: PRESENT: deferred Neurological exam: PRESENT: alert, CN II-XII grossly intact Skin exam: PRESENT: dry, intact, warm. ABSENT: cyanosis, rash Results Laboratory Results: 02/06/19 05:00 02/06/19 08:35 02/06/19 02/06/19 05:00 08:35 WBC 4.2 RBC 3.36 L Hgb 10.7 L Hct 33.0 L MCV 98 H MCH 31.9 MCHC 32.6 RDW 17.0 H Plt Count 144 L Seg Neutrophils % 68.1 Sodium 132.8 L Potassium 5.1 H Chloride 97 L Carbon Dioxide 23 Anion Gap 13 BUN 69 H Creatinine 4.59 H Est GFR ( Amer) 12 L Glucose 239 H Calcium 9.5 02/04/19 02/04/19 02/04/19 11:20 20:49 20:49 Creatine Kinase 30 CK-MB (CK-2) 0.97 Troponin I 0.080 0.109 02/05/19 02/05/19 02/05/19 04:22 04:22 08:47 Creatine Kinase 29 L 29 L CK-MB (CK-2) 0.97 Troponin I 0.100 02/05/19 02/06/19 02/06/19 08:47 14:15 14:15 Creatine Kinase 28 L CK-MB (CK-2) 0.83 1.11 Troponin I 0.088 0.069 02/06/19 02/06/19 20:24 20:24 Creatine Kinase 34 CK-MB (CK-2) 1.70 Troponin I 0.278 Assessment & Plan - Diagnosis (1) Syncope Qualifiers: Syncope type: unspecified Qualified Code(s): R55 - Syncope and collapse Is this a current diagnosis for this admission?: Yes (2) Bradycardia Is this a current diagnosis for this admission?: Yes (3) T2DM (type 2 diabetes mellitus) Qualifiers: Diabetes mellitus keno terminal operator insulin use: with keno terminal operator use Diabetes mellitus complication status: with kidney complications Diabetes mellitus complication detail: with chronic kidney disease Chronic kidney disease stage: on chronic dialysis Qualified Code(s): E11.22 - Type 2 diabetes mellitus with diabetic chronic kidney disease; N18.6 - End stage renal disease; Z79.4 - intermodal owner operator truck driver (current) use of insulin; Z99.2 - Dependence on renal dialysis Is this a current diagnosis for this admission?: Yes (4) ESRD (end stage renal disease) Is this a current diagnosis for this admission?: Yes - Plan Summary Plan Summary: Patient dialyzed today no new complaints
--- NOTE | 2019-02-06 22:50 | Progress Note ---
Provider Note Provider Note: CARDIOLOGY PROGRESS NOTE by Dr. Savanna Stock, on 02/06/2019. SUBJECTIVE: The patient due during dialysis when the dialysis is almost done complaint of pain on the right side with radiation of the right side of the chest up to the jaw. It does increase with her movements of the body hence clearly noncardiac. Also the time the patient complained of palpitations and was short run of irregular wide-complex tachycardia which is atrial fibrillation with aberrancy there is only a few beats. At present the patient has no chest pain or discomfort. There is no TIA CVA symptoms. There is no bleeding on Coumadin. There is no further event and there are occasional PVCs seen but no major ventricular ectopic activity noted. Since the dialysis incident has been no recurrence of atrial fibrillation. We will restart the patient's amiodarone. Still await amiodarone levels. PHYSICAL EXAMINATION: The patient is a frail build. Appears to be chronically ill. Selected Entries 02/06/19 12:45 Temperature 97.7 F Temperature Oral Source Pulse Rate 66 Respiratory 20 Rate Blood Pressure 122/75 Blood Pressure 90 Mean BP Location Right Arm BP Position Supine O2 Sat by Pulse 100 Oximetry Oxygen Flow 2.00 Rate Oxygen Delivery Nasal Cannula Method HEAD: Is atraumatic normocephalic. EYES: Pupils equal round regular reactive light accommodation. Extraocular movements are normal. There is no conjunctival pallor. There is no scleral icterus. EARS: Tympanic membranes are intact. External auditory canals are clear. NOSE: There is no deviated nasal septum. There is no inflammation nasal mucous membrane. MOUTH: Mucous membranes of the mouth are dry tongue is dry. There is no ulcers. There is no bleeding from the gums. THROAT: There is no redness of the oropharynx. There is no exudates. SKIN: There is no skin rashes or skin lesions. There is no petechia or ecchymosis. NECK: Is supple. There is no JVD carotids equal there is no bruit. There is no lymphadenopathy. There is no goiter. There is no accessory muscle respiration use. Trachea central. LUNGS: There is diminished air entry and prolonged expiration. On percussion there is hyperresonance. There is no rhonchi rales or wheezing. HEART: S1-S2 is heard there is no S3 gallop there is no S4 gallop. There is systolic murmur left sternal border and the apex there is no rub. ABDOMEN: Is soft. Nontender. There is no paraspinal megaly bowel sounds well heard. EXTREMITIES: Femorals are diminished. There is no femoral bruits. Leg pulses slightly diminished. There is no pedal edema. There is no DVT or cellulitis. There is no calf tenderness. 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 PSYCHIATRIC: The patient judgment insight are intact her affect is normal. There is a working AV fistula in the left arm. Labs- All tests 24 hr 02/06/19 02/06/19 02/06/19 05:00 07:31 08:35 WBC 4.2 RBC 3.36 L Hgb 10.7 L Hct 33.0 L MCV 98 H MCH 31.9 MCHC 32.6 RDW 17.0 H Plt Count 144 L Lymph % (Auto) 18.5 [place] % (Auto) 9.9 Eos % (Auto) 2.5 Baso % (Auto) 1.0 Absolute Neuts (auto) 2.9 Absolute Lymphs (auto) 0.8 Absolute Monos (auto) 0.4 Absolute Eos (auto) 0.1 Absolute Basos (auto) 0.0 Seg Neutrophils % 68.1 Sodium 132.8 L Potassium 5.1 H Chloride 97 L Carbon Dioxide 23 Anion Gap 13 BUN 69 H Creatinine 4.59 H Est GFR ( Amer) 12 L Est GFR (MDRD) Non-Af 10 L Glucose 239 H POC Glucose 228 H Calcium 9.5 Creatine Kinase CK-MB (CK-2) Troponin I 02/06/19 02/06/19 02/06/19 13:07 14:15 14:15 WBC RBC Hgb Hct MCV MCH MCHC RDW Plt Count Lymph % (Auto) [place] % (Auto) Eos % (Auto) Baso % (Auto) Absolute Neuts (auto) Absolute Lymphs (auto) Absolute Monos (auto) Absolute Eos (auto) Absolute Basos (auto) Seg Neutrophils % Sodium Potassium Chloride Carbon Dioxide Anion Gap BUN Creatinine Est GFR ( Amer) Est GFR (MDRD) Non-Af Glucose POC Glucose 106 Calcium Creatine Kinase 28 L CK-MB (CK-2) 1.11 Troponin I 0.069 02/06/19 02/06/19 02/06/19 16:44 20:24 20:24 WBC RBC Hgb Hct MCV MCH MCHC RDW Plt Count Lymph % (Auto) [place] % (Auto) Eos % (Auto) Baso % (Auto) Absolute Neuts (auto) Absolute Lymphs (auto) Absolute Monos (auto) Absolute Eos (auto) Absolute Basos (auto) Seg Neutrophils % Sodium Potassium Chloride Carbon Dioxide Anion Gap BUN Creatinine Est GFR ( Amer) Est GFR (MDRD) Non-Af Glucose POC Glucose 245 H Calcium Creatine Kinase 34 CK-MB (CK-2) 1.70 Troponin I 0.278 02/06/19 20:42 WBC RBC Hgb Hct MCV MCH MCHC RDW Plt Count Lymph % (Auto) [place] % (Auto) Eos % (Auto) Baso % (Auto) Absolute Neuts (auto) Absolute Lymphs (auto) Absolute Monos (auto) Absolute Eos (auto) Absolute Basos (auto) Seg Neutrophils % Sodium Potassium Chloride Carbon Dioxide Anion Gap BUN Creatinine Est GFR ( Amer) Est GFR (MDRD) Non-Af Glucose POC Glucose 195 H Calcium Creatine Kinase CK-MB (CK-2) Troponin I SINUS RHYTHM [MFVPC] . MULTIFORM VENTRICULAR PREMATURE COMPLEXES [PLAA] . PROBABLE LEFT ATRIAL ABNORMALITY [CLAFB] . LAD, CONSIDER LEFT ANTERIOR FASCICULAR BLOCK [AMI60] . ANTERIOR INFARCT, OLD IMPRESSION/RECOMMENDATION: 1. Syncope: The differential diagnosis are orthostatic hypotension versus high- grade AV block due to the patient being on amiodarone, versus ventricular arrhythmia versus transient atrial fibrillation with rapid ventricular response. Note that the patient is frequent PVCs on her EKG. Would recommend continue monitoring the patient, and would recommend a 30-day event monitor as an outpatient. So recommended the patient have an echo and a stress test. 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 Otherwise we will get these done here in the hospital. Hold off of the patient's amiodarone. We will check amiodarone levels for possible toxicity. 2. Paroxysmal atrial fibrillation: At present we will hold the patient's amiodarone. Continue Coumadin. Patient today would dialysis had a short run of atrial fibrillation with aberrancy causing wide-complex. We will restart the patient's amiodarone. 3. Noncardiac right-sided chest pain. He has patient's underlying coronary artery disease. The patient not being a reliable historian will get a IV Lexiscan Cardiolite stress test on Saturday. 4.Coronary artery disease. History of [place]. History of stents: No anginal symptoms. Continue the patient's nitrates and other current cardioprotective medications. 5. Hypertension: Blood pressure stable now would recommend checking for orthostatic blood pressure changes and symptoms. 6. diabetes mellitus: Insulin-dependent continue current antidiabetic medications and Accu-Cheks. 7. End-stage renal disease: Continue hemodialysis. 8. COPD by exam: No acute exacerbation 9. History of tobacco abuse: Already yesterday tobacco cessation counseling g [place] to the patient. Medications reviewed. Management plan and medication discussed with Dr. Zhu. Medical decision making is of moderate to high complexity. 40 minutes spent on this patient with more than 50% time spent in direct patient care. Will follow . Medications reviewed medications adjusted. Management plan and medication treatment/regimen discussed with Dr. Zhu and Dr. Alvaro Hussein. Medical decision making is of high complexity. 60 minutes spent on this patient more than 50% of time spent in direct patient care. Will follow.
[2019-02-07 03:35] LABS: CREATINE KINASE MB 1.32 ng/mL (<4.55)
[2019-02-07 03:41] LABS: TROPONIN I 0.446 ng/mL
[2019-02-07] MEDS: PANTOPRAZOLE SODIUM 40 MG TABLET.DR PO SCH (05:45)
[2019-02-07] MEDS: INSULIN LISPRO 100 UNIT/ML 3 ML VIAL SUBCUT SCH ×4 (09:00→22:56)
--- NOTE | 2019-02-07 09:00 | EKG REPORT ---
SEVERITY:- ABNORMAL ECG - SINUS RHYTHM MULTIFORM VENTRICULAR PREMATURE COMPLEXES PROBABLE LEFT ATRIAL ABNORMALITY LAD, CONSIDER LEFT ANTERIOR FASCICULAR BLOCK ANTERIOR INFARCT, OLD : Confirmed by: Fany Davenport 07-Feb-2019 09:00:10
[2019-02-07 09:11] LABS: ABSOLUTE EOSINOPHILS # (AUTO) 0.2 10^3/uL (0.0-0.6); ABSOLUTE LYMPHOCYTES (AUTO) 0.7 10^3/uL (0.5-4.7); ABSOLUTE MONOCYTES (AUTO) 0.4 10^3/uL (0.1-1.4); ABSOLUTE NEUT (AUTO) 2.1 10^3/uL (1.7-8.2); BASOPHILS % (AUTO) 1.4 % (0-2); EOSINOPHILS % (AUTO) 5.1 % (0-6); HEMATOCRIT 32.5 % (36.0-47.0); HEMOGLOBIN 10.6 g/dL (12.0-15.5); LYMPHOCYTES % (AUTO) 20.9 % (13-45); MEAN CORPUSCULAR HEMOGLOBIN 32.3 pg (27.0-33.4); MEAN CORPUSCULAR HGB CONC 32.7 g/dL (32.0-36.0); MEAN CORPUSCULAR VOLUME 99 fl (80-97); MONOCYTES % (AUTO) 11.8 % (3-13); PLATELET COUNT 149 10^3/uL (150-450); RED BLOOD COUNT 3.29 10^6/uL (3.72-5.28); RED CELL DISTRIBUTION WIDTH 17.6 % (11.5-14.0); SEGMENTED NEUTROPHILS % (AUTO) 60.8 % (42-78); TOTAL CELLS COUNTED % (AUTO) 100 %; WHITE BLOOD COUNT 3.4 10^3/uL (4.0-10.5)
[2019-02-07] MEDS: AMIODARONE HCL 200 MG TABLET PO SCH (09:33)
[2019-02-07] MEDS: CLONAZEPAM 1 MG TABLET PO SCH ×2 (09:34→22:58)
[2019-02-07] MEDS: CYCLOBENZAPRINE HCL 10 MG TABLET PO PRN (09:34)
[2019-02-07] MEDS: OXYCODONE-ACETAMINOPHEN 5-325 MG TABLET PO PRN ×2 (09:35→18:14)
[2019-02-07] MEDS: POLYVINYL ALCOHOL 1.4% OPH SOLN 15 ML OU SCH ×4 (09:36→22:59)
[2019-02-07] MEDS: TOLTERODINE TARTRATE 1 MG TABLET PO SCH (09:38)
[2019-02-07] MEDS: ISOSORBIDE MONONITRATE 20 MG TABLET PO SCH ×2 (09:38→22:57)
[2019-02-07 09:39] LABS: CREATINE KINASE MB 1.13 ng/mL (<4.55); TROPONIN I 0.444 ng/mL
[2019-02-07] MEDS: OXYCODONE HCL IR 5 MG TABLET PO PRN (11:54)
--- NOTE | 2019-02-07 15:56 | PDOC PROGRESS REPORT ---
Subjective Progress Note for:: 02/07/19 Subjective:: Patient seen by the bedside, scheduled for a stress test Reason For Visit: SYMPTOMATIC BRADYCARDIA, ESRD ON HEMODIALYSIS Physical Exam Vital Signs: Temp Pulse Resp BP Pulse Ox 97.8 F 62 17 128/58 H 99 02/07/19 09:31 02/07/19 14:00 02/07/19 12:09 02/07/19 12:09 02/07/19 12:09 Intake & Output 02/06/19 02/07/19 02/08/19 06:59 06:59 06:59 Intake Total 470 240 Output Total 100 4300 Balance 370 -4060 Weight 61.4 kg General appearance: PRESENT: no acute distress Eye exam: PRESENT: PERRLA Respiratory exam: PRESENT: clear to auscultation lena Cardiovascular exam: PRESENT: +S1, +S2 GI/Abdominal exam: PRESENT: soft Results Laboratory Results: 02/07/19 08:56 02/06/19 08:35 02/07/19 08:56 WBC 3.4 L RBC 3.29 L Hgb 10.6 L Hct 32.5 L MCV 99 H MCH 32.3 MCHC 32.7 RDW 17.6 H Plt Count 149 L Seg Neutrophils % 60.8 02/04/19 02/04/19 02/04/19 11:20 20:49 20:49 Creatine Kinase 30 CK-MB (CK-2) 0.97 Troponin I 0.080 0.109 02/05/19 02/05/19 02/05/19 04:22 04:22 08:47 Creatine Kinase 29 L 29 L CK-MB (CK-2) 0.97 Troponin I 0.100 02/05/19 02/06/19 02/06/19 08:47 14:15 14:15 Creatine Kinase 28 L CK-MB (CK-2) 0.83 1.11 Troponin I 0.088 0.069 02/06/19 02/06/19 02/07/19 20:24 20:24 02:31 Creatine Kinase 34 27 L CK-MB (CK-2) 1.70 Troponin I 0.278 02/07/19 02/07/19 02/07/19 02:31 08:56 08:56 Creatine Kinase 26 L CK-MB (CK-2) 1.32 1.13 Troponin I 0.446 0.444 Assessment & Plan - Diagnosis (1) Syncope Qualifiers: Syncope type: unspecified Qualified Code(s): R55 - Syncope and collapse Is this a current diagnosis for this admission?: Yes (2) Bradycardia Is this a current diagnosis for this admission?: Yes (3) T2DM (type 2 diabetes mellitus) Qualifiers: Diabetes mellitus 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
--- NOTE | 2019-02-07 21:36 | Progress Note ---
Provider Note Provider Note: CARDIOLOGY progress note by Dr. Savanna Stock on 02/07/2019. Subjective: The patient has no further chest pain or discomfort. Is no shortness of breath. There is no cough sputum production. The patient has no further significant bradycardia although heart rate is in the high 50s and low 60s. There is no bleeding on Coumadin. There is no TIA CVA symptoms. There is occasional PVCs but no major ventricular ectopic activity and no recurrence of atrial fibrillation. PHYSICAL EXAMINATION: The patient is a frail build and appears to be chronically ill. She is in no acute distress. Selected Entries 02/07/19 02/07/19 09:31 12:09 Temperature 97.8 F Temperature Oral Oral Source Pulse Rate 58 L 63 Respiratory 20 17 Rate Blood Pressure 118/59 L 128/58 H Blood Pressure 78 81 Mean BP Location Right Arm Right Arm BP Position Supine Sitting O2 Sat by Pulse 95 99 Oximetry Oxygen Delivery Room Air Room Air Method HEAD: Is atraumatic normocephalic. EYES: Pupils equal round regular reactive light accommodation. Extraocular movements are normal. There is no conjunctival pallor. There is no scleral icterus. EARS: Tympanic membranes are intact. External auditory canals are clear. NOSE: There is no deviated nasal septum. There is no inflammation nasal mucous membrane. MOUTH: Mucous membranes of the mouth are dry tongue is dry. There is no ulcers. There is no bleeding from the gums. THROAT: There is no redness of the oropharynx. There is no exudates. SKIN: There is no skin rashes or skin lesions. There is no petechia or ecchymosis. NECK: Is supple. There is no JVD carotids equal there is no bruit. There is no lymphadenopathy. There is no goiter. There is no accessory muscle respiration use. Trachea central. LUNGS: There is diminished air entry and prolonged expiration. On percussion there is hyperresonance. There is no rhonchi rales or wheezing. HEART: S1-S2 is heard there is no S3 gallop there is no S4 gallop. There is systolic murmur left sternal border and the apex there is no rub. ABDOMEN: Is soft. Nontender. There is no paraspinal megaly bowel sounds well heard. EXTREMITIES: Femorals are diminished. There is no femoral bruits. Leg pulses slightly diminished. There is no pedal edema. There is no DVT or cellulitis. There is no calf tenderness. 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 PSYCHIATRIC: The patient judgment insight are intact her affect is normal. There is a working AV fistula in the left arm. Labs- All tests 24 hr 02/07/19 02/07/19 02/07/19 02:31 02:31 07:47 WBC RBC Hgb Hct MCV MCH MCHC RDW Plt Count Lymph % (Auto) [place] % (Auto) Eos % (Auto) Baso % (Auto) Absolute Neuts (auto) Absolute Lymphs (auto) Absolute Monos (auto) Absolute Eos (auto) Absolute Basos (auto) Seg Neutrophils % POC Glucose 174 H Creatine Kinase 27 L CK-MB (CK-2) 1.32 Troponin I 0.446 02/07/19 02/07/19 02/07/19 08:56 08:56 08:56 WBC 3.4 L RBC 3.29 L Hgb 10.6 L Hct 32.5 L MCV 99 H MCH 32.3 MCHC 32.7 RDW 17.6 H Plt Count 149 L Lymph % (Auto) 20.9 [place] % (Auto) 11.8 Eos % (Auto) 5.1 Baso % (Auto) 1.4 Absolute Neuts (auto) 2.1 Absolute Lymphs (auto) 0.7 Absolute Monos (auto) 0.4 Absolute Eos (auto) 0.2 Absolute Basos (auto) 0.0 Seg Neutrophils % 60.8 POC Glucose Creatine Kinase 26 L CK-MB (CK-2) 1.13 Troponin I 0.444 02/07/19 02/07/19 02/07/19 11:39 16:20 21:06 WBC RBC Hgb Hct MCV MCH MCHC RDW Plt Count Lymph % (Auto) [place] % (Auto) Eos % (Auto) Baso % (Auto) Absolute Neuts (auto) Absolute Lymphs (auto) Absolute Monos (auto) Absolute Eos (auto) Absolute Basos (auto) Seg Neutrophils % POC Glucose 237 H 186 H 155 H Creatine Kinase CK-MB (CK-2) Troponin I IMPRESSION/RECOMMENDATION: 1. Syncope: The differential diagnosis are orthostatic hypotension versus high- grade AV block due to the patient being on amiodarone, versus ventricular arrhy thmia versus transient atrial fibrillation with rapid ventricular response. Note that the patient is frequent PVCs on her EKG. Would recommend continue monitoring the patient, and would recommend a 30-day event monitor as an outpatient. So recommended the patient have an echo and a stress test. 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 Otherwise we will get these done here in the hospital. Hold off of the patient's amiodarone. We will check amiodarone levels for possible toxicity. 2. Paroxysmal atrial fibrillation: At present we will hold the patient's amiodarone. Continue Coumadin. Patient today would dialysis had a short run of atrial fibrillation with aberrancy causing wide-complex. We will restart the patient's amiodarone. 3. Elevated troponin levels. Troponins peaked at 0.446 and is trending down. This is most likely secondary to patient's short episode of atrial fibrillation with rapid ventricular response. But will get a stress test on Saturday. With nuclear imaging. 4.Noncardiac right-sided chest pain. He has patient's underlying coronary artery disease. The patient not being a reliable historian will get a IV Lexiscan Cardiolite stress test on Saturday. 5.Coronary artery disease. History of [place]. History of stents: No anginal symptoms. Continue the patient's nitrates and other current cardioprotective medications. 6. Hypertension: Blood pressure stable now would recommend checking for orthostatic blood pressure changes and symptoms. 7. diabetes mellitus: Insulin-dependent continue current antidiabetic medications and Accu-Cheks. 8. End-stage renal disease: Continue hemodialysis. 9. COPD by exam: No acute exacerbation 9. History of tobacco abuse: Already yesterday tobacco cessation counseling given to the patient. Medications reviewed. Management plan and medication discussed with Dr. Zhu. Medical decision making is of moderate to high complexity. 40 minutes spent on this patient with more than 50% time spent in direct patient care. Will follow .
[2019-02-07 22:13] LABS: URINE AMPHETAMINES SCREEN NEGATIVE; URINE BARBITURATES SCREEN NEGATIVE; URINE BENZODIAZEPINES SCREEN NEGATIVE; URINE COCAINE SCREEN NEGATIVE; URINE MARIJUANA (THC) SCREEN NEGATIVE; URINE METHADONE SCREEN NEGATIVE; URINE PHENCYCLIDINE SCREEN NEGATIVE
[2019-02-07] MEDS: ATORVASTATIN CALCIUM 20 MG TABLET PO SCH (22:57)
[2019-02-07] MEDS: WARFARIN SODIUM 2 MG TABLET PO SCH (23:02)
[2019-02-07] MEDS: FENTANYL 25 MCG/HR PATCH.TD72 TD SCH (23:02)
[2019-02-08 05:06] LABS: INTERNATIONAL RATION (INR) 2.37; PROTHROMBIN TIME 26.3 SEC (11.4-15.4)
[2019-02-08] MEDS: PANTOPRAZOLE SODIUM 40 MG TABLET.DR PO SCH (07:53)
[2019-02-08] MEDS: INSULIN LISPRO 100 UNIT/ML 3 ML VIAL SUBCUT SCH ×4 (09:16→22:59)
[2019-02-08] MEDS: CYCLOBENZAPRINE HCL 10 MG TABLET PO PRN (10:37)
[2019-02-08] MEDS: CLONAZEPAM 1 MG TABLET PO SCH ×2 (10:37→22:59)
[2019-02-08] MEDS: OXYCODONE-ACETAMINOPHEN 5-325 MG TABLET PO PRN (10:38)
[2019-02-08] MEDS: AMIODARONE HCL 200 MG TABLET PO SCH (10:38)
[2019-02-08] MEDS: TOLTERODINE TARTRATE 1 MG TABLET PO SCH (11:00)
[2019-02-08] MEDS: ISOSORBIDE MONONITRATE 20 MG TABLET PO SCH ×2 (11:00→23:02)
[2019-02-08] MEDS: POLYVINYL ALCOHOL 1.4% OPH SOLN 15 ML OU SCH ×4 (11:46→23:01)
--- NOTE | 2019-02-08 14:45 | PDOC PROGRESS REPORT ---
Subjective Progress Note for:: 02/08/19 Subjective:: Patient seen by the bedside, scheduled for a stress test, No new complaints Reason For Visit: SYMPTOMATIC BRADYCARDIA, ESRD ON HEMODIALYSIS Physical Exam Vital Signs: Temp Pulse Resp BP Pulse Ox 97.8 F 61 18 143/48 H 95 02/08/19 11:36 02/08/19 11:36 02/08/19 11:36 02/08/19 11:36 02/08/19 11:36 Intake & Output 02/07/19 02/08/19 02/09/19 06:59 06:59 06:59 Intake Total 240 1160 Output Total 4300 200 Balance -4060 960 Weight 60.5 kg General appearance: PRESENT: no acute distress Eye exam: PRESENT: PERRLA Respiratory exam: PRESENT: rhonchi Cardiovascular exam: PRESENT: +S1, +S2 GI/Abdominal exam: PRESENT: soft Results Laboratory Results: 02/07/19 08:56 02/06/19 08:35 02/04/19 02/04/19 02/04/19 11:20 20:49 20:49 Creatine Kinase 30 CK-MB (CK-2) 0.97 Troponin I 0.080 0.109 02/05/19 02/05/19 02/05/19 04:22 04:22 08:47 Creatine Kinase 29 L 29 L CK-MB (CK-2) 0.97 Troponin I 0.100 02/05/19 02/06/19 02/06/19 08:47 14:15 14:15 Creatine Kinase 28 L CK-MB (CK-2) 0.83 1.11 Troponin I 0.088 0.069 02/06/19 02/06/19 02/07/19 20:24 20:24 02:31 Creatine Kinase 34 27 L CK-MB (CK-2) 1.70 Troponin I 0.278 02/07/19 02/07/19 02/07/19 02:31 08:56 08:56 Creatine Kinase 26 L CK-MB (CK-2) 1.32 1.13 Troponin I 0.446 0.444 02/08/19 04:23 Creatine Kinase CK-MB (CK-2) Troponin I 0.333 Assessment & Plan - Diagnosis (1) Syncope Qualifiers: Syncope type: unspecified Qualified Code(s): R55 - Syncope and collapse Is this a current diagnosis for this admission?: Yes (2) Bradycardia Is this a current diagnosis for this admission?: Yes (3) T2DM (type 2 diabetes mellitus) Qualifiers: 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
--- NOTE | 2019-02-08 19:27 | Progress Note ---
Provider Note Provider Note: CARDIOLOGY PROGRESS NOTE by Dr. Savanna Stock on 02/08/2019. SUBJECTIVE: The patient denies any further chest pain or discomfort. There is no dizziness is near syncope or syncopal episodes. There is no bleeding on Coumadin. There is no TIA or CVA symptoms. She denies any shortness of breath or PND orthopnea. Her heart rate is in the high 50s with a stable blood pressure. There is no symptomatic bradycardia. His amiodarone levels are still elevated. PHYSICAL EXAMINATION: Patient is a frail build. She is in no acute distress. Selected Entries 02/08/19 11:36 Temperature 97.8 F Temperature Oral Source Pulse Rate 61 Respiratory 18 Rate Blood Pressure 143/48 H Blood Pressure 79 Mean BP Location Right Arm BP Position Supine O2 Sat by Pulse 95 Oximetry Oxygen Delivery Room Air Method HEAD: Is atraumatic normocephalic. EYES: Pupils equal round regular reactive light accommodation. Extraocular movements are normal. There is no conjunctival pallor. There is no scleral icterus. EARS: Tympanic membranes are intact. External auditory canals are clear. NOSE: There is no deviated nasal septum. There is no inflammation nasal mucous membrane. MOUTH: Mucous membranes of the mouth are dry tongue is dry. There is no ulcers. There is no bleeding from the gums. THROAT: There is no redness of the oropharynx. There is no exudates. SKIN: There is no skin rashes or skin lesions. There is no petechia or ecchymosis. NECK: Is supple. There is no JVD carotids equal there is no bruit. There is no lymphadenopathy. There is no goiter. There is no accessory muscle respiration use. Trachea central. LUNGS: There is diminished air entry and prolonged expiration. On percussion there is hyperresonance. There is no rhonchi rales or wheezing. HEART: S1-S2 is heard there is no S3 gallop there is no S4 gallop. There is systolic murmur left sternal border and the apex there is no rub. ABDOMEN: Is soft. Nontender. There is no paraspinal megaly bowel sounds well heard. EXTREMITIES: Femorals are diminished. There is no femoral bruits. Leg pulses slightly diminished. There is no pedal edema. There is no DVT or cellulitis. There is no calf tenderness. LAY OUT CARPENTER: The patient is conscious awake alert oriented x3 with no focal deficits. PSYCHIATRIC: The patient judgment insight are intact her affect is normal. There is a working AV fistula in the left arm. Labs- All tests 24 hr 02/08/19 02/08/19 02/08/19 04:23 04:23 07:43 PT 26.3 H INR 2.37 POC Glucose 123 H Troponin I 0.333 Stl Occult Blood (ICT) 02/08/19 02/08/19 02/08/19 11:34 17:07 21:18 PT INR POC Glucose 192 H 218 H 213 H Troponin I Stl Occult Blood (ICT) 02/08/19 23:10 PT INR POC Glucose Troponin I Stl Occult Blood (ICT) NEGATIVE IMPRESSION/RECOMMENDATION: 1. Syncope: The differential diagnosis are orthostatic hypotension versus high- grade AV block due to the patient being on amiodarone, versus ventricular arrhythmia versus transient atrial fibrillation with rapid ventricular response. There is no recurrence of syncope. We will get the patient to have a IV Lexiscan Cardiolite stress test tomorrow. 2. Paroxysmal atrial fibrillation: At present we will hold the patient's amiodarone. Continue Coumadin. Patient today would dialysis had a short run of atrial fibrillation with aberrancy causing wide-complex. We will restart the patient's amiodarone. 3. Elevated troponin levels. Troponins peaked at 0.446 and is trending down. This is most likely secondary to patient's short episode of atrial fibrillation with rapid ventricular response. But will get a stress test on Saturday. With nuclear imaging. 4.Noncardiac right-sided chest pain. He has patient's underlying coronary artery disease. The patient not being a reliable historian will get a IV Lexiscan Cardiolite stress test on Saturday. Since the patient is on amiodarone will also get PFTs with DLCO. Note that the patient's thyroid function test and liver function tests are within normal limits. 5.Coronary artery disease. History of [place]. History of stents: No anginal symptoms. Continue the patient's nitrates and other current cardioprotective me dications. 6. Hypertension: Blood pressure stable now would recommend checking for orthostatic blood pressure changes and symptoms. 7. diabetes mellitus: Insulin-dependent continue current antidiabetic medications and Accu-Cheks. 8. End-stage renal disease: Continue hemodialysis. 9. COPD by exam: No acute exacerbation 9. History of tobacco abuse: Already yesterday tobacco cessation counseling given to the patient. Medications reviewed. Management plan and medication discussed with Dr. Zhu. Medical decision making is of moderate to high complexity. 40 minutes spent on this patient with more than 50% time spent in direct patient care. Will follow
[2019-02-08] MEDS: ATORVASTATIN CALCIUM 20 MG TABLET PO SCH (22:58)
[2019-02-08] MEDS: WARFARIN SODIUM 2 MG TABLET PO SCH (23:01)
--- NOTE | 2019-02-09 00:45 | EKG REPORT ---
SEVERITY:- ABNORMAL ECG - SINUS RHYTHM VENTRICULAR TRIGEMINY INCOMPLETE LEFT BUNDLE BRANCH BLOCK ANTERIOR INFARCT, AGE INDETERMINATE : Confirmed by: Fany Davenport 09-Feb-2019 00:45:10
[2019-02-09 05:09] LABS: ANION GAP 12 (5-19); BLOOD UREA NITROGEN 64 mg/dL (7-20); CARBON DIOXIDE 27 mmol/L (22-30); CHLORIDE 97 mmol/L (98-107); GLUCOSE 109 mg/dL (75-110)
[2019-02-09 05:53] LABS: HEMATOCRIT 33.1 % (36.0-47.0); HEMOGLOBIN 10.8 g/dL (12.0-15.5); MEAN CORPUSCULAR HGB CONC 32.7 g/dL (32.0-36.0); MEAN CORPUSCULAR VOLUME 98 fl (80-97); PLATELET COUNT 142 10^3/uL (150-450); RED BLOOD COUNT 3.38 10^6/uL (3.72-5.28); RED CELL DISTRIBUTION WIDTH 17.3 % (11.5-14.0); WHITE BLOOD COUNT 3.8 10^3/uL (4.0-10.5)
[2019-02-09] MEDS: PANTOPRAZOLE SODIUM 40 MG TABLET.DR PO SCH (06:49)
[2019-02-09 08:17] LABS: AMORPHOUS SEDIMENT,URINE TRACE /HPF; APPEARANCE,URINE CLOUDY; BILIRUBIN,URINE NEGATIVE (NEGATIVE); COLOR,URINE YELLOW; GLUCOSE, URINE 50 mg/dL (NEGATIVE); KETONES,URINE NEGATIVE (NEGATIVE); LEUKOCYTE ESTERASE,URINE LARGE (NEGATIVE); NITRITE,URINE NEGATIVE (NEGATIVE); PROTEIN,URINE 100 mg/dL (NEGATIVE); URINE SPECIFIC GRAVITY 1.016
[2019-02-09] MEDS: INSULIN LISPRO 100 UNIT/ML 3 ML VIAL SUBCUT SCH ×4 (09:00→22:46)
[2019-02-09] MEDS: CLONAZEPAM 1 MG TABLET PO SCH ×2 (11:00→22:45)
[2019-02-09] MEDS: POLYVINYL ALCOHOL 1.4% OPH SOLN 15 ML OU SCH ×3 (11:00→22:47)
[2019-02-09] MEDS: CYCLOBENZAPRINE HCL 10 MG TABLET PO PRN (11:02)
[2019-02-09] MEDS: AMIODARONE HCL 200 MG TABLET PO SCH (11:07)
[2019-02-09] MEDS: TOLTERODINE TARTRATE 1 MG TABLET PO SCH (11:08)
[2019-02-09] MEDS: ISOSORBIDE MONONITRATE 20 MG TABLET PO SCH ×2 (11:08→22:46)
[2019-02-09] MEDS: OXYCODONE-ACETAMINOPHEN 5-325 MG TABLET PO PRN (11:09)
[2019-02-09] MEDS ORDERED: REGADENOSON INJ 0.4 MG/5 ML DISP.SYRIN IV ONE (11:36)
--- NOTE | 2019-02-09 13:52 | PDOC PROGRESS REPORT ---
Subjective Progress Note for:: 02/09/19 Reason For Visit: Patient seen on dialysis. Currently she is undergoing dialysis without any issues. She denies any history of chest pain or shortness of breath. No complaints of any fever or chills. No further presyncopal attacks. Her symptomatic bradycardia is being worked up by Dr. Stock. Labs and medications were reviewed. Dialysis orders were reviewed with the treating dialysis nurse. Physical Exam Vital Signs: Temp Pulse Resp BP Pulse Ox 98.2 F 56 L 18 121/53 L 94 02/09/19 03:30 02/09/19 03:30 02/09/19 03:30 02/09/19 03:30 02/09/19 03:30 Intake & Output 02/08/19 02/09/19 02/10/19 06:59 06:59 06:59 Intake Total 1160 1180 Output Total 200 200 Balance 960 980 Weight 60.5 kg General appearance: PRESENT: no acute distress Respiratory exam: PRESENT: clear to auscultation lena. ABSENT: crackles Cardiovascular exam: PRESENT: +S1, +S2. ABSENT: rubs GI/Abdominal exam: PRESENT: normal bowel sounds, soft. ABSENT: organomegaly, tenderness Extremities exam: PRESENT: pedal edema Neurological exam: PRESENT: alert, awake, oriented to person, oriented to place, oriented to time Psychiatric exam: PRESENT: appropriate affect Results Laboratory Results: 02/09/19 04:20 02/09/19 04:20 02/09/19 02/09/19 02/09/19 04:20 04:20 07:15 WBC 3.8 L RBC 3.38 L Hgb 10.8 L Hct 33.1 L MCV 98 H MCH 32.0 MCHC 32.7 RDW 17.3 H Plt Count 142 L Sodium 136.2 L Potassium 5.0 Chloride 97 L Carbon Dioxide 27 Anion Gap 12 BUN 64 H Creatinine 4.98 H Est GFR ( Amer) 11 L Glucose 109 Calcium 10.0 Urine Color YELLOW Urine Appearance CLOUDY Urine pH 5.0 Ur Specific [place] 1.016 Urine Protein 100 H Urine Glucose (UA) 50 H Urine Ketones NEGATIVE Urine Blood MODERATE H Urine Nitrite NEGATIVE Ur Leukocyte Esterase LARGE H Urine WBC (Auto) >182 Urine RBC (Auto) 7 02/04/19 02/04/19 02/04/19 11:20 20:49 20:49 Creatine Kinase 30 CK-MB (CK-2) 0.97 Troponin I 0.080 0.109 02/05/19 02/05/19 02/05/19 04:22 04:22 08:47 Creatine Kinase 29 L 29 L CK-MB (CK-2) 0.97 Troponin I 0.100 02/05/19 02/06/19 02/06/19 08:47 14:15 14:15 Creatine Kinase 28 L CK-MB (CK-2) 0.83 1.11 Troponin I 0.088 0.069 02/06/19 02/06/19 02/07/19 20:24 20:24 02:31 Creatine Kinase 34 27 L CK-MB (CK-2) 1.70 Troponin I 0.278 02/07/19 02/07/19 02/07/19 02:31 08:56 08:56 Creatine Kinase 26 L CK-MB (CK-2) 1.32 1.13 Troponin I 0.446 0.444 02/08/19 02/09/19 04:23 04:20 Creatine Kinase CK-MB (CK-2) Troponin I 0.333 0.253 Assessment & Plan - Diagnosis (1) Syncope Qualifiers: Syncope type: unspecified Qualified Code(s): R55 - Syncope and collapse Is this a current diagnosis for this admission?: Yes Plan: Orthostasis versus cardiac. Load Builder is involved. (2) Bradycardia Plan: Heart rate ranges between 50-mid 50s regular.Patient asymptomatic. (3) ESRD (end stage renal disease) Is this a current diagnosis for this admission?: Yes Plan: Patient currently undergoing dialysis without any issues. Vital signs are stable. Heart rate is in the high 40 's to the low 50s and regular. Dialysis is being supervised to ensure safe and smooth procedure. She has peripheral fluid overload. Plan to remove between 1 and 2 L as tolerated. Dialysis orders were reviewed with the treating dialysis nurse. (4) Atrial fibrillation Qualifiers: Atrial fibrillation type: chronic Qualified Code(s): I48.2 - Chronic atrial fibrillation Plan: Presently rate controlled. (5) Diabetes mellitus type 2 in nonobese Plan: Advised good control without leading to hypoglycemia. (6) Hypertension Plan: Presently controlled. Patient off all antihypertensives including hydralazine. Monitor. (7) Proteinuria due to type 2 diabetes mellitus Plan: Status quo. (8) Renal osteodystrophy Plan: Monitor. (9) Orthostatic hypotension Plan: Likely from autonomic dysfunction from diabetes. Have discontinued hydralazine and monitor.
[2019-02-09] MEDS ORDERED: LEVALBUTEROL HCL NEB 0.63 MG/3 ML AMPUL NEB PRN (15:00)
--- NOTE | 2019-02-09 18:38 | PDOC PROGRESS REPORT ---
Subjective Progress Note for:: 02/09/19 Subjective:: Patient seen by the bedside,, she had dialysis today, she also had Cardiolite stress test today Reason For Visit: SYMPTOMATIC BRADYCARDIA, ESRD ON HEMODIALYSIS Physical Exam Vital Signs: Temp Pulse Resp BP Pulse Ox 97.5 F 68 16 151/50 H 97 02/09/19 17:08 02/09/19 17:08 02/09/19 17:08 02/09/19 17:08 02/09/19 17:08 Intake & Output 02/08/19 02/09/19 02/10/19 06:59 06:59 06:59 Intake Total 1160 1180 472 Output Total 973 081 8303 Balance 960 980 -2428 Weight 60.5 kg General appearance: PRESENT: no acute distress Eye exam: PRESENT: PERRLA Respiratory exam: PRESENT: clear to auscultation lena Cardiovascular exam: PRESENT: +S2 GI/Abdominal exam: PRESENT: soft Neurological exam: PRESENT: alert Results Laboratory Results: 02/09/19 04:20 02/09/19 04:20 02/09/19 02/09/19 02/09/19 04:20 04:20 07:15 WBC 3.8 L RBC 3.38 L Hgb 10.8 L Hct 33.1 L MCV 98 H MCH 32.0 MCHC 32.7 RDW 17.3 H Plt Count 142 L Sodium 136.2 L Potassium 5.0 Chloride 97 L Carbon Dioxide 27 Anion Gap 12 BUN 64 H Creatinine 4.98 H Est GFR ( Amer) 11 L Glucose 109 Calcium 10.0 Urine Color YELLOW Urine Appearance CLOUDY Urine pH 5.0 Ur Specific [place] 1.016 Urine Protein 100 H Urine Glucose (UA) 50 H Urine Ketones NEGATIVE Urine Blood MODERATE H Urine Nitrite NEGATIVE Ur Leukocyte Esterase LARGE H Urine WBC (Auto) >182 Urine RBC (Auto) 7 02/04/19 02/04/19 02/04/19 11:20 20:49 20:49 Creatine Kinase 30 CK-MB (CK-2) 0.97 Troponin I 0.080 0.109 02/05/19 02/05/19 02/05/19 04:22 04:22 08:47 Creatine Kinase 29 L 29 L CK-MB (CK-2) 0.97 Troponin I 0.100 02/05/19 02/06/19 02/06/19 08:47 14:15 14:15 Creatine Kinase 28 L CK-MB (CK-2) 0.83 1.11 Troponin I 0.088 0.069 02/06/19 02/06/19 02/07/19 20:24 20:24 02:31 Creatine Kinase 34 27 L CK-MB (CK-2) 1.70 Troponin I 0.278 02/07/19 02/07/19 02/07/19 02:31 08:56 08:56 Creatine Kinase 26 L CK-MB (CK-2) 1.32 1.13 Troponin I 0.446 0.444 02/08/19 02/09/19 04:23 04:20 Creatine Kinase CK-MB (CK-2) Troponin I 0.333 0.253 Assessment & Plan - Diagnosis (1) Syncope Qualifiers: Syncope type: unspecified Qualified Code(s): R55 - Syncope and collapse Is this a current diagnosis for this admission?: Yes Plan: She presented with syncope, etiology is not clear, she had symptomatic bradycardia, the heart rate was in the low 30s associated with low blood press ure (2) Bradycardia Is this a current diagnosis for this admission?: Yes (3) T2DM (type 2 diabetes mellitus) Qualifiers: Diabetes mellitus assisted insulin use: with assisted use Diabetes mellitus complication status: with kidney complications Diabetes mellitus complication detail: with chronic kidney disease Chronic kidney disease stage: on chronic dialysis Qualified Code(s): E11.22 - Type 2 diabetes mellitus with diabetic chronic kidney disease; N18.6 - End stage renal disease; Z79.4 - local intermodal truck driver (current) use of insulin; Z99.2 - Dependence on renal dialysis Is this a current diagnosis for this admission?: Yes (4) ESRD (end stage renal disease) Is this a current diagnosis for this admission?: Yes
--- NOTE | 2019-02-09 20:09 | Progress Note ---
Provider Note Provider Note: CARDIOLOGY PROGRESS NOTE by Dr. Savanna Stock on 02/09/2019. SUBJECTIVE: The patient denies any chest pain or discomfort. There is no shortness of breath. There is no PND orthopnea. There is no further recurrence of atrial fibrillation or wide-complex tachycardia or ventricular tachycardia. There are a few frequent PVCs seen with the patient being asymptomatic. There is no bleeding on Coumadin. Is no TIA CVA symptoms. PHYSICAL EXAMINATION: The patient is a frail build and appears to be in no acute distress. Selected Entries 02/09/19 17:08 Temperature 97.5 F Temperature Oral Source Pulse Rate 68 Respiratory 16 Rate Blood Pressure 151/50 H Blood Pressure 83 Mean BP Location Right Arm BP Position Supine O2 Sat by Pulse 97 Oximetry Oxygen Delivery Room Air Method HEAD: Is atraumatic normocephalic. EYES: Pupils equal round regular reactive light accommodation. Extraocular movements are normal. There is no conjunctival pallor. There is no scleral icterus. EARS: Tympanic membranes are intact. External auditory canals are clear. NOSE: There is no deviated nasal septum. There is no inflammation nasal mucous membrane. MOUTH: Mucous membranes of the mouth are dry tongue is dry. There is no ulcers. There is no bleeding from the gums. THROAT: There is no redness of the oropharynx. There is no exudates. SKIN: There is no skin rashes or skin lesions. There is no petechia or ecchymosis. NECK: Is supple. There is no JVD carotids equal there is no bruit. There is no lymphadenopathy. There is no goiter. There is no accessory muscle respiration use. Trachea central. LUNGS: There is diminished air entry and prolonged expiration. On percussion there is hyperresonance. There is no rhonchi rales or wheezing. HEART: S1-S2 is heard there is no S3 gallop there is no S4 gallop. There is systolic murmur left sternal border and the apex there is no rub. ABDOMEN: Is soft. Nontender. There is no paraspinal megaly bowel sounds well heard. EXTREMITIES: Femorals are diminished. There is no femoral bruits. Leg pulses slightly diminished. There is no pedal edema. There is no DVT or cellulitis. There is no calf tenderness. CUT TO LENGTH OPERATOR: The patient is conscious awake alert oriented x3 with no focal deficits. PSYCHIATRIC: The patient judgment insight are intact her affect is normal. There is a working AV fistula in the left arm. Labs- All tests 24 hr 02/09/19 02/09/19 02/09/19 04:20 04:20 04:20 WBC 3.8 L RBC 3.38 L Hgb 10.8 L Hct 33.1 L MCV 98 H MCH 32.0 MCHC 32.7 RDW 17.3 H Plt Count 142 L Sodium 136.2 L Potassium 5.0 Chloride 97 L Carbon Dioxide 27 Anion Gap 12 BUN 64 H Creatinine 4.98 H Est GFR ( Amer) 11 L Est GFR (MDRD) Non-Af 9 L Glucose 109 POC Glucose Calcium 10.0 Troponin I 0.253 Urine Color Urine Appearance Urine pH Ur Specific [place] Urine Protein Urine Glucose (UA) Urine Ketones Urine Blood Urine Nitrite Urine Bilirubin Urine Urobilinogen Ur Leukocyte Esterase Urine WBC (Auto) Urine RBC (Auto) Urine Bacteria (Auto) Urine WBC Clumps Squamous Epi Cells Auto U Non-Squamous Epis Auto Amorphous Sediment Auto Urine Mucus (Auto) Urine Ascorbic Acid 02/09/19 02/09/19 02/09/19 07:15 07:53 11:14 WBC RBC Hgb Hct MCV MCH MCHC RDW Plt Count Sodium Potassium Chloride Carbon Dioxide Anion Gap BUN Creatinine Est GFR ( Amer) Est GFR (MDRD) Non-Af Glucose POC Glucose 95 142 H Calcium Troponin I Urine Color YELLOW Urine Appearance CLOUDY Urine pH 5.0 Ur Specific [place] 1.016 Urine Protein 100 H Urine Glucose (UA) 50 H Urine Ketones NEGATIVE Urine Blood MODERATE H Urine Nitrite NEGATIVE Urine Bilirubin NEGATIVE Urine Urobilinogen 2.0 H Ur Leukocyte Esterase LARGE H Urine WBC (Auto) >182 Urine RBC (Auto) 7 Urine Bacteria (Auto) TRACE Urine WBC Clumps MANY Squamous Epi Cells Auto 6 U Non-Squamous Epis Auto 1 Amorphous Sediment Auto TRACE Urine Mucus (Auto) RARE Urine Ascorbic Acid NEGATIVE 02/09/19 02/09/19 17:06 22:42 WBC RBC Hgb Hct MCV MCH MCHC RDW Plt Count Sodium Potassium Chloride Carbon Dioxide Anion Gap BUN Creatinine Est GFR ( Amer) Est GFR (MDRD) Non-Af Glucose POC Glucose 111 H 198 H Calcium Troponin I Urine Color Urine Appearance Urine pH Ur Specific [place] Urine Protein Urine Glucose (UA) Urine Ketones Urine Blood Urine Nitrite Urine Bilirubin Urine Urobilinogen Ur Leukocyte Esterase Urine WBC (Auto) Urine RBC (Auto) Urine Bacteria (Auto) Urine WBC Clumps Squamous Epi Cells Auto U Non-Squamous Epis Auto Amorphous Sediment Auto Urine Mucus (Auto) Urine Ascorbic Acid IMPRESSION/RECOMMENDATION: 1. Syncope: The differential diagnosis are orthostatic hypotension versus high- grade AV block due to the patient being on amiodarone, versus ventricular arrhythmia versus transient atrial fibrillation with rapid ventricular response. There is no recurrence of syncope. We will get the patient to have a IV Lexiscan Cardiolite stress test tomorrow. 2. Paroxysmal atrial fibrillation: At present we will hold the patient's amiodarone. Continue Coumadin. Patient today would dialysis had a short run of atrial fibrillation with aberrancy causing wide-complex. We will restart the patient's amiodarone. 3. Elevated troponin levels. Troponins peaked at 0.446 and is trending down. This is most likely secondary to patient's short episode of atrial fibrillation with rapid ventricular response. But will get a stress test on Saturday. With nuclear imaging. 4.Noncardiac right-sided chest pain. He has patient's underlying coronary artery disease. The patient not being a reliable historian will get a IV Lexiscan Cardiolite stress test on Saturday. Since the patient is on amiodarone will also get PFTs with DLCO. Note that the patient's thyroid function test and liver function tests are within normal limits. 5.Coronary artery disease. History of [place]. History of stents: No anginal symptoms. Continue the patient's nitrates and other current cardioprotective medications. He takes IV Lexiscan Cardiolite shows severe [place] in the apical LV segments with no reversible ischemia. There is moderate myocardial infarction involving the interventricular septum with minimal reversible ischemia. There is also mild inferior wall OH with no scar. Overall LV ejection fraction is si gnificantly depressed. Will check an echo for LVEF correlation.. 6. Mixed ischemic and dilated cardiomyopathy. In view of the bradycardia cannot put the patient on Lopressor. Will continue afterload reduction. The patient will be recommended to have a repeat echo in 3 months, and if still 35% or below then would recommend that the patient have a AICD referral. We will repeat the patient's echo in the morning. Hypertension: Blood pressure stable now would recommend checking for orthostatic blood pressure changes and symptoms. 7. diabetes mellitus: Insulin-dependent continue current antidiabetic medications and Accu-Cheks. 8. End-stage renal disease: Continue hemodialysis. 9. COPD by exam: No acute exacerbation 9. History of tobacco abuse: Already yesterday tobacco cessation counseling given to the patient. Stress test results discussed with the patient. The patient has no classical anginal pains or atypical anginal pains. Hence with no reversible ischemia of significance in the stress test we will continue medical therapy. The patient will have a PFT tomorrow. Medications reviewed. Medication regimen and management plan discussed with attending physician Dr. Zhu. Medical decision making is of high complexity. Will follow. The patient had a PFT tomorrow.
[2019-02-09] MEDS: WARFARIN SODIUM 2 MG TABLET PO SCH (22:45)
[2019-02-09] MEDS: ATORVASTATIN CALCIUM 20 MG TABLET PO SCH (22:45)
[2019-02-10] MEDS: PANTOPRAZOLE SODIUM 40 MG TABLET.DR PO SCH (05:56)
[2019-02-10] MEDS: INSULIN LISPRO 100 UNIT/ML 3 ML VIAL SUBCUT SCH ×4 (09:00→21:54)
[2019-02-10] MEDS: CYCLOBENZAPRINE HCL 10 MG TABLET PO PRN (09:10)
[2019-02-10] MEDS: AMIODARONE HCL 200 MG TABLET PO SCH (09:11)
[2019-02-10] MEDS: CLONAZEPAM 1 MG TABLET PO SCH ×2 (09:11→21:54)
[2019-02-10] MEDS: TOLTERODINE TARTRATE 1 MG TABLET PO SCH (09:13)
[2019-02-10] MEDS: ISOSORBIDE MONONITRATE 20 MG TABLET PO SCH ×2 (09:13→21:54)
[2019-02-10] MEDS: POLYVINYL ALCOHOL 1.4% OPH SOLN 15 ML OU SCH ×4 (09:14→21:59)
[2019-02-10] MEDS: OXYCODONE-ACETAMINOPHEN 5-325 MG TABLET PO PRN ×2 (09:18→15:36)
[2019-02-10 09:26] LABS: AMIODARON SERUM 0.5 ug/mL (1.0-2.5); NORAMIODARONE SERUM 0.5 ug/mL (1.0-2.5)
[2019-02-10] MEDS ORDERED: OXYCODONE HCL IR 5 MG TABLET PO PRN (16:53)
--- NOTE | 2019-02-10 18:52 | PDOC PROGRESS REPORT ---
Subjective Progress Note for:: 02/10/19 Subjective:: Patient seen by the bedside, she had stress test today and 2D echo, hopefully discharge home tomorrow,After dialysis Reason For Visit: SYMPTOMATIC BRADYCARDIA, ESRD ON HEMODIALYSIS Physical Exam Vital Signs: Temp Pulse Resp BP Pulse Ox 98.0 F 66 16 143/60 H 97 02/10/19 16:26 02/10/19 16:26 02/10/19 16:26 02/10/19 16:26 02/10/19 16:26 Intake & Output 02/09/19 02/10/19 02/11/19 06:59 06:59 06:59 Intake Total 1180 690 Output Total 200 2900 Balance 980 -2210 General appearance: PRESENT: no acute distress Eye exam: PRESENT: PERRLA Respiratory exam: PRESENT: clear to auscultation lena Cardiovascular exam: PRESENT: +S1, +S2 GI/Abdominal exam: PRESENT: soft Results Laboratory Results: 02/09/19 04:20 02/09/19 04:20 02/07/19 23:40 Clean Catch Midstream Urine Culture - Final Enterococcus Faecalis(Group D) 02/04/19 02/04/19 02/04/19 11:20 20:49 20:49 Creatine Kinase 30 CK-MB (CK-2) 0.97 Troponin I 0.080 0.109 02/05/19 02/05/19 02/05/19 04:22 04:22 08:47 Creatine Kinase 29 L 29 L CK-MB (CK-2) 0.97 Troponin I 0.100 02/05/19 02/06/19 02/06/19 08:47 14:15 14:15 Creatine Kinase 28 L CK-MB (CK-2) 0.83 1.11 Troponin I 0.088 0.069 02/06/19 02/06/19 02/07/19 20:24 20:24 02:31 Creatine Kinase 34 27 L CK-MB (CK-2) 1.70 Troponin I 0.278 02/07/19 02/07/19 02/07/19 02:31 08:56 08:56 Creatine Kinase 26 L CK-MB (CK-2) 1.32 1.13 Troponin I 0.446 0.444 02/08/19 02/09/19 04:23 04:20 Creatine Kinase CK-MB (CK-2) Troponin I 0.333 0.253 Assessment & Plan - Diagnosis (1) Syncope Qualifiers: Syncope type: unspecified Qualified Code(s): R55 - Syncope and collapse Is this a current diagnosis for this admission?: Yes (2) Bradycardia Is this a current diagnosis for this admission?: Yes (3) T2DM (type 2 diabetes mellitus) Qualifiers: Diabetes mellitus prison insulin use: with intermediate frame tender use Diabetes mellitus complication status: with kidney complications Diabetes mellitus complication detail: with chronic kidney disease Chronic kidney disease stage: on chronic dialysis Qualified Code(s): E11.22 - Type 2 diabetes mellitus with diabetic chronic kidney disease; N18.6 - End stage renal disease; Z79.4 - jail (current) use of insulin; Z99.2 - Dependence on renal dialysis Is this a current diagnosis for this admission?: Yes (4) ESRD (end stage renal disease) Is this a current diagnosis for this admission?: Yes
--- NOTE | 2019-02-10 20:08 | Progress Note ---
Provider Note Provider Note: CARDIOLOGY PROGRESS NOTE by Dr. Savanna Stock on 02/10/2019. SUBJECTIVE: The patient denies any chest pain or discomfort. The patient's heart rate was noted to be low but with stable blood pressure. She denies any PND orthopnea or leg edema. There is no ventricular or atrial arrhythmia seen on the monitor. There is no bleeding on Coumadin. There is no TIA CVA symptoms. The patient had a PFT done which showed no significant obstructive defect. There is moderately decreased diffusion capacity. In view of this and the bradycardia will decrease the patient's amiodarone 200 mg p.o. daily. This has been discussed with Dr. Zhu. We will also get an echocardiogram. Physical EXAMINATION: The patient is a frail build. She is in no acute distress. Selected Entries 02/10/19 16:26 Temperature 98.0 F Temperature Oral Source Pulse Rate 66 Respiratory 16 Rate Blood Pressure 143/60 H Blood Pressure 87 Mean BP Location Right Arm BP Position Sitting O2 Sat by Pulse 97 Oximetry Oxygen Delivery Room Air Method HEAD: Is atraumatic normocephalic. EYES: Pupils equal round regular reactive light accommodation. Extraocular movements are normal. There is no conjunctival pallor. There is no scleral icterus. EARS: Tympanic membranes are intact. External auditory canals are clear. NOSE: There is no deviated nasal septum. There is no inflammation nasal mucous membrane. MOUTH: Mucous membranes of the mouth are dry tongue is dry. There is no ulcers. There is no bleeding from the gums. THROAT: There is no redness of the oropharynx. There is no exudates. SKIN: There is no skin rashes or skin lesions. There is no petechia or ecchymosis. NECK: Is supple. There is no JVD carotids equal there is no bruit. There is no lymphadenopathy. There is no goiter. There is no accessory muscle respiration use. Trachea central. LUNGS: There is diminished air entry and prolonged expiration. On percussion there is hyperresonance. There is no rhonchi rales or wheezing. HEART: S1-S2 is heard there is no S3 gallop there is no S4 gallop. There is systolic murmur left sternal border and the apex there is no rub. ABDOMEN: Is soft. Nontender. There is no paraspinal megaly bowel sounds well heard. EXTREMITIES: Femorals are diminished. There is no femoral bruits. Leg pulses slightly diminished. There is no pedal edema. There is no DVT or cellulitis. There is no calf tenderness. RUBBER MOLDER: The patient is conscious awake alert oriented x3 with no focal deficits. PSYCHIATRIC: The patient judgment insight are intact her affect is normal. There is a working AV fistula in the left arm. Labs- All tests 24 hr 02/05/19 02/09/19 02/10/19 11:29 22:42 08:11 POC Glucose 198 H 186 H Amiodarone 0.5 L Noramiodarone 0.5 L 02/10/19 16:25 POC Glucose 322 H Amiodarone Noramiodarone 02/08/19 04:23 PT 26.3 H INR 2.37 IMPRESSION/RECOMMENDATION: 1. Syncope: The differential diagnosis are orthostatic hypotension versus high- grade AV block due to the patient being on amiodarone, versus ventricular arrhythmia versus transient atrial fibrillation with rapid ventricular response. There is no recurrence of syncope. We will get the patient to have a IV Lexiscan Cardiolite stress test tomorrow. 2. Paroxysmal atrial fibrillation: At present we will decrease the patient's amiodarone to 100 mg po daily. Continue Coumadin. Patient today would dialysis had a short run of atrial fibrillation with aberrancy causing wide-complex. The patient's amiodarone and nor amiodarone levels are within normal limits, in fact they are both low. Hence there is no amiodarone toxicity. 3. Elevated troponin levels. Troponins peaked at 0.446 and is trending down. This is most likely secondary to patient's short episode of atrial fibrillation with rapid ventricular response. But will get a stress test on Saturday. With nuclear imaging. 4.Noncardiac right-sided chest pain. He has patient's underlying coronary artery disease. The patient not being a reliable historian will get a IV Lexiscan Cardiolite stress test on Saturday. Since the patient is on amiodarone will also get PFTs with DLCO. Note that the patient's thyroid function test and liver function tests are within normal limits. 5.Coronary artery disease. History of NJ. History of stents: No anginal symptoms. Continue the patient's nitrates and other current cardioprotective medications. He takes IV Lexiscan Cardiolite shows severe NJ in the apical LV segments with no reversible ischemia. There is moderate myocardial infarction involving the interventricular septum with minimal reversible ischemia. There is also mild inferior wall NJ with no scar. Overall LV ejection fraction is significantly depressed. Will check an echo for LVEF correlation.. 6. Mixed ischemic and dilated cardiomyopathy. In view of the bradycardia cannot put the patient on Lopressor. Will continue afterload reduction. The patient will be recommended to have a repeat echo in 3 months, and if still 35% or below then would recommend that the patient have a AICD referral. We will repeat the patient's echo in the morning. Hypertension: Blood pressure stable now would recommend checking for orthostatic blood pressure changes and symptoms. 7. diabetes mellitus: Insulin-dependent continue current antidiabetic medications and Accu-Cheks. 8. End-stage renal disease: Continue hemodialysis. 9. COPD by exam: No acute exacerbation 9. History of tobacco abuse: Already yesterday tobacco cessation counseling given to the patient. 10. Moderately decreased diffusion capacity. By PFTs. We will decrease the patient's amiodarone to 100 mg po daily.Will follow patient in the office.. Medications reviewed. Management plan and medication regimen discussed with attending physician on the case. Medical decision making is of moderate to high complexity. 40 minutes spent in this patient with more than 50% of time spent in direct patient care. Will sign off
[2019-02-10] MEDS: ATORVASTATIN CALCIUM 20 MG TABLET PO SCH (21:53)
[2019-02-10] MEDS: WARFARIN SODIUM 2 MG TABLET PO SCH (21:54)
[2019-02-10] MEDS ORDERED: FENTANYL 25 MCG/HR PATCH.TD72 TD SCH (22:00)
--- NOTE | 2019-02-11 01:12 | DRAGON STRESS TEST REPORT ---
Intravenous Lexiscan Cardiolite stress test using single photon emmision computerized tomography. Date of procedure: 02/09/2019. Ordering Provider: Dr. Savanna Stock.Patient's status: In Patient Indication: Coronary artery disease and elevated troponin. Coronary risk factors: Age, hypertension, diabetes mellitus, dyslipidemia, and history of tobacco abuse disorder. Resting EKG: Sinus Rhythm. Old inferior wall VA. Poor R wave progression leads V1 to V6. Stress EKG: No changes of ischemia. Reason for termination: Protocol. The patient had no chest pain or discomfort, and there were no arrhythmias seen. Conclusions: Normal EKG and hemodynamic response to IV Lexiscan. Nuclear data: At rest the patient was given 10.64 millicuries of technetium 99m sestamibi injected intravenously. As per protocol rest non gated SPECT images were obtained. Subsequently the patient was given intravenous Lexiscan at a dose of 0.4 mg in 5 mL intravenously, followed by flush with normal saline. Subsequently the stress dose of 31.4 millicuries of technetium 99m sestamibi was injected intravenously. As per protocol stress gated images were obtained. Nuclear interpretation: Review of images showed that there is absent perfusion in all the apical segments in the both the rest and stress images. This area has absent motion contraction and thickening consistent with a large prior myocardial infarction. There is no reversible ischemia. There is a moderate perfusion defect in both rest and stress images with minimal only slightly increased perfusion in the rest images involving the interventricular septum. This is consistent with a old interventricular septal VA with minimal reversibility. There is also a mild perfusion defect in the inferior wall in both rest and stress images. This area has decreased motion contraction and thickening. There is no reversible ischemia in the inferior wall. The rest of the segments of the myocardium had normal perfusion at rest, and normal perfusion post stress with IV Lexiscan. The rest of the segments of the myocardium had normal thickening by gated study. These rest of the segments of the myocardium has global decreased contractility. T. I D. ratio was normal at 1.17 the left ventricle is dilated in both the rest and stress images with global hypokinesis in the rest of the areas with the absent contraction motion in the LV apex. This is consistent with a combination of ischemic and dilated cardiomyopathy.. There is no transient ischemic dilatation of the left ventricle. Computer read rest, and stress left ventricular ejection fraction were 35 %, and 27 %, respectively. Check echo for LV ejection fraction correlation. Conclusion: 1. There is scintigraphic evidence of a large area of myocardial infarction involving all the apical segments of the left ventricle. There is no reversible ischemia in these segments. 2. There is scintigraphic evidence of mild myocardial infarction involving the inferior wall, with no reversible ischemia. 3. There is scintigraphic evidence of moderate myocardial infarction involving the interventricular septum with minimal reversibility. 4. Findings consistent with ischemic and dilated cardiomyopathy [mixed cardiomyopathy]. Recommendations: 1. Aggressive treatment of coronary artery disease and cardia myopathy. 2. Check echo for LV ejection fraction correlation. 3. Aggressive risk factor modification, and treating the underlying co- morbidities. JASBIRD
[2019-02-11] MEDS: PANTOPRAZOLE SODIUM 40 MG TABLET.DR PO SCH (05:23)
[2019-02-11 06:32] LABS: HEMATOCRIT 37.3 % (36.0-47.0); HEMOGLOBIN 12.3 g/dL (12.0-15.5); MEAN CORPUSCULAR HEMOGLOBIN 32.2 pg (27.0-33.4); MEAN CORPUSCULAR HGB CONC 32.9 g/dL (32.0-36.0); MEAN CORPUSCULAR VOLUME 98 fl (80-97); PLATELET COUNT 126 10^3/uL (150-450); RED BLOOD COUNT 3.82 10^6/uL (3.72-5.28); RED CELL DISTRIBUTION WIDTH 17.1 % (11.5-14.0); WHITE BLOOD COUNT 4.6 10^3/uL (4.0-10.5)
[2019-02-11 06:37] LABS: INTERNATIONAL RATION (INR) 2.94; PROTHROMBIN TIME 31.3 SEC (11.4-15.4)
--- NOTE | 2019-02-11 07:43 | XCELERA REPORT ---
[address] [address] Transthoracic Echocardiogram Report Name: GLO GARCIA Age: 63 yrs Gender: Female : 1955 Patient Status: Inpatient Patient Location: [address] [place] [address] Study Date: 02/10/2019 05:03 PM Height: 64 in Weight: 133 lb BSA: 1.6 m2 Procedure: A two-dimensional transthoracic echocardiogram with color flow and Doppler was performed. Study Quality: Fair. Reason For Study: cad / cardiomyopahty History: cad / cardiomyopahty. Ordering Physician: SAVANNA DENT Performed By: Analia Chung Interpretation Summary The left ventricle is mildly to moderately dilated. There is mild concentric left ventricular hypertrophy. LV EF is 40% to 45% Left ventricular systolic function is moderately reduced. Doppler measurements suggest normal left ventricular diastolic function The LV apex is akinetic.Rest of the LV dobson are mild to moderately hypokinetic. There is no thrombus. No ASD ,VSD , or PFO seen. The right ventricle is mildly dilated. The right ventricle is not well visualized secondary to technical limitations The right atrium is mildly dilated. The left atrium is mildly dilated. There is moderate to severe mitral annular calcification. There is no evidence of mitral valve prolapse. There is no vegetation seen on the mitral valve. There is mild mitral stenosis There is a trace to mild amount of mitral regurgitation There is no aortic valvular vegetation. There is mild aortic stenosis There is a peak gradient of 19.3 mm of Hg. There is no LVOT obstruction. No aortic regurgitation is present. There is no tricuspid stenosis. There is a moderate amount of tricuspid regurgitation There is servere pulmonary hypertension by echo RVSP is at least 66 mm of HG , with RA mean of at least 20. There is no pulmonic valvular stenosis. There is a mild to moderate amount of pulmonic regurgitation The aortic root is normal size. The inferior vena cava appeared dilated and did not change with respiration (RAP > 20 mmHg) There is no pericardial effusion. MMode/2D Measurements & Calculations RVDd: 2.2 cm LVIDd: 5.3 cm FS: 26.7 % Ao root diam: 3.3 cm IVSd: 1.2 cm LVIDs: 3.9 cm EDV(Teich): Ao root area: LVPWd: 1.2 cm 135.9 ml 8.5 cm2 ESV(Teich): 65.7 mlLA dimension: 4.3 cm EF(Teich): 51.7 % LVOT diam: 1.8 cm LVLd ap4: 7.0 cm SV(MOD-sp4): LVOT area: EDV(MOD-sp4): 37.0 ml 70.0 ml 2.7 cm2 LVLs ap4: 6.8 cm ESV(MOD-sp4): 33.0 ml EF(MOD-sp4): 52.9 % Doppler Measurements & Calculations MV E max tonya: MV P1/2t max tonya: Ao V2 max: LV V1 max P.0 cm/sec 187.3 cm/sec 219.9 cm/sec 1.5 mmHg MV A max tonya: MV P1/2t: 83.3 msec Ao max PG: LV V1 max: 87.9 cm/sec MVA(P1/2t): 2.6 cm2 19.3 mmHg 61.1 cm/sec MV E/A: 2.3 MV dec slope: SERENITY(V,D): 0.74 cm2 658.8 cm/sec2 MV dec time: 0.26 sec PA V2 max: PI end-d tonya: TR max tonya: MV P1/2t-pr_phl: 115.4 cm/sec 179.2 cm/sec 338.0 cm/sec 83.3 msec PA max P.3 mmHg TR max P.7 mmHg Left Ventricle The left ventricle is mildly to moderately dilated. There is mild concentric left ventricular hypertrophy. LV EF is 40% to 45%. Left ventricular systolic function is moderately reduced. Doppler measurements suggest normal left ventricular diastolic function. The LV apex is akinetic.Rest of the LV dobson are mild to moderately hypokinetic. There is no thrombus. No ASD ,VSD , or PFO seen. Right Ventricle The right ventricle is mildly dilated. The right ventricle is not well visualized secondary to technical limitations. Atria The right atrium is mildly dilated. The left atrium is mildly dilated. Mitral Valve There is moderate to severe mitral annular calcification. There is no evidence of mitral valve prolapse. There is no vegetation seen on the mitral valve. There is mild mitral stenosis. There is a trace to mild amount of mitral regurgitation. Aortic Valve There is no aortic valvular vegetation. There is mild aortic stenosis. There is a peak gradient of 19.3 mm of Hg. There is no LVOT obstruction. No aortic regurgitation is present. Tricuspid Valve There is no tricuspid stenosis. There is a moderate amount of tricuspid regurgitation. There is servere pulmonary hypertension by echo. RVSP is at least 66 mm of HG , with RA mean of at least 20. Pulmonic Valve There is no pulmonic valvular stenosis. There is a mild to moderate amount of pulmonic regurgitation. Great Vessels The aortic root is normal size. The inferior vena cava appeared dilated and did not change with respiration (RAP > 20 mmHg). Effusions There is no pericardial effusion. : SAVANNA DENT Lakshmi
[2019-02-11] MEDS: AMIODARONE HCL 200 MG TABLET PO SCH (10:35)
[2019-02-11] MEDS: TOLTERODINE TARTRATE 1 MG TABLET PO SCH (10:35)
[2019-02-11] MEDS: CLONAZEPAM 1 MG TABLET PO SCH ×2 (10:35→21:16)
[2019-02-11] MEDS: ISOSORBIDE MONONITRATE 20 MG TABLET PO SCH ×2 (10:35→21:17)
[2019-02-11] MEDS: POLYVINYL ALCOHOL 1.4% OPH SOLN 15 ML OU SCH ×4 (10:36→21:18)
[2019-02-11] MEDS: INSULIN LISPRO 100 UNIT/ML 3 ML VIAL SUBCUT SCH ×4 (10:37→21:16)
[2019-02-11] MEDS: CYCLOBENZAPRINE HCL 10 MG TABLET PO PRN (14:40)
[2019-02-11] MEDS: OXYCODONE-ACETAMINOPHEN 5-325 MG TABLET PO PRN (14:44)
--- NOTE | 2019-02-11 15:46 | PDOC PROGRESS REPORT ---
Subjective Progress Note for:: 02/11/19 Reason For Visit: Patient seen today on dialysis. She still seems to have intermittent pre- syncopal-like events. At times she gets quite bradycardic. However patient denies history of chest pains palpitations or focal deficits. Reviewed Lexiscan and echocardiogram. Her Cardiolite stress test shows fixed defects in multiple left ventricular dobson. Impression by Dr. Stock is that the patient has got mixed ischemic/dilated cardiomyopathy. Echocardiogram showed moderately reduced LV ejection fraction of around 45% with severe pulmonary hypertension. Labs and medications were reviewed. Dialysis orders were reviewed with the treating dialysis nurse. Physical Exam Vital Signs: Temp Pulse Resp BP Pulse Ox 97.8 F 62 18 135/76 H 97 02/11/19 11:13 02/11/19 11:13 02/11/19 11:13 02/11/19 11:13 02/11/19 11:13 Intake & Output 02/10/19 02/11/19 02/12/19 06:59 06:59 06:59 Intake Total 690 1066 150 Output Total 2900 875 Balance -2210 191 150 Weight 57 kg General appearance: PRESENT: no acute distress Respiratory exam: PRESENT: clear to auscultation lena, decreased breath sounds. ABSENT: crackles Cardiovascular exam: PRESENT: +S1, +S2. ABSENT: rubs GI/Abdominal exam: PRESENT: normal bowel sounds, soft. ABSENT: organomegaly, tenderness Extremities exam: ABSENT: joint swelling, pedal edema Neurological exam: PRESENT: alert, awake, oriented to person, oriented to place Psychiatric exam: PRESENT: appropriate affect Results Laboratory Results: 02/11/19 05:43 02/09/19 04:20 02/11/19 05:43 WBC 4.6 RBC 3.82 Hgb 12.3 Hct 37.3 MCV 98 H MCH 32.2 MCHC 32.9 RDW 17.1 H Plt Count 126 L 02/07/19 23:40 Clean Catch Midstream Urine Culture - Final Enterococcus Faecalis(Group D) 02/04/19 02/04/19 02/04/19 11:20 20:49 20:49 Creatine Kinase 30 CK-MB (CK-2) 0.97 Troponin I 0.080 0.109 02/05/19 02/05/19 02/05/19 04:22 04:22 08:47 Creatine Kinase 29 L 29 L CK-MB (CK-2) 0.97 Troponin I 0.100 02/05/19 02/06/19 02/06/19 08:47 14:15 14:15 Creatine Kinase 28 L CK-MB (CK-2) 0.83 1.11 Troponin I 0.088 0.069 02/06/19 02/06/19 02/07/19 20:24 20:24 02:31 Creatine Kinase 34 27 L CK-MB (CK-2) 1.70 Troponin I 0.278 02/07/19 02/07/19 02/07/19 02:31 08:56 08:56 Creatine Kinase 26 L CK-MB (CK-2) 1.32 1.13 Troponin I 0.446 0.444 02/08/19 02/09/19 04:23 04:20 Creatine Kinase CK-MB (CK-2) Troponin I 0.333 0.253 Assessment & Plan - Diagnosis (1) Syncope Qualifiers: Syncope type: unspecified Qualified Code(s): R55 - Syncope and collapse Is this a current diagnosis for this admission?: Yes Plan: Orthostasis versus cardiac. Residential Nurse is involved.PFT done showed some diffusion defect. She has also got evidences of moderately reduced LV ejection fraction and severe pulmonary hypertension. I wonder if she becomes severely hypoxic triggering her presyncopal-like events and is compounded by may be orthostasis. (2) Bradycardia Plan: Heart rate ranges between 50-mid 50s regular.Note amiodarone dose has been cut back. Detrol might have interactions with amiodarone and might be making things worse as it is known to prolonged QTC intervals. Therefore will DC Detrol for the moment. (3) ESRD (end stage renal disease) Is this a current diagnosis for this admission?: Yes Plan: Patient currently undergoing dialysis without any issues. Vital signs are stable. Heart rate is in the low 50s and regular. Dialysis is being supervised to ensure safe and smooth procedure. She has peripheral fluid overload. Plan to remove between 1 and 2 L as tolerated. Dialysis orders were reviewed with the treating dialysis nurse. (4) Atrial fibrillation Qualifiers: Atrial fibrillation type: chronic Plan: Presently rate controlled. (5) Diabetes mellitus type 2 in nonobese Plan: Advised good control without leading to hypoglycemia. (6) Hypertension Plan: Presently controlled. Patient off all antihypertensives including hydralazine. Monitor. (7) Proteinuria due to type 2 diabetes mellitus Plan: Status quo. (8) Renal osteodystrophy Plan: Monitor. (9) Orthostatic hypotension Plan: Likely from autonomic dysfunction from diabetes. Have discontinued hydralazine and monitor.However drugs like narcotics as well as isosorbide may be playing a role especially in view of her severe pulmonary hypertension and reduced LV fraction.
--- NOTE | 2019-02-11 16:59 | PDOC DISCHARGE SUMMARY ---
Impression - Admit/DC Date/PCP Admission Date/Primary Care Provider: 02/04/19 14:15 ELIAS SIMS MD Discharge Date: 02/11/19 - Discharge Diagnosis (1) Syncope Is this a current diagnosis for this admission?: Yes (2) Bradycardia Is this a current diagnosis for this admission?: Yes (3) T2DM (type 2 diabetes mellitus) Is this a current diagnosis for this admission?: Yes (4) ESRD (end stage renal disease) Is this a current diagnosis for this admission?: Yes - Additional Information Resuscitation Status: Full Code Referrals: ELIAS SIMS MD [Primary Care Provider] - 02/19/19 10:15 am Home Medications: Amiodarone HCl [Cordarone 200 mg Tablet] 200 mg PO DAILY 02/04/19 Clonazepam [Klonopin 2 mg Tablet] 2 mg PO Q12 02/04/19 Cyclobenzaprine HCl [Flexeril 10 mg Tablet] 10 mg PO Q8HP PRN 02/04/19 Fentanyl [Duragesic 25 Mcg/Hr Transdermal Patch] 1 each TD Q3D 02/04/19 Hydralazine HCl [Apresoline 25 mg Tablet] 25 mg PO Q12 02/04/19 Insulin Lispro [Humalog Insulin 100 Unit/1 ml 3 ml Vial] 0 unit SUBCUT .SLD SCALE 02/04/19 Isosorbide Mononitrate [Ismo 20 Mg Tablet] 20 mg PO Q12 02/04/19 Mirabegron [Myrbetriq] 25 mg PO DAILY 02/04/19 Omeprazole 40 mg PO Q6AM 02/04/19 Oxycodone HCl/Acetaminophen [Percocet 10-325 Mg Tablet] 1 each PO Q6HP PRN 02/04/19 Oxycodone HCl/Acetaminophen [Percocet 10-325 mg Tablet] 0.5 tab PO HSP PRN 02/04/19 Polyvinyl Alcohol [Liquid Tears] 1 drop OU QID 02/04/19 Rosuvastatin Calcium [Crestor 10 mg Tablet] 10 mg PO QHS 02/04/19 Tolterodine Tartrate [Detrol] 2 mg PO DAILY 02/04/19 Warfarin Sodium [Coumadin 2 mg Tablet] 2 mg PO QHS 02/04/19 Physical Exam Vital Signs: Temp Pulse Resp BP Pulse Ox 98.5 F 68 18 149/68 H 97 02/11/19 15:05 02/11/19 15:05 02/11/19 15:05 02/11/19 15:05 02/11/19 15:05 Intake & Output 02/10/19 02/11/19 02/12/19 06:59 06:59 06:59 Intake Total 690 1066 150 Output Total 2900 875 1800 Balance -2210 191 -1650 Weight 57 kg Results Laboratory Results: WBC 4.6 10^3/uL (4.0-10.5) 02/11/19 05:43 RBC 3.82 10^6/uL (3.72-5.28) 02/11/19 05:43 Hgb 12.3 g/dL (12.0-15.5) 02/11/19 05:43 Hct 37.3 % (36.0-47.0) 02/11/19 05:43 MCV 98 fl (80-97) H 02/11/19 05:43 MCH 32.2 pg (27.0-33.4) 02/11/19 05:43 MCHC 32.9 g/dL (32.0-36.0) 02/11/19 05:43 RDW 17.1 % (11.5-14.0) H 02/11/19 05:43 Plt Count 126 10^3/uL (150-450) L 02/11/19 05:43 Lymph % (Auto) 20.9 % (13-45) 02/07/19 08:56 [place] % (Auto) 11.8 % (3-13) 02/07/19 08:56 Eos % (Auto) 5.1 % (0-6) 02/07/19 08:56 Baso % (Auto) 1.4 % (0-2) 02/07/19 08:56 Absolute Neuts (auto) 2.1 10^3/uL (1.7-8.2) 02/07/19 08:56 Absolute Lymphs (auto) 0.7 10^3/uL (0.5-4.7) 02/07/19 08:56 Absolute Monos (auto) 0.4 10^3/uL (0.1-1.4) 02/07/19 08:56 Absolute Eos (auto) 0.2 10^3/uL (0.0-0.6) 02/07/19 08:56 Absolute Basos (auto) 0.0 10^3/uL (0.0-0.2) 02/07/19 08:56 Seg Neutrophils % 60.8 % (42-78) 02/07/19 08:56 PT 31.3 SEC (11.4-15.4) H 02/11/19 05:43 INR 2.94 02/11/19 05:43 APTT 49.7 SEC (23.5-35.8) H 02/04/19 20:49 Sodium 136.2 mmol/L (137-145) L 02/09/19 04:20 Potassium 5.0 mmol/L (3.6-5.0) 02/09/19 04:20 Chloride 97 mmol/L (98-107) L 02/09/19 04:20 Carbon Dioxide 27 mmol/L (22-30) 02/09/19 04:20 Anion Gap 12 (5-19) 02/09/19 04:20 BUN 64 mg/dL (7-20) H 02/09/19 04:20 Creatinine 4.98 mg/dL (0.52-1.25) H 02/09/19 04:20 Est GFR ( Amer) 11 (>60) L 02/09/19 04:20 Est GFR (MDRD) Non-Af 9 (>60) L 02/09/19 04:20 Glucose 109 mg/dL (75-110) 02/09/19 04:20 POC Glucose 153 mg/dL (70-110) H 02/11/19 16:04 Hemoglobin A1c % 7.6 % (4.7-6.0) H 02/05/19 04:22 Calcium 10.0 mg/dL (8.4-10.2) 02/09/19 04:20 Phosphorus 6.2 mg/dL (2.5-4.5) H 02/04/19 20:49 Magnesium 2.4 mg/dL (1.6-2.3) H 02/04/19 20:49 Total Bilirubin 0.8 mg/dL (0.2-1.3) 02/05/19 04:22 Direct Bilirubin 0.4 mg/dL (0.0-0.4) 02/05/19 04:22 Neonat Total Bilirubin Not Reportable 02/05/19 04:22 Neonat Direct Bilirubin Not Reportable 02/05/19 04:22 Neonat Indirect Bili Not Reportable 02/05/19 04:22 AST 28 U/L (14-36) 02/05/19 04:22 ALT 19 U/L (<35) 02/05/19 04:22 Alkaline Phosphatase 160 U/L (38-126) H 02/05/19 04:22 Ammonia < 8.7 umol/L (9-33) L 02/04/19 20:49 Creatine Kinase 26 U/L (30-135) L 02/07/19 08:56 CK-MB (CK-2) 1.13 ng/mL (<4.55) 02/07/19 08:56 Troponin I 0.253 ng/mL 02/09/19 04:20 Total Protein 7.4 g/dL (6.3-8.2) 02/05/19 04:22 Albumin 3.6 g/dL (3.5-5.0) 02/05/19 04:22 Triglycerides 55 mg/dL (<150) 02/05/19 04:22 Cholesterol 95.94 mg/dL (0-200) 02/05/19 04:22 LDL Cholesterol Direct 33 mg/dL (<100) 02/05/19 04:22 VLDL Cholesterol 11.0 mg/dL (10-31) 02/05/19 04:22 HDL Cholesterol 52 mg/dL (>40) 02/05/19 04:22 Amylase 35 U/L (30-110) 02/05/19 04:22 Lipase 15.0 U/L (23-300) L 02/05/19 04:22 TSH 3.93 uIU/mL (0.47-4.68) 02/04/19 20:49 Free T4 1.85 ng/dL (0.78-2.19) 02/04/19 20:49 Urine Color YELLOW 02/09/19 07:15 Urine Appearance CLOUDY 02/09/19 07:15 Urine pH 5.0 (5.0-9.0) 02/09/19 07:15 Ur Specific [place] 1.016 02/09/19 07:15 Urine Protein 100 mg/dL (NEGATIVE) H 02/09/19 07:15 Urine Glucose (UA) 50 mg/dL (NEGATIVE) H 02/09/19 07:15 Urine Ketones NEGATIVE mg/dL (NEGATIVE) 02/09/19 07:15 Urine Blood MODERATE (NEGATIVE) H 02/09/19 07:15 Urine Nitrite NEGATIVE (NEGATIVE) 02/09/19 07:15 Urine Bilirubin NEGATIVE (NEGATIVE) 02/09/19 07:15 Urine Urobilinogen 2.0 mg/dL (<2.0) H 02/09/19 07:15 Ur Leukocyte Esterase LARGE (NEGATIVE) H 02/09/19 07:15 Urine WBC (Auto) >182 /HPF 02/09/19 07:15 Urine RBC (Auto) 7 /HPF 02/09/19 07:15 U Hyaline Cast (Auto) 4 /LPF 02/05/19 04:05 Urine Bacteria (Auto) TRACE /HPF 02/09/19 07:15 Urine WBC Clumps MANY /HPF 02/09/19 07:15 Squamous Epi Cells Auto 6 /HPF 02/09/19 07:15 U Non-Squamous Epis Auto 1 /HPF 02/09/19 07:15 Amorphous Sediment Auto TRACE /HPF 02/09/19 07:15 Urine Mucus (Auto) RARE /LPF 02/09/19 07:15 Urine Ascorbic Acid NEGATIVE (NEGATIVE) 02/09/19 07:15 Stl Occult Blood (ICT) NEGATIVE (NEGATIVE) 02/08/19 23:10 Amiodarone 0.5 ug/mL (1.0-2.5) L 02/05/19 11:29 Noramiodarone 0.5 ug/mL (1.0-2.5) L 02/05/19 11:29 Urine Opiates Screen NEGATIVE 02/07/19 20:03 Urine Methadone Screen NEGATIVE 02/07/19 20:03 Ur Barbiturates Screen NEGATIVE 02/07/19 20:03 Ur Phencyclidine Scrn NEGATIVE 02/07/19 20:03 Ur Amphetamines Screen NEGATIVE 02/07/19 20:03 U Benzodiazepines Scrn NEGATIVE 02/07/19 20:03 Urine Cocaine Screen NEGATIVE 02/07/19 20:03 U Marijuana (THC) Screen NEGATIVE 02/07/19 20:03 02/04/19 02/04/19 02/05/19 11:20 20:49 04:22 CK-MB (CK-2) 0.97 0.97 Troponin I 0.080 0.109 0.100 02/05/19 02/06/19 02/06/19 08:47 14:15 20:24 CK-MB (CK-2) 0.83 1.11 1.70 Troponin I 0.088 0.069 0.278 02/07/19 02/07/19 02/08/19 02:31 08:56 04:23 CK-MB (CK-2) 1.32 1.13 Troponin I 0.446 0.444 0.333 02/09/19 04:20 CK-MB (CK-2) Troponin I 0.253
[2019-02-11] MEDS: ATORVASTATIN CALCIUM 20 MG TABLET PO SCH (21:16)
[2019-02-11] MEDS: WARFARIN SODIUM 2 MG TABLET PO SCH (21:17)
[2019-02-12] MEDS: PANTOPRAZOLE SODIUM 40 MG TABLET.DR PO SCH (05:26)
[2019-02-12] MEDS: OXYCODONE-ACETAMINOPHEN 5-325 MG TABLET PO PRN (05:26)
[2019-02-12] MEDS: INSULIN LISPRO 100 UNIT/ML 3 ML VIAL SUBCUT SCH ×4 (08:13→21:29)
[2019-02-12] MEDS: AMIODARONE HCL 200 MG TABLET PO SCH (09:27)
[2019-02-12] MEDS: CLONAZEPAM 1 MG TABLET PO SCH (09:28)
[2019-02-12] MEDS: ISOSORBIDE MONONITRATE 20 MG TABLET PO SCH ×2 (09:28→21:35)
[2019-02-12] MEDS: POLYVINYL ALCOHOL 1.4% OPH SOLN 15 ML OU SCH ×4 (09:29→21:35)
[2019-02-12] MEDS ORDERED: CLONAZEPAM 1 MG TABLET PO PRN (16:57)
--- NOTE | 2019-02-12 18:45 | PDOC PROGRESS REPORT ---
Subjective Progress Note for:: 02/11/19 Subjective:: Patient was seen by the bedside, the plan was for patient to be discharged home today, but she is very weak, the 2D echo that was done demonstrated moderately dilated left ventricle with mild concentric LVH. The left ventricle ejection fraction is 40% to 45%, there is severe pulmonary hypertension. The Lexiscan Cardiolite stress test that was done demonstrated scintigraphic evidence of a large area of mild cardiac infarction involving all the apical segments of the left ventricle, there is no reversible ischemia in the segments. There is scintigraphic evidence of mild myocardial infarction involving the inferior wall with no reversible ischemia Reason For Visit: SYMPTOMATIC BRADYCARDIA, ESRD ON HEMODIALYSIS Physical Exam Vital Signs: Temp Pulse Resp BP Pulse Ox 98.2 F 72 14 103/55 L 92 02/12/19 08:18 02/12/19 14:00 02/12/19 08:18 02/12/19 08:18 02/12/19 08:18 Intake & Output 02/11/19 02/12/19 02/13/19 06:59 06:59 06:59 Intake Total 1066 330 480 Output Total 875 2000 Balance 191 -1670 480 Weight 57 kg 58.4 kg General appearance: PRESENT: no acute distress Eye exam: PRESENT: PERRLA Respiratory exam: PRESENT: clear to auscultation lena Cardiovascular exam: PRESENT: +S1, +S2, systolic murmur GI/Abdominal exam: PRESENT: soft Neurological exam: PRESENT: alert Results Laboratory Results: 02/11/19 05:43 02/09/19 04:20 02/04/19 02/04/19 02/04/19 11:20 20:49 20:49 Creatine Kinase 30 CK-MB (CK-2) 0.97 Troponin I 0.080 0.109 02/05/19 02/05/19 02/05/19 04:22 04:22 08:47 Creatine Kinase 29 L 29 L CK-MB (CK-2) 0.97 Troponin I 0.100 02/05/19 02/06/19 02/06/19 08:47 14:15 14:15 Creatine Kinase 28 L CK-MB (CK-2) 0.83 1.11 Troponin I 0.088 0.069 02/06/19 02/06/19 02/07/19 20:24 20:24 02:31 Creatine Kinase 34 27 L CK-MB (CK-2) 1.70 Troponin I 0.278 02/07/19 02/07/19 02/07/19 02:31 08:56 08:56 Creatine Kinase 26 L CK-MB (CK-2) 1.32 1.13 Troponin I 0.446 0.444 02/08/19 02/09/19 04:23 04:20 Creatine Kinase CK-MB (CK-2) Troponin I 0.333 0.253 Assessment & Plan - Diagnosis (1) Syncope Qualifiers: Syncope type: unspecified Qualified Code(s): R55 - Syncope and collapse Is this a current diagnosis for this admission?: Yes (2) Bradycardia Is this a current diagnosis for this admission?: Yes (3) T2DM (type 2 diabetes mellitus) 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 Diabetes mellitus complication status: with kidney complications Diabetes mellitus complication detail: with chronic kidney disease Chronic kidney disease stage: on chronic dialysis Qualified Code(s): E11.22 - Type 2 diabetes mellitus with diabetic chronic kidney disease; N18.6 - End stage renal disease; Z79.4 - assistant terminal manager (current) use of insulin; Z99.2 - Dependence on renal dialysis Is this a current diagnosis for this admission?: Yes (4) ESRD (end stage renal disease) Is this a current diagnosis for this admission?: Yes (5) Pulmonary hypertension Is this a current diagnosis for this admission?: Yes (6) Ischemic cardiomyopathy Is this a current diagnosis for this admission?: Yes (7) Chronic systolic heart failure Is this a current diagnosis for this admission?: Yes Plan: Start low-dose beta-matt, carvedilol, 3.125 mg p.o. every 12,Low-dose va lsartan 40 mg p.o. every 12
--- NOTE | 2019-02-12 19:31 | PDOC PROGRESS REPORT ---
Subjective Progress Note for:: 02/12/19 Subjective:: Patient was seen by the bedside, the plan was for patient to be discharged home today, but she is very weak, the 2D echo that was done demonstrated moderately dilated left ventricle with mild concentric LVH. The left ventricle ejection fraction is 40% to 45%, there is severe pulmonary hypertension. The Lexiscan Cardiolite stress test that was done demonstrated scintigraphic evidence of a large area of mild cardiac infarction involving all the apical segments of the left ventricle, there is no reversible ischemia in the segments. There is scintigraphic evidence of mild myocardial infarction involving the inferior wall with no reversible ischemia.Patient discharge plan is canceled , She is very stuporous especially after taking Klonopin, the Klonopin dose will be reduced from 2 mg to 1 mg, patient is a fall risk, she would need physical therapy and rehabilitation. Consultation will be requested from PT discharge planning to be consulted to make plan for inpatient rehabilitation Reason For Visit: SYMPTOMATIC BRADYCARDIA, ESRD ON HEMODIALYSIS Physical Exam Vital Signs: Temp Pulse Resp BP Pulse Ox 98.2 F 72 14 103/55 L 92 02/12/19 08:18 02/12/19 14:00 02/12/19 08:18 02/12/19 08:18 02/12/19 08:18 Intake & Output 02/11/19 02/12/19 02/13/19 06:59 06:59 06:59 Intake Total 1066 330 480 Output Total 875 2000 Balance 191 -1670 480 Weight 57 kg 58.4 kg General appearance: PRESENT: no acute distress Eye exam: PRESENT: PERRLA Respiratory exam: PRESENT: clear to auscultation lena Cardiovascular exam: PRESENT: +S1, +S2 Results Laboratory Results: 02/11/19 05:43 02/09/19 04:20 02/04/19 02/04/19 02/04/19 11:20 20:49 20:49 Creatine Kinase 30 CK-MB (CK-2) 0.97 Troponin I 0.080 0.109 02/05/19 02/05/19 02/05/19 04:22 04:22 08:47 Creatine Kinase 29 L 29 L CK-MB (CK-2) 0.97 Troponin I 0.100 02/05/19 02/06/19 02/06/19 08:47 14:15 14:15 Creatine Kinase 28 L CK-MB (CK-2) 0.83 1.11 Troponin I 0.088 0.069 02/06/19 02/06/19 02/07/19 20:24 20:24 02:31 Creatine Kinase 34 27 L CK-MB (CK-2) 1.70 Troponin I 0.278 02/07/19 02/07/19 02/07/19 02:31 08:56 08:56 Creatine Kinase 26 L CK-MB (CK-2) 1.32 1.13 Troponin I 0.446 0.444 02/08/19 02/09/19 04:23 04:20 Creatine Kinase CK-MB (CK-2) Troponin I 0.333 0.253 Assessment & Plan - Diagnosis (1) Syncope Qualifiers: Syncope type: unspecified Qualified Code(s): R55 - Syncope and collapse Is this a current diagnosis for this admission?: Yes (2) Bradycardia Is this a current diagnosis for this admission?: Yes (3) T2DM (type 2 diabetes mellitus) Qualifiers: Diabetes mellitus lay out former insulin use: with lay out former use Diabetes mellitus complication status: with kidney complications Diabetes mellitus complication detail: with chronic kidney disease Chronic kidney disease stage: on chronic dialysis Qualified Code(s): E11.22 - Type 2 diabetes mellitus with diabetic chronic kidney disease; N18.6 - End stage renal disease; 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 every 12,Low-dose valsartan 40 mg p.o. every 12
[2019-02-12] MEDS: ATORVASTATIN CALCIUM 20 MG TABLET PO SCH (21:35)
[2019-02-12] MEDS: WARFARIN SODIUM 2 MG TABLET PO SCH (21:35)
[2019-02-12] MEDS ORDERED: VALSARTAN 40 MG TABLET PO SCH (22:00)
[2019-02-12] MEDS ORDERED: CARVEDILOL 3.125 MG TABLET PO SCH (22:00)
[2019-02-13] MEDS: PANTOPRAZOLE SODIUM 40 MG TABLET.DR PO SCH (05:11)
[2019-02-13 07:19] LABS: ANION GAP 13 (5-19); BLOOD UREA NITROGEN 53 mg/dL (7-20); CALCIUM 9.9 mg/dL (8.4-10.2); CARBON DIOXIDE 25 mmol/L (22-30); CHLORIDE 92 mmol/L (98-107); GLUCOSE 130 mg/dL (75-110); POTASSIUM 4.8 mmol/L (3.6-5.0)
[2019-02-13 08:02] VITALS: BP 115/59
[2019-02-13] MEDS ORDERED: AMIODARONE HCL INJ 150 MG/3 ML VIAL IV ONE (09:00)
[2019-02-13] MEDS ORDERED: SODIUM BICARBONATE 8.4% INJ 50 MEQ/50 ML DISP.SYRIN ONE ×2 (09:00→09:03)
[2019-02-13] MEDS ORDERED: DOPAMINE HCL/D5W 800 MG/250 ML RTU BAG IV ONE (09:00)
[2019-02-13] MEDS ORDERED: EPINEPHRINE INJ 1 MG/10 ML DISP.SYRIN ONE (09:00)
[2019-02-13] MEDS ORDERED: ATROPINE SULFATE INJ 1 MG/10 ML DISP.SYRIN IV ONE ×3 (09:00→09:04)
[2019-02-13] MEDS ORDERED: NOREPINEPHRINE BITARTRATE INJ/PF 4 MG/4 ML SDV IV ONE (09:18)
[2019-02-13 09:33] LABS: ARTERIAL BLOOD BASE EXCESS 0.5 mmol/L; ARTERIAL BLOOD H2CO3 1.17 mmol/L (1.05-1.35); ARTERIAL BLOOD HCO3 24.8 mmol/L (20-24); ARTERIAL BLOOD O2 SATURATION 99.3 % (94-98); ARTERIAL BLOOD PH 7.42 (7.35-7.45); ARTERIAL BLOOD PO2 191.7 mmHg (80-100)
[2019-02-13 09:34] LABS: ARTERIAL BLOOD FIO2 100%
--- NOTE | 2019-02-13 10:06 | Progress Note ---
Provider Note Provider Note: 02/13/2019- During dialysis rapid response called on patient. Apparently patient's blood pressure dropped down to 75 systolic. The time we arrived to the rapid response patient was a CODE BLUE situation. CPR was initiated. Medications were initiated as well as mechanical ventilation. Patient was given a total of 5 rounds of epinephrine, 3 rounds of atropine, 2 amps of bicarb, 150 mg of amiodarone and was started on dopamine. Patient was in PEA for 20 to 25 minutes during this code situation. And eventually went into an accelerated idioventricular rhythm with a pulse and a blood pressure. Patient was intubated #7.5 ET tube 25 at the lip with good breath sounds heard bilaterally. Chest x- ray will be obtained in the ICU. CBC, CMP, mag, phosphorus, PT PTT and an ABG was obtained. During the code patient went into ventricular fibrillation twice and was shocked with 120 J successfully on both occasions converting her into an idioventricular rhythm. Patient was transferred to the ICU for further evaluation treatment by Dr. Morales. I spent a total of 45 minutes of critical care time at patient's bedside continue see monitoring heart rate, story rate, O2 sats, medication ministration, cardioversion, and all aspects of this CODE BLUE situation.
--- NOTE | 2019-02-13 10:08 | Progress Note ---
Provider Note Provider Note: Pt was transferred to the ICU after suffering a cardiac arrest while on HD. The code was run by Fantasma Duarte NP. He transferred the pt to the ICU. Shortly after the pt arrived to the ICU, she became pulseless. ACLS was initiated. Resuscitation efforts were unsuccessful. Time of 9:37 am.
--- NOTE | 2019-02-13 10:08 | Death Summary ---
Summary Date : 02/13/19 Time of :: 09:37
--- NOTE | 2019-02-13 13:51 | Death Summary ---
Summary Date : 02/13/19 Time of :: 09:37 Autopsy: No Resuscitation Status: Full Code - Final Diagnosis (1) Cardiac arrest Is this a current diagnosis for this admission?: Yes (2) Ischemic cardiomyopathy Is this a current diagnosis for this admission?: Yes (3) Syncope Is this a current diagnosis for this admission?: Yes (4) Bradycardia Is this a current diagnosis for this admission?: Yes (5) T2DM (type 2 diabetes mellitus) Is this a current diagnosis for this admission?: Yes (6) ESRD (end stage renal disease) Is this a current diagnosis for this admission?: Yes (7) Pulmonary hypertension Is this a current diagnosis for this admission?: Yes (8) Chronic systolic heart failure Is this a current diagnosis for this admission?: Yes Hospital Course:: Patient was admitted when she presented with syncope associated with severe bradycardia at outpatient dialysis center. Consultation was obtained from cardiology, she underwent Lexiscan Cardiolite stress test, this demonstrated scintigraphic evidence of a large area of myocardiac infarction. A 2D echo was done that demonstrated ejection fraction, 40% to 45% of left ventricle. She has end-stage renal disease on maintenance hemodialysis, she was seen in consultation by nephrology she underwent hemodialysis on this admission. 3 sets of cardiac enzymes were negative for acute RI.Patient is chronically ill with multiple comorbid conditions, she was offered a LifeVest/AICD by the practice consultant dumpcart driver Dr. Stock but patient declined the offer. While she was in dialysis this morning she developed cardiac arrest, she was resuscitated, transferred to ICU intubated, she had another episode of cardiac arrest ulti mately she this morning.
--- NOTE | 2019-02-13 14:44 | PDOC PROGRESS REPORT ---
Subjective Progress Note for:: 02/13/19 Reason For Visit: Patient was seen on dialysis. Approximately half way into dialysis she went into respiratory failure and soon into cardiac arrest. CPR was instituted and she transferred from [facility] and was transferred to the ICU where she was pronounced . I did speak with her son and aunt to express my sympathies. Physical Exam Vital Signs: Temp Pulse Resp BP Pulse Ox 98.1 F 66 16 115/59 L 88 L 02/13/19 07:23 02/13/19 07:23 02/13/19 07:23 02/13/19 07:23 02/13/19 07:23 Intake & Output 02/12/19 02/13/19 02/14/19 06:59 06:59 06:59 Intake Total 330 480 Output Total 2000 100 Balance -1670 380 Weight 58.4 kg 56 kg Exam: Patient was seen while she was undergoing CPR. Vital signs were unstable. Respiratory exam: PRESENT: crackles, decreased breath sounds. ABSENT: clear to auscultation lena Cardiovascular exam: PRESENT: +S1, +S2. ABSENT: rubs GI/Abdominal exam: PRESENT: normal bowel sounds, soft. ABSENT: organomegaly, tenderness Results Laboratory Results: 02/11/19 05:43 02/13/19 06:36 02/13/19 02/13/19 06:36 09:05 Carbonic Acid 1.17 HCO3/H2CO3 Ratio 21:1 ABG pH 7.42 ABG pCO2 39.0 ABG pO2 191.7 H ABG HCO3 24.8 H ABG O2 Saturation 99.3 H ABG Base Excess 0.5 FiO2 100% Sodium 130.0 L Potassium 4.8 Chloride 92 L Carbon Dioxide 25 Anion Gap 13 BUN 53 H Creatinine 4.80 H Est GFR ( Amer) 11 L Glucose 130 H Calcium 9.9 02/04/19 02/04/19 02/04/19 11:20 20:49 20:49 Creatine Kinase 30 CK-MB (CK-2) 0.97 Troponin I 0.080 0.109 02/05/19 02/05/19 02/05/19 04:22 04:22 08:47 Creatine Kinase 29 L 29 L CK-MB (CK-2) 0.97 Troponin I 0.100 02/05/19 02/06/19 02/06/19 08:47 14:15 14:15 Creatine Kinase 28 L CK-MB (CK-2) 0.83 1.11 Troponin I 0.088 0.069 02/06/19 02/06/19 02/07/19 20:24 20:24 02:31 Creatine Kinase 34 27 L CK-MB (CK-2) 1.70 Troponin I 0.278 02/07/19 02/07/19 02/07/19 02:31 08:56 08:56 Creatine Kinase 26 L CK-MB (CK-2) 1.32 1.13 Troponin I 0.446 0.444 02/08/19 02/09/19 04:23 04:20 Creatine Kinase CK-MB (CK-2) Troponin I 0.333 0.253 Assessment & Plan - Diagnosis (1) Syncope Qualifiers: Syncope type: unspecified Qualified Code(s): R55 - Syncope and collapse Is this a current diagnosis for this admission?: Yes Plan: She is got mixed cardiomyopathy with syncope. As per discussions done with britney nelson/Dr. Stock patient was not willing to have AICD.. (2) Bradycardia Plan: In the face of mixed cardiomyopathy. (3) ESRD (end stage renal disease) Is this a current diagnosis for this admission?: Yes Plan: Patient was undergoing dialysis initially well but later if she went into respiratory failure followed by cardiac arrest. CPR was instituted but she was not able to be resuscitated and was pronounced after prolonged attempts with CPR. (4) Atrial fibrillation Qualifiers: Atrial fibrillation type: chronic
== END 2019-02-13 09:37 | DRG 302 ==
LOC: ER 11:12 → EH 14:15 → 3S 17:01 → ICU 02-13 09:32
PROVIDERS: ADMIT Internal Medicine; ATTEND Internal Medicine
PROC: 5A1D70Z Performance of Urinary Filtration, Intermittent, Less than 6 Hours Per Day (ICD-10-PCS; 2019-02-06)
PROC: 5A1D70Z Performance of Urinary Filtration, Intermittent, Less than 6 Hours Per Day (ICD-10-PCS; 2019-02-09)
PROC: 5A1D70Z Performance of Urinary Filtration, Intermittent, Less than 6 Hours Per Day (ICD-10-PCS; 2019-02-11)
PROC: 0BH17EZ Insertion of Endotracheal Airway into Trachea, Via Natural or Artificial Opening (ICD-10-PCS; principal; 2019-02-13)
PROC: 5A1935Z Respiratory Ventilation, Less than 24 Consecutive Hours (ICD-10-PCS; 2019-02-13)
DX: I25.5 Ischemic cardiomyopathy (principal); N18.6 End stage renal disease; J96.00 Acute respiratory failure, unspecified whether with hypoxia or hypercapnia; I13.2 Hypertensive heart and chronic kidney disease with heart failure and with stage 5 chronic kidney disease, or end stage renal disease; I50.22 Chronic systolic (congestive) heart failure; N25.81 Secondary hyperparathyroidism of renal origin; R00.1 Bradycardia, unspecified; I46.9 Cardiac arrest, cause unspecified; I27.20 Pulmonary hypertension, unspecified; I48.0 Paroxysmal atrial fibrillation; E11.22 Type 2 diabetes mellitus with diabetic chronic kidney disease; I25.10 Atherosclerotic heart disease of native coronary artery without angina pectoris; E78.5 Hyperlipidemia, unspecified; M19.90 Unspecified osteoarthritis, unspecified site; I95.1 Orthostatic hypotension; D63.1 Anemia in chronic kidney disease; F17.200 Nicotine dependence, unspecified, uncomplicated; N25.0 Renal osteodystrophy; R80.9 Proteinuria, unspecified; I25.2 Old myocardial infarction; Z95.5 Presence of coronary angioplasty implant and graft; J44.9 Chronic obstructive pulmonary disease, unspecified; Z99.2 Dependence on renal dialysis; Z79.4 Long term (current) use of insulin; Z79.01 Long term (current) use of anticoagulants; Z88.0 Allergy status to penicillin; Z88.1 Allergy status to other antibiotic agents; Z88.8 Allergy status to other drugs, medicaments and biological substances; Z71.6 Tobacco abuse counseling
CPT/HCPCS: 36415; 78452; 80048; 80053; 80061; 80307; 81001; 82140; 82150; 82272; 82542; 82550; 82553; 82803; 82962; 83036; 83690; 83735; 84100; 84439; 84443; 84484; 85025; 85027; 85610; 85730; 87086; 87088; 87186; 93005; 93010; 93017; 93306; 93925; 94060; 94727; 94729; 99285; A9500; J0171; J0282; J0461; J1265; J1815; J2785; J3490; J7614; Q9969